=== PATIENT | female | born 1955 | race Caucasian/White ===

== ENCOUNTER 2018-05-08 06:21 | Emergency (ER) | payer MEDICARE, OTHER ==
[2018-05-08] MEDS ORDERED: ONDANSETRON 4 MG/2 ML VIAL ONE (06:30)
[2018-05-08] MEDS ORDERED: VECURONIUM 10 MG/VIAL IV ONE (06:30)
[2018-05-08] MEDS ORDERED: WATER FOR INJ,STERILE 10 ML ONE (06:30)
[2018-05-08] MEDS ORDERED: FUROSEMIDE 40 MG/4 ML VIAL ONE (06:39)
[2018-05-08] MEDS ORDERED: FUROSEMIDE 20 MG/ 2ML VIAL ONE (06:39)
[2018-05-08 07:13] LABS: Protime INR 0.93
[2018-05-08 07:38] LABS: Albumin 2.9 g/dL (3.4-5.0); Bilirubin Direct 0.1 mg/dL (0-0.2); Bilirubin Total 0.4 mg/dL (0.2-1.0); Magnesium 1.5 mg/dL (1.8-2.4); Protein, Total 6.6 g/dL (6.4-8.2)
[2018-05-08 07:40] LABS: Absolute Lymphocytes (CBC) 0.9 K/uL (0.7-4.9); Absolute Neutrophil 11.5 K/uL (1.8-8.0); Basophils % 0.4 % (0-1.3); Eosinophils % 0.4 % (0-4.4); Hematocrit 37.4 % (36.0-45.0); Lymphocytes % 6.7 % (15.3-44.8); MCH 29.6 pg (27.0-35.0); MCV 88.6 fL (80-100); MPV 10.4 fL (7.6-11.3); Monocytes % 7.5 % (3.3-12.3); RBC Red Blood Cell Count 4.22 M/uL (3.86-4.86)
[2018-05-08] MEDS ORDERED: ASPIRIN 600 MG/SUPP PR ONE (08:00)
[2018-05-08] MEDS ORDERED: INSULIN -REGULAR HUMAN 50 UNIT/0.5 ML ML ONE (08:01)
[2018-05-08] MEDS ORDERED: FENTANYL CITR 100 MCG/2 ML ONE ×2 (08:02→10:19)
[2018-05-08] MEDS ORDERED: CEFTRIAXONE/SWI 1gm 1 GM/10 ML SYR ONE (08:02)
[2018-05-08] MEDS ORDERED: Magnesium Sulfate 2gm IVPB 2 G/50 ML BAG IV ONE (08:02)
[2018-05-08] MEDS ORDERED: ENOXAPARIN 100 MG/ML SYR SQ ONE (08:02)
[2018-05-08] MEDS ORDERED: ENOXAPARIN 60 MG/0.6 ML SQ ONE (08:03)
[2018-05-08] MEDS ORDERED: MIDAZOLAM HCL 2 MG/2 ML INJ ONE ×2 (08:06→10:19)
[2018-05-08] MEDS ORDERED: AZITHROMYCIN 500 MG/250 ML BAG ONE (08:07)
--- NOTE | 2018-05-08 08:30 | EDPHYS ---
Physician Documentation [facility] Name: Jyoti Pringle Age: 62 yrs Sex: Female : 1955 Arrival Date: 05/08/2018 Time: 06:27 Bed 4 Private MD: ED Physician Bello Lewis HPI: 05/08 07:01 This 62 yrs old Female presents to ER via EMS with complaints of Respiratory jr8 Distress. 07:01 The patient has shortness of breath at rest. Onset: The symptoms/episode began/occurred jr8 acutely, today. Duration: The symptoms are continuous. The patient's shortness of breath has no apparent modifying factors. Severity of symptoms: At their worst the symptoms were severe in the emergency department the symptoms have improved. It is unknown whether or not the patient has had similar symptoms in the past. It is unknown whether or not the patient has recently seen a physician. Patient brought in by EMS for severe acute respiratory distress. Stated that patient was hypoxic and cyanotic on scene. Had tried CPAP and could only obtain a saturation of 85% on that. Patient continued to be in distress. Patient had RSI in field. Patient came in intubated with appropriate oxygen saturation. Frothy sputum present in ET tube . Historical: - Allergies: 08:50 No Known Allergies; aa5 - Home Meds: 06:42 Unable to obtain [Active]; lp1 - PMHx: 06:42 CHF; diabetes; lp1 08:50 Myocardial infarction; aa5 - PSHx: 08:50 Heart stents; Carotid surgery; aa5 - Immunization history:: Adult Immunizations unknown. - Social history:: Smoking status: unknown. - Ebola Screening: : No symptoms or risks identified at this time. ROS: 07:54 Unable to obtain ROS due to patient is on ventilator. jr8 Exam: 07:54 Eyes: Periorbital structures: appear normal, Pupils: equal, round, and reactive to jr8 light and accomodation, Conjunctiva: normal, Lids and lashes: appear normal. 07:54 ENT: Mouth: Lips: moist, Oral mucosa: pink and intact, moist, Gums: pink, Tongue: is moist, Posterior pharynx: Airway: patent, ET tube in place, Uvula: midline, swelling, is not appreciated. 07:54 Neck: External neck: is normal, Trachea: is midline with no obvious abnormalities, ROM/movement: is normal, Lymph nodes: no appreciated lymphadenopathy. 07:54 Cardiovascular: Rate: normal, Rhythm: regular, Pulses: Pulses are 2+ in right radial artery and left radial artery. Heart sounds: normal, normal S1and S2, no S3 or S4, no murmur, no rub, no gallop, Edema: 3+ edema to level of left midcalf, left ankle, left foot, right midcalf, right ankle and right foot. 07:54 Respiratory: the patient does not display signs of respiratory distress, Respirations: mechanically ventilated , Breath sounds: rales, that are moderate, are heard diffusely. 07:54 Abdomen/GI: Inspection: obese Bowel sounds: active, Palpation: soft. 07:54 Skin: Appearance: Color: normal in color, pink, Temperature: normal temperature, Moisture: normal moisture. 07:54 Neuro: Orientation: unable to test, the patient is intubated, Mentation: unable to test, the patient is intubated, Memory: unable to test, the patient is intubated. 07:54 Head/Face: Normocephalic, atraumatic. jr8 Vital Signs: 06:42 BP 156 / 74; Pulse 92; Resp 23; Pulse Ox 94% on 90% FiO2 ETT vent; Weight 145.15 kg; lp1 07:00 BP 91 / 50; Pulse 73; Resp 16 A; Pulse Ox 93% on ETT vent; aa5 07:10 BP 140 / 62; Pulse 81; Resp 16 A; Temp 97.3(C); Pulse Ox 96% on ETT vent; aa5 07:20 BP 109 / 67; Pulse 74; Resp 16 S; Temp 98.2(C); Pulse Ox 96% on ETT vent; aa5 07:30 BP 124 / 62; Pulse 74; Resp 16 A; Temp 98.5(C); Pulse Ox 96% on ETT vent; aa5 07:40 BP 158 / 72; Pulse 87; Resp 16 A; Pulse Ox 97% on ETT vent; aa5 07:50 BP 104 / 55; Pulse 74; Resp 16 A; Temp 98.4(C); Pulse Ox 98% on ETT vent; aa5 08:10 BP 92 / 51; Pulse 68; Resp 16 A; Temp 98.4(C); Pulse Ox 98% on ETT vent; aa5 08:30 BP 93 / 56; Pulse 65; Resp 16 A; Temp 98.3(C); Pulse Ox 100% on ETT vent; aa5 08:38 BP 88 / 44; Pulse 64; Resp 16 A; Temp 98.3(C); Pulse Ox 100% on ETT vent; aa5 08:48 BP 97 / 56; Pulse 68; Resp 16 A; Temp 98.1(C); Pulse Ox 100% on ETT vent; aa5 09:03 BP 108 / 62; Pulse 69; Resp 16 A; Temp 98.1(C); Pulse Ox 100% on ETT vent; aa5 09:23 BP 111 / 62; Pulse 69; Resp 16 A; Temp 98.2(C); Pulse Ox 100% on ETT vent; aa5 09:45 BP 119 / 68; Pulse 67; Resp 16 A; Temp 98.3(C); Pulse Ox 100% on ETT vent; aa5 10:00 BP 117 / 67; Pulse 73; Resp 16 A; Temp 98.2(C); Pulse Ox 100% on ETT vent; aa5 10:20 BP 126 / 65; Pulse 66; Resp 16 A; Temp 98.3(C); Pulse Ox 100% on ETT vent; aa5 08:38 PA notified of decreased BP aa5 Endy Coma Score: 07:54 Eye Response: none(1). Verbal Response: none(1). Motor Response: none(1). Modifying jr8 Factors: Intubated. Total: 3. Ventilator: 06:43 Fi02: 90%; Rate: 14min; T.V.: 600ml; Peep: 5cm; lp1 07:10 Fi02: 90%; Rate: 16min; T.V.: 600ml; Peep: 5cm; aa5 Procedures: 07:00 Central Line: the site was prepped with Betadine, in sterile fashion, a triple lumen jr8 catheter was inserted, in the right femoral vein, in 1 attempts. placement was verified, by blood return, the site was dressed with 4X4s, Tegaderm, foam tape, using sterile technique, the patient tolerated the procedure, well. MDM: 06:28 Patient medically screened. jr8 07:54 Data reviewed: vital signs, nurses notes, lab test result(s), EKG, radiologic studies, jr8 plain films. Data interpreted: Pulse oximetry: on ventilator is 96 %. Interpretation: acceptable. Counseling: I had a detailed discussion with the patient and/or guardian regarding: the historical points, exam findings, and any diagnostic results supporting the discharge/admit diagnosis, lab results, radiology results, the need to transfer to another facility, for higher level of care, [facility] does not immediately have the required specialist. 05/08 06:30 Order name: Basic Metabolic Panel; Complete Time: 07:42 05/08 06:30 Order name: CBC with Diff; Complete Time: 08:06 05/08 06:30 Order name: LFT's; Complete Time: 07:42 05/08 06:30 Order name: Magnesium; Complete Time: 07:42 05/08 06:30 Order name: NT PRO-BNP; Complete Time: 07:42 05/08 06:30 Order name: PT-INR; Complete Time: 07:42 05/08 06:30 Order name: Troponin (emerg Dept Use Only); Complete Time: 07:42 05/08 06:30 Order name: XRAY Chest (1 view) [facility] 05/08 06:30 Order name: ABG [facility] 05/08 06:57 Order name: Blood Culture Adult (2) 1 05/08 06:30 Order name: EKG; Complete Time: 06:31 05/08 06:30 Order name: Cardiac monitoring; Complete Time: 07:08 05/08 06:30 Order name: EKG - Nurse/Tech; Complete Time: 07:15 05/08 06:30 Order name: IV Saline Lock; Complete Time: 07:08 05/08 06:30 Order name: Labs collected and sent; Complete Time: 07:08 05/08 06:30 Order name: O2 Per Protocol; Complete Time: 07:08 05/08 06:30 Order name: O2 Sat Monitoring; Complete Time: 07:09 05/08 06:30 Order name: NG Tube; Complete Time: 06:40 05/08 06:30 Order name: Aragon; Complete Time: 07:14 Administered Medications: 06:33 Drug: VecuroNIUM 10 mg Route: IVP; Site: right hand; bb 07:00 Follow up: Response: No adverse reaction aa5 06:33 Drug: Zofran 4 mg Route: IVP; Site: right hand; bb 07:00 Follow up: Response: No adverse reaction aa5 06:40 Drug: Lasix 60 mg Route: IVP; Site: right hand; bb 07:00 Follow up: Response: No adverse reaction aa5 07:40 Drug: Versed 4 mg Route: IVP; Site: right femoral; aa5 07:45 Follow up: Response: No adverse reaction aa5 07:40 Drug: fentaNYL (PF) 75 mcg Route: IVP; Site: right femoral; aa5 07:45 Follow up: Response: No adverse reaction aa5 08:02 Drug: Insulin Regular Human 10 units {Co-Signature: jl7 (Tesha Ray RN).} Route: IVP; aa5 Site: right femoral; 09:21 Follow up: Response: No adverse reaction; Blood sugar is lowered aa5 08:03 Drug: Lovenox 1 mg/kg {Note: total of 120mg administered per PA VO. 60mg given to left aa5 lower abd and 60mg given to right lower abd .} Route: Sub-Q; Site: left lower abdomen; 09:20 Follow up: Response: No adverse reaction aa5 08:05 Drug: Aspirin Suppository 300 mg Route: FL; aa5 09:18 Follow up: Response: No adverse reaction aa5 08:07 Drug: Rocephin 1 grams Route: IV; Rate: calculated rate; Site: right femoral; aa5 08:20 Follow up: Response: No adverse reaction aa5 08:10 Drug: Zithromax 500 mg Route: IVPB; Infused Over: 1 hrs; Site: right femoral; aa5 09:11 Follow up: Response: No adverse reaction; IV Status: Completed infusion aa5 08:12 Drug: Magnesium Sulfate 2 grams Route: IVPB; Infused Over: 2 hrs; Site: right femoral; aa5 08:39 Drug: NS 0.9% 250 ml Route: IV; Rate: bolus; Site: right femoral; aa5 09:00 Follow up: IV Status: Completed infusion aa5 10:27 Drug: fentaNYL (PF) 75 mcg Route: IVP; Site: right femoral; aa5 10:30 Follow up: Response: No adverse reaction; Patient is sedated aa5 10:27 Drug: Versed 2 mg Route: IVP; Site: right femoral; aa5 10:30 Follow up: Response: No adverse reaction; Patient is sedated aa5 Point of Care Testing: Blood Glucose: 07:57 Blood Glucose: 369 mg/dL; jb1 09:14 Blood Glucose: 342 mg/dL; aa5 Ranges: Critical Glucose Levels:Adult <50 mg/dl or >400 mg/dl <40 mg/dl or >180 mg/dl Disposition: 05/09 02:59 Co-signature as Attending Physician, Bello Lewis MD. rn Disposition: 05/08/18 08:[address] [facility]. Diagnosis are Abnormal electrocardiogram [ECG] [EKG], Acute respiratory failure with hypoxia, Acute combined systolic (congestive) and diastolic (congestive) heart failure, Pneumonia due to other specified bacteria. - Reason for transfer: Higher level of care. - Accepting physician is [facility]. - Condition is Fair. - Problem is new. - Symptoms have improved. Signatures: Dispatcher [employer] EDMS Татьяна Lobo RN RN Bello Simmons MD MD rn Calderon, Audri, RN RN Tamanna Mae RN RN luis1 Maicol Cantu PA PA jr8 Tesha Ray RN jl7 Corrections: (The following items were deleted from the chart) 05/08 08:28 07:54 Counseling: I had a detailed discussion with the patient and/or guardian dewey regarding: the historical points, exam findings, and any diagnostic results supporting the discharge/admit diagnosis, lab results, radiology results, the need for further work-up and treatment in the hospital, jr8 09:10 06:42 Allergies: Unable to obtain; lp1 kira5 09:10 06:42 PSHx: Unable to obtain; lp1 kira5 10:34 06:30 Urine Dipstick-Ancillary ordered. jr8 aa5 10:35 08:29 05/08/2018 08:[address] [facility]. Diagnosis is aa5 Abnormal electrocardiogram [ECG] [EKG]; Acute respiratory failure with hypoxia; Acute combined systolic (congestive) and diastolic (congestive) heart failure; Pneumonia due to other specified bacteria. Reason for transfer: Higher level of care. Accepting physician is RHONDA Dias Alexandra. Condition is Fair. Problem is new. Symptoms have improved. jr8
--- NOTE | 2018-05-08 08:30 | ER ---
Nurse's Notes [facility] Name: Jyoti Pringle Age: 62 yrs Sex: Female : 1955 Arrival Date: 05/08/2018 Time: 06:27 Bed 4 Private MD: Diagnosis: Abnormal electrocardiogram [ECG] [EKG];Acute respiratory failure with hypoxia;Acute combined systolic (congestive) and diastolic (congestive) heart failure;Pneumonia due to other specified bacteria Presentation: 05/08 06:36 Presenting complaint: EMS states: On arrival, patient was short of breath, lethargic, lp1 wet lung sounds, cyanotic around lips, 78% on RA; Attempted CPAP with no relief, patient continued labored breathing, 85% O2; Patient intubated with 8.0 ET tube, 98% O2, 22 at the teeth; Hx of CHF. Transition of care: patient was not received from another setting of care. Onset of symptoms was May 08, 2018 at 04:00. Risk Assessment: Do you want to hurt yourself or someone else? Patient reports no desire to harm self or others. Initial Sepsis Screen: Does the patient meet any 2 criteria? No. Patient's initial sepsis screen is negative. Does the patient have a suspected source of infection? No. Patient's initial sepsis screen is negative. Care prior to arrival: Medication(s) given: Ketamine 200 mg IV, Succs 100 mg IV IV initiated. 22 GA, in the right hand, Glucose check: 375. 06:36 Method Of Arrival: [facility]: [facility] lp1 06:36 Acuity: MARIA ALEJANDRA 2 lp1 Historical: - Allergies: 08:50 No Known Allergies; aa5 - Home Meds: 06:42 Unable to obtain [Active]; lp1 - PMHx: 06:42 CHF; diabetes; lp1 08:50 Myocardial infarction; aa5 - PSHx: 08:50 Heart stents; Carotid surgery; aa5 - Immunization history:: Adult Immunizations unknown. - Social history:: Smoking status: unknown. - Ebola Screening: : No symptoms or risks identified at this time. Screenin:44 Abuse screen: Denies threats or abuse. Denies injuries from another. Nutritional lp1 screening: No deficits noted. Tuberculosis screening: No symptoms or risk factors identified. Fall Risk Total Trevino Fall Scale indicates High Risk Score (45 or more points). Fall prevention measures have been instituted. Side Rails Up X 2 Placed Close to Nursing Station Frequent Obs/Assessments Occuring. Assessment: 06:45 General: Appears distressed, Behavior is unresponsive. Pain: Unable to use pain scale. lp1 Patient is unresponsive. Neuro: Level of Consciousness is unresponsive. Cardiovascular: Capillary refill < 3 seconds in bilateral fingers toes Edema pitting to left foot, left toes, right foot and right toes. Respiratory: Airway via oral intubation Trachea midline Respiratory effort is labored, Respiratory pattern is symmetrical, Breath sounds with rales Onset: The symptoms/episode began/occurred this morning, the patient has severe shortness of breath. GI: Abdomen is obese. : No deficits noted. EENT: No deficits noted. Derm: Skin is intact, Skin is dry, Skin is pale. Musculoskeletal: Range of motion: intact in all extremities. 07:10 Pain: Unable to use pain scale. Patient is intubated. Neuro: Level of Consciousness is aa5 intubated . Oriented to none, pt unable to follow commands. Pupils are round and reactive to light measuring 4 mm in size . Cardiovascular: Heart tones S1 S2 present Edema to feet noted Rhythm is sinus rhythm. Respiratory: Airway via oral intubation Respiratory pattern is regular, symmetrical, Breath sounds with crackles bilaterally. GI: Abdomen is obese, NG tube to low intermittent suction, bile noted. Bowel sounds present X 4 quads. : Aragon in place to gravity drainage No urine output noted Genitalia appear normal. Derm: Skin is intact, Skin is pink, warm \T\ dry. Musculoskeletal: Range of motion: intact in all extremities. 07:20 Reassessment: Fentanyl and Versed on hold per PA . aa5 07:30 Reassessment: Pt cleaned of vomit, warehouse supervisor 3rd shift reported pt vomited, food content noted. aa5 Clean gown applied and bed linen changed. . 07:40 Reassessment: Pt opening eyes and moving hands. Fentanyl and Versed administered per PA aa5 (see MAR). 08:00 Reassessment: Pt sedated, intubated, respirations even and symmetrical and assisted by aa5 ventilator. Skin is pink/warm/dry. NSR on monitor . 08:40 Reassessment: Pt's son at bedside, PA speaking to pt's son about need for transfer . aa5 08:45 Reassessment: SHANELL Milian speaking to pt's family and sister about need for transfer, pt's aa5 family requesting transfer to [facility]. Transfer to [facility] will be attempted by PA . 08:58 Reassessment: one necklace and 2 stud earrings that are all silver in color given to aa5 pt's sister, witnessed by VINAY Parkinson. 08:58 Reassessment: VINAY Murray gave one necklace and 2 stud earrings that are all silver in jl7 color to pt's sister. 09:00 Reassessment: Pt orally intubated, sedated, respirations even and symmetrical. NSR on aa5 monitor. Skin is pink/warm/dry. Pt's family at bedside . 10:00 Reassessment: Pt orally intubated, sedated, even and symmetrical respirations, skin is aa5 pink/warm/dry. 10:26 Reassessment: Pt opening eyes and moving hands, PA notified, order for versed and aa5 Fentanyl (see MAR). 10:30 Reassessment: Pt sedated, orally intubated, respirations even and symmetrical . aa5 Vital Signs: 06:42 BP 156 / 74; Pulse 92; Resp 23; Pulse Ox 94% on 90% FiO2 ETT vent; Weight 145.15 kg; lp1 07:00 BP 91 / 50; Pulse 73; Resp 16 A; Pulse Ox 93% on ETT vent; aa5 07:10 BP 140 / 62; Pulse 81; Resp 16 A; Temp 97.3(C); Pulse Ox 96% on ETT vent; aa5 07:20 BP 109 / 67; Pulse 74; Resp 16 S; Temp 98.2(C); Pulse Ox 96% on ETT vent; aa5 07:30 BP 124 / 62; Pulse 74; Resp 16 A; Temp 98.5(C); Pulse Ox 96% on ETT vent; aa5 07:40 BP 158 / 72; Pulse 87; Resp 16 A; Pulse Ox 97% on ETT vent; aa5 07:50 BP 104 / 55; Pulse 74; Resp 16 A; Temp 98.4(C); Pulse Ox 98% on ETT vent; aa5 08:10 BP 92 / 51; Pulse 68; Resp 16 A; Temp 98.4(C); Pulse Ox 98% on ETT vent; aa5 08:30 BP 93 / 56; Pulse 65; Resp 16 A; Temp 98.3(C); Pulse Ox 100% on ETT vent; aa5 08:38 BP 88 / 44; Pulse 64; Resp 16 A; Temp 98.3(C); Pulse Ox 100% on ETT vent; aa5 08:48 BP 97 / 56; Pulse 68; Resp 16 A; Temp 98.1(C); Pulse Ox 100% on ETT vent; aa5 09:03 BP 108 / 62; Pulse 69; Resp 16 A; Temp 98.1(C); Pulse Ox 100% on ETT vent; aa5 09:23 BP 111 / 62; Pulse 69; Resp 16 A; Temp 98.2(C); Pulse Ox 100% on ETT vent; aa5 09:45 BP 119 / 68; Pulse 67; Resp 16 A; Temp 98.3(C); Pulse Ox 100% on ETT vent; aa5 10:00 BP 117 / 67; Pulse 73; Resp 16 A; Temp 98.2(C); Pulse Ox 100% on ETT vent; aa5 10:20 BP 126 / 65; Pulse 66; Resp 16 A; Temp 98.3(C); Pulse Ox 100% on ETT vent; aa5 08:38 PA notified of decreased BP aa5 Endy Coma Score: 07:54 Eye Response: none(1). Verbal Response: none(1). Motor Response: none(1). Modifying jr8 Factors: Intubated. Total: 3. ED Course: 06:27 Patient arrived in ED. ds1 06:28 Maicol Cantu PA is PHCP. jr8 06:28 Bello Lewis MD is Attending Physician. jr8 06:34 XRAY Chest (1 view) In Process Unspecified. EDMS 06:40 NGT: inserted 16 Fr. other Oral verified placement of air over stomach, verified return lp1 of gastric contents, to intermittent suction. Returned gastric contents. 06:41 Triage completed. lp1 06:41 Arm band placed on left wrist. lp1 06:43 Patient has correct armband on for positive identification. Placed in gown. Bed in low lp1 position. Side rails up X2. application processor on. Pulse ox on. NIBP on. 06:44 Assisted provider with intubation using 8.0 mm ETT via oral route. ET tube secured at lp1 23cm at the teeth. Placement verified by CXR, CO2 detector w/ + color change, auscultating bilateral breath sounds, Performed by EMS, verified by provider. 06:46 Maintain EMS IV. Dressing intact. Site clean \T\ dry. Gauge \T\ site: 22 g R hand. lp 1 06:50 X-ray completed. Portable x-ray completed in exam room. kp1 06:54 Assisted provider with central line placement. Set up central line tray. Triple lumen lp1 line placed in right femoral. Line placed by Maicol REECE Placement verified by blood return, Dressed with Tegaderm, Blood was collected. 07:05 Tamanna Stevens, RN is Primary Nurse. lp1 07:10 Speci-cath kit inserted, using sterile technique, 16 Fr.. jd3 08:25 Initial contact for transfer to [facility] with Marisol. mb4 08:32 2nd phone call with Marisol and Dr. Mcmahon, immigration officer, from [facility] regarding 4 coordination of care. 09:01 Initial contact for transfer to [facility], per family request, with Joan. mb4 09:33 Patient accepted at [facility] by Shaun Hernandez at 0833 and by administration at [phone]. [facility] declined patient at 0930. 10:25 Patient transferred, IV remains in place. aa5 Administered Medications: 06:33 Drug: VecuroNIUM 10 mg Route: IVP; Site: right hand; bb 07:00 Follow up: Response: No adverse reaction aa5 06:33 Drug: Zofran 4 mg Route: IVP; Site: right hand; bb 07:00 Follow up: Response: No adverse reaction aa5 06:40 Drug: Lasix 60 mg Route: IVP; Site: right hand; bb 07:00 Follow up: Response: No adverse reaction aa5 07:40 Drug: Versed 4 mg Route: IVP; Site: right femoral; aa5 07:45 Follow up: Response: No adverse reaction aa5 07:40 Drug: fentaNYL (PF) 75 mcg Route: IVP; Site: right femoral; aa5 07:45 Follow up: Response: No adverse reaction aa5 08:02 Drug: Insulin Regular Human 10 units {Co-Signature: jl7 (Tesha Ray RN).} Route: IVP; aa5 Site: right femoral; 09:21 Follow up: Response: No adverse reaction; Blood sugar is lowered aa5 08:03 Drug: Lovenox 1 mg/kg {Note: total of 120mg administered per PA VO. 60mg given to left aa5 lower abd and 60mg given to right lower abd .} Route: Sub-Q; Site: left lower abdomen; 09:20 Follow up: Response: No adverse reaction aa5 08:05 Drug: Aspirin Suppository 300 mg Route: MD; aa5 09:18 Follow up: Response: No adverse reaction aa5 08:07 Drug: Rocephin 1 grams Route: IV; Rate: calculated rate; Site: right femoral; aa5 08:20 Follow up: Response: No adverse reaction aa5 08:10 Drug: Zithromax 500 mg Route: IVPB; Infused Over: 1 hrs; Site: right femoral; aa5 09:11 Follow up: Response: No adverse reaction; IV Status: Completed infusion aa5 08:12 Drug: Magnesium Sulfate 2 grams Route: IVPB; Infused Over: 2 hrs; Site: right femoral; aa5 08:39 Drug: NS 0.9% 250 ml Route: IV; Rate: bolus; Site: right femoral; aa5 09:00 Follow up: IV Status: Completed infusion aa5 10:27 Drug: fentaNYL (PF) 75 mcg Route: IVP; Site: right femoral; aa5 10:30 Follow up: Response: No adverse reaction; Patient is sedated aa5 10:27 Drug: Versed 2 mg Route: IVP; Site: right femoral; aa5 10:30 Follow up: Response: No adverse reaction; Patient is sedated aa5 Point of Care Testing: Blood Glucose: 07:57 Blood Glucose: 369 mg/dL; jb1 09:14 Blood Glucose: 342 mg/dL; aa5 Ranges: Ventilator: 06:43 Fi02: 90%; Rate: 14min; T.V.: 600ml; Peep: 5cm; lp1 07:10 Fi02: 90%; Rate: 16min; T.V.: 600ml; Peep: 5cm; aa5 Outcome: 08:29 ER care complete, transfer ordered by MD. palomo 10:25 Transferred by ground EMS to [facility], [facility], Transfer form completed. aa5 X-rays sent w/ patient. Note: Report given to [facility] 10:25 Condition: stable 10:25 Discharge instructions given to family, Instructed on the need for transfer, Demonstrated understanding of instructions. 10:35 Patient left the ED. aa5 Signatures: Dispatcher [employer] EDMS Vik Arthur jb1 Amanda Trujillo ds1 Татьяна Lobo, RN RN bb Terri Blevins RN RN aa5 Tamanna Stevens RN RN lp1 Maicol Cantu PA PA jr8 Tesha Ray, RN RN jl7 Jyotsna Martin kp1 Kavon Mcwilliams RN RN jd3 Reshma Bustos mb4 Tesha Ray RN jl7 Corrections: (The following items were deleted from the chart) 06:58 06:42 BP 156 / 74; Pulse 92bpm; Resp 23bpm; Pulse Ox 94% FiO2 90% vent; lp1 lp1 08:33 08:25 Transfer to [facility] initiated mb4 mb4 09:06 08:58 Reassessment: once necklace and 2 stud earrings that are all silver in color aa5 given to pt's sister, witnessed by VINAY Parkinson. aa5 09:10 06:42 Allergies: Unable to obtain; lp1 aa5 09:10 06:42 PSHx: Unable to obtain; lp1 aa5
[2018-05-08] MEDS ORDERED: NA CHLORIDE 0.9% 250 ML ONE (08:41)
--- NOTE | 2018-05-08 11:21 | RAD REPORT ---
EXAM DESCRIPTION: RAD - Chest Single View - 05/08/2018 6:34 am CLINICAL HISTORY: DYSPNEA Chest pain. COMPARISON: No comparisons FINDINGS: Portable technique limits examination quality. Extensive opacification of the right lung is present probably representing pneumonia. Tip of the ET t ube is above the maribel. The heart is mildly prominent. No displaced fractures.
[2018-05-09 05:00] LABS: Arterial Blood Carboxyhemoglob 1.1 % (0-1.5); Blood Gas Oxyhemoglobin 89.2 % (94-97); Blood O2 Saturation 91.2 % (92-98.5)
--- NOTE | 2018-05-09 10:44 | EKG ---
Test Date: 2018-05-08 Test Time: 06:35:49 Biogeographer: RAÚL MEASUREMENT RESULTS: Intervals: Rate: 85 AK: 176 QRSD: 100 QT: 424 QTc: 504 [place]: P: 74 AK: 176 QRS: -57 T: 131 INTERPRETIVE STATEMENTS: Normal sinus rhythm Pulmonary disease pattern Left anterior fascicular block Marked ST abnormality, possible inferolateral subendocardial injury Prolonged QT Abnormal ECG No previous ECG available for comparison Electronically Signed On 05-09-18 10:43:36 CDT by Lester Galvan
== END 2018-05-08 10:35 | disposition short-term general hospital (02) ==
LOC: ER 06:21
PROC: 06HM33Z Insertion of Infusion Device into Right Femoral Vein, Percutaneous Approach (ICD-10-PCS; principal; 2018-05-08)
PROC: 5A1935Z Respiratory Ventilation, Less than 24 Consecutive Hours (ICD-10-PCS; 2018-05-08)
PROC: 0BH17EZ Insertion of Endotracheal Airway into Trachea, Via Natural or Artificial Opening (ICD-10-PCS; 2018-05-08)
DX: J96.01 Acute respiratory failure with hypoxia (principal); I50.41 Acute combined systolic (congestive) and diastolic (congestive) heart failure; J15.8 Pneumonia due to other specified bacteria; R94.31 Abnormal electrocardiogram [ECG] [EKG]
CPT/HCPCS: 31500 ×2; 36415; 36556; 71045; 80048; 80076; 82805; 82962 ×2; 83735; 83880; 84484; 85025; 85610; 87040 ×2; 93005; 94002; 96372; 99291; 99292; J0456; J0696; J1650 ×2; J1940; J2250 ×2; J2405; J3010 ×2; J3475; 96361; 96365; 96375

== ENCOUNTER 2018-06-10 18:49 | Emergency (ER) | payer MEDICARE, OTHER ==
--- OUTSIDE RECORDS SUMMARY | 2018-06-10 18:51 | XMS REPORT | Clinical Summary ---
:1955 Author Organization [facility] Address [address] [place] [address] Phone Care Team Providers Name Role Phone Unavailable Primary Care Provider Unavailable Allergies Active Allergy Reactions Severity Noted Date Comments Perflutren Lipid Other (See Comments) Low 05/08/2018 Patient states "Back Microspheres Pain" on two separate occasions with Definity Current Medications Prescription Sig. Disp. Refills Start End Date Status Date atorvastatin Take 80 mg by mouth Active (LIPITOR) 80 MG daily. tablet clopidogrel Take 75 mg by mouth Active (PLAVIX) 75 mg daily. tablet PARoxetine Take 40 mg by mouth Active (PAXIL) 40 MG every morning. tablet pantoprazole Take 40 mg by mouth Active (PROTONIX) 40 MG daily. tablet aspirin 81 MG EC Take 81 mg by mouth Active tablet daily . insulin lispro Inject 12 Units 9 mL 1 Active (HUMALOG) 100 subcutaneously 3 8 unit/mL InPn (three) times daily with meals. amiodarone Take 1 tablet (200 60 tablet 11 05/24/20 Active (PACERONE) 200 MG mg total) by mouth 8 19 tablet 2 (two) times daily. bumetanide Take 1 tablet (1 mg 60 tablet 11 05/24/20 Active (BUMEX) 1 MG total) by mouth 2 8 19 tablet (two) times daily. metoprolol Take 1 tablet (50 30 tablet 11 05/25/20 Active (TOPROL-XL) 50 MG mg total) by mouth 8 19 24 hr tablet daily. docusate sodium Take 1 capsule (100 60 capsule 0 06/30/20 Active (COLACE) 100 MG mg total) by mouth 8 18 capsule 2 (two) times daily for 30 days. insulin glargine Inject 30 units 12 mL 0 Active (BASAGLAR KWIKPEN every morning and 8 U-100 INSULIN) 23 units at 100 unit/mL (3 bedtime.. mL) InPn ferrous sulfate Take 1 tablet (325 90 tablet 0 08/29/20 Active 325 (65 FE) MG mg total) by mouth 8 18 tablet daily with breakfast for 90 days. magnesium oxide Take 1 tablet (400 60 tablet 0 06/30/20 Active (MAG-OX) 400 mg mg total) by mouth 8 18 tablet 2 (two) times daily for 30 days. isosorbide Take 30 mg by mouth 05/24/20 Discontinued mononitrate daily. 18 (IMDUR) 30 MG 24 hr tablet lisinopril Take 5 mg by mouth 05/24/20 Discontinued (PRINIVIL,ZESTRIL daily. 18 ) 5 MG tablet furosemide Take 80 mg by mouth 05/24/20 Discontinued (LASIX) 40 MG daily. 18 tablet metoprolol Take 100 mg by 05/24/20 Discontinued (LOPRESSOR) 100 mouth daily. 18 MG tablet promethazine Take 25 mg by mouth 05/24/20 Discontinued (PHENERGAN) 25 MG as needed for 18 tablet Nausea. insulin aspart Inject 22 Units 05/24/20 Discontinued U-100 (NOVOLOG subcutaneously 18 FLEXPEN U-100 daily. INSULIN) 100 unit/mL InPn insulin regular Inject 10 Units 05/24/20 Discontinued (HUMULIN subcutaneously 18 R,NOVOLIN R) 100 daily Use as unit/mL injection directed . insulin glargine Inject 30 units 12 mL 1 05/31/20 Discontinued (BASAGLAR KWIKPEN every morning and 8 18 U-100 INSULIN) 20 units at 100 unit/mL (3 bedtime.. mL) InPn polyethylene Take 17 g by mouth 14 each 0 05/28/20 glycol (GLYCOLAX) daily for 3 days. 8 18 17 gram packet temazepam Take 1 capsule (15 30 capsule 0 05/31/20 Discontinued (RESTORIL) 15 mg mg total) by mouth 8 18 capsule every night as needed for up to 30 days. Max Daily Amount: 15 mg traMADol (ULTRAM) Take 1 tablet (50 30 tablet 0 06/03/20 50 mg tablet mg total) by mouth 8 18 every 6 (six) hours as needed for up to 10 days. Max Daily Amount: 200 mg mupirocin Apply topically 2 22 g 0 06/07/20 (BACTROBAN) 2 % (two) times daily 8 18 ointment for 7 days. polyethylene Take 17 g by mouth 255 g 0 06/03/20 glycol (GLYCOLAX) daily for 3 days. 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 (HCC) Overview: S/p CABG- 05/13/18 NICOLE-LAD, Lt Basilic Graft to OM RCA- not bypassed NSTEMI (non-ST elevated myocardial infarction) ([facility]) 05/08/2018 Chronic diastolic heart failure ([facility]) 05/08/2018 Ischemic dilated cardiomyopathy ([facility]) 05/08/2018 HADRY (obstructive sleep apnea) 09/07/2016 Dyslipidemia 02/22/2016 Morbid obesity ([facility]) 02/09/2015 Diabetic neuropathy ([facility]) 02/11/2014 Thrombocytopenia ([facility]) Resolved Problems Problem Noted Date Resolved Date Acute respiratory failure with hypoxemia ([facility]) 05/31/2018 Acute respiratory insufficiency 05/31/2018 Postoperative anemia due to acute blood loss 05/31/2018 Hyperglycemia 05/31/2018 Encounters Date Type Specialty Care Team Description 06/09/2018 Office Visit Cardiology Maryjane Garcia MD 05/31/2018 Office Visit Cardiology Ruthie Luna NP Other constipation (Primary Dx);Acute on chronic diastolic (congestive) heart failure (HCC) 05/13/2018 Anesthesia Event Sadiq Matute AA 05/13/2018 Procedure Pass 05/13/2018 Surgery Maryjane Garcia BYPASS,AORTO CORONARY MD Trisha MAISHA/SVG 05/10/2018 Anesthesia Event Osito Lo MD 05/08/2018 - Hospital Encounter Cardiology Jessica Chaevz Acute on chronic 05/24/2018 MD Jeremy combined systolic and Osito Lo diastolic congestive MD heart failure, NYHA Maryjane Garcia class 4 (HCC) MD Trisha (Primary Dx);NSTEMI Asa Bal (non-ST elevated MD Jose myocardial infarction) (HCC);Ischemic dilated cardiomyopathy (HCC);Acute respiratory failure with hypoxemia (HCC);Acute respiratory insufficiency;Atheros clerosis of [place] coronary artery of [place] heart with unstable angina pectoris (HCC) 05/08/2018 Orders Only General Internal Medicine 05/08/2018 Procedure Pass 05/08/2018 Surgery Malinda Mcmahon & ZEB Veronica MD after 06/09/2017 Social History Tobacco Use Types Packs/Day Years Used Date Former Smoker Cigarettes 1 15 Quit: 02/15/1996 Smokeless Tobacco: Never Used Alcohol Use Drinks/Week oz/Week Comments No Sex Assigned at Date Recorded Not on file Last Filed Vital Signs Vital Sign Reading Time Taken Blood Pressure 141/68 06/09/2018 9:29 AM CDT Pulse 77 06/09/2018 9:29 AM CDT Temperature 36.3 C (97.3 F) 06/09/2018 9:29 AM CDT Respiratory Rate 14 06/09/2018 9:29 AM CDT Oxygen Saturation 96% 06/09/2018 9:29 AM CDT Inhaled Oxygen Concentration - - Weight 118.4 kg (261 lb) 06/09/2018 9:29 AM CDT Height 167.6 cm (5' 6") 06/09/2018 9:29 AM CDT Body Mass Index 42.13 06/09/2018 9:29 AM CDT Plan of Treatment Health Maintenance Due Date Last Done Comments INFLUENZA VACCINE 07/05/2018 Implants Implanted Type Area Front End Application Developer Device Expiration Model / Identifier Date Serial / Lot Sternal Zipfix Ndl Strl .[id number] - Sx Cardiovascular Sternum SYNTHES: SYNTHES 08/04/[id number] / Implanted: Qty: 2 on 05/13/2018 by Maryjane Garcia MD [facility] X / [id number] Procedures Procedure Name Priority Date/Time Associated Diagnosis Comments ENDOSCOPIC HARVEST,VEIN 05/13/2018 12:30 PM Acute on chronic CDT systolic congestive heart failure (HCC) MITALI 05/13/2018 12:30 PM Acute on chronic CDT systolic congestive heart failure (HCC) BYPASS,AORTO CORONARY 05/13/2018 12:30 PM Acute on chronic MAISHA/SVG CDT systolic congestive heart failure (HCC) R CATH 05/08/2018 3:15 PM Other congestive heart CDT failure (HCC) L CATH & PCI 05/08/2018 3:15 PM Other congestive heart CDT failure (HCC) after 06/09/2017 Results B N P (05/31/2018 1:59 PM)Only the most recent of3 resultswithin the time period is included. Component Value Ref Range BNP 793 (H) 0 - 100 pg/mL Specimen Performing Laboratory Blood [address] [address] Magnesium (05/31/2018 1:59 PM)Only the most recent of33 resultswithin the time period is included. Component Value Ref Range Magnesium 1.4 (L) 1.6 - 2.6 mg/dL Specimen Performing Laboratory Blood [address] [address] Basic Metabolic Panel (05/31/2018 1:59 PM)Only the most recent of18 resultswithin the time period is included. Component Value Ref Range Sodium 137 136 - 145 meq/L Potassium 3.8 3.5 - 5.1 meq/L Chloride 100 98 - 107 meq/L CO2 29 22 - 29 meq/L BUN 30 (H) 7 - 21 mg/dL Creatinine 1.50 (H) 0.57 - 1.25 mg/dL Glucose 215 (H) 70 - 105 mg/dL Calcium 9.6 8.4 - 10.2 mg/dL EGFR 35Comment: ESTIMATED GFR IS NOT ACCURATE mL/min/1.73 sq m CREATININE CLEARANCE IN PREDICTING GLOMERULAR FILTRATION RATE. ESTIMATED GFR IS NOT APPLICABLE FOR DIALYSIS PATIENTS. Specimen Performing Laboratory Blood [address] [address] EKG-SCANNED (05/26/2018 12:00 PM)CARDIAC CATH REPORT - SCAN (05/26/2018 12:00 PM )VASCULAR DIAGRAM -SCAN (05/26/2018 12:00 PM)RHYTHM STRIP - SCAN (05/26/2018 12: 00 PM)Only the most recent of2 resultswithin the time period is included.POC- Glucose meter (05/24/2018 4:09 PM)Only the most recent of118 resultswithin the time period is included. Component Value Ref Range POC-Glucose Meter 175 (H)Comment: TESTED AT [address] 70 - 110 mg/[place] [id number] Specimen Performing Laboratory Blood [address] [address] CBC with platelet count + automated diff (05/24/2018 6:21 AM)Only the most recent of18 resultswithin the time period is included. Component Value Ref Range WBC 5.6 3.5 - 10.5 K/L RBC 2.87 (L) 3.93 - 5.22 M/L Hemoglobin 8.4 (L) 11.2 - 15.7 GM/DL Hematocrit 26.9 (L) 34.1 - 44.9 % MCV 93.7 79.4 - 94.8 fL MCH 29.3 25.6 - 32.2 pg MCHC 31.2 (L) 32.2 - 35.5 GM/DL RDW 16.3 (H) 11.7 - 14.4 % Platelets 273 150 - 450 K/CU MM MPV 11.0 9.4 - 12.3 fL nRBC 0 0 - 0 /100 WBC % Neutros 65 % % Lymphs 17 % % Monos 9 % % Eos 3 % % Baso 0 % # Neutros 3.63 1.56 - 6.13 K/L # Lymphs 0.96 (L) 1.18 - 3.74 K/L # Monos 0.53 (H) 0.24 - 0.36 K/L # Eos 0.17 0.04 - 0.36 K/L # Baso 0.02 0.01 - 0.08 K/L Immature Granulocytes-Relative 5 (H) 0 - 1 % Specimen Performing Laboratory Blood - Arm, Right [address] [address] CBC with platelet count + automated diff (05/24/2018 6:21 AM)Only the most recent of18 resultswithin the time period is included. Specimen Performing Laboratory Blood Narrative The following orders were created for panel order CBC with platelet count + automated diff. Procedure Abnormality Status --------- ------ CBC with platelet count ...[[id number]]AbnormalFinal result Please view results for these tests on the individual orders. Manual Differential (05/23/2018 5:50 AM)Only the most recent of2 resultswithin the time period is included. Component Value Ref Range % Neutros 60 % % Lymphs 20 % % Monos 7 % % Eos 2 % % Baso 1 % % Metamyelo 2 (H) 0 - 0 % % Myelo 3 (H) 0 - 0 % % Bands 5 0 - 10 % # Neutros 3.96 1.56 - 6.13 K/ul # Lymphs 1.32 1.18 - 3.74 K/ul # Monos 0.46 (H) 0.24 - 0.36 K/uL # Eos 0.13 0.04 - 0.36 K/uL # Baso 0.07 0.01 - 0.08 K/uL # Metamyelo 0.13 (H) 0.00 - 0.00 K/uL # Myelo 0.20 (H) 0.00 - 0.00 K/uL # Bands 0.33 0.00 - 0.80 K/uL Total Counted 100 nRBC (manual) 1 (H) 0 - 0 /100 WBC WBC Morphology Normal Platelet Morphology Normal Polychromasia 1+ few Anisocytosis 1+ few Artifact Present Platelet Conc Adequate Specimen Performing Laboratory [place] [address] Narrative Received comment: User comments: Slide comments: Manual Differential (05/22/2018 5:09 AM) Component Value Ref Range % Neutros (manual) 67 % % Lymphs (manual) 22 % % Monos (manual) 4 % % Eos (manual) 4 % % Myelo (manual) 2 (H) 0 - 0 % % Bands (manual) 1 0 - 10 % # Neutros (manual) 5.70 1.80 - 8.00 K/L # Lymphs (manual) 1.87 1.48 - 4.50 K/L # Monos (manual) 0.34 0.00 - 1.30 K/L # Eos (manual) 0.34 0.00 - 0.50 K/L # Bands (manual) 0.1 0.0 - 0.8 K/L # Myelo (manual) 0.17 (H) 0.00 - 0.00 K/L Total Counted 100 Bands plus Segmented Neutrophils 5.78 nRBC (manual) 1 (H) 0 - 0 /100 WBC WBC Morphology Normal Platelet Morphology Normal RBC Morphology Normal Specimen Performing Laboratory Blood - Arm, Right [address] [address] T4, free (05/21/2018 6:11 AM) Component Value Ref Range Free T4 1.05 0.70 - 1.48 ng/dL Specimen Performing Laboratory Blood - Arm, Right [address] [address] TRANSFUSION SERVICE REPORT - SCAN (05/19/2018 6:00 PM)Only the most recent of5 resultswithin the time period is included.Prepare Leuko-Red RBC (05/18/2018 11: 54 PM) Component Value Ref Range CROSSMATCH COMPATIBLE Unit ABO O Pos UNIT NUMBER [id number] Status TRANSFUSED Blood Bank Product RED BLOOD CELLS PRODUCT CODE [id number] Specimen Performing Laboratory Other [place] EKG 12 lead (05/18/2018 11:06 PM)Only the most recent of3 resultswithin the time period is included. Specimen Performing Laboratory GE MUSE Narrative Ventricular Rate 126 BPM Atrial Rate 115 BPM QRS Duration 104 ms Q-T Interval 350 ms QTC Calculation(Bazett) 506 ms R [place]ays[place] -36 degrees T Bayside 132 degrees Atrial fibrillation with rapid ventricular response Left axis deviation Marked ST abnormality, possible lateral subendocardial injury Abnormal ECG When compared with ECG of 09-MAY-2018 09:04, Significant changes have occurred Confirmed by MD Dorman Roberto ([id number]) on 05/20/2018 10:58:13 AM Procedure Note Interface, External Ris In - 05/20/2018 10:58 AM CDT Ventricular Rate 126 BPM Atrial Rate 115 BPM QRS Duration 104 ms Q-T Interval 350 ms QTC Calculation(Bazett) 506 ms R Bayside -36 degrees T [place]ays[place] 132 degrees Atrial fibrillation with rapid ventricular response Left axis deviation Marked ST abnormality, possible lateral subendocardial injury Abnormal ECG When compared with ECG of 09-MAY-2018 09:04, Significant changes have occurred Confirmed by MD Dorman Roberto ([id number]) on 05/20/2018 10:58:13 AM ECHOCARDIOGRAM REPORT - SCAN (05/17/2018 6:20 PM)Only the most recent of2 resultswithin the time period is included.Transfuse Leuko-Red RBC (05/17/2018 3 :38 PM)Only the most recent of2 resultswithin the time period is included.2D Echo W/Doppler(CW/PW/Color) (05/17/2018 11:04 AM)Only the most recent of2 resultswithin the time period is included. Component Value Ref Range Ejection Fraction Specimen Performing Laboratory [facility] ECHO HEARTLAB MKCKESSON CPACS Narrative Transthoracic Echocardiography Report (TTE) Demographics Patient NameMercedes PRINGLE of Study05/17/2018 Female Visit [id number] Unknown Room [id number] Number Date of 1955ReferringAlexander Postalian PhysicianLI Adkins Age 62 year(s)Plant Engineer Amber Mooney [facility] Milling Operator Aida Prabhakar, Interpreting Jeremy Bhardwaj MD RDCSPhysician Procedure Type of Study TTE procedure:2DECHO W DOPPLER(CW/PW/COLOR) (Routine) Indications:Acute Chest Pain/ Suspected CAD. Clinical History Congestive Heart Failure Coronary Artery Disease Diabetes Hypertension HGB 7.4 HCT 23.2 % Contrast Medium: Definity. Amount - 2 ml Height: 65 inches Weight: 125.65 kg (277 lbs) BSA: 2.27 m^2 BMI: 46.09 kg/m^2 HR: 68 bpm BP: 117/55 mmHg Summary The left ventricle is chamber size (by vol index) is mildly enlarged (female - LVED 62-70ml/m2). Normal LV wall thickness. The following segment(s) appear hypokinetic: basal-mid inferior . Other LV segments contract normally . Global LV systolic function normal . LVEF by Peck's method of disk assessment is normal (55-60%) . Degree of diastolic dysfunction (LAP assessment) is inconclusive due to mitral annular calcification . The right ventricular chamber size and systolic function are within normal limits by available views. MV gradients are mildly increased in part due to mitral annular calcification . Estimated peak systolic PA pressure is 30-35 mmHg + RA pressure. Previous Study In comparison with the prior exam on 05/08/2018 there are no significant changes. Signature Findings Technical Quality: Technically difficult exam. Left Ventricle LV endocardium is adequately visualized with IV ultrasound enhancing agent. The left ventricle is chamber size (by vol index) is mildly enlarged (female - LVED 62-70ml/m2). Normal LV wall thickness. The following segment(s) appear hypokinetic: basal-mid inferior . Other LV segments contract normally . Global LV systolic function normal . LVEF by Peck's method of disk assessment is normal (55-60%) . The LVEF was measured using Peck's single plane method (apical 4 chamber) . Degree of diastolic dysfunction (LAP assessment) is inconclusive due to mitral annular calcification . Left AtriumLA size is moderately enlarged (42-48 ml/m2 ) . Right VentricleRV is partially visualized. The right ventricular chamber size and systolic function are within normal limits by available views. Right Atrium RA cavity size is normal . Aortic Valve Mild AoV cusp thickening. No evidence of aortic regurgitation. Mitral Valve Moderate mitral annular calcification. Trace mitral regurgitation. MV gradients are mildly increased in part due to mitral annular calcification . Tricuspid ValveTV structure is normal. Mild tricuspid regurgitation. Estimated peak systolic PA pressure is 30-35 mmHg + RA pressure. Pulmonic Valve PV is not well visualized; function appears normal by Doppler visualized. AortaAortic root size (SInus of Valsalva diameter) is normal . PericardiumNo pericardial effusion is visualized. IVC/SVC/PA/PV/PleuralThe estimated RA pressure by IVC dynamics indeterminate . The inferior vena cava is not visualized. Chambers/Structures Left Atrium LA Volume: 98.82 ml LA Area: 28.61 cm^ 2 LA Vol. Index: 44 ml/m^2 Left Ventricle LVIDd: 5.41 cm LVIDs: 3.65 cm LV Septum Diastolic: 1.13 cm LV PW Diastolic: 1.1 cm LV FS: 32.5 % LVEDV Peck's:141.9 ml LVESV Peck's:60.47 mlLVEDVI: 63 ml/ m^2 LVEF Peck's: 57.4 %LVESVI: 27 ml/m^2 LVOT Diameter: 2.1 cm Aorta Ao Root S of Olga Lidia.: 3.78 cm Doppler/Quantitative Measurements Mitral Valve MV Peak E-Wave: 1.48 m/s MV Peak A-Wave: 1.5 m/s E/A Ratio: 0.99 Mean Velocity: 0.8 m/s Peak Gradient: 8.82 mmHg Mean Gradient: 3.35 mmHg Area (continuity): 2.05 cm^2 MV VTI: 40.96 cm MV Rocky. Peak: 1.57 m/s Tissue Doppler E' Septal Velocity: 0.03 m/s E/E': 43.24 LVOT Peak Velocity: 1.25 m/s Peak Gradient: 6.29 mmHg Mean Velocity: 0.69 m/s Mean Gradient: 2.36 mmHg LVOT Diameter: 2.1 cm LVOT VTI: 24.23 cm LVOT Area: 3.46 cm^2LVOT SV:83.88 ml LVOT CO: 5.7 l/minLVOT CI: 2.51 l/min/m^2 Tricuspid Valve TR Velocity: 2.9 m/s TR Gradient: 33.62 mmHg Procedure Note Interface, External Ris In - 05/17/2018 5:34 PM CDT Transthoracic Echocardiography Report (TTE) Demographics Patient Name BRITTANI PRINGLE Date of Study 05/17/2018 Gender Female Visit Number [id number] Race Unknown Room Number 1146 Number Date of 1955 Referring [facility] Physician LI Adkins Age 62 year(s) Plant Engineer Amber Mooney [facility] Milling Operator Aida Prabhakar, Interpreting Jeremy Bhardwaj MD [facility] Physician Procedure Type of Study TTE procedure:2DECHO W DOPPLER(CW/PW/COLOR) (Routine) Indications:Acute Chest Pain/ Suspected CAD. Clinical History Congestive Heart Failure Coronary Artery Disease Diabetes Hypertension HGB 7.4 HCT 23.2 % Contrast Medium: Definity. Amount - 2 ml Height: 65 inches Weight: 125.65 kg (277 lbs) BSA: 2.27 m^2 BMI: 46.09 kg/m^2 HR: 68 bpm BP: 117/55 mmHg Summary The left ventricle is chamber size (by vol index) is mildly enlarged (female - LVED 62-70ml/m2). Normal LV wall thickness. The following segment(s) appear hypokinetic: basal-mid inferior . Other LV segments contract normally . Global LV systolic function normal . LVEF by Peck's method of disk assessment is normal (55-60%) . Degree of diastolic dysfunction (LAP assessment) is inconclusive due to mitral annular calcification . The right ventricular chamber size and systolic function are within normal limits by available views. MV gradients are mildly increased in part due to mitral annular calcification . Estimated peak systolic PA pressure is 30-35 mmHg + RA pressure. Previous Study In comparison with the prior exam on 05/08/2018 there are no significant changes. Signature Findings Technical Quality: Technically difficult exam. Left Ventricle LV endocardium is adequately visualized with IV ultrasound enhancing agent. The left ventricle is chamber size (by vol index) is mildly enlarged (female - LVED 62-70ml/m2). Normal LV wall thickness. The following segment(s) appear hypokinetic: basal-mid inferior . Other LV segments contract normally . Global LV systolic function normal . LVEF by Peck's method of disk assessment is normal (55-60%) . The LVEF was measured using Peck's single plane method (apical 4 chamber) . Degree of diastolic dysfunction (LAP assessment) is inconclusive due to mitral annular calcification . Left Atrium LA size is moderately enlarged (42-48 ml/m2) . Right Ventricle RV is partially visualized. The right ventricular chamber size and systolic function are within normal limits by available views. Right Atrium RA cavity size is normal . Aortic Valve Mild AoV cusp thickening. No evidence of aortic regurgitation. Mitral Valve Moderate mitral annular calcification. Trace mitral regurgitation. MV gradients are mildly increased in part due to mitral annular calcification . Tricuspid Valve TV structure is normal. Mild tricuspid regurgitation. Estimated peak systolic PA pressure is 30-35 mmHg + RA pressure. Pulmonic Valve PV is not well visualized; function appears normal by Doppler visualized. Aorta Aortic root size (SInus of Valsalva diameter) is normal . Pericardium No pericardial effusion is visualized. IVC/SVC/PA/PV/Pleural The estimated RA pressure by IVC dynamics indeterminate . The inferior vena cava is not visualized. Chambers/Structures Left Atrium LA Volume: 98.82 ml LA Area: 28.61 cm^2 LA Vol. Index: 44 ml/m^2 Left Ventricle LVIDd: 5.41 cm LVIDs: 3.65 cm LV Septum Diastolic: 1.13 cm LV PW Diastolic: 1.1 cm LV FS: 32.5 % LVEDV Peck's:141.9 ml LVESV Peck's:60.47 ml LVEDVI: 63 ml/m^2 LVEF Peck's: 57.4 % LVESVI: 27 ml/m^2 LVOT Diameter: 2.1 cm Aorta Ao Root S of Olga Lidia.: 3.78 cm Doppler/Quantitative Measurements Mitral Valve MV Peak E-Wave: 1.48 m/s MV Peak A-Wave: 1.5 m/s E/A Ratio: 0.99 Mean Velocity: 0.8 m/s Peak Gradient: 8.82 mmHg Mean Gradient: 3.35 mmHg Area (continuity): 2.05 cm^2 MV VTI: 40.96 cm MV Rocky. Peak: 1.57 m/s Tissue Doppler E' Septal Velocity: 0.03 m/s E/E': 43.24 LVOT Peak Velocity: 1.25 m/s Peak Gradient: 6.29 mmHg Mean Velocity: 0.69 m/s Mean Gradient: 2.36 mmHg LVOT Diameter: 2.1 cm LVOT VTI: 24.23 cm LVOT Area: 3.46 cm^2 LVOT SV:83.88 ml LVOT CO: 5.7 l/min LVOT CI: 2.51 l/min/m^2 Tricuspid Valve TR Velocity: 2.9 m/s TR Gradient: 33.62 mmHg Type and screen, automated (05/17/2018 8:35 AM)Only the most recent of2 resultswithin the time period is included. Component Value Ref Range ABO/RH AUTOMATED (BEAKER) O POSITIVE Ab Scrn NEGATIVE Specimen Performing Laboratory Blood [facility] [address] [place] [address], [place] [address] XR chest 1 view portable / bedside (05/17/2018 5:43 AM)Only the most recent of12 resultswithin the time period is included. Specimen Performing Laboratory GE RIS Narrative FINAL REPORT RAD, CHEST, 1 VIEW, NON DEPT INDICATION: pl effusion COMPARISON: Prior day's exam FINDINGS: Portable frontal view of the chest. IMPRESSION: Support Lines: Stable right IJ central venous catheter. Lungs and pleura: Unchanged left retrocardiac opacity. No pneumothorax. Heart and mediastinum: Stable contours. Stable surgical changes. Additional findings: None. Signed: JR Larsen Robert MD Report Verified Date/Time:05/17/2018 06:18:13 Reading Location: [address] Body Reading Room Procedure Note Interface, External Ris In - 05/17/2018 6:20 AM CDT FINAL REPORT RAD, CHEST, 1 VIEW, NON DEPT INDICATION: pl effusion COMPARISON: Prior day's exam FINDINGS: Portable frontal view of the chest. IMPRESSION: Support Lines: Stable right IJ central venous catheter. Lungs and pleura: Unchanged left retrocardiac opacity. No pneumothorax. Heart and mediastinum: Stable contours. Stable surgical changes. Additional findings: None. Signed: JR Larsen Robert MD Report Verified Date/Time: 05/17/2018 06:18:13 Reading Location: [address] Body Reading Room Iron, TIBC, % sat. (without ferritin) (05/16/2018 5:08 AM) Component Value Ref Range Iron 26 (L) 40 - 160 ug/dL TIBC 201 (L) 250 - 450 ug/dL Iron % Saturation 13 (L) 20 - 55 % Specimen Performing Laboratory Blood [address] [address] Ferritin (05/16/2018 5:08 AM) Component Value Ref Range Ferritin 398 (H) 5 - 275 ng/mL Specimen Performing Laboratory Blood [address] [address] Vancomycin level, random (05/15/2018 12:35 PM)Only the most recent of2 resultswithin the time period is included. Component Value Ref Range Vancomycin Rm 17.8 ug/mL Specimen Performing Laboratory Blood - Line, Arterial [address] [address] Narrative Reference Range: No Normals CBC (Hemogram only) (05/15/2018 3:48 AM)Only the most recent of2 resultswithin the time period is included. Component Value Ref Range WBC 9.8 3.5 - 10.5 K/L RBC 2.97 (L) 3.93 - 5.22 M/L Hemoglobin 8.6 (L) 11.2 - 15.7 GM/DL Hematocrit 26.1 (L) 34.1 - 44.9 % MCV 87.9 79.4 - 94.8 fL MCH 29.0 25.6 - 32.2 pg MCHC 33.0 32.2 - 35.5 GM/DL RDW 14.4 11.7 - 14.4 % Platelets 154 150 - 450 K/CU MM MPV 11.6 9.4 - 12.3 fL nRBC 0 0 - 0 /100 WBC Specimen Performing Laboratory Blood [address] [address] Phosphorus (05/15/2018 3:48 AM)Only the most recent of5 resultswithin the time period is included. Component Value Ref Range Phosphorus 3.4 2.3 - 4.7 mg/dL Specimen Performing Laboratory Blood [address] [address] Prepare PLT (05/14/2018 11:55 PM) Component Value Ref Range Unit ABO O Neg UNIT NUMBER [id number] Status TRANSFUSED Blood Bank Product PLATELETS PRODUCT CODE [id number] Specimen Performing Laboratory [facility] [place] Prepare RBC (05/14/2018 11:54 PM) Component Value Ref Range CROSSMATCH COMPATIBLE Unit ABO O Pos UNIT NUMBER [id number] Status TRANSFUSED Blood Bank Product RED BLOOD CELLS PRODUCT CODE [id number] CROSSMATCH COMPATIBLE Unit ABO O Pos UNIT NUMBER [id number] Status RETURNED FROM ISSUE Blood Bank Product RED BLOOD CELLS PRODUCT CODE [id number] Specimen Performing Laboratory [facility] [place] HGB/HCT (H&H)-Stat Lab (05/14/2018 2:37 PM)Only the most recent of10 resultswithin the time period is included. Component Value Ref Range Hemoglobin 9.9 (L) 12.0 - 15.0 g/dL Hematocrit 29.0 (L) 36.0 - 45.0 % Specimen Performing Laboratory Blood, Arterial [address] [address] Platelet Aggregation: Function Screen (05/14/2018 2:55 AM)Only the most recent of4 resultswithin the time period is included. Component Value Ref Range Weak ADP 88 60 - 91 % Plt. Function Screen Interpretation 60-100% indicates normal platelet function Pathologist: Uma Hdz MD (electronic signature) Platelets 166 150 - 450 K/CU MM Specimen Performing Laboratory Blood [address] [address] Blood gas, arterial (05/14/2018 2:55 AM)Only the most recent of16 resultswithin the time period is included. Component Value Ref Range pH, Arterial 7.39 7.35 - 7.45 pCO2, Arterial 50 (H) 35 - 45 mmHg pO2, Arterial 107 (H) 80 - 90 mmHg O2 Sat, Arterial 97.9 (H) 96.0 - 97.0 % HCO3, Arterial 30 (H) 21 - 29 mmol/L Base Excess, Arterial 4.1 (H) -2.0 - 3.0 mmol/L Patient Temperature 36.3 C FIO2 40.0 % Specimen Performing Laboratory Blood, Arterial [address] [address] Narrative Post extubation ABG RRL Critical Labs (ABG,NA,K,H&H,GLU) (05/14/2018 1:12 AM)Only the most recent of7 resultswithin the time period is included. Specimen Performing Laboratory Blood, Arterial Narrative The following orders were created for panel order RRL Critical Labs (ABG,NA,K,H&H,GLU). Procedure Abnormality Status --------- ------ Blood gas, arterial[[id number]]AbnormalFinal result Sodium Na-Stat Lab[[id number]] AbnormalFinal result Potassium-Stat Lab[[id number]] NormalFinal result Glucose-Stat Lab[[id number]] AbnormalFinal result HGB/HCT (H&H)-Stat Lab[[id number]] Abnormal Final result Please view results for these tests on the individual orders. Potassium-Stat Lab (05/14/2018 1:12 AM)Only the most recent of9 resultswithin the time period is included. Component Value Ref Range Potassium 4.4 3.6 - 5.5 meq/L Specimen Performing Laboratory Blood, Arterial [address] [address] Sodium Na-Stat Lab (05/14/2018 1:12 AM)Only the most recent of8 resultswithin the time period is included. Component Value Ref Range Sodium 134 (L) 135 - 148 meq/L Specimen Performing Laboratory Blood, Arterial [address] [address] Glucose-Stat Lab (05/14/2018 1:12 AM)Only the most recent of9 resultswithin the time period is included. Component Value Ref Range Glucose 144 (H) 70 - 110 mg/dL Specimen Performing Laboratory Blood, Arterial [address] [address] Calcium, Ionized (05/14/2018 1:12 AM)Only the most recent of11 resultswithin the time period is included. Component Value Ref Range Calcium, Ion 1.21 1.12 - 1.27 mmol/L pH, Blood 7.39 Specimen Performing Laboratory Blood [address] [address] Lactic acid, arterial, whole blood (05/14/2018 1:12 AM)Only the most recent of4 resultswithin the time period is included. Component Value Ref Range Lactate, Art 1.8Comment: Specimen slightly hemolyzed 0.5 - 2.2 mmol/L Specimen Performing Laboratory Blood, Arterial [address] [address] Narrative Effective 02/06/2016: Units/Reference Range Change New: 0.5-2.2 mmol/LPrevious: 5-20 mg/dL Oxygen saturation, measured (05/13/2018 8:07 PM)Only the most recent of6 resultswithin the time period is included. Component Value Ref Range O2 Saturation (Measured) 67.7 % Specimen Performing Laboratory Blood [address] [address] Prothrombin time/INR (05/13/2018 8:07 PM)Only the most recent of6 resultswithin the time period is included. Component Value Ref Range Protime 16.1 (H) 11.7 - 14.7 seconds INR 1.3 <=5.9 Specimen Performing Laboratory Blood [address] [address] Narrative RECOMMENDED COUMADIN/WARFARIN INR THERAPY RANGES STANDARD DOSE: 2.0 - 3.0 Includes: PROPHYLAXIS for venous thrombosis, systemic embolization; TREATMENT for venous thrombosis and/or pulmonary embolus. HIGH RISK: Target INR is 2.5-3.5 for patients with mechanical heart valves. Fibrinogen (05/13/2018 8:07 PM)Only the most recent of4 resultswithin the time period is included. Component Value Ref Range Fibrinogen 434 225 - 434 mg/dl Specimen Performing Laboratory Blood [address] [address] aPTT (05/13/2018 8:04 PM)Only the most recent of21 resultswithin the time period is included. Component Value Ref Range PTT 28.6 22.5 - 36.0 seconds Specimen Performing Laboratory Blood [address] [address] Narrative 6 hours after starting heparin infusion and as indicated per sliding scale Sodium (05/13/2018 8:04 PM) Component Value Ref Range Sodium 134 (L) 136 - 145 meq/L Specimen Performing Laboratory Blood [address] [address] Potassium (05/13/2018 8:04 PM)Only the most recent of17 resultswithin the time period is included. Component Value Ref Range Potassium 4.6 3.5 - 5.1 meq/L Specimen Performing Laboratory Blood [address] [address] Glucose (05/13/2018 8:04 PM) Component Value Ref Range Glucose 275 (H) 70 - 105 mg/dL Specimen Performing Laboratory Blood [address] [address] ANESTHESIA MITALI (05/13/2018 7:39 PM) Mark Garcia MD 05/13/20187:39 PM MITALI Date: 05/13/2018 1:48 PM Sex: Female Location: OR Requesting Physician: MARYJANE GARCIA Examiner: EZIO STOCKTON MA, CHRISTOPHER Indication: CABGIntubated Insertion: easy Probe Type: multiplane Modalities: 2D, CWD and PWD Aorta Size Dissection Plaque Thick Plaque Mobile Ascending Ao normal No < 3mm No Ao Arch normal No 3mm+ No Descending Ao normal No < 3mm No Valves Annulus Stenosis Area (cm3) Gradient Regurgitation Leaflet Morphology Leaflet Motion Not Visualized Aortic valve normal none none normal normal Mitral valve normal none none normal normal Tricuspid normal none none normal normal Atria Size SEC Thrombus Tumor Device Right Atrium normal No No No Yes Left Atrium normal No No No device Interatrial Septum: Morphology: normal ASD: Shunt: Interventricular Septum: Morphology: normal Defect: Shunt: Ventricles Cavity size Dimension Hypertrophy Thrombus Global FXN EF Right ventricle normalNo No normal Left ventricle normalYes No normal Basal Segments Mild Segments Apical Segments mid inferoseptal hypokinetic Pericardium: normal Pre Intervention Summary: 62 yo F here for CABG. LV normal size, LVEF ~60% with IABP 1:1.There is some septal hypokinesis appreciated on TG mid SA.Impaired relaxation noted by mitral inflow PW and TDI lateral RV not dilated with normal function by TAPSE and S' AV is trileaflet without stenosis or regurgitation MV with heavy posterior annular calcification and shadowing.Leaflets appear normal.Trace MR, no MS. 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 IABP seen about 3.5-4 cm from L subclavian takeoff. The following was communicated with the surgeon Post Intervention Follow-up Study: Ventricular Global Fxn: improved Ventricular Regional Fxn: improved Post Intervention Summary:1. Improved LV function with improved LV septal motion 2. Atheromatous plaque remains unchanged in the distal aortic arch. No evidence of aortic dissection. 3. Valves remain unremarkable with trace AI and MR 4. Otherwise no changes 5. No pericardial effusion at the end of surgery. Procedure Note Mark Garcia MD - 05/13/2018 1:48 PM CDT Formatting of this note may be different from the original. MITALI Date: 05/13/2018 1:48 PM Sex: Female Location: OR Requesting Physician: MARYJANE GARCIA Examiner: EZIO STOCKTON MA, CHRISTOPHER Indication: CABG Intubated Insertion: easy Probe Type: multiplane Modalities: 2D, CWD and PWD Aorta Size Dissection Plaque Thick Plaque Mobile Ascending Ao normal No < 3mm No Ao Arch normal No 3mm+ No Descending Ao normal No < 3mm No Valves Annulus Stenosis Area (cm3) Gradient Regurgitation Leaflet Morphology Leaflet Motion Not Visualized Aortic valve normal none none normal normal Mitral valve normal none none normal normal Tricuspid normal none none normal normal Atria Size SEC Thrombus Tumor Device Right Atrium normal No No No Yes Left Atrium normal No No No device Interatrial Septum: Morphology: normal ASD: Shunt: Interventricular Septum: Morphology: normal Defect: Shunt: Ventricles Cavity size Dimension Hypertrophy Thrombus Global FXN EF Right ventricle normal No No normal Left ventricle normal Yes No normal Basal Segments Mild Segments Apical Segments mid inferoseptal hypokinetic Pericardium: normal Pre Intervention Summary: 62 yo F here for CABG. LV normal size, LVEF ~60% with IABP 1:1. There is some septal hypokinesis appreciated on TG mid SA. Impaired relaxation noted by mitral inflow PW and TDI lateral RV not dilated with normal function by TAPSE and S' AV is trileaflet without stenosis or regurgitation MV with heavy posterior annular calcification and shadowing. Leaflets appear normal. Trace MR, no MS. TV with normal appearing leaflets. No TR seen PV appears normal without stenosis or insufficiency MATT visualized without signs of thrombus No PFO detected by doppler Trivial 0.35 pericardial effusion by RV free wall Aorta with grade 3 atheromatous disease in distal arch. No aneurysm or dissection seen in ascending, arch, or descending aorta. IABP seen about 3.5-4 cm from L subclavian takeoff. The following was communicated with the surgeon Post Intervention Follow-up Study: Ventricular Global Fxn: improved Ventricular Regional Fxn: improved Post Intervention Summary: 1. Improved LV function with improved LV septal motion 2. Atheromatous plaque remains unchanged in the distal aortic arch. No evidence of aortic dissection. 3. Valves remain unremarkable with trace AI and MR 4. Otherwise no changes 5. No pericardial effusion at the end of surgery. Thromboelastograph (TEG) (05/13/2018 6:08 PM) Component Value Ref Range TEG Activated Clotting Time 6.0 4.0 - 7.0 minutes TEG Fibrinogen Activity 67.0 61.0 - 73.0 degrees TEG Platelet Aggregation 60.9 55.0 - 65.0 MM TEG Fibrinolysis 0.0 0.0 - 5.0 % TEG-H Activated Clotting Time 5.7 4.0 - 7.0 minutes TEG-H Fibrinogen Activity 68.0 61.0 - 73.0 degrees TEG-H Platelet Aggregation 57.1 55.0 - 65.0 MM TEG-H Fibrinolysis 0.0 0.0 - 5.0 % Specimen Performing Laboratory [address] [address] POC ACTIVATED CLOTTING TIME (05/13/2018 6:08 PM)Only the most recent of7 resultswithin the time period is included. Component Value Ref Range Activated Clotting Time 120Comment: TESTED AT [address] [place] [address] Specimen Performing Laboratory [address] [address] Platelet count (05/13/2018 6:08 PM) Component Value Ref Range Platelets 77 (L) 150 - 450 K/CU MM Specimen Performing Laboratory [address] [address] Tissue Exam (05/13/2018 4:53 PM) Component Value Ref Range Case Report Surgical Pathology Report Case: [id number] Authorizing Provider:Maryjane Garcia MD Collected: 05/13/2018 2691 Ordering Location: [facility] Received: 05/14/2018 0820 PERIOPERATIVE SERVICES Pathologist: Vince Higginbotham MD Specimen:Plaque, CORONARY OBTUSE MARGINALIS PLAQUE DIAGNOSIS ARTERY, OBTUSE MARGINAL, ATHERECTOMY: SEVERE WITH STENOSIS AND CALCIFIC ATHEROSCLEROTIC PLAQUE Signing Pathologist Direct Phone Line: [phone] CPT Code(s) 73137; 85153 CLINICAL HISTORY Acute and chronic systolic congestive heart failure SPECIMEN SOURCE Coronary obtuse marginalis plaque GROSS DESCRIPTION Specimen is received in a fluidless container labeled with the patient's information and labeled "coronary obtuse marginalis plaque" and consists of two tubular shaped segments of calcified tissue both measuring 0.5 cm in length and ranging from 0.1 to 0.3 cm in diameter. The tissue is entirely submitted in A1 for decalcification. CG/ew MICROSCOPIC DESCRIPTION Performed Specimen Performing Laboratory Tissue - Plaque [address] [address] Lipid panel (05/13/2018 4:27 AM) Component Value Ref Range Triglycerides 234Comment: Specimen slightly hemolyzed mg/dL Cholesterol 153Comment: Specimen slightly hemolyzed mg/dL HDL 46 mg/dL LDL Calculated 60 mg/dL Specimen Performing Laboratory Blood [address] [address] Narrative Triglyceride Reference Range: Low Risk <150 [id number] High Risk 200-499 Very High Risk>=500 Cholesterol Reference Range: Low Risk <200 [id number] High Risk>240 HDL Cholesterol Reference Range: Low Risk >=60 High Risk <40 LDL Cholesterol Reference Range: Optimal<100 Near Idbqtla875-861 [id number] Wovn262-142 Very High >=190 Comprehensive metabolic panel (05/13/2018 4:27 AM)Only the most recent of2 resultswithin the time period is included. Component Value Ref Range Protein, Total 6.6Comment: Specimen slightly hemolyzed 6.0 - 8.3 gm/dL Albumin 3.2 (L)Comment: Specimen slightly hemolyzed 3.5 - 5.0 g/dL Alkaline Phosphatase 112 40 - 150 U/L Total Bilirubin 0.4Comment: Specimen slightly hemolyzed 0.2 - 1.2 mg/dL Sodium 133 (L) 136 - 145 meq/L Potassium 4.9Comment: Specimen slightly hemolyzed 3.5 - 5.1 meq/L Chloride 90 (L) 98 - 107 meq/L CO2 31 (H) 22 - 29 meq/L BUN 30 (H) 7 - 21 mg/dL Creatinine 1.32 (H)Comment: Specimen slightly hemolyzed 0.57 - 1.25 mg/dL Glucose 277 (H) 70 - 105 mg/dL Calcium 9.6 8.4 - 10.2 mg/dL AST 29Comment: Specimen slightly hemolyzed 5 - 34 U/L ALT 16Comment: Specimen slightly hemolyzed 6 - 55 U/L EGFR 41Comment: ESTIMATED GFR IS NOT ACCURATE mL/min/1.73 sq m CREATININE CLEARANCE IN PREDICTING GLOMERULAR FILTRATION RATE. ESTIMATED GFR IS NOT APPLICABLE FOR DIALYSIS PATIENTS. Specimen Performing Laboratory Blood [address] [address] TSH (05/13/2018 4:26 AM) Component Value Ref Range TSH 5.68 (H) 0.35 - 4.94 uIU/mL Specimen Performing Laboratory Blood [address] [address] Urinalysis w/ Microscopic (05/12/2018 8:33 PM) Component Value Ref Range Color, UA Yellow Clarity, UA Hazy Specific [place], UA 1.010 1.001 - 1.035 pH, UA 5.5 5.0 - 8.0 Protein, UA 50 mg/dL (A) Negative Glucose, UA Negative Negative Ketones, UA Negative Negative Bilirubin, UA Negative Negative Blood, UA Negative Negative Nitrite, UA Negative Negative Leukocytes, UA Moderate (A) Negative Urobilinogen, UA 0.2 0.2 - 1.0 mg/dL RBC, UA 2 /HPF WBC, UA 33 /HPF Mucus Rare Squam Epithel, UA 2 /HPF Hyaline Casts, UA 6 /LPF Specimen Source Specimen Performing Laboratory Urine [address] [address] Vancomycin level, trough (05/12/2018 11:44 AM) Component Value Ref Range Vancomycin Tr 17.3 10.0 - 20.0 ug/mL Specimen Performing Laboratory Blood - Line, Arterial [address] [address] Vein mapping arm/arms (05/11/2018 11:59 PM) Component Value Ref Range Ejection Fraction Specimen Performing Laboratory [facility] ECHO HEARTLAB [facility] CPACS Impressions Right Impression 1. The jugular and proximal subclavian veins are not visualized due to invasive line/bandage. 2. There is no deep venous obstruction in the distal subclavian, axillary, brachial, radial or ulnar veins. 3. There is no superficial venous obstruction in the cephalic or basilic veins where visualized. 4. The subclavian, axillary, brachial, radial and ulnar arteries are patent with Doppler waveforms consistent with IABP. Left Impression 1. There is no deep venous obstruction in the jugular, subclavian, axillary, brachial, proximal/mid radial or ulnar veins. 2. There is no superficial venous obstruction in the cephalic or basilic veins where visualized. 3. The subclavian, axillary, brachial, radial and ulnar arteries are patent with Doppler waveforms consistent with IABP. 4. The distal radial and forearm cephalic veins are not visualized due to line/bandage. Conclusions Summary Arterial duplex imaging, venous duplex imaging and compression of both upper extremities was performed. The arteries and veins were adequately visualized except as noted. The arteries were patent with Doppler waveforms consistent with IABP bilaterally. The venous systems were patent and compressible with no evidence of thrombus in the visualized veins. Superficial venous measurements are documented below. Signature Velocities are measured in cm/s ; Diameters are measured in cm Cephalic Mapping Right Left + + + + + + + + !Location ! !AP Diam! Trans Diam! !AP Diam!Trans Diam! + + + + + + + + !Cephalic at Prox UA ! ! !0.18! ! !0.2 ! + + + + + + + + !Cephalic at Mid UA ! ! !0.15! ! !0.18! + + + + + + + + !Cephalic at Dist UA ! ! !0.33! ! !0.15! + + + + + + + + !Cephalic at Prox LA ! ! !0.29! ! !32! + + + + + + + + !Cephalic at Mid LA ! ! !0.19! ! !0.36! + + + + + + + + !Cephalic at Dist LA ! + + Basilic Mapping Right Left + + + + + + + + !Location ! !AP Diam! Trans Diam! !AP Diam!Trans Diam! + + + + + + + + !Basilic at Prox UA ! ! !0.67! ! !60! + + + + + + + + !Basilic at Mid UA ! ! !0.47! ! !0.57! + + + + + + + + !Basilic at Dist UA ! ! !0.4 ! ! !0.36! + + + + + + + + !Basilic at Prox LA ! ! !0.19! ! !0.26! + + + + + + + + !Basilic at Mid LA ! ! !0.22 ! + + + + ------ -----+ !Basilic at Dist LA ! ! !0.15! + + + + ------ -----+ Narrative [facility] - Upper Extremities Vein Mapping Demographics Patient Name BRITTANI PRINGLE Date of Study05/11/2018 [id number] Visit Number [id number] Gender Female Accession Number [id number] Date of Birth1955 [facility] Room CnyetoW042 Mai AlonzoInterpreting Shaun Rao MD, Marissa PhysicianRPVI Procedure Type of Study: Veins: Upper Extremity Vein Mapping, VEIN MAPPING ARM/ARMS. Indications for Study:CAD. Patient Status:TODAY. Study Location:Portable. Technical Quality:Adequate visualization. Risk Factors History of Disease + +----+ + !Diagnosis!Date!Comments ! + +----+ + !History/Risk !!HI, DM, CHF, CAD W/Stent, Obesity, HTN, HDL, ! !Factors: !!Balloon Pump, Line (Right Groin) ! + +----+ + Procedure Note Interface, External Ris In - 05/12/2018 4:28 AM CDT [facility] - Upper Extremities Vein Mapping Demographics Patient Name BRITTANI PRINGLE Date of Study 05/11/2018 Age 62 Visit Number [id number] Gender Female Accession Number [id number] Date of 1955 Referring [facility] Room Number C828 Physician Van Rao MD, Ann Physician RPVI Procedure Type of Study: Veins: Upper Extremity Vein Mapping, VEIN MAPPING ARM/ARMS. Indications for Study:CAD. Patient Status:TODAY. Study Location:Portable. Technical Quality:Adequate visualization. Risk Factors History of Disease + +----+ + !Diagnosis !Date!Comments ! + +----+ + !History/Risk ! !HI, DM, CHF, CAD W/Stent, Obesity, HTN, HDL, ! !Factors: ! !Balloon Pump, Line (Right Groin) ! + +----+ + Impressions Right Impression 1. The jugular and proximal subclavian veins are not visualized due to invasive line/bandage. 2. There is no deep venous obstruction in the distal subclavian, axillary, brachial, radial or ulnar veins. 3. There is no superficial venous obstruction in the cephalic or basilic veins where visualized. 4. The subclavian, axillary, brachial, radial and ulnar arteries are patent with Doppler waveforms consistent with IABP. Left Impression 1. There is no deep venous obstruction in the jugular, subclavian, axillary, brachial, proximal/mid radial or ulnar veins. 2. There is no superficial venous obstruction in the cephalic or basilic veins where visualized. 3. The subclavian, axillary, brachial, radial and ulnar arteries are patent with Doppler waveforms consistent with IABP. 4. The distal radial and forearm cephalic veins are not visualized due to line/bandage. Conclusions Summary Arterial duplex imaging, venous duplex imaging and compression of both upper extremities was performed. The arteries and veins were adequately visualized except as noted. The arteries were patent with Doppler waveforms consistent with IABP bilaterally. The venous systems were patent and compressible with no evidence of thrombus in the visualized veins. Superficial venous measurements are documented below. Signature Velocities are measured in cm/s ; Diameters are measured in cm Cephalic Mapping Right Left + + + + + + +--- + !Location ! !AP Diam !Trans Diam ! !AP Diam ! Trans Diam ! + + + + + + +--- + !Cephalic at [facility] UA ! ! !0.18 ! ! ! 0.2 ! + + + + + + +--- + !Cephalic at Mid UA ! ! !0.15 ! ! ! 0.18 ! + + + + + + +--- + !Cephalic at Dist UA ! ! !0.33 ! ! ! 0.15 ! + + + + + + +--- + !Cephalic at Prox LA ! ! !0.29 ! ! ! 32 ! + + + + + + +--- + !Cephalic at Mid LA ! ! !0.19 ! ! ! 0.36 ! + + + + + + +--- + !Cephalic at Dist LA ! + + Basilic Mapping Right Left + + + + + + +--- + !Location ! !AP Diam !Trans Diam ! !AP Diam ! Trans Diam ! + + + + + + +--- + !Basilic at Prox UA ! ! !0.67 ! ! ! 60 ! + + + + + + +--- + !Basilic at Mid UA ! ! !0.47 ! ! ! 0.57 ! + + + + + + +--- + !Basilic at Dist UA ! ! !0.4 ! ! ! 0.36 ! + + + + + + +--- + !Basilic at Prox LA ! ! !0.19 ! ! ! 0.26 ! + + + + + + +--- + !Basilic at Mid LA ! ! ! 0.22 ! + + + +-- + !Basilic at Dist LA ! ! ! 0.15 ! + + + +-- + Arterial doppler arm, right (05/11/2018 10:30 PM) Component Value Ref Range Ejection Fraction Specimen Performing Laboratory [facility]CHO [facility] Impressions Right Impression 1. The subclavian, axillary, brachial, radial and ulnar arteries had Doppler waveforms consistent with an IABP. 2. The arterial pressures and indices are as follows: brachial 102 mmHg, radial 98 mmHg (0.96) and ulnar 102 mmHg (1.00). 3. The index finger pressure is 97 mmHg with a normal finger/brachial index of 0.95. 4. The digits have adequate flow by PPG waveforms. 5. THE MYA'S TEST IS NORMAL, THE ARCH IS COMPLETE. 6. The radial artery measurements are as follows: Proximal - 0.18 cm, Mid - 0.17 cm, Distal - .18 cm 7. The ulnar artery measurements are as follows: Proximal - 0.25 cm, Mid - 0.15 cm, Distal - 15 cm. Conclusions Summary Arterial segmental pressures, diameter measurements, palmar arch test, index finger digital pressure and digital PPG flow were performed on the right upper extremity. The right arterial system had Doppler waveforms consistent with an IABP. THE MYA'S TEST WAS NORMAL, THE ARCH WAS COMPLETE. Arterial measurements are shown above. Signature Velocities are measured in cm/s ; Diameters are measured in cm Right Upper Extremities Duplex Measurements + +---+-----+----+--------+ !Location !PSV!Ratio!Diam!Waveform! + +---+-----+----+--------+ !Prox Radial ! ! !0.18!! + +---+-----+----+--------+ !Mid Radial ! ! !0.17!! + +---+-----+----+--------+ !Dist Radial ! ! !0.18!! + +---+-----+----+--------+ !Prox Ulnar ! ! !0.25!! + +---+-----+----+--------+ !Mid Ulnar ! ! !0.15!! + +---+-----+----+--------+ !Dist Ulnar ! ! !0.15!! + +---+-----+----+--------+ Narrative [facility] - Upper Extremities Arterial Duplex Demographics Patient BRITTANI Simpson Date of Study 05/11/2018 Age 62 Visit [id number] Gender Female Date of 12/28 Number Referring Rory Wesley Room Number [id number] Physician Van Plant Engineer Dilshad Ann InterpretingShaun Rao, Physician , [facility] Procedure Type of Study: Extremities Arteries: Upper Extremities Arterial Duplex, ARTERIAL DOPPLER ARM, RIGHT. Indications for Study:CAD. Patient Status:TODAY. Study Location:Portable. Technical Quality:Adequate visualization. Risk Factors History of Disease + +----+ + !Diagnosis!Date!Comments ! + +----+ + !History/Risk !!HI, DM, CHF, CAD W/Stent, Obesity, HTN, HDL, ! !Factors: !!Balloon Pump, Line (Right Groin) ! + +----+ + Procedure Note Interface, External Ris In - 05/12/2018 4:29 AM CDT [facility] - Upper Extremities Arterial Duplex Demographics Patient Name BRITTANI PRINGLE Date of Study 05/11/2018 Age 62 Visit Number [id number] Gender Female Date of 1955 Number Referring Rory Wesley Room Number [id number] Physician Van Plant Engineer Dilshad Ann Interpreting Shaun Rao, Physician , [facility] Procedure Type of Study: Extremities Arteries: Upper Extremities Arterial Duplex, ARTERIAL DOPPLER ARM, RIGHT. Indications for Study:CAD. Patient Status:TODAY. Study Location:Portable. Technical Quality:Adequate visualization. Risk Factors History of Disease + +----+ + !Diagnosis !Date!Comments ! + +----+ + !History/Risk ! !HI, DM, CHF, CAD W/Stent, Obesity, HTN, HDL, ! !Factors: ! !Balloon Pump, Line (Right Groin) ! + +----+ + Impressions Right Impression 1. The subclavian, axillary, brachial, radial and ulnar arteries had Doppler waveforms consistent with an IABP. 2. The arterial pressures and indices are as follows: brachial 102 mmHg, radial 98 mmHg (0.96) and ulnar 102 mmHg (1.00). 3. The index finger pressure is 97 mmHg with a normal finger/brachial index of 0.95. 4. The digits have adequate flow by PPG waveforms. 5. THE MYA'S TEST IS NORMAL, THE ARCH IS COMPLETE. 6. The radial artery measurements are as follows: Proximal - 0.18 cm, Mid - 0.17 cm, Distal - .18 cm 7. The ulnar artery measurements are as follows: Proximal - 0.25 cm, Mid - 0.15 cm, Distal - 15 cm. Conclusions Summary Arterial segmental pressures, diameter measurements, palmar arch test, index finger digital pressure and digital PPG flow were performed on the right upper extremity. The right arterial system had Doppler waveforms consistent with an IABP. THE MYA'S TEST WAS NORMAL, THE ARCH WAS COMPLETE. Arterial measurements are shown above. Signature Velocities are measured in cm/s ; Diameters are measured in cm Right Upper Extremities Duplex Measurements + +---+-----+----+--------+ !Location !PSV!Ratio!Diam!Waveform! + +---+-----+----+--------+ !Prox Radial ! ! !0.18! ! + +---+-----+----+--------+ !Mid Radial ! ! !0.17! ! + +---+-----+----+--------+ !Dist Radial ! ! !0.18! ! + +---+-----+----+--------+ !Prox Ulnar ! ! !0.25! ! + +---+-----+----+--------+ !Mid Ulnar ! ! !0.15! ! + +---+-----+----+--------+ !Dist Ulnar ! ! !0.15! ! + +---+-----+----+--------+ Arterial doppler arm, left (05/11/2018 2:51 PM) Component Value Ref Range Ejection Fraction Specimen Performing Laboratory [facility] Impressions Left Impression 1. The subclavian, axillary, brachial, radial and ulnar arteries had Doppler waveforms consistent with an IABP. 2. The arterial pressures and indices are as follows: brachial 130 mmHg, radial 116 mmHg (0.89) and ulnar 106 mmHg (0.82). 3. The index finger pressure is 107 mmHg with a normal finger/brachial index of 0.82. 4. The digits have adequate flow by PPG waveforms. 5. THE MYA'S TEST IS ABNORMAL, THE ARCH IS INCOMPLETE. 6. The radial artery measurements are as follows: Proximal - 0.33 cm, Mid - 0.33 cm, Distal - not visualized (invasive line/bandage). 7. The ulnar artery measurements are as follows: Proximal - 0.19 cm, Mid - 0.21 cm, Distal - 23 cm. Conclusions Summary Arterial segmental pressures, diameter measurements, palmar arch test, index finger digital pressure and digital PPG flow were performed of the left upper extremity. The left arterial system had Doppler waveforms consistent with an IABP. THE MYA'S TEST WAS ABNORMAl, THE ARCH WAS INCOMPLETE. Arterial measurements are shown above. Signature Narrative [facility] - Upper Extremity Arterial Procedure Demographics Patient BRITTANI Simpson Date of Study 05/11/2018 Age 62 Visit [id number] Gender Female Date of 12/28 Number Referring [facility] Room Number [id number] Physician Van Plant Engineer Asim RizoJ. Shana Barnett MD, KULWINDER Heath RVT Procedure Type of Study: Extremities Arteries: Upper Extremity Arterial Procedure, ARTERY PRESSURES ARMS, BILATERAL. Indications for Study:CAD and Pre-op for arterial harvesting. Patient Status:Routine. Study Location:Vascular Lab. Technical Quality:Adequate visualization. Risk Factors History of Disease + +----+ + !Diagnosis!Date!Comments ! + +----+ + !History/Risk !!HI, DM, CHF, CAD W/Stnet, Obesity, HTN, HDL, ! !Factors: !!Balloon Pump, Line (Right Groin) ! + +----+ + Procedure Note Interface, External Ris In - 05/11/2018 5:18 PM CDT [facility] - Upper Extremity Arterial Procedure Demographics Patient Name BRITTANI PRINGLE Date of Study 05/11/2018 Age 62 Visit Number [id number] Gender Female Date of 1955 Number Malick Roy Room Number [id number] Physician Van Plant Engineer Asim Acosta Interpreting Shaun Rao, RVT Physician , [facility] Procedure Type of Study: Extremities Arteries: Upper Extremity Arterial Procedure, ARTERY PRESSURES ARMS, BILATERAL. Indications for Study:CAD and Pre-op for arterial harvesting. Patient Status:Routine. Study Location:Vascular Lab. Technical Quality:Adequate visualization. Risk Factors History of Disease + +----+ + !Diagnosis !Date!Comments ! + +----+ + !History/Risk ! !HI, DM, CHF, CAD W/Stnet, Obesity, HTN, HDL, ! !Factors: ! !Balloon Pump, Line (Right Groin) ! + +----+ + Impressions Left Impression 1. The subclavian, axillary, brachial, radial and ulnar arteries had Doppler waveforms consistent with an IABP. 2. The arterial pressures and indices are as follows: brachial 130 mmHg, radial 116 mmHg (0.89) and ulnar 106 mmHg (0.82). 3. The index finger pressure is 107 mmHg with a normal finger/brachial index of 0.82. 4. The digits have adequate flow by PPG waveforms. 5. THE MYA'S TEST IS ABNORMAL, THE ARCH IS INCOMPLETE. 6. The radial artery measurements are as follows: Proximal - 0.33 cm, Mid - 0.33 cm, Distal - not visualized (invasive line/bandage). 7. The ulnar artery measurements are as follows: Proximal - 0.19 cm, Mid - 0.21 cm, Distal - 23 cm. Conclusions Summary Arterial segmental pressures, diameter measurements, palmar arch test, index finger digital pressure and digital PPG flow were performed of the left upper extremity. The left arterial system had Doppler waveforms consistent with an IABP. THE MYA'S TEST WAS ABNORMAl, THE ARCH WAS INCOMPLETE. Arterial measurements are shown above. Signature Vein Mapping Legs Bilateral (05/11/2018 2:19 PM) Component Value Ref Range Ejection Fraction Specimen Performing Laboratory [facility] Impressions Right Impression 1. There is no deep venous obstruction in the mid-distal femoral, popliteal, posterior tibial or peroneal veins. 2. The common femoral, profunda femoral and proximal femoral vein was not visualized due to lines. 3. The great saphenous vein had been ligated. 4. The small saphenous vein was not visualized. Left Impression 1. There is no deep venous obstruction in the mid-distal femoral, popliteal, posterior tibial or peroneal veins. 2. The common femoral, profunda femoral and proximal femoral vein was not visualized due to lines. 3. The great saphenous vein had been ligated. 4. The small saphenous vein was not visualized. Incidental Finding: There is a AV Fistula connection a common femoral vein to a branch. Conclusions Summary Venous duplex imaging and compression of the bilateral lower extremities was performed. The veins were adequately visualized except as stated above. The bilateral venous systems were patent and compressible with no evidence of thrombus. The bilateral greater saphenous vein was stripped. The bilateral small saphenous vein was not visualized. Incidental Finding: There was a AV Fistula connection a common femoral vein to a branch. Signature Velocities are measured in cm/s ; Diameters are measured in cm LE Vein Mapping Narrative [facility] - Lower Extremities Vein Mapping Demographics Patient NameBRITTANI PRINGLE Date of Study 05/11/2018 Age 62 Visit [id number] Gender Female Date of 12/28 Number Referring Rory Wesley Room Number [id number] Physician Van Plant Engineer Asim RizoJ. Shana Barnett MD, KULWINDER Baez Procedure Type of Study: Veins: Lower Extremity Vein Mapping, VEIN MAPPING, LOWER EXTREMITY, BILATERAL. Indications for Study:CAD pre op eval for CABG. Patient Status:Routine. Study Location:Portable. Technical Quality:Adequate visualization. Risk Factors History of Disease + +----+ + !Diagnosis!Date!Comments ! + +----+ + !History/Risk !!HI, DM, CHF, CAD W/Stnet, Obesity, HTN, HDL, ! !Factors: !!Balloon Pump, Line (Right Groin) ! + +----+ + Procedure Note Interface, External Ris In - 05/11/2018 5:16 PM CDT [facility] - Lower Extremities Vein Mapping Demographics Patient Name BRITTANI PRINGLE Date of Study 05/11/2018 Age 62 Visit Number [id number] Gender Female Date of 1955 Number Malick Roy Room Number [id number] Physician Van Plant Engineer Asim Rao T Physician KULWINDER PEÑA Procedure Type of Study: Veins: Lower Extremity Vein Mapping, VEIN MAPPING, LOWER EXTREMITY, BILATERAL. Indications for Study:CAD pre op eval for CABG. Patient Status:Routine. Study Location:Portable. Technical Quality:Adequate visualization. Risk Factors History of Disease + +----+ + !Diagnosis !Date!Comments ! + +----+ + !History/Risk ! !HI, DM, CHF, CAD W/Stnet, Obesity, HTN, HDL, ! !Factors: ! !Balloon Pump, Line (Right Groin) ! + +----+ + Impressions Right Impression 1. There is no deep venous obstruction in the mid-distal femoral, popliteal, posterior tibial or peroneal veins. 2. The common femoral, profunda femoral and proximal femoral vein was not visualized due to lines. 3. The great saphenous vein had been ligated. 4. The small saphenous vein was not visualized. Left Impression 1. There is no deep venous obstruction in the mid-distal femoral, popliteal, posterior tibial or peroneal veins. 2. The common femoral, profunda femoral and proximal femoral vein was not visualized due to lines. 3. The great saphenous vein had been ligated. 4. The small saphenous vein was not visualized. Incidental Finding: There is a AV Fistula connection a common femoral vein to a branch. Conclusions Summary Venous duplex imaging and compression of the bilateral lower extremities was performed. The veins were adequately visualized except as stated above. The bilateral venous systems were patent and compressible with no evidence of thrombus. The bilateral greater saphenous vein was stripped. The bilateral small saphenous vein was not visualized. Incidental Finding: There was a AV Fistula connection a common femoral vein to a branch. Signature Velocities are measured in cm/s ; Diameters are measured in cm LE Vein Mapping Carotid doppler bilateral (05/11/2018 2:19 PM) Component Value Ref Range Ejection Fraction Specimen Performing Laboratory [facility] Impressions Right Impression Not Imaged due to Lines. Left Impression 1. There is <50% diameter reduction (approximately 47% by 2-D measurement) in the internal carotid artery with a peak velocity of 73 cm/sec and heterogeneous shadowing plaque. 2. There is non-occluding plaque in the external carotid artery. 3. There is non-occluding plaque in the common carotid artery. 4. The vertebral artery flow is antegrade and normal. 5. The subclavian artery is within normal limits where visualized. Conclusions Summary Carotid duplex scanning and color flow imaging were performed on the left side. The left internal carotid artery had <50% hemodynamically insignificant stenosis (approximately 47% by 2-D measurement) with heterogeneous/shadowing plaque. The left vertebral artery flow was antegrade. *Right Side not imaged due to lines. Signature Velocities are measured in cm/s ; Diameters are measured in cm Carotid Left Measurements + +----+---+-----+ + + + !Location !PSV !EDV!Angle!%Stenosis 2D!%Stenosis Doppler ! Tortuosity ! + +----+---+-----+ + + + !Prox CCA !95! !60 !!! ! + +----+---+-----+ + + + !Dist CCA !72.7! !60 !!! ! + +----+---+-----+ + + + !Prox ICA !73.9! !60 !47% !<50%! ! + +----+---+-----+ + + + !Dist ICA !57.9! !50 !!! ! + +----+---+-----+ + + + !Prox ECA !75.6! !60 !!! ! + +----+---+-----+ + + + !Vertebral!67.4! !60 !!! ! + +----+---+-----+ + + + !Prox Subclavian!77.4! !60 !!! ! + +----+---+-----+ + + + - Additional Measurements:ICAPSV/CCAPSV 1.02. Narrative [facility] - Carotid Duplex Study Demographics Patient NameBRITTANI PRINGLE Date of Study 05/11/2018 Age 62 Visit [id number] Gender Female Date of 12/28 Number Referring oRry Wesley Room Number [id number] Physician Van Plant Engineer Shana Wiley MD, KULWINDER Heath T Procedure Type of Study: Cerebral: Carotid, CAROTID DOPPLER, BILATERAL. Indications for Study:Pre OP CABG. Patient Status:Routine. Study Location:Portable. Technical Quality:Adequate visualization. Risk Factors History of Disease + +----+ + !Diagnosis!Date!Comments ! + +----+ + !History/Risk !!HI, DM, CHF, CAD W/Stnet, Obesity, HTN, HDL, ! !Factors: !!Balloon Pump, Line (Right Groin) ! + +----+ + Procedure Note Interface, External Ris In - 05/11/2018 5:17 PM CDT [facility] - Carotid Duplex Study Demographics Patient Name BRITTANI PRINGLE Date of Study 05/11/2018 Age 62 Visit Number [id number] Gender Female Date of 1955 Number Referring Rory Wesley Room Number [id number] Physician Van Plant Engineer Asim Rao, RVT Physician , [facility] Heath T Procedure Type of Study: Cerebral: Carotid, CAROTID DOPPLER, BILATERAL. Indications for Study:Pre OP CABG. Patient Status:Routine. Study Location:Portable. Technical Quality:Adequate visualization. Risk Factors History of Disease + +----+ + !Diagnosis !Date!Comments ! + +----+ + !History/Risk ! !HI, DM, CHF, CAD W/Stnet, Obesity, HTN, HDL, ! !Factors: ! !Balloon Pump, Line (Right Groin) ! + +----+ + Impressions Right Impression Not Imaged due to Lines. Left Impression 1. There is <50% diameter reduction (approximately 47% by 2-D measurement) in the internal carotid artery with a peak velocity of 73 cm/sec and heterogeneous shadowing plaque. 2. There is non-occluding plaque in the external carotid artery. 3. There is non-occluding plaque in the common carotid artery. 4. The vertebral artery flow is antegrade and normal. 5. The subclavian artery is within normal limits where visualized. Conclusions Summary Carotid duplex scanning and color flow imaging were performed on the left side. The left internal carotid artery had <50% hemodynamically insignificant stenosis (approximately 47% by 2-D measurement) with heterogeneous/shadowing plaque. The left vertebral artery flow was antegrade. *Right Side not imaged due to lines. Signature Velocities are measured in cm/s ; Diameters are measured in cm Carotid Left Measurements + +----+---+-----+ + + + !Location !PSV !EDV!Angle!%Stenosis 2D!%Stenosis Doppler !Tortuosity ! + +----+---+-----+ + + + !Prox CCA !95 ! !60 ! ! ! ! + +----+---+-----+ + + + !Dist CCA !72.7! !60 ! ! ! ! + +----+---+-----+ + + + !Prox ICA !73.9! !60 !47% !<50% ! ! + +----+---+-----+ + + + !Dist ICA !57.9! !50 ! ! ! ! + +----+---+-----+ + + + !Prox ECA !75.6! !60 ! ! ! ! + +----+---+-----+ + + + !Vertebral !67.4! !60 ! ! ! ! + +----+---+-----+ + + + !Prox Subclavian!77.4! !60 ! ! ! ! + +----+---+-----+ + + + - Additional Measurements:ICAPSV/CCAPSV 1.02. Antithrombin III (05/11/2018 10:32 AM) Component Value Ref Range Antithrombin III 98.0 80.0 - 120.0 % Specimen Performing Laboratory [address] [address] Troponin I (05/10/2018 10:43 AM)Only the most recent of3 resultswithin the time period is included. Component Value Ref Range Troponin I 14.07 (HH) 0.00 - 0.03 ng/mL Specimen Performing Laboratory Blood [address] [address] Narrative Troponin I (TnI) levels must be interpreted in the context of the presenting symptoms and the clinical findings. Elevated TnI levels indicate myocardial damage, but are not specific for ischemic heart disease. Elevated TnI levels are seen in patients with other cardiac conditions (including myocarditis and congestive heart failure), and slight TnI elevations occur in patients with other conditions, including sepsis, renal failure, acidosis, acute neurological disease, and persistent tachyarrhythmia. Lactate dehydrogenase (LDH) (05/10/2018 4:46 AM) Component Value Ref Range LDH 436 (H) 125 - 220 U/L Specimen Performing Laboratory [address] [address] Haptoglobin (05/10/2018 4:46 AM) Component Value Ref Range Haptoglobin 193 14 - 258 mg/dL Specimen Performing Laboratory [address] [address] Bilirubin, adult total (05/10/2018 4:46 AM) Component Value Ref Range Total Bilirubin 0.9 0.2 - 1.2 mg/dL Specimen Performing Laboratory [address] [address] Hemoglobin A1c (05/09/2018 8:51 AM) Component Value Ref Range Hemoglobin A1C 9.7 (H) 4.3 - 6.1 % Specimen Performing Laboratory [address] [address] Creatine Kinase (CK), Total and MB (05/09/2018 3:59 AM)Only the most recent of2 resultswithin the time period is included. Component Value Ref Range Total CK 641 (H) 29 - 200 U/L CK-MB 21.0 (H) 0.0 - 6.6 ng/mL MB Relative Index 3.3 % Specimen Performing Laboratory Blood [address] [address] Narrative CK-MB Reference Range: <6.7Normal 6.7-10.0Borderline >10.0 Abnormal Hepatic function panel (05/09/2018 3:59 AM)Only the most recent of2 resultswithin the time period is included. Component Value Ref Range Protein, Total 5.8 (L)Comment: Specimen slightly hemolyzed 6.0 - 8.3 gm/dL Albumin 3.0 (L)Comment: Specimen slightly hemolyzed 3.5 - 5.0 g/dL Total Bilirubin 0.5Comment: Specimen slightly hemolyzed 0.2 - 1.2 mg/dL Bilirubin, Direct 0.2Comment: Specimen slightly hemolyzed 0.1 - 0.5 mg/dL Alkaline Phosphatase 100 40 - 150 U/L AST 114 (H)Comment: Specimen slightly hemolyzed 5 - 34 U/L ALT 24Comment: Specimen slightly hemolyzed 6 - 55 U/L Specimen Performing Laboratory Blood [address] [address] Sputum Culture + Gram Stain (05/08/2018 11:48 PM) Component Value Ref Range Result No growth Gram Stain Result <1+ WBCs Gram Stain Result 0-5 epithelial cells Gram Stain Result No organisms seen Specimen Performing Laboratory Tracheal - Endotracheal [address] [address] Blood culture (05/08/2018 10:01 PM)Only the most recent of2 resultswithin the time period is included. Component Value Ref Range Result No growth in 5 days Specimen Performing Laboratory Blood - Line, Arterial [address] [address] Strep pneumoniae urine antigen (05/08/2018 9:35 PM) Component Value Ref Range Strep pneumoniae Antigen Presumptive negative for Presumptive negative for pneumococcal pneumonia - see pneumococcal pneumonia - see comment comment, Presumptive negative for pneumococcal meningitis - see comment Specimen Performing Laboratory Urine - Urine, Unspecified Source [address] [place] [address] Narrative Presumptive negative for pneumococcal pneumonia, suggesting no current or recent pneumococcal infection. Infection due to S. pneumoniae cannot be ruled out since the antigen present in the sample may be below the detection limit of the test. Legionella antigen, urine (05/08/2018 9:34 PM) Component Value Ref Range Legionella Urine Antigen Negative - see commentComment: Negative for L. pneumophila serogroup 1 antigen, suggesting no recent or current infection with this serogroup. Legionellosis cannot be ruled out since other serogroups and species may cause disease. Specimen Performing Laboratory Urine - Urine, Sterile Collection [address] [address] Blood gas, venous (05/08/2018 4:12 PM)Only the most recent of2 resultswithin the time period is included. Component Value Ref Range pH, Clark 7.37 7.32 - 7.42 pCO2, Clark 48 41 - 51 mmHg pO2, Clark 38 25 - 40 mmHg O2 Sat, Clark 70.3 (H) 40.0 - 70.0 % HCO3, Clark 27 21 - 29 mmol/L Base Excess, Clark 1.3 -2.0 - 3.0 mmol/L Patient Temperature 37.1 C FIO2 60.0 % Specimen Performing Laboratory Blood [address] [address] Lactic acid, venous, whole blood (05/08/2018 12:06 PM) Component Value Ref Range Lactate, Venous 2.2 0.5 - 2.2 mmol/L Specimen Performing Laboratory Blood [address] [address] Narrative Effective 02/06/2016: Units/Reference Range Change New: 0.5-2.2 mmol/LPrevious: 5-20 mg/dL after 06/09/2017
--- OUTSIDE RECORDS SUMMARY | 2018-06-10 18:55 | XMS REPORT ---
:1955 [facility] Address [address] [place] [address] Care Team Providers Name Role Phone MINDY RAMÍREZ Unavailable Unavailable MU RUIZ Unavailable Unavailable Problems This patient has no known problems. Allergies, Adverse Reactions, Alerts This patient has no known allergies or adverse reactions. Medications This patient has no known medications. Results Test Description Test Time Test Comments Text Results Atomic Results Result Comments B-TYPE NATRIURETIC FACTOR (BNP) 2018-05-31 14:28:00 Test Item Value Reference Range Comments B-TYPE NATRIURETIC PEPTIDE (BEAKER) (test zvii=021) 793 pg/mL 0-100 [id number] 14:25:00 Test Item Value Reference Range Comments MAGNESIUM (BEAKER) (test fdus=266) 1.4 mg/dL 1.6-2.6 BASIC METABOLIC [id number] 14:25:00 Test Item Value Reference Range Comments SODIUM (BEAKER) (test 137 meq/L 136-145 fijz=976) POTASSIUM (BEAKER) (test 3.8 meq/L 3.5-5.1 yyxl=112) CHLORIDE (BEAKER) (test 100 meq/L 98-107 ewyn=450) CO2 (BEAKER) (test 29 meq/L 22-29 yypo=839) BLOOD UREA NITROGEN 30 mg/dL 7-21 (BEAKER) (test kqwb=536) CREATININE (BEAKER) (test 1.50 mg/dL 0.57-1.25 jgwj=892) GLUCOSE RANDOM (BEAKER) 215 mg/dL 70-105 (test yqbj=478) CALCIUM (BEAKER) (test 9.6 mg/dL 8.4-10.2 slcz=402) EGFR (BEAKER) (test 35 mL/min/1.73 sq m ESTIMATED GFR IS NOT mzyc=2051) ACCURATE CREATININE CLEARANCE IN PREDICTING GLOMERULAR FILTRATION RATE. ESTIMATED GFR IS NOT APPLICABLE FOR DIALYSIS PATIENTS. POCT-GLUCOSE [id number] 16:42:00 Test Item Value Reference Range Comments POC-GLUCOSE METER (BEAKER) 175 mg/dL 70-110 TESTED AT [place] [id number] [facility] (test kway=1853) [facility] [address] POCT-GLUCOSE [id number] 10:41:00 Test Item Value Reference Range Comments POC-GLUCOSE METER (BEAKER) 179 mg/dL 70-110 TESTED AT [address] (test vpyx=1743) [place] [id number] 07:34:00 Test Item Value Reference Range Comments MAGNESIUM (BEAKER) (test qaep=826) 1.8 mg/dL 1.6-2.6 BASIC METABOLIC [id number] 07:34:00 Test Item Value Reference Range Comments SODIUM (BEAKER) (test 138 meq/L 136-145 orky=965) POTASSIUM (BEAKER) (test 4.2 meq/L 3.5-5.1 rqaz=882) CHLORIDE (BEAKER) (test 101 meq/L 98-107 hriq=078) CO2 (BEAKER) (test 26 meq/L 22-29 xkwd=678) BLOOD UREA NITROGEN 42 mg/dL 7-21 (BEAKER) (test stju=282) CREATININE (BEAKER) (test 1.47 mg/dL 0.57-1.25 bkty=822) GLUCOSE RANDOM (BEAKER) 152 mg/dL 70-105 (test myzt=151) CALCIUM (BEAKER) (test 9.4 mg/dL 8.4-10.2 bdec=069) EGFR (BEAKER) (test 36 mL/min/1.73 sq m ESTIMATED GFR IS NOT hdpb=6391) ACCURATE CREATININE CLEARANCE IN PREDICTING GLOMERULAR FILTRATION RATE. ESTIMATED GFR IS NOT APPLICABLE FOR DIALYSIS PATIENTS. CBC W/PLT COUNT & AUTO [id number] 07:21:00 Test Item Value Reference Range Comments WHITE BLOOD CELL COUNT (BEAKER) (test mtyd=029) 5.6 K/ L 3.5-10.5 RED BLOOD CELL COUNT (BEAKER) (test krvk=278) 2.87 M/ L 3.93-5.22 HEMOGLOBIN (BEAKER) (test nvcu=342) 8.4 GM/DL 11.2-15.7 HEMATOCRIT (BEAKER) (test laab=881) 26.9 % 34.1-44.9 MEAN CORPUSCULAR VOLUME (BEAKER) (test gqrf=317) 93.7 fL 79.4-94.8 MEAN CORPUSCULAR HEMOGLOBIN (BEAKER) (test 29.3 pg 25.6-32.2 pjfy=167) MEAN CORPUSCULAR HEMOGLOBIN CONC (BEAKER) (test 31.2 GM/DL 32.2-35.5 lifi=606) RED CELL DISTRIBUTION WIDTH (BEAKER) (test 16.3 % 11.7-14.4 utnt=887) PLATELET COUNT (BEAKER) (test qpfh=689) 273 K/CU MM 150-450 MEAN PLATELET VOLUME (BEAKER) (test ofra=223) 11.0 fL 9.4-12.3 NUCLEATED RED BLOOD CELLS (BEAKER) (test 0 /100 WBC 0-0 zjfo=137) NEUTROPHILS RELATIVE PERCENT (BEAKER) (test 65 % uzrr=998) LYMPHOCYTES RELATIVE PERCENT (BEAKER) (test 17 % tuwt=639) MONOCYTES RELATIVE PERCENT (BEAKER) (test 9 % bcoj=767) EOSINOPHILS RELATIVE PERCENT (BEAKER) (test 3 % qigh=186) BASOPHILS RELATIVE PERCENT (BEAKER) (test 0 % bsqp=639) NEUTROPHILS ABSOLUTE COUNT (BEAKER) (test 3.63 K/ L 1.56-6.13 fxwn=863) LYMPHOCYTES ABSOLUTE COUNT (BEAKER) (test 0.96 K/ L 1.18-3.74 erxk=962) MONOCYTES ABSOLUTE COUNT (BEAKER) (test 0.53 K/ L 0.24-0.36 rgdr=630) EOSINOPHILS ABSOLUTE COUNT (BEAKER) (test 0.17 K/ L 0.04-0.36 omyd=450) BASOPHILS ABSOLUTE COUNT (BEAKER) (test 0.02 K/ L 0.01-0.08 lvld=652) IMMATURE GRANULOCYTES-RELATIVE PERCENT (BEAKER) 5 % 0-1 (test nfyk=2779) POCT-GLUCOSE [id number] 22:08:00 Test Item Value Reference Range Comments POC-GLUCOSE METER (BEAKER) 268 mg/dL 70-[address] [facility] [address] [facility] (test bnwv=9823) [facility] [address] POCT-GLUCOSE [id number] 18:11:00 Test Item Value Reference Range Comments POC-GLUCOSE METER (BEAKER) 227 mg/dL 70-[address] [facility] [address] (test zfdo=7147) [facility] [address] CBC W/PLT COUNT & AUTO [id number] 11:15:00 Test Item Value Reference Range Comments WHITE BLOOD CELL COUNT (BEAKER) (test xdbl=357) 6.6 K/ L 3.5-10.5 RED BLOOD CELL COUNT (BEAKER) (test yyng=130) 2.98 M/ L 3.93-5.22 HEMOGLOBIN (BEAKER) (test pnug=650) 8.6 GM/DL 11.2-15.7 HEMATOCRIT (BEAKER) (test cpqa=738) 27.5 % 34.1-44.9 MEAN CORPUSCULAR VOLUME (BEAKER) (test umrw=562) 92.3 fL 79.4-94.8 MEAN CORPUSCULAR HEMOGLOBIN (BEAKER) (test 28.9 pg 25.6-32.2 seag=836) MEAN CORPUSCULAR HEMOGLOBIN CONC (BEAKER) (test 31.3 GM/DL 32.2-35.5 oppb=568) RED CELL DISTRIBUTION WIDTH (BEAKER) (test 16.1 % 11.7-14.4 vftx=955) PLATELET COUNT (BEAKER) (test cbjs=362) 284 K/CU MM 150-450 MEAN PLATELET VOLUME (BEAKER) (test uwtd=727) 10.8 fL 9.4-12.3 NUCLEATED RED BLOOD CELLS (BEAKER) (test 0 /100 WBC 0-0 uohf=806) (CELLAVISION MANUAL DIFF)2018-05-23 11:15:00 Test Item Value Reference Range Comments NEUTROPHILS - REL (CELLAVISION)(BEAKER) (test 60 % xiiq=6427) LYMPHOCYTES - REL (CELLAVISION)(BEAKER) (test 20 % ehlg=0989) MONOCYTES - REL (CELLAVISION)(BEAKER) (test 7 % hhqb=7533) EOSINOPHILS - REL (CELLAVISION)(BEAKER) (test 2 % axvp=0327) BASOPHILS - REL (CELLAVISION)(BEAKER) (test 1 % ibxi=7721) METAMYELOCYTES - REL (CELLAVISION)(BEAKER) (test 2 % 0-0 wddi=5368) MYELOCYTES - REL (CELLAVISION)(BEAKER) (test 3 % 0-0 akph=2416) BANDS - REL (CELLAVISION)(BEAKER) (test 5 % 0-10 hyjl=3643) NEUTROPHILS - ABS (CELLAVISION)(BEAKER) (test 3.96 K/ul 1.56-6.13 eour=8949) LYMPHOCYTES - ABS (CELLAVISION)(BEAKER) (test 1.32 K/ul 1.18-3.74 cxci=2496) MONOCYTES - ABS (CELLAVISION)(BEAKER) (test 0.46 K/uL 0.24-0.36 glch=2729) EOSINOPHILS - ABS (CELLAVISION)(BEAKER) (test 0.13 K/uL 0.04-0.36 uekq=9676) BASOPHILS - ABS (CELLAVISION)(BEAKER) (test 0.07 K/uL 0.01-0.08 dcei=1269) METAMYELOCYTES - ABS (CELLAVISION)(BEAKER) (test 0.13 K/uL 0.00-0.00 vqta=0470) MYELOCYTES-ABS (CELLAVISION)(BEAKER) (test 0.20 K/uL 0.00-0.00 rhrz=3254) BANDS - ABS (CELLAVISION)(BEAKER) (test 0.33 K/uL 0.00-0.80 pzqy=2159) TOTAL COUNTED (BEAKER) (test expm=5677) 100 MANUAL NRBC PER 100 CELLS (BEAKER) (test 1 /100 WBC 0-0 wvow=2141) WBC MORPHOLOGY (BEAKER) (test lpjk=988) Normal PLT MORPHOLOGY (BEAKER) (test rhxt=292) Normal POLYCHROMATOPHILLIC RBCS(BEAKER) (test uspk=946) 1+ few ANISOCYTOSIS (BEAKER) (test aydw=264) 1+ few ARTIFACT (CELLAVISION)(BEAKER) (test wejl=6073) Present PLATELET CONCENTRATION (CELLAVISION)(BEAKER) Adequate (test rwmj=0516) Received comment: User comments: Slide comments:POCT-GLUCOSE [id number] 10: 18:00 Test Item Value Reference Range Comments POC-GLUCOSE METER (BEAKER) 220 mg/dL 70-110 TESTED AT [address] (test wvof=5773) [place] [id number] 06:39:00 Test Item Value Reference Range Comments MAGNESIUM (BEAKER) (test qagl=987) 1.8 mg/dL 1.6-2.6 BASIC METABOLIC [id number] 06:39:00 Test Item Value Reference Range Comments SODIUM (BEAKER) (test 137 meq/L 136-145 xast=564) POTASSIUM (BEAKER) (test 4.1 meq/L 3.5-5.1 mclr=401) CHLORIDE (BEAKER) (test 100 meq/L 98-107 gnun=351) CO2 (BEAKER) (test 28 meq/L 22-29 bzsw=330) BLOOD UREA NITROGEN 45 mg/dL 7-21 (BEAKER) (test xkgb=084) CREATININE (BEAKER) (test 1.62 mg/dL 0.57-1.25 odhu=632) GLUCOSE RANDOM (BEAKER) 209 mg/dL 70-105 (test maqs=559) CALCIUM (BEAKER) (test 9.4 mg/dL 8.4-10.2 omun=453) EGFR (BEAKER) (test 32 mL/min/1.73 sq m ESTIMATED GFR IS NOT ypfz=2024) ACCURATE CREATININE CLEARANCE IN PREDICTING GLOMERULAR FILTRATION RATE. ESTIMATED GFR IS NOT APPLICABLE FOR DIALYSIS PATIENTS. POCT-GLUCOSE [id number] 23:32:00 Test Item Value Reference Range Comments POC-GLUCOSE METER (BEAKER) 87 mg/dL 70-110 TESTED AT [address] (test ecrs=6285) [place] [id number] POCT-GLUCOSE [id number] 21:15:00 Test Item Value Reference Range Comments POC-GLUCOSE METER (BEAKER) 141 mg/dL 70-110 TESTED AT [address] (test pydf=5923) [place] [id number] POCT-GLUCOSE [id number] 14:36:00 Test Item Value Reference Range Comments POC-GLUCOSE METER (BEAKER) 136 mg/dL 70-110 TESTED AT [address] (test wqyi=7722) [place] [address] CBC W/PLT COUNT & AUTO [id number] 11:32:00 Test Item Value Reference Range Comments WHITE BLOOD CELL COUNT (BEAKER) (test avul=067) 8.5 K/ L 3.5-10.5 RED BLOOD CELL COUNT (BEAKER) (test wqgh=035) 3.39 M/ L 3.93-5.22 HEMOGLOBIN (BEAKER) (test zdjv=485) 10.0 GM/DL 11.2-15.7 HEMATOCRIT (BEAKER) (test fife=627) 32.4 % 34.1-44.9 MEAN CORPUSCULAR VOLUME (BEAKER) (test erpt=197) 95.6 fL 79.4-94.8 MEAN CORPUSCULAR HEMOGLOBIN (BEAKER) (test 29.5 pg 25.6-32.2 vuij=399) MEAN CORPUSCULAR HEMOGLOBIN CONC (BEAKER) (test 30.9 GM/DL 32.2-35.5 qeno=524) RED CELL DISTRIBUTION WIDTH (BEAKER) (test 15.8 % 11.7-14.4 duny=299) PLATELET COUNT (BEAKER) (test kttc=435) 292 K/CU MM 150-450 MEAN PLATELET VOLUME (BEAKER) (test qgha=370) 11.0 fL 9.4-12.3 NUCLEATED RED BLOOD CELLS (BEAKER) (test 0 /100 WBC 0-0 spne=767) (MANUAL DIFFERENTIAL)2018-05-22 11:32:00 Test Item Value Reference Range Comments NEUTROPHILS - REL (DIFF) (BEAKER) (test 67 % lzon=4499) LYMPHOCYTES - REL (DIFF) (BEAKER) (test 22 % xhbv=9579) MONOCYTES - REL (DIFF) (BEAKER) (test axpk=5198) 4 % EOSINOPHILS - REL (DIFF) (BEAKER) (test 4 % zgxu=8558) MYELOCYTES-REL (DIFF) (BEAKER) (test rkye=1913) 2 % 0-0 BANDS - REL (DIFF) (BEAKER) (test osdu=7175) 1 % 0-10 NEUTROPHILS - ABS (DIFF) (BEAKER) (test 5.70 K/ L 1.80-8.00 plme=5824) LYMPHOCYTES - ABS (DIFF) (BEAKER) (test 1.87 K/ L 1.48-4.50 wqch=9595) MONOCYTES - ABS (DIFF) (BEAKER) (test vorh=2280) 0.34 K/ L 0.00-1.30 EOSINOPHILS - ABS (DIFF) (BEAKER) (test 0.34 K/ L 0.00-0.50 sqkj=3130) BANDS-ABS (DIFF) (BEAKER) (test rcrd=6740) 0.1 K/ L 0.0-0.8 MYELOCYTES-ABS (DIFF) (BEAKER) (test lhlg=0772) 0.17 K/ L 0.00-0.00 TOTAL COUNTED (BEAKER) (test mrcm=2290) 100 BANDS + SEGMENTED NEUTROPHILS (BEAKER) (test 5.78 xiis=1763) MANUAL NRBC PER 100 CELLS (BEAKER) (test 1 /100 WBC 0-0 aaqm=9203) WBC MORPHOLOGY (BEAKER) (test chzb=142) Normal PLT MORPHOLOGY (BEAKER) (test pbrj=442) Normal RBC MORPHOLOGY (BEAKER) (test olyz=248) Normal POCT-GLUCOSE [id number] 10:31:00 Test Item Value Reference Range Comments POC-GLUCOSE METER (BEAKER) 102 mg/dL 70-[address] [facility] [address] [facility] (test wlif=8315) [facility] [address] [id number] 10:15:00 Test Item Value Reference Range Comments MAGNESIUM (BEAKER) (test wsto=754) 1.8 mg/dL 1.6-2.6 BASIC METABOLIC [id number] 10:15:00 Test Item Value Reference Range Comments SODIUM (BEAKER) (test 138 meq/L 136-145 gyww=734) POTASSIUM (BEAKER) (test 4.2 meq/L 3.5-5.1 iwdr=765) CHLORIDE (BEAKER) (test 100 meq/L 98-107 btrs=982) CO2 (BEAKER) (test 29 meq/L 22-29 uucj=534) BLOOD UREA NITROGEN 42 mg/dL 7-21 (BEAKER) (test gqoo=798) CREATININE (BEAKER) (test 1.41 mg/dL 0.57-1.25 vjnr=829) GLUCOSE RANDOM (BEAKER) 89 mg/dL 70-105 (test aded=049) CALCIUM (BEAKER) (test 9.5 mg/dL 8.4-10.2 odvl=397) EGFR (BEAKER) (test 38 mL/min/1.73 sq m ESTIMATED GFR IS NOT hggd=6131) ACCURATE CREATININE CLEARANCE IN PREDICTING GLOMERULAR FILTRATION RATE. ESTIMATED GFR IS NOT APPLICABLE FOR DIALYSIS PATIENTS. POCT-GLUCOSE [id number] 22:02:00 Test Item Value Reference Range Comments POC-GLUCOSE METER (BEAKER) 175 mg/dL 70-110 TESTED AT [address] (test gzjq=7362) [facility] [address] POCT-GLUCOSE [id number] 17:16:00 Test Item Value Reference Range Comments POC-GLUCOSE METER (BEAKER) 212 mg/dL 70-110 TESTED AT [address] (test qehx=5012) [place] [id number] POCT-GLUCOSE [id number] 13:19:00 Test Item Value Reference Range Comments POC-GLUCOSE METER (BEAKER) 160 mg/dL 70-110 TESTED AT [address] (test gxoi=5087) [place] [id number] CBC W/PLT COUNT & AUTO [id number] 11:02:00 Test Item Value Reference Range Comments WHITE BLOOD CELL COUNT (BEAKER) (test csqq=366) 6.8 K/ L 3.5-10.5 RED BLOOD CELL COUNT (BEAKER) (test npur=353) 3.15 M/ L 3.93-5.22 HEMOGLOBIN (BEAKER) (test mfpp=754) 9.2 GM/DL 11.2-15.7 HEMATOCRIT (BEAKER) (test ftmw=007) 29.1 % 34.1-44.9 MEAN CORPUSCULAR VOLUME (BEAKER) (test slbj=922) 92.4 fL 79.4-94.8 MEAN CORPUSCULAR HEMOGLOBIN (BEAKER) (test 29.2 pg 25.6-32.2 dwap=286) MEAN CORPUSCULAR HEMOGLOBIN CONC (BEAKER) (test 31.6 GM/DL 32.2-35.5 xdis=799) RED CELL DISTRIBUTION WIDTH (BEAKER) (test 15.6 % 11.7-14.4 tczv=333) PLATELET COUNT (BEAKER) (test amdk=063) 249 K/CU MM 150-450 MEAN PLATELET VOLUME (BEAKER) (test upyn=388) 11.1 fL 9.4-12.3 NUCLEATED RED BLOOD CELLS (BEAKER) (test 0 /100 WBC 0-0 mire=793) (CELLAVISION MANUAL DIFF)2018-05-21 11:02:00 Test Item Value Reference Range Comments NEUTROPHILS - REL (CELLAVISION)(BEAKER) (test 68 % pcvi=8895) LYMPHOCYTES - REL (CELLAVISION)(BEAKER) (test 14 % wwxt=0187) MONOCYTES - REL (CELLAVISION)(BEAKER) (test 6 % iklt=1117) EOSINOPHILS - REL (CELLAVISION)(BEAKER) (test 2 % lekb=1190) MYELOCYTES - REL (CELLAVISION)(BEAKER) (test 1 % 0-0 jfqm=1083) BANDS - REL (CELLAVISION)(BEAKER) (test 9 % 0-10 enpp=8522) NEUTROPHILS - ABS (CELLAVISION)(BEAKER) (test 4.62 K/ul 1.56-6.13 rqba=8004) LYMPHOCYTES - ABS (CELLAVISION)(BEAKER) (test 0.95 K/ul 1.18-3.74 huhr=6843) MONOCYTES - ABS (CELLAVISION)(BEAKER) (test 0.41 K/uL 0.24-0.36 epkl=2063) EOSINOPHILS - ABS (CELLAVISION)(BEAKER) (test 0.14 K/uL 0.04-0.36 rgnl=8907) MYELOCYTES-ABS (CELLAVISION)(BEAKER) (test 0.07 K/uL 0.00-0.00 zfnt=4034) BANDS - ABS (CELLAVISION)(BEAKER) (test 0.61 K/uL 0.00-0.80 aswl=2200) TOTAL COUNTED (BEAKER) (test livn=1020) 100 WBC MORPHOLOGY (BEAKER) (test taik=289) Normal PLT MORPHOLOGY (BEAKER) (test ethr=544) Normal ANISOCYTOSIS (BEAKER) (test nful=918) 2+ moderate MICROCYTES (BEAKER) (test jpvn=480) 1+ few SPHEROCYTES (BEAKER) (test jhwm=435) 2+ moderate ARTIFACT (CELLAVISION)(BEAKER) (test oxwo=3625) Present PLATELET CONCENTRATION (CELLAVISION)(BEAKER) Adequate (test ptzh=0387) Received comment: User comments: Slide comments:POCT-GLUCOSE [id number] 08: 47:00 Test Item Value Reference Range Comments POC-GLUCOSE METER (BEAKER) 167 mg/dL 70-[address] [facility] [address] [facility] (test efla=4000) [facility] [address] T4, [id number] 08:07:00 Test Item Value Reference Range Comments FREE T4 (BEAKER) (test xfod=882) 1.05 ng/dL 0.70-1.48 [id number] 08:06:00 Test Item Value Reference Range Comments MAGNESIUM (BEAKER) (test hvzq=354) 2.0 mg/dL 1.6-2.6 BASIC METABOLIC [id number] 08:06:00 Test Item Value Reference Range Comments SODIUM (BEAKER) (test 136 meq/L 136-145 rnqh=889) POTASSIUM (BEAKER) (test 4.4 meq/L 3.5-5.1 fnqv=250) CHLORIDE (BEAKER) (test 99 meq/L 98-107 nhev=675) CO2 (BEAKER) (test 30 meq/L 22-29 iltb=760) BLOOD UREA NITROGEN 50 mg/dL 7-21 (BEAKER) (test qvtv=265) CREATININE (BEAKER) (test 1.46 mg/dL 0.57-1.25 mvgv=665) GLUCOSE RANDOM (BEAKER) 125 mg/dL 70-105 (test tavz=389) CALCIUM (BEAKER) (test 9.4 mg/dL 8.4-10.2 zbgx=450) EGFR (BEAKER) (test 36 mL/min/1.73 sq m ESTIMATED GFR IS NOT zobr=0886) ACCURATE CREATININE CLEARANCE IN PREDICTING GLOMERULAR FILTRATION RATE. ESTIMATED GFR IS NOT APPLICABLE FOR DIALYSIS PATIENTS. POCT-GLUCOSE [id number] 21:49:00 Test Item Value Reference Range Comments POC-GLUCOSE METER (BEAKER) 168 mg/dL 70-[address] [facility] [address] [facility] (test bcqs=3486) [facility] [address] POCT-GLUCOSE [id number] 17:16:00 Test Item Value Reference Range Comments POC-GLUCOSE METER (BEAKER) 183 mg/dL 70-110 TESTED AT [address] (test mnzh=8989) [facility] [address] POCT-GLUCOSE [id number] 15:16:00 Test Item Value Reference Range Comments POC-GLUCOSE METER (BEAKER) 123 mg/dL 70-110 TESTED AT [address] (test qsqo=5121) [facility] [address] POCT-GLUCOSE [id number] 09:11:00 Test Item Value Reference Range Comments POC-GLUCOSE METER (BEAKER) 107 mg/dL 70-110 TESTED AT [address] (test yjvk=1644) [facility] [address] [id number] 07:05:00 Test Item Value Reference Range Comments MAGNESIUM (BEAKER) (test tqef=543) 2.1 mg/dL 1.6-2.6 BASIC METABOLIC [id number] 07:05:00 Test Item Value Reference Range Comments SODIUM (BEAKER) (test 138 meq/L 136-145 jpjp=521) POTASSIUM (BEAKER) (test 4.3 meq/L 3.5-5.1 mjta=553) CHLORIDE (BEAKER) (test 100 meq/L 98-107 sktz=284) CO2 (BEAKER) (test 29 meq/L 22-29 egbi=476) BLOOD UREA NITROGEN 52 mg/dL 7-21 (BEAKER) (test omlc=360) CREATININE (BEAKER) (test 1.47 mg/dL 0.57-1.25 ybiu=001) GLUCOSE RANDOM (BEAKER) 89 mg/dL 70-105 (test bsah=126) CALCIUM (BEAKER) (test 9.6 mg/dL 8.4-10.2 jbwr=960) EGFR (BEAKER) (test 36 mL/min/1.73 sq m ESTIMATED GFR IS NOT rbmh=0556) ACCURATE CREATININE CLEARANCE IN PREDICTING GLOMERULAR FILTRATION RATE. ESTIMATED GFR IS NOT APPLICABLE FOR DIALYSIS PATIENTS. CBC W/PLT COUNT & AUTO [id number] 06:18:00 Test Item Value Reference Range Comments WHITE BLOOD CELL COUNT (BEAKER) (test jkvl=827) 6.5 K/ L 3.5-10.5 RED BLOOD CELL COUNT (BEAKER) (test flhf=226) 3.03 M/ L 3.93-5.22 HEMOGLOBIN (BEAKER) (test gggs=273) 8.8 GM/DL 11.2-15.7 HEMATOCRIT (BEAKER) (test bzuu=519) 27.7 % 34.1-44.9 MEAN CORPUSCULAR VOLUME (BEAKER) (test bbem=117) 91.4 fL 79.4-94.8 MEAN CORPUSCULAR HEMOGLOBIN (BEAKER) (test 29.0 pg 25.6-32.2 znuv=299) MEAN CORPUSCULAR HEMOGLOBIN CONC (BEAKER) (test 31.8 GM/DL 32.2-35.5 tvvg=283) RED CELL DISTRIBUTION WIDTH (BEAKER) (test 15.2 % 11.7-14.4 oocw=683) PLATELET COUNT (BEAKER) (test kuxm=952) 265 K/CU MM 150-450 MEAN PLATELET VOLUME (BEAKER) (test ysvg=931) 11.1 fL 9.4-12.3 NUCLEATED RED BLOOD CELLS (BEAKER) (test 0 /100 WBC 0-0 mzcc=952) NEUTROPHILS RELATIVE PERCENT (BEAKER) (test 62 % zxll=871) LYMPHOCYTES RELATIVE PERCENT (BEAKER) (test 22 % umwy=339) MONOCYTES RELATIVE PERCENT (BEAKER) (test 8 % onyc=762) EOSINOPHILS RELATIVE PERCENT (BEAKER) (test 3 % torm=222) BASOPHILS RELATIVE PERCENT (BEAKER) (test 0 % onfv=530) NEUTROPHILS ABSOLUTE COUNT (BEAKER) (test 4.03 K/ L 1.56-6.13 zcmv=705) LYMPHOCYTES ABSOLUTE COUNT (BEAKER) (test 1.40 K/ L 1.18-3.74 xfou=979) MONOCYTES ABSOLUTE COUNT (BEAKER) (test 0.53 K/ L 0.24-0.36 bmiu=951) EOSINOPHILS ABSOLUTE COUNT (BEAKER) (test 0.18 K/ L 0.04-0.36 uhvr=634) BASOPHILS ABSOLUTE COUNT (BEAKER) (test 0.02 K/ L 0.01-0.08 wsbd=534) IMMATURE GRANULOCYTES-RELATIVE PERCENT (BEAKER) 5 % 0-1 (test xqtt=3643) POCT-GLUCOSE [id number] 06:12:00 Test Item Value Reference Range Comments POC-GLUCOSE METER (BEAKER) 107 mg/dL 70-[address] [facility] [address] [facility] (test ymwp=5403) [facility] [address] POCT-GLUCOSE [id number] 21:49:00 Test Item Value Reference Range Comments POC-GLUCOSE METER (BEAKER) 180 mg/dL 70-110 TESTED AT [place] [id number] [facility] (test raax=8439) [facility] [address] POCT-GLUCOSE [id number] 17:56:00 Test Item Value Reference Range Comments POC-GLUCOSE METER (BEAKER) 224 mg/dL 70-110 TESTED AT [address] (test ltfc=8369) [facility] [address] POCT-GLUCOSE [id number] 12:54:00 Test Item Value Reference Range Comments POC-GLUCOSE METER (BEAKER) 200 mg/dL 70-110 TESTED AT [address] (test seop=2154) [facility] [address] POCT-GLUCOSE [id number] 09:10:00 Test Item Value Reference Range Comments POC-GLUCOSE METER (BEAKER) 175 mg/dL 70-110 TESTED AT [address] (test jiqv=8248) [facility] [address] [id number] 07:19:00 Test Item Value Reference Range Comments MAGNESIUM (BEAKER) (test fodc=330) 2.0 mg/dL 1.6-2.6 BASIC METABOLIC [id number] 07:19:00 Test Item Value Reference Range Comments SODIUM (BEAKER) (test 135 meq/L 136-145 uapu=608) POTASSIUM (BEAKER) (test 4.2 meq/L 3.5-5.1 smzh=049) CHLORIDE (BEAKER) (test 99 meq/L 98-107 vnpf=222) CO2 (BEAKER) (test 28 meq/L 22-29 zfof=656) BLOOD UREA NITROGEN 58 mg/dL 7-21 (BEAKER) (test mlbb=639) CREATININE (BEAKER) (test 1.41 mg/dL 0.57-1.25 qqvn=255) GLUCOSE RANDOM (BEAKER) 155 mg/dL 70-105 (test xsvl=212) CALCIUM (BEAKER) (test 9.2 mg/dL 8.4-10.2 xsip=716) EGFR (BEAKER) (test 38 mL/min/1.73 sq m ESTIMATED GFR IS NOT vjzk=6870) ACCURATE CREATININE CLEARANCE IN PREDICTING GLOMERULAR FILTRATION RATE. ESTIMATED GFR IS NOT APPLICABLE FOR DIALYSIS PATIENTS. CBC W/PLT COUNT & AUTO [id number] 06:59:00 Test Item Value Reference Range Comments WHITE BLOOD CELL COUNT (BEAKER) (test syae=708) 6.8 K/ L 3.5-10.5 RED BLOOD CELL COUNT (BEAKER) (test aiog=108) 2.91 M/ L 3.93-5.22 HEMOGLOBIN (BEAKER) (test zglq=358) 8.5 GM/DL 11.2-15.7 HEMATOCRIT (BEAKER) (test ftbp=122) 26.3 % 34.1-44.9 MEAN CORPUSCULAR VOLUME (BEAKER) (test bopz=249) 90.4 fL 79.4-94.8 MEAN CORPUSCULAR HEMOGLOBIN (BEAKER) (test 29.2 pg 25.6-32.2 pdod=522) MEAN CORPUSCULAR HEMOGLOBIN CONC (BEAKER) (test 32.3 GM/DL 32.2-35.5 cven=397) RED CELL DISTRIBUTION WIDTH (BEAKER) (test 14.9 % 11.7-14.4 dhmo=844) PLATELET COUNT (BEAKER) (test ctbt=484) 236 K/CU MM 150-450 MEAN PLATELET VOLUME (BEAKER) (test wtuq=041) 11.0 fL 9.4-12.3 NUCLEATED RED BLOOD CELLS (BEAKER) (test 0 /100 WBC 0-0 prnw=675) NEUTROPHILS RELATIVE PERCENT (BEAKER) (test 68 % povi=519) LYMPHOCYTES RELATIVE PERCENT (BEAKER) (test 16 % ukjf=467) MONOCYTES RELATIVE PERCENT (BEAKER) (test 9 % cnxj=909) EOSINOPHILS RELATIVE PERCENT (BEAKER) (test 2 % yuwj=162) BASOPHILS RELATIVE PERCENT (BEAKER) (test 0 % heca=727) NEUTROPHILS ABSOLUTE COUNT (BEAKER) (test 4.66 K/ L 1.56-6.13 hqvo=152) LYMPHOCYTES ABSOLUTE COUNT (BEAKER) (test 1.08 K/ L 1.18-3.74 zsew=796) MONOCYTES ABSOLUTE COUNT (BEAKER) (test 0.60 K/ L 0.24-0.36 fpbk=058) EOSINOPHILS ABSOLUTE COUNT (BEAKER) (test 0.16 K/ L 0.04-0.36 gaei=990) BASOPHILS ABSOLUTE COUNT (BEAKER) (test 0.02 K/ L 0.01-0.08 rbal=951) IMMATURE GRANULOCYTES-RELATIVE PERCENT (BEAKER) 4 % 0-1 (test vmmb=2038) POCT-GLUCOSE [id number] 21:24:00 Test Item Value Reference Range Comments POC-GLUCOSE METER (BEAKER) 238 mg/dL 70-110 TESTED AT [address] (test eita=9284) [facility] [address] POCT-GLUCOSE [id number] 18:05:00 Test Item Value Reference Range Comments POC-GLUCOSE METER (BEAKER) 224 mg/dL 70-110 TESTED AT [address] (test tfyd=6583) [facility] [address] POCT-GLUCOSE [id number] 15:08:00 Test Item Value Reference Range Comments POC-GLUCOSE METER (BEAKER) 152 mg/dL 70-110 TESTED AT [address] (test zvmu=9770) [facility] [address] POCT-GLUCOSE [id number] 10:24:00 Test Item Value Reference Range Comments POC-GLUCOSE METER (BEAKER) 152 mg/dL 70-110 TESTED AT [address] (test jqjy=5649) [facility] [address] [id number] 02:48:00 Test Item Value Reference Range Comments MAGNESIUM (BEAKER) (test jeov=927) 1.9 mg/dL 1.6-2.6 BASIC METABOLIC [id number] 02:48:00 Test Item Value Reference Range Comments SODIUM (BEAKER) (test 134 meq/L 136-145 vlfz=436) POTASSIUM (BEAKER) (test 3.8 meq/L 3.5-5.1 kmug=989) CHLORIDE (BEAKER) (test 96 meq/L 98-107 kprc=983) CO2 (BEAKER) (test 29 meq/L 22-29 ndcd=669) BLOOD UREA NITROGEN 57 mg/dL 7-21 (BEAKER) (test wqsw=417) CREATININE (BEAKER) (test 1.63 mg/dL 0.57-1.25 rqgp=791) GLUCOSE RANDOM (BEAKER) 144 mg/dL 70-105 (test shpr=815) CALCIUM (BEAKER) (test 9.1 mg/dL 8.4-10.2 bsoj=379) EGFR (BEAKER) (test 32 mL/min/1.73 sq m ESTIMATED GFR IS NOT xwkp=4797) ACCURATE CREATININE CLEARANCE IN PREDICTING GLOMERULAR FILTRATION RATE. ESTIMATED GFR IS NOT APPLICABLE FOR DIALYSIS PATIENTS. CBC W/PLT COUNT & AUTO [id number] 02:32:00 Test Item Value Reference Range Comments WHITE BLOOD CELL COUNT (BEAKER) (test eqiv=583) 6.2 K/ L 3.5-10.5 RED BLOOD CELL COUNT (BEAKER) (test jwli=609) 2.81 M/ L 3.93-5.22 HEMOGLOBIN (BEAKER) (test xzqf=380) 8.2 GM/DL 11.2-15.7 HEMATOCRIT (BEAKER) (test ijzx=433) 25.2 % 34.1-44.9 MEAN CORPUSCULAR VOLUME (BEAKER) (test rpsw=373) 89.7 fL 79.4-94.8 MEAN CORPUSCULAR HEMOGLOBIN (BEAKER) (test 29.2 pg 25.6-32.2 ysvf=138) MEAN CORPUSCULAR HEMOGLOBIN CONC (BEAKER) (test 32.5 GM/DL 32.2-35.5 fzog=848) RED CELL DISTRIBUTION WIDTH (BEAKER) (test 14.6 % 11.7-14.4 uwvl=460) PLATELET COUNT (BEAKER) (test gjuf=916) 205 K/CU MM 150-450 MEAN PLATELET VOLUME (BEAKER) (test tvef=177) 10.7 fL 9.4-12.3 NUCLEATED RED BLOOD CELLS (BEAKER) (test 0 /100 WBC 0-0 ynof=245) NEUTROPHILS RELATIVE PERCENT (BEAKER) (test 59 % wgba=151) LYMPHOCYTES RELATIVE PERCENT (BEAKER) (test 22 % hsew=371) MONOCYTES RELATIVE PERCENT (BEAKER) (test 10 % dfkf=160) EOSINOPHILS RELATIVE PERCENT (BEAKER) (test 4 % gdef=477) BASOPHILS RELATIVE PERCENT (BEAKER) (test 0 % ljvt=323) NEUTROPHILS ABSOLUTE COUNT (BEAKER) (test 3.67 K/ L 1.56-6.13 aiis=887) LYMPHOCYTES ABSOLUTE COUNT (BEAKER) (test 1.38 K/ L 1.18-3.74 jxpp=458) MONOCYTES ABSOLUTE COUNT (BEAKER) (test 0.64 K/ L 0.24-0.36 awyc=478) EOSINOPHILS ABSOLUTE COUNT (BEAKER) (test 0.22 K/ L 0.04-0.36 rlhs=194) BASOPHILS ABSOLUTE COUNT (BEAKER) (test 0.02 K/ L 0.01-0.08 njbc=626) IMMATURE GRANULOCYTES-RELATIVE PERCENT (BEAKER) 4 % 0-1 (test ldzi=2510) POCT-GLUCOSE [id number] 23:22:00 Test Item Value Reference Range Comments POC-GLUCOSE METER (BEAKER) 197 mg/dL 70-110 TESTED AT [address] (test ylyw=8232) [place] [address] POCT-GLUCOSE [id number] 16:57:00 Test Item Value Reference Range Comments POC-GLUCOSE METER (BEAKER) 209 mg/dL 70-110 TESTED AT [address] (test iqrr=9591) [place] [address] POCT-GLUCOSE [id number] 14:09:00 Test Item Value Reference Range Comments POC-GLUCOSE METER (BEAKER) 225 mg/dL 70-110 TESTED AT [address] (test urkk=6675) [place] [address] TISSUE [id number] 11:26:00Surgical Pathology Report Case: [id number] Authorizing Provider: Maryjane Araujo MD Collected: 05/13/2018 1653 Ordering Location: [facility] Received: 05/14/2018 0820 PERIOPERATIVE SERVICES Pathologist: Vince Higginbotham MD Specimen: Plaque, CORONARY OBTUSE MARGINALIS PLAQUE ARTERY, OBTUSE MARGINAL, ATHERECTOMY:SEVERE WITH STENOSIS AND CALCIFIC ATHEROSCLEROTIC PLAQUE Signing [employer] Phone Line: [phone] signed by Vince Higginbotham MD on 05/17/2018 at 11:26 [id number]; [id number] and chronic systolic congestive heart failure Coronary obtuse marginalis plaque Specimen is received in a fluidless container labeled with the patient's information and labeled "coronary obtuse marginalis plaque" and consists of two tubular shaped segments of calcified tissue both measuring 0.5 cm in length and ranging from 0.1 to 0.3 cm in diameter. The tissue is entirely submitted in A1 for decalcification. CG/ ew PerformedPOCT-GLUCOSE [id number] 09:33:00 Test Item Value Reference Range Comments POC-GLUCOSE METER (BEAKER) 121 mg/dL 70-[address] [facility] [address] (test wbuu=9035) [facility] [address] BASIC METABOLIC [id number] 06:45:00 Test Item Value Reference Range Comments SODIUM (BEAKER) (test 134 meq/L 136-145 qhft=218) POTASSIUM (BEAKER) (test 3.9 meq/L 3.5-5.1 yqbp=076) CHLORIDE (BEAKER) (test 96 meq/L 98-107 moam=301) CO2 (BEAKER) (test 29 meq/L 22-29 etaw=518) BLOOD UREA NITROGEN 50 mg/dL 7-21 (BEAKER) (test lqgw=610) CREATININE (BEAKER) (test 1.57 mg/dL 0.57-1.25 gcpe=011) GLUCOSE RANDOM (BEAKER) 92 mg/dL 70-105 (test mlta=850) CALCIUM (BEAKER) (test 9.4 mg/dL 8.4-10.2 fhub=884) EGFR (BEAKER) (test 33 mL/min/1.73 sq m ESTIMATED GFR IS NOT rhqp=5160) ACCURATE CREATININE CLEARANCE IN PREDICTING GLOMERULAR FILTRATION RATE. ESTIMATED GFR IS NOT APPLICABLE FOR DIALYSIS PATIENTS. RAD, CHEST, 1 VIEW, NON [id number] 06:18:00Reason for exam:->pl effusionShould this be performed at the bedside?->YesFINAL REPORT RAD, CHEST, 1 VIEW, NON DEPT INDICATION: pl effusion COMPARISON: Prior day's exam FINDINGS: Portable frontal view of the chest. IMPRESSION: Support Lines: Stable right IJ central venous catheter. Lungs and pleura: Unchanged left retrocardiac opacity. No pneumothorax.Heart and mediastinum: Stable contours. Stable surgical changes.Additional findings: None. Signed: JR Larsen Robert MDReport Verified Date/Time: 05/17/2018 06:18:13 Reading Location: [facility] [id number] CT Body Reading Room CBC W/PLT COUNT & AUTO [id number] 06:10:00 Test Item Value Reference Range Comments WHITE BLOOD CELL COUNT (BEAKER) (test eoky=071) 7.1 K/ L 3.5-10.5 RED BLOOD CELL COUNT (BEAKER) (test iajs=630) 2.55 M/ L 3.93-5.22 HEMOGLOBIN (BEAKER) (test hfij=165) 7.4 GM/DL 11.2-15.7 HEMATOCRIT (BEAKER) (test aswv=944) 23.2 % 34.1-44.9 MEAN CORPUSCULAR VOLUME (BEAKER) (test wrsi=534) 91.0 fL 79.4-94.8 MEAN CORPUSCULAR HEMOGLOBIN (BEAKER) (test 29.0 pg 25.6-32.2 sizl=063) MEAN CORPUSCULAR HEMOGLOBIN CONC (BEAKER) (test 31.9 GM/DL 32.2-35.5 yffj=811) RED CELL DISTRIBUTION WIDTH (BEAKER) (test 14.3 % 11.7-14.4 xjbb=800) PLATELET COUNT (BEAKER) (test iidr=724) 177 K/CU MM 150-450 MEAN PLATELET VOLUME (BEAKER) (test ligy=466) 12.1 fL 9.4-12.3 NUCLEATED RED BLOOD CELLS (BEAKER) (test 0 /100 WBC 0-0 lfmm=445) NEUTROPHILS RELATIVE PERCENT (BEAKER) (test 62 % vyfu=923) LYMPHOCYTES RELATIVE PERCENT (BEAKER) (test 21 % eamj=182) MONOCYTES RELATIVE PERCENT (BEAKER) (test 10 % pkca=298) EOSINOPHILS RELATIVE PERCENT (BEAKER) (test 3 % ieej=632) BASOPHILS RELATIVE PERCENT (BEAKER) (test 0 % zvdf=268) NEUTROPHILS ABSOLUTE COUNT (BEAKER) (test 4.40 K/ L 1.56-6.13 ngld=541) LYMPHOCYTES ABSOLUTE COUNT (BEAKER) (test 1.52 K/ L 1.18-3.74 bljx=378) MONOCYTES ABSOLUTE COUNT (BEAKER) (test 0.71 K/ L 0.24-0.36 mogk=991) EOSINOPHILS ABSOLUTE COUNT (BEAKER) (test 0.20 K/ L 0.04-0.36 gydt=241) BASOPHILS ABSOLUTE COUNT (BEAKER) (test 0.02 K/ L 0.01-0.08 ajoh=259) IMMATURE GRANULOCYTES-RELATIVE PERCENT (BEAKER) 4 % 0-1 (test hjib=4587) POCT-GLUCOSE [id number] 21:24:00 Test Item Value Reference Range Comments POC-GLUCOSE METER (BEAKER) 144 mg/dL 70-110 TESTED AT [address] (test foec=0296) [facility] [address] POCT-GLUCOSE [id number] 18:06:00 Test Item Value Reference Range Comments POC-GLUCOSE METER (BEAKER) 106 mg/dL 70-110 TESTED AT [address] (test eerk=8089) [facility] [address] POCT-GLUCOSE [id number] 12:52:00 Test Item Value Reference Range Comments POC-GLUCOSE METER (BEAKER) 167 mg/dL 70-110 TESTED AT [address] (test hzue=2995) [place] [id number] POCT-GLUCOSE [id number] 07:43:00 Test Item Value Reference Range Comments POC-GLUCOSE METER (BEAKER) 302 mg/dL 70-110 Notified VINAY PEÑA/TESTED AT [facility] (test tnjn=8107) [address] [place] [address] [id number] 06:29:00 Test Item Value Reference Range Comments FERRITIN (BEAKER) (test kqzj=402) 398 ng/mL 5-275 IRON, TIBC, % SAT. (WITHOUT FERRITIN)2018-05-16 06:16:00 Test Item Value Reference Range Comments IRON (BEAKER) (test zaxd=996) 26 ug/dL 40-160 TOTAL IRON BINDING CAPACITY (BEAKER) (test 201 ug/dL 250-450 bbgz=188) IRON % SATURATION (2) (BEAKER) (test tesc=9794) 13 % 20-55 BASIC METABOLIC [id number] 06:15:00 Test Item Value Reference Range Comments SODIUM (BEAKER) (test 133 meq/L 136-145 sgns=491) POTASSIUM (BEAKER) (test 4.1 meq/L 3.5-5.1 pxmk=238) CHLORIDE (BEAKER) (test 96 meq/L 98-107 aktu=777) CO2 (BEAKER) (test 30 meq/L 22-29 dacq=892) BLOOD UREA NITROGEN 47 mg/dL 7-21 (BEAKER) (test nvzc=456) CREATININE (BEAKER) (test 1.67 mg/dL 0.57-1.25 zbdd=063) GLUCOSE RANDOM (BEAKER) 265 mg/dL 70-105 (test iahv=536) CALCIUM (BEAKER) (test 9.4 mg/dL 8.4-10.2 pvma=337) EGFR (BEAKER) (test 31 mL/min/1.73 sq m ESTIMATED GFR IS NOT ztvm=7428) ACCURATE CREATININE CLEARANCE IN PREDICTING GLOMERULAR FILTRATION RATE. ESTIMATED GFR IS NOT APPLICABLE FOR DIALYSIS PATIENTS. RAD, CHEST, 1 VIEW, NON [id number] 06:05:00Reason for exam:->pl effusionShould this be performed at the bedside?->YesFINAL REPORT RAD, CHEST, 1 VIEW, NON DEPT INDICATION: pl effusion COMPARISON: Prior day's exam FINDINGS: Portable frontal view of the chest. IMPRESSION: Support Lines: Stable right IJ central venous catheter. Thoracic drainage tubes have been removed. Lungs and pleura: Unchanged airspace and pleural opacities. No visible pneumothorax. Trace left effusion.Heart and mediastinum: Stable contours. Stable surgical changes.Additional findings: None. Signed: JR Larsen Robert MDReport Verified Date/Time: 05/16/2018 06:05:27 Reading Location: [facility] C013Y CT Body Reading Room CBC W/PLT COUNT & AUTO [id number] 05:39:00 Test Item Value Reference Range Comments WHITE BLOOD CELL COUNT (BEAKER) (test akon=670) 8.4 K/ L 3.5-10.5 RED BLOOD CELL COUNT (BEAKER) (test djiv=380) 2.65 M/ L 3.93-5.22 HEMOGLOBIN (BEAKER) (test qvgo=051) 7.7 GM/DL 11.2-15.7 HEMATOCRIT (BEAKER) (test bvin=478) 23.9 % 34.1-44.9 MEAN CORPUSCULAR VOLUME (BEAKER) (test gzjx=764) 90.2 fL 79.4-94.8 MEAN CORPUSCULAR HEMOGLOBIN (BEAKER) (test 29.1 pg 25.6-32.2 ywuz=909) MEAN CORPUSCULAR HEMOGLOBIN CONC (BEAKER) (test 32.2 GM/DL 32.2-35.5 xuev=527) RED CELL DISTRIBUTION WIDTH (BEAKER) (test 14.5 % 11.7-14.4 ybmc=485) PLATELET COUNT (BEAKER) (test ljtu=666) 151 K/CU MM 150-450 MEAN PLATELET VOLUME (BEAKER) (test okvt=168) 12.0 fL 9.4-12.3 NUCLEATED RED BLOOD CELLS (BEAKER) (test 0 /100 WBC 0-0 muhy=862) NEUTROPHILS RELATIVE PERCENT (BEAKER) (test 70 % qyil=041) LYMPHOCYTES RELATIVE PERCENT (BEAKER) (test 14 % ysqx=747) MONOCYTES RELATIVE PERCENT (BEAKER) (test 12 % hesz=152) EOSINOPHILS RELATIVE PERCENT (BEAKER) (test 1 % vgtw=963) BASOPHILS RELATIVE PERCENT (BEAKER) (test 0 % bnbq=503) NEUTROPHILS ABSOLUTE COUNT (BEAKER) (test 5.90 K/ L 1.56-6.13 aash=289) LYMPHOCYTES ABSOLUTE COUNT (BEAKER) (test 1.21 K/ L 1.18-3.74 holw=056) MONOCYTES ABSOLUTE COUNT (BEAKER) (test 1.01 K/ L 0.24-0.36 grmh=003) EOSINOPHILS ABSOLUTE COUNT (BEAKER) (test 0.08 K/ L 0.04-0.36 jmag=517) BASOPHILS ABSOLUTE COUNT (BEAKER) (test 0.03 K/ L 0.01-0.08 icbn=183) IMMATURE GRANULOCYTES-RELATIVE PERCENT (BEAKER) 3 % 0-1 (test uwnl=0731) POCT-GLUCOSE [id number] 23:04:00 Test Item Value Reference Range Comments POC-GLUCOSE METER (BEAKER) 317 mg/dL 70-110 Notified VINAY PEÑA/TESTED AT [facility] (test dcdr=3597) [address] [place] [address] POCT-GLUCOSE [id number] 21:24:00 Test Item Value Reference Range Comments POC-GLUCOSE METER (BEAKER) 344 mg/dL 70-110 Notified VINAY PEÑA/TESTED AT [facility] (test ftlc=7820) [address] [place] [address] POCT-GLUCOSE [id number] 18:01:00 Test Item Value Reference Range Comments POC-GLUCOSE METER (BEAKER) 360 mg/dL 70-110 TESTED AT [address] (test zdit=2752) [facility] [address] POCT-GLUCOSE [id number] 14:11:00 Test Item Value Reference Range Comments POC-GLUCOSE METER (BEAKER) 226 mg/dL 70-110 TESTED AT [address] (test cunq=0594) [facility] [address] POCT-GLUCOSE [id number] 14:11:00 Test Item Value Reference Range Comments POC-GLUCOSE METER (BEAKER) 260 mg/dL 70-110 TESTED AT [address] (test ejow=2946) [facility] [address] VANCOMYCIN LEVEL, [id number] 12:56:00 Test Item Value Reference Range Comments VANCOMYCIN RANDOM (BEAKER) (test ptbq=302) 17.8 ug/mL Reference Range: No NormalsPOCT-GLUCOSE [id number] 09:35:00 Test Item Value Reference Range Comments POC-GLUCOSE METER (BEAKER) 220 mg/dL 70-110 TESTED AT [address] (test ekur=3878) [facility] [address] POCT-GLUCOSE [id number] 09:35:00 Test Item Value Reference Range Comments POC-GLUCOSE METER (BEAKER) 222 mg/dL 70-110 TESTED AT [address] (test imon=7920) [facility] [address] POCT-GLUCOSE [id number] 09:35:00 Test Item Value Reference Range Comments POC-GLUCOSE METER (BEAKER) 232 mg/dL 70-110 TESTED AT [address] (test diyj=9256) [facility] [address] POCT-GLUCOSE [id number] 06:40:00 Test Item Value Reference Range Comments POC-GLUCOSE METER (BEAKER) 252 mg/dL 70-110 TESTED AT [address] (test gupd=9545) [facility] [address] POCT-GLUCOSE [id number] 05:31:00 Test Item Value Reference Range Comments POC-GLUCOSE METER (BEAKER) 288 mg/dL 70-110 TESTED AT [address] (test nisr=3443) [facility] [address] [id number] 04:39:00 Test Item Value Reference Range Comments PHOSPHORUS (BEAKER) (test nkvl=334) 3.4 mg/dL 2.3-4.7 [id number] 04:39:00 Test Item Value Reference Range Comments MAGNESIUM (BEAKER) (test pkau=546) 1.9 mg/dL 1.6-2.6 BASIC METABOLIC [id number] 04:39:00 Test Item Value Reference Range Comments SODIUM (BEAKER) (test 134 meq/L 136-145 ezun=332) POTASSIUM (BEAKER) (test 4.3 meq/L 3.5-5.1 ymqa=617) CHLORIDE (BEAKER) (test 98 meq/L 98-107 csgg=157) CO2 (BEAKER) (test 28 meq/L 22-29 uvnc=089) BLOOD UREA NITROGEN 40 mg/dL 7-21 (BEAKER) (test igmq=968) CREATININE (BEAKER) (test 1.51 mg/dL 0.57-1.25 cwbu=630) GLUCOSE RANDOM (BEAKER) 289 mg/dL 70-105 (test ndip=271) CALCIUM (BEAKER) (test 9.3 mg/dL 8.4-10.2 nhqd=930) EGFR (BEAKER) (test 35 mL/min/1.73 sq m ESTIMATED GFR IS NOT jlyo=5248) ACCURATE CREATININE CLEARANCE IN PREDICTING GLOMERULAR FILTRATION RATE. ESTIMATED GFR IS NOT APPLICABLE FOR DIALYSIS PATIENTS. POCT-GLUCOSE [id number] 04:34:00 Test Item Value Reference Range Comments POC-GLUCOSE METER (BEAKER) 301 mg/dL 70-110 TESTED AT [address] (test jyud=6312) [place] [address] POCT-GLUCOSE [id number] 04:34:00 Test Item Value Reference Range Comments POC-GLUCOSE METER (BEAKER) 318 mg/dL 70-110 TESTED AT [address] (test pyuu=0045) [facility] [address] CBC (HEMOGRAM ONLY)2018-05-15 04:13:00 Test Item Value Reference Range Comments WHITE BLOOD CELL COUNT (BEAKER) (test ybce=587) 9.8 K/ L 3.5-10.5 RED BLOOD CELL COUNT (BEAKER) (test xomw=085) 2.97 M/ L 3.93-5.22 HEMOGLOBIN (BEAKER) (test idlu=203) 8.6 GM/DL 11.2-15.7 HEMATOCRIT (BEAKER) (test bxwi=013) 26.1 % 34.1-44.9 MEAN CORPUSCULAR VOLUME (BEAKER) (test avxa=362) 87.9 fL 79.4-94.8 MEAN CORPUSCULAR HEMOGLOBIN (BEAKER) (test 29.0 pg 25.6-32.2 ezfx=378) MEAN CORPUSCULAR HEMOGLOBIN CONC (BEAKER) (test 33.0 GM/DL 32.2-35.5 bglk=521) RED CELL DISTRIBUTION WIDTH (BEAKER) (test 14.4 % 11.7-14.4 vite=088) PLATELET COUNT (BEAKER) (test zsni=891) 154 K/CU MM 150-450 MEAN PLATELET VOLUME (BEAKER) (test fjph=825) 11.6 fL 9.4-12.3 NUCLEATED RED BLOOD CELLS (BEAKER) (test 0 /100 WBC 0-0 cuyn=241) RAD, CHEST, 1 VIEW, NON [id number] 03:53:00Reason for exam:->pulmonary edemaShould this be performed at the bedside?->YesFINAL REPORT RAD, CHEST, 1 VIEW, NON DEPT INDICATION: pulmonary edema COMPARISON: Prior day's exam FINDINGS: Portable frontal view of the chest. IMPRESSION: Support Lines: Intra-aortic balloon pump marker is no longer visible. Remaining support hardware is stable. Lungs and pleura: Lungs remain under inflated. Coarsened interstitial markings may reflect atelectatic change oredema. No pneumothorax.Heart and mediastinum: Stable contours. Stable surgical changes.Additional findings: None. Signed: JR Larsen Robert MDReport Verified Date/Time: 05/15/2018 03:53:01 Reading Location: [facility] C013Y CT Body Reading Room POCT-GLUCOSE [id number] 02:58:00 Test Item Value Reference Range Comments POC-GLUCOSE METER (BEAKER) 333 mg/dL 70-[address] [facility] [address] [facility] (test rosn=8914) [facility] [address] POCT-GLUCOSE [id number] 01:34:00 Test Item Value Reference Range Comments POC-GLUCOSE METER (BEAKER) 347 mg/dL 70-110 TESTED AT [address] (test qbgx=3891) [facility] [address] POCT-GLUCOSE [id number] 22:13:00 Test Item Value Reference Range Comments POC-GLUCOSE METER (BEAKER) 345 mg/dL 70-110 Will Repeat Test/TESTED AT (test scwf=9167) [address] [address] POCT-GLUCOSE [id number] 18:38:00 Test Item Value Reference Range Comments POC-GLUCOSE METER (BEAKER) 294 mg/dL 70-110 TESTED AT [address] (test nckd=3677) [place] [id number] SPUTUM CULTURE + GRAM [id number] 17:45:00 Test Item Value Reference Range Comments CULTURE (BEAKER) (test udeg=0367) No growth GRAM STAIN RESULT (BEAKER) (test <1+ WBCs etag=2524) GRAM STAIN RESULT (BEAKER) (test 0-5 epithelial cells guvm=29241) GRAM STAIN RESULT (BEAKER) (test No organisms seen khyx=89194) HGB/HCT (H&H) - STAT [id number] 14:42:00 Test Item Value Reference Range Comments HEMOGLOBIN (BEAKER) (test czqc=873) 9.9 g/dL 12.0-15.0 HEMATOCRIT (BEAKER) (test road=387) 29.0 % 36.0-45.0 VANCOMYCIN LEVEL, [id number] 13:36:00 Test Item Value Reference Range Comments VANCOMYCIN RANDOM (BEAKER) (test szgi=594) 40.5 ug/mL Reference Range: No NormalsPOCT-GLUCOSE [id number] 13:14:00 Test Item Value Reference Range Comments POC-GLUCOSE METER (BEAKER) 288 mg/dL 70-110 TESTED AT [address] (test lthb=8229) [facility] [address] PLATELET AGGREGATION: FUNCTION [id number] 12:52:00 Test Item Value Reference Range Comments WEAK ADP RESULT(BEAKER) (test 88 % 60-91 nhio=4763) PLATELET FUNCTION SCREEN 60-100% indicates normal INTERP (BEAKER) (test platelet function iuqb=2652) [id number] (BEAKER) Uma Hdz MD (test sgnw=9677) (electronic signature) PLATELET COUNT AGG (BEAKER) 166 K/CU MM 150-450 (test wjpw=8245) POCT-GLUCOSE [id number] 10:29:00 Test Item Value Reference Range Comments POC-GLUCOSE METER (BEAKER) 233 mg/dL 70-110 TESTED AT [address] (test llsv=2172) [place] [address] RAD, CHEST, 1 VIEW, NON [id number] 04:30:00Reason for exam:->pulmonary edemaShould this be performed at the bedside?->YesFINAL REPORT CLINICAL INDICATION: Pulmonary edema Comparison: 05/13/2018 The cardiomediastinal contours are stable. The lung volumes remain low but are stable after extubation. Central pulmonary vascular prominence is similar to previous. Worsening mid and lower lung opacities may reflect some combination of atelectasis and edema but pneumonitis should be excluded clinically. There is no pneumothorax. Remaining support lines are stable. Signed: Colt Licona Verified Date/Time: 05/14/2018 04:30:29 Reading Location: [address] Reading Room POCT-GLUCOSE [id number] 04:20:00 Test Item Value Reference Range Comments POC-GLUCOSE METER (BEAKER) 116 mg/dL 70-110 TESTED AT [address] (test osft=4319) [place] [address] POCT-GLUCOSE [id number] 03:44:00 Test Item Value Reference Range Comments POC-GLUCOSE METER (BEAKER) 125 mg/dL 70-110 TESTED AT [address] (test wjtr=9826) [place] [address] CBC W/PLT COUNT & AUTO [id number] 03:41:00 Test Item Value Reference Range Comments WHITE BLOOD CELL COUNT (BEAKER) (test gbxb=137) 8.5 K/ L 3.5-10.5 RED BLOOD CELL COUNT (BEAKER) (test wuon=936) 3.26 M/ L 3.93-5.22 HEMOGLOBIN (BEAKER) (test fluu=374) 9.4 GM/DL 11.2-15.7 HEMATOCRIT (BEAKER) (test wdas=743) 28.8 % 34.1-44.9 MEAN CORPUSCULAR VOLUME (BEAKER) (test mfzr=297) 88.3 fL 79.4-94.8 MEAN CORPUSCULAR HEMOGLOBIN (BEAKER) (test 28.8 pg 25.6-32.2 pgnd=341) MEAN CORPUSCULAR HEMOGLOBIN CONC (BEAKER) (test 32.6 GM/DL 32.2-35.5 pbda=982) RED CELL DISTRIBUTION WIDTH (BEAKER) (test 14.0 % 11.7-14.4 sptx=500) PLATELET COUNT (BEAKER) (test ywyk=945) 155 K/CU MM 150-450 MEAN PLATELET VOLUME (BEAKER) (test dyae=302) 10.7 fL 9.4-12.3 NUCLEATED RED BLOOD CELLS (BEAKER) (test 0 /100 WBC 0-0 rcup=887) NEUTROPHILS RELATIVE PERCENT (BEAKER) (test 84 % lwsn=011) LYMPHOCYTES RELATIVE PERCENT (BEAKER) (test 6 % rmyd=161) MONOCYTES RELATIVE PERCENT (BEAKER) (test 9 % jwwy=520) EOSINOPHILS RELATIVE PERCENT (BEAKER) (test 0 % jnjx=906) BASOPHILS RELATIVE PERCENT (BEAKER) (test 0 % lsve=259) NEUTROPHILS ABSOLUTE COUNT (BEAKER) (test 7.10 K/ L 1.56-6.13 isbr=003) LYMPHOCYTES ABSOLUTE COUNT (BEAKER) (test 0.52 K/ L 1.18-3.74 crxc=136) MONOCYTES ABSOLUTE COUNT (BEAKER) (test 0.76 K/ L 0.24-0.36 qimk=717) EOSINOPHILS ABSOLUTE COUNT (BEAKER) (test 0.02 K/ L 0.04-0.36 skfm=398) BASOPHILS ABSOLUTE COUNT (BEAKER) (test 0.01 K/ L 0.01-0.08 ghcz=303) IMMATURE GRANULOCYTES-RELATIVE PERCENT (BEAKER) 1 % 0-1 (test lnzo=4598) [id number] 03:35:00 Test Item Value Reference Range Comments PHOSPHORUS (BEAKER) (test vpcu=568) 3.2 mg/dL 2.3-4.7 [id number] 03:35:00 Test Item Value Reference Range Comments MAGNESIUM (BEAKER) (test khcr=546) 1.9 mg/dL 1.6-2.6 BASIC METABOLIC [id number] 03:35:00 Test Item Value Reference Range Comments SODIUM (BEAKER) (test 136 meq/L 136-145 gzsh=107) POTASSIUM (BEAKER) (test 4.4 meq/L 3.5-5.1 hncq=928) CHLORIDE (BEAKER) (test 101 meq/L 98-107 exkg=985) CO2 (BEAKER) (test 27 meq/L 22-29 indp=954) BLOOD UREA NITROGEN 31 mg/dL 7-21 (BEAKER) (test ptqo=476) CREATININE (BEAKER) (test 1.20 mg/dL 0.57-1.25 qotm=080) GLUCOSE RANDOM (BEAKER) 121 mg/dL 70-105 (test pblp=077) CALCIUM (BEAKER) (test 9.8 mg/dL 8.4-10.2 vgnd=328) EGFR (BEAKER) (test 46 mL/min/1.73 sq m ESTIMATED GFR IS NOT kymw=3345) ACCURATE CREATININE CLEARANCE IN PREDICTING GLOMERULAR FILTRATION RATE. ESTIMATED GFR IS NOT APPLICABLE FOR DIALYSIS PATIENTS. BLOOD GAS, [id number] 03:17:00 Test Item Value Reference Range Comments PH ARTERIAL (BEAKER) (test ptad=681) 7.39 7.35-7.45 PCO2 ARTERIAL (BEAKER) (test wjol=007) 50 mmHg 35-45 PO2 ARTERIAL (BEAKER) (test hnhn=111) 107 mmHg 80-90 O2 SATURATION ARTERIAL (BEAKER) (test tziv=082) 97.9 % 96.0-97.0 HCO3 ARTERIAL (BEAKER) (test hykh=427) 30 mmol/L 21-29 BASE EXCESS ARTERIAL (BEAKER) (test lndt=443) 4.1 mmol/L -2.0-3.0 PATIENT TEMPERATURE (BEAKER) (test whsv=9910) 36.3 C FIO2 (BEAKER) (test uuep=6610) 40.0 % Post extubation ABGPOCT-GLUCOSE [id number] 02:10:00 Test Item Value Reference Range Comments POC-GLUCOSE METER (BEAKER) 143 mg/dL 70-[address] [facility] [address] [facility] (test ypeh=6421) [facility] [address] LACTIC ACID, ARTERIAL, WHOLE [id number] 01:43:00 Test Item Value Reference Range Comments LACTATE BLOOD ARTERIAL (2) 1.8 mmol/L 0.5-2.2 Specimen slightly hemolyzed (BEAKER) (test absw=6837) Effective 02/06/2016: Units/Reference Range ChangeNew: 0.5-2.2 mmol/L Previous: 5 -20 mg/[id number] 01:41:00 Test Item Value Reference Range Comments MAGNESIUM (BEAKER) (test anhn=259) 2.0 mg/dL 1.6-2.6 BLOOD GAS, [id number] 01:21:00 Test Item Value Reference Range Comments PH ARTERIAL (BEAKER) (test zjmq=003) 7.40 7.35-7.45 PCO2 ARTERIAL (BEAKER) (test jjiz=759) 49 mmHg 35-45 PO2 ARTERIAL (BEAKER) (test eskw=055) 80 mmHg 80-90 O2 SATURATION ARTERIAL (BEAKER) (test sotm=456) 96.1 % 96.0-97.0 HCO3 ARTERIAL (BEAKER) (test lddg=696) 30 mmol/L 21-29 BASE EXCESS ARTERIAL (BEAKER) (test puuy=336) 4.2 mmol/L -2.0-3.0 PATIENT TEMPERATURE (BEAKER) (test jjhz=2127) 36.3 C FIO2 (BEAKER) (test abvu=0738) 40.0 % SODIUM NA-STAT [id number] 01:21:00 Test Item Value Reference Range Comments SODIUM (BEAKER) (test kofl=844) 134 meq/L 135-148 GLUCOSE-STAT [id number] 01:21:00 Test Item Value Reference Range Comments GLUCOSE RANDOM (BEAKER) (test clop=640) 144 mg/dL 70-110 HGB/HCT (H&H) - STAT [id number] 01:21:00 Test Item Value Reference Range Comments HEMOGLOBIN (BEAKER) (test urww=886) 10.8 g/dL 12.0-15.0 HEMATOCRIT (BEAKER) (test owkx=967) 32.0 % 36.0-45.0 POTASSIUM-STAT [id number] 01:18:00 Test Item Value Reference Range Comments POTASSIUM (BEAKER) (test ufot=223) 4.4 meq/L 3.6-5.5 CALCIUM, [id number] 01:18:00 Test Item Value Reference Range Comments CALCIUM IONIZED (BEAKER) (test gosw=389) 1.21 mmol/L 1.12-1.27 PH, BLOOD (BEAKER) (test carw=9430) 7.39 POCT-GLUCOSE [id number] 00:31:00 Test Item Value Reference Range Comments POC-GLUCOSE METER (BEAKER) 232 mg/dL 70-110 TESTED AT [address] (test ekok=6903) [place] [id number] BLOOD [id number] 00:00:00 Test Item Value Reference Range Comments CULTURE (BEAKER) (test benb=7229) No growth in 5 days BLOOD [id number] 00:00:00 Test Item Value Reference Range Comments CULTURE (BEAKER) (test jpse=0291) No growth in 5 days POCT-GLUCOSE [id number] 21:11:00 Test Item Value Reference Range Comments POC-GLUCOSE METER (BEAKER) 258 mg/dL 70-110 TESTED AT [address] (test hvmm=6456) [facility] [address] RAD, CHEST, 1 VIEW, NON [id number] 21:03:00Reason for exam:->s/p ACBShould this be performed at the bedside?->YesFINAL REPORT CLINICAL INDICATION: Postop ACB Comparison: Same date at 0413 hours The patient has undergone interval median sternotomy. There is an expected postoperative appearance of the mediastinum. The cardiac silhouette is within normal limits for size. The lung volumes arelow. Patchy mid and lower lung opacity may reflect atelectasis but pneumonitis should be excluded clinically. There is no pneumothorax. The tip of an endotracheal tube is at the inferior margin of the clavicles. A right IJ CVC tip overlies the superior vena cava. An enteric tube traverses examination to the upper abdomen. Mediastinal drain and bilateral chest tubes are in place. The radiopaque tip ofan IABP is approximately 6 cm caudal to the superior margin of the aortic arch. Signed: Colt Licona MDReport Verified Date/Time: 05/13/2018 21:03:02 Reading Location : [address] ReadingRoom PROTHROMBIN [id number] 20:40:00 Test Item Value Reference Range Comments PROTIME (BEAKER) (test bbup=550) 16.1 seconds 11.7-14.7 INR (BEAKER) (test aent=161) 1.3 <=5.9 RECOMMENDED COUMADIN/WARFARIN INR THERAPY RANGESSTANDARD DOSE: 2.0 - 3.0 Includes: PROPHYLAXIS forvenous thrombosis, systemic embolization; TREATMENT for venous thrombosis and/or pulmonary embolus.HIGH RISK: Target INR is 2.5-3.5 for patients with mechanical heart valves.[id number] 20:39:00 Test Item Value Reference Range Comments FIBRINOGEN LEVEL (BEAKER) (test ffsv=872) 434 mg/dl 225-434 [id number] 20:31:00 Test Item Value Reference Range Comments POTASSIUM (BEAKER) (test lebb=058) 4.6 meq/L 3.5-5.1 [id number] 20:31:00 Test Item Value Reference Range Comments MAGNESIUM (BEAKER) (test faun=290) 1.9 mg/dL 1.6-2.6 [id number] 20:31:00 Test Item Value Reference Range Comments PHOSPHORUS (BEAKER) (test nhnt=733) 3.9 mg/dL 2.3-4.7 [id number] 20:31:00 Test Item Value Reference Range Comments SODIUM (BEAKER) (test jytm=103) 134 meq/L 136-145 [id number] 20:31:00 Test Item Value Reference Range Comments GLUCOSE RANDOM (BEAKER) (test xgzp=499) 275 mg/dL 70-105 BASIC METABOLIC [id number] 20:31:00 Test Item Value Reference Range Comments SODIUM (BEAKER) (test 134 meq/L 136-145 vfkd=867) POTASSIUM (BEAKER) (test 4.6 meq/L 3.5-5.1 lwkz=368) CHLORIDE (BEAKER) (test 97 meq/L 98-107 vffm=149) CO2 (BEAKER) (test 27 meq/L 22-29 ulnw=980) BLOOD UREA NITROGEN 29 mg/dL 7-21 (BEAKER) (test gvrd=654) CREATININE (BEAKER) (test 1.25 mg/dL 0.57-1.25 jynv=200) GLUCOSE RANDOM (BEAKER) 275 mg/dL 70-105 (test wjao=042) CALCIUM (BEAKER) (test 10.0 mg/dL 8.4-10.2 nruq=781) EGFR (BEAKER) (test 44 mL/min/1.73 sq m ESTIMATED GFR IS NOT exbe=3645) ACCURATE CREATININE CLEARANCE IN PREDICTING GLOMERULAR FILTRATION RATE. ESTIMATED GFR IS NOT APPLICABLE FOR DIALYSIS PATIENTS. LACTIC ACID, ARTERIAL, WHOLE [id number] 20:26:00 Test Item Value Reference Range Comments LACTATE BLOOD ARTERIAL (2) (BEAKER) (test 3.8 mmol/L 0.5-2.2 ghip=5376) Effective 02/06/2016: Units/Reference Range ChangeNew: 0.5-2.2 mmol/L Previous: 5 -20 mg/[id number] 20:23:00 Test Item Value Reference Range Comments PARTIAL THROMBOPLASTIN TIME (BEAKER) (test 28.6 seconds 22.5-36.0 dbfp=058) 6 hours after starting heparin infusion and as indicated per sliding scaleHGB/ HCT (H&H) - STAT [id number] 20:20:00 Test Item Value Reference Range Comments HEMOGLOBIN (BEAKER) (test uuyd=632) 9.9 GM/DL 12.0-15.0 HEMATOCRIT (BEAKER) (test ggap=082) 29.0 % 36.0-45.0 POTASSIUM-STAT [id number] 20:20:00 Test Item Value Reference Range Comments POTASSIUM (BEAKER) (test hnwf=712) 4.6 meq/L 3.6-5.5 SODIUM NA-STAT [id number] 20:20:00 Test Item Value Reference Range Comments SODIUM (BEAKER) (test cdxa=574) 132 meq/L 135-148 OXYGEN SATURATION, [id number] 20:19:00 Test Item Value Reference Range Comments O2 SATURATION (MEASURED) (BEAKER) (test yvwi=6018) 67.7 % BLOOD GAS, [id number] 20:19:00 Test Item Value Reference Range Comments PH ARTERIAL (BEAKER) (test bdfn=946) 7.42 7.35-7.45 PCO2 ARTERIAL (BEAKER) (test hjrn=529) 43 mmHg 35-45 PO2 ARTERIAL (BEAKER) (test dhfm=864) 118 mmHg 80-90 O2 SATURATION ARTERIAL (BEAKER) (test bvsd=833) 98.6 % 96.0-97.0 HCO3 ARTERIAL (BEAKER) (test novd=639) 28 mmol/L 21-29 BASE EXCESS ARTERIAL (BEAKER) (test mvyd=742) 2.3 mmol/L -2.0-3.0 PATIENT TEMPERATURE (BEAKER) (test fooh=3454) 34.4 C FIO2 (BEAKER) (test rhzr=4666) 60.0 % CALCIUM, [id number] 20:19:00 Test Item Value Reference Range Comments CALCIUM IONIZED (BEAKER) (test rftp=690) 1.13 mmol/L 1.12-1.27 PH, BLOOD (BEAKER) (test azyp=5702) 7.42 GLUCOSE-STAT [id number] 20:19:00 Test Item Value Reference Range Comments GLUCOSE RANDOM (BEAKER) (test zgkz=650) 262 mg/dL 70-110 CBC W/PLT COUNT & AUTO [id number] 20:17:00 Test Item Value Reference Range Comments WHITE BLOOD CELL COUNT (BEAKER) (test hirv=154) 8.7 K/ L 3.5-10.5 RED BLOOD CELL COUNT (BEAKER) (test yrbj=565) 3.14 M/ L 3.93-5.22 HEMOGLOBIN (BEAKER) (test abhl=633) 9.1 GM/DL 11.2-15.7 HEMATOCRIT (BEAKER) (test hzrg=357) 27.6 % 34.1-44.9 MEAN CORPUSCULAR VOLUME (BEAKER) (test usbp=461) 87.9 fL 79.4-94.8 MEAN CORPUSCULAR HEMOGLOBIN (BEAKER) (test 29.0 pg 25.6-32.2 kfwm=544) MEAN CORPUSCULAR HEMOGLOBIN CONC (BEAKER) (test 33.0 GM/DL 32.2-35.5 rfyj=938) RED CELL DISTRIBUTION WIDTH (BEAKER) (test 13.8 % 11.7-14.4 ygve=133) PLATELET COUNT (BEAKER) (test jaau=726) 139 K/CU MM 150-450 MEAN PLATELET VOLUME (BEAKER) (test zzda=416) 10.7 fL 9.4-12.3 NUCLEATED RED BLOOD CELLS (BEAKER) (test 0 /100 WBC 0-0 nljr=111) NEUTROPHILS RELATIVE PERCENT (BEAKER) (test 80 % oedu=407) LYMPHOCYTES RELATIVE PERCENT (BEAKER) (test 10 % oewt=208) MONOCYTES RELATIVE PERCENT (BEAKER) (test 9 % mdob=892) EOSINOPHILS RELATIVE PERCENT (BEAKER) (test 1 % azyb=549) BASOPHILS RELATIVE PERCENT (BEAKER) (test 0 % katv=716) NEUTROPHILS ABSOLUTE COUNT (BEAKER) (test 6.94 K/ L 1.56-6.13 txft=249) LYMPHOCYTES ABSOLUTE COUNT (BEAKER) (test 0.85 K/ L 1.18-3.74 ybpm=355) MONOCYTES ABSOLUTE COUNT (BEAKER) (test 0.78 K/ L 0.24-0.36 mmkp=343) EOSINOPHILS ABSOLUTE COUNT (BEAKER) (test 0.06 K/ L 0.04-0.36 hjwp=134) BASOPHILS ABSOLUTE COUNT (BEAKER) (test 0.01 K/ L 0.01-0.08 nemw=952) IMMATURE GRANULOCYTES-RELATIVE PERCENT (BEAKER) 1 % 0-1 (test nxnp=0054) [id number] 19:15:00 Test Item Value Reference Range Comments ACTIVATED CLOTTING TIME 120 sec TESTED AT [address] (BEAKER) (test tehd=728) [place] [address] [id number] 19:15:00 Test Item Value Reference Range Comments ACTIVATED CLOTTING TIME 466 sec TESTED AT [place] [address] [facility] (BEAKER) (test pdnx=019) [place] [address] [id number] 19:15:00 Test Item Value Reference Range Comments ACTIVATED CLOTTING TIME 505 sec TESTED AT [place] [address] [place] (BEAKER) (test cask=288) [place] [address] [id number] 19:15:00 Test Item Value Reference Range Comments ACTIVATED CLOTTING TIME 599 sec TESTED AT [place] [address] [facility] ([facility] (test aaqh=759) [place] [address] [id number] 19:15:00 Test Item Value Reference Range Comments ACTIVATED CLOTTING TIME 560 sec TESTED AT [place] [id number] [place] (BEAKER) (test hnmd=714) [place] [id number] 19:15:00 Test Item Value Reference Range Comments ACTIVATED CLOTTING TIME 637 sec TESTED AT [place] [address] [place] (BEAKER) (test oivt=414) [place] [address] [id number] 19:15:00 Test Item Value Reference Range Comments ACTIVATED CLOTTING TIME 142 sec TESTED AT [place] [address] [facility] (BEAKER) (test pqaa=872) [place] [id number] THROMBOELASTOGRAPH ([id number])[id number] 19:04:00 Test Item Value Reference Range Comments TEG ACTIVATED CLOTTING TIME (BEAKER) (test 6.0 minutes 4.0-7.0 ioqw=6945) TEG FIBRINOGEN ACTIVITY (BEAKER) (test 67.0 degrees 61.0-73.0 stnf=8049) TEG PLT. AGGREGATION (BEAKER) (test vqkl=0116) 60.9 MM 55.0-65.0 TEG FIBRINOLYSIS (BEAKER) (test rlgb=0840) 0.0 % 0.0-5.0 TGH ACTIVATED CLOTTING TIME (BEAKER) (test 5.7 minutes 4.0-7.0 eosk=8343) TGH FIBRINOGEN ACTIVITY (BEAKER) (test 68.0 degrees 61.0-73.0 ikwz=4651) TGH PLT. AGGREGATION (BEAKER) (test pgqf=3701) 57.1 MM 55.0-65.0 TGH FIBRINOLYSIS (BEAKER) (test ynuo=4109) 0.0 % 0.0-5.0 BLOOD GAS, [id number] 19:01:00 Test Item Value Reference Range Comments PH ARTERIAL (BEAKER) (test tzbz=702) 7.43 7.35-7.45 PCO2 ARTERIAL (BEAKER) (test dgtb=297) 35 mmHg 35-45 PO2 ARTERIAL (BEAKER) (test oibg=984) 408 mmHg 80-90 O2 SATURATION ARTERIAL (BEAKER) (test mote=324) 99.8 % 96.0-97.0 HCO3 ARTERIAL (BEAKER) (test gpnl=586) 23 mmol/L 21-29 BASE EXCESS ARTERIAL (BEAKER) (test zhxp=101) -1.5 mmol/L -2.0-3.0 PATIENT TEMPERATURE (BEAKER) (test gfli=3354) 35.3 C FIO2 (BEAKER) (test bsqo=2233) 95.0 % SODIUM NA-STAT [id number] 19:01:00 Test Item Value Reference Range Comments SODIUM (BEAKER) (test dybm=609) 133 meq/L 135-148 GLUCOSE-STAT [id number] 19:01:00 Test Item Value Reference Range Comments GLUCOSE RANDOM (BEAKER) (test gine=266) 272 mg/dL 70-110 HGB/HCT (H&H) - STAT [id number] 19:01:00 Test Item Value Reference Range Comments HEMOGLOBIN (BEAKER) (test khaa=314) 8.3 g/dL 12.0-15.0 HEMATOCRIT (BEAKER) (test rlpl=329) 24.0 % 36.0-45.0 POTASSIUM-STAT [id number] 19:00:00 Test Item Value Reference Range Comments POTASSIUM (BEAKER) (test rvdn=549) 3.9 meq/L 3.6-5.5 CALCIUM, [id number] 19:00:00 Test Item Value Reference Range Comments CALCIUM IONIZED (BEAKER) (test bhpe=897) 1.00 mmol/L 1.12-1.27 PH, BLOOD (BEAKER) (test omsu=2335) 7.43 PROTHROMBIN [id number] 18:34:00 Test Item Value Reference Range Comments PROTIME (BEAKER) (test qtrv=532) 18.4 seconds 11.7-14.7 INR (BEAKER) (test kayg=104) 1.5 <=5.9 RECOMMENDED COUMADIN/WARFARIN INR THERAPY RANGESSTANDARD DOSE: 2.0 - 3.0 Includes: PROPHYLAXIS forvenous thrombosis, systemic embolization; TREATMENT for venous thrombosis and/or pulmonary embolus.HIGH RISK: Target INR is 2.5-3.5 for patients with mechanical heart valves.[id number] 18:34:00 Test Item Value Reference Range Comments FIBRINOGEN LEVEL (BEAKER) (test ppqk=020) 399 mg/dl 225-434 [id number] 18:34:00 Test Item Value Reference Range Comments PARTIAL THROMBOPLASTIN TIME (BEAKER) (test 28.6 seconds 22.5-36.0 sjsf=886) PLATELET [id number] 18:28:00 Test Item Value Reference Range Comments PLATELET COUNT (BEAKER) (test acsz=448) 77 K/CU MM 150-450 CALCIUM, [id number] 18:14:00 Test Item Value Reference Range Comments CALCIUM IONIZED (BEAKER) (test umon=889) 0.96 mmol/L 1.12-1.27 PH, BLOOD (BEAKER) (test iaoy=9222) 7.44 POTASSIUM-STAT [id number] 18:13:00 Test Item Value Reference Range Comments POTASSIUM (BEAKER) (test fevf=983) 3.8 meq/L 3.6-5.5 BLOOD GAS, [id number] 18:13:00 Test Item Value Reference Range Comments PH ARTERIAL (BEAKER) (test oygt=312) 7.44 7.35-7.45 PCO2 ARTERIAL (BEAKER) (test qxrb=735) 30 mmHg 35-45 PO2 ARTERIAL (BEAKER) (test sqmo=104) 420 mmHg 80-90 O2 SATURATION ARTERIAL (BEAKER) (test ctxg=942) 99.8 % 96.0-97.0 HCO3 ARTERIAL (BEAKER) (test apow=746) 20 mmol/L 21-29 BASE EXCESS ARTERIAL (BEAKER) (test mror=808) -3.8 mmol/L -2.0-3.0 PATIENT TEMPERATURE (BEAKER) (test ulin=1635) 35.7 C FIO2 (BEAKER) (test pllg=6775) 100.0 % SODIUM NA-STAT [id number] 18:13:00 Test Item Value Reference Range Comments SODIUM (BEAKER) (test siei=767) 133 meq/L 135-148 GLUCOSE-STAT [id number] 18:13:00 Test Item Value Reference Range Comments GLUCOSE RANDOM (BEAKER) (test amee=210) 264 mg/dL 70-110 HGB/HCT (H&H) - STAT [id number] 18:13:00 Test Item Value Reference Range Comments HEMOGLOBIN (BEAKER) (test dhfy=705) 6.3 g/dL 12.0-15.0 HEMATOCRIT (BEAKER) (test bqll=857) 19.0 % 36.0-45.0 BLOOD GAS, [id number] 17:27:00 Test Item Value Reference Range Comments PH ARTERIAL (BEAKER) (test eytb=652) 7.65 7.35-7.45 PCO2 ARTERIAL (BEAKER) (test shbs=221) 23 mmHg 35-45 PO2 ARTERIAL (BEAKER) (test htdu=897) 275 mmHg 80-90 O2 SATURATION ARTERIAL (BEAKER) (test naec=611) 99.8 % 96.0-97.0 HCO3 ARTERIAL (BEAKER) (test cmmq=797) 26 mmol/L 21-29 BASE EXCESS ARTERIAL (BEAKER) (test jnxq=350) 4.0 mmol/L -2.0-3.0 PATIENT TEMPERATURE (BEAKER) (test rnhh=7871) 33.2 C FIO2 (BEAKER) (test fmwz=2830) 70.0 % SODIUM NA-STAT [id number] 17:27:00 Test Item Value Reference Range Comments SODIUM (BEAKER) (test ihwa=359) 127 meq/L 135-148 POTASSIUM-STAT [id number] 17:27:00 Test Item Value Reference Range Comments POTASSIUM (BEAKER) (test vapw=904) 5.6 meq/L 3.6-5.5 GLUCOSE-STAT [id number] 17:27:00 Test Item Value Reference Range Comments GLUCOSE RANDOM (BEAKER) (test vklj=653) 330 mg/dL 70-110 HGB/HCT (H&H) - STAT [id number] 17:27:00 Test Item Value Reference Range Comments HEMOGLOBIN (BEAKER) (test shim=586) 7.4 g/dL 12.0-15.0 HEMATOCRIT (BEAKER) (test lpvd=144) 22.0 % 36.0-45.0 BLOOD GAS, [id number] 17:03:00 Test Item Value Reference Range Comments PH ARTERIAL (BEAKER) (test udss=841) 7.42 7.35-7.45 PCO2 ARTERIAL (BEAKER) (test vytf=296) 48 mm Hg 35-45 PO2 ARTERIAL (BEAKER) (test emdt=576) 427 mm Hg 80-90 O2 SATURATION ARTERIAL (BEAKER) (test wkur=799) 99.8 % 96.0-97.0 HCO3 ARTERIAL (BEAKER) (test hqou=094) 30 mmol/L 21-29 BASE EXCESS ARTERIAL (BEAKER) (test rcou=131) 4.9 mmol/L -2.0-3.0 PATIENT TEMPERATURE (BEAKER) (test kvoq=0854) 30.3 FIO2 (BEAKER) (test nbvr=6055) 70 SODIUM NA-STAT [id number] 17:03:00 Test Item Value Reference Range Comments SODIUM (BEAKER) (test mvfr=846) 129 meq/L 135-148 GLUCOSE-STAT [id number] 17:03:00 Test Item Value Reference Range Comments GLUCOSE RANDOM (BEAKER) (test siez=601) 330 mg/dL 70-110 HGB/HCT (H&H) - STAT [id number] 17:03:00 Test Item Value Reference Range Comments HEMOGLOBIN (BEAKER) (test envu=475) 8.6 g/dL 12.0-15.0 HEMATOCRIT (BEAKER) (test xbld=979) 25.0 % 36.0-45.0 POTASSIUM-STAT [id number] 17:01:00 Test Item Value Reference Range Comments POTASSIUM (BEAKER) (test dpqp=675) 5.1 meq/L 3.6-5.5 BLOOD GAS, [id number] 16:32:00 Test Item Value Reference Range Comments PH ARTERIAL (BEAKER) (test tzok=399) 7.44 7.35-7.45 PCO2 ARTERIAL (BEAKER) (test vgan=013) 42 mmHg 35-45 PO2 ARTERIAL (BEAKER) (test cmol=955) 398 mmHg 80-90 O2 SATURATION ARTERIAL (BEAKER) (test jcvr=042) 99.8 % 96.0-97.0 HCO3 ARTERIAL (BEAKER) (test eiqn=823) 29 mmol/L 21-29 BASE EXCESS ARTERIAL (BEAKER) (test vxpn=379) 3.2 mmol/L -2.0-3.0 PATIENT TEMPERATURE (BEAKER) (test hwbx=5063) 31.4 C FIO2 (BEAKER) (test avak=0386) 75.0 % SODIUM NA-STAT [id number] 16:32:00 Test Item Value Reference Range Comments SODIUM (BEAKER) (test lzlk=521) 129 meq/L 135-148 GLUCOSE-STAT [id number] 16:32:00 Test Item Value Reference Range Comments GLUCOSE RANDOM (BEAKER) (test cnlt=893) 304 mg/dL 70-110 HGB/HCT (H&H) - STAT [id number] 16:32:00 Test Item Value Reference Range Comments HEMOGLOBIN (BEAKER) (test vqjd=951) 8.7 g/dL 12.0-15.0 HEMATOCRIT (BEAKER) (test ehek=289) 26.0 % 36.0-45.0 POTASSIUM-STAT [id number] 16:31:00 Test Item Value Reference Range Comments POTASSIUM (BEAKER) (test nebn=729) 4.8 meq/L 3.6-5.5 BLOOD GAS, [id number] 16:14:00 Test Item Value Reference Range Comments PH ARTERIAL (BEAKER) (test wvbv=291) 7.46 7.35-7.45 PCO2 ARTERIAL (BEAKER) (test cioe=236) 40 mmHg 35-45 PO2 ARTERIAL (BEAKER) (test keww=856) 306 mmHg 80-90 O2 SATURATION ARTERIAL (BEAKER) (test jhga=771) 99.7 % 96.0-97.0 HCO3 ARTERIAL (BEAKER) (test glhs=466) 28 mmol/L 21-29 BASE EXCESS ARTERIAL (BEAKER) (test rlrg=632) 3.5 mmol/L -2.0-3.0 PATIENT TEMPERATURE (BEAKER) (test cfzi=3165) 35.4 C FIO2 (BEAKER) (test ttva=5459) 75.0 % CALCIUM, [id number] 13:21:00 Test Item Value Reference Range Comments CALCIUM IONIZED (BEAKER) (test qrta=694) 1.00 mmol/L 1.12-1.27 PH, BLOOD (BEAKER) (test atgl=8625) 7.50 BLOOD GAS, [id number] 13:20:00 Test Item Value Reference Range Comments PH ARTERIAL (BEAKER) (test vpro=001) 7.52 7.35-7.45 PCO2 ARTERIAL (BEAKER) (test slez=757) 33 mmHg 35-45 PO2 ARTERIAL (BEAKER) (test yuft=100) 291 mmHg 80-90 O2 SATURATION ARTERIAL (BEAKER) (test kmit=788) 99.7 % 96.0-97.0 HCO3 ARTERIAL (BEAKER) (test lrhj=473) 27 mmol/L 21-29 BASE EXCESS ARTERIAL (BEAKER) (test gzef=385) 3.4 mmol/L -2.0-3.0 PATIENT TEMPERATURE (BEAKER) (test wzhh=3805) 36.0 C FIO2 (BEAKER) (test hkkm=9421) 100.0 % GLUCOSE-STAT [id number] 13:20:00 Test Item Value Reference Range Comments GLUCOSE RANDOM (BEAKER) (test kxzy=269) 171 mg/dL 70-110 SODIUM NA-STAT [id number] 13:20:00 Test Item Value Reference Range Comments SODIUM (BEAKER) (test auhf=898) 134 meq/L 135-148 POTASSIUM-STAT [id number] 13:20:00 Test Item Value Reference Range Comments POTASSIUM (BEAKER) (test pggq=372) 3.4 meq/L 3.6-5.5 HGB/HCT (H&H) - STAT [id number] 13:20:00 Test Item Value Reference Range Comments HEMOGLOBIN (BEAKER) (test nwjw=540) 10.5 g/dL 12.0-15.0 HEMATOCRIT (BEAKER) (test ohgm=879) 31.0 % 36.0-45.0 POCT-GLUCOSE [id number] 10:29:00 Test Item Value Reference Range Comments POC-GLUCOSE METER (BEAKER) 278 mg/dL 70-[address] [facility] [address] [facility] (test qfxt=8615) [facility] [address] PLATELET AGGREGATION: FUNCTION [id number] 09:27:00 Test Item Value Reference Range Comments WEAK ADP RESULT(BEAKER) (test 72 % 60-91 akae=4827) PLATELET FUNCTION SCREEN 60-100% indicates normal INTERP (BEAKER) (test platelet function vrsj=8294) [id number] (BEAKER) Uma Hdz MD (test mjrc=9712) (electronic signature) PLATELET COUNT AGG (BEAKER) 168 K/CU MM 150-450 (test ugqq=6205) [id number] 06:56:00 Test Item Value Reference Range Comments PARTIAL THROMBOPLASTIN TIME (BEAKER) (test 106.3 seconds 22.5-36.0 loeb=127) [id number] 06:02:00 Test Item Value Reference Range Comments THYROID STIMULATING HORMONE (BEAKER) (test 5.68 uIU/mL 0.35-4.94 etjf=815) OXYGEN SATURATION, [id number] 05:21:00 Test Item Value Reference Range Comments O2 SATURATION (MEASURED) (BEAKER) (test qaxk=9918) 80.4 % [id number] 05:09:00 Test Item Value Reference Range Comments MAGNESIUM (BEAKER) (test 2.3 mg/dL 1.6-2.6 Specimen slightly hemolyzed bqnk=868) [id number] 05:09:00 Test Item Value Reference Range Comments PHOSPHORUS (BEAKER) (test 4.0 mg/dL 2.3-4.7 Specimen slightly hemolyzed hryk=532) COMPREHENSIVE METABOLIC [id number] 05:09:00 Test Item Value Reference Range Comments TOTAL PROTEIN (BEAKER) 6.6 gm/dL 6.0-8.3 Specimen slightly (test dehv=822) hemolyzed ALBUMIN (BEAKER) (test 3.2 g/dL 3.5-5.0 Specimen slightly rokv=6700) hemolyzed ALKALINE PHOSPHATASE 112 U/L 40-150 (BEAKER) (test rkxu=921) BILIRUBIN TOTAL (BEAKER) 0.4 mg/dL 0.2-1.2 Specimen slightly (test ntzl=879) hemolyzed SODIUM (BEAKER) (test 133 meq/L 136-145 hbws=163) POTASSIUM (BEAKER) (test 4.9 meq/L 3.5-5.1 Specimen slightly iltg=557) hemolyzed CHLORIDE (BEAKER) (test 90 meq/L 98-107 qcjf=134) CO2 (BEAKER) (test 31 meq/L 22-29 hnsq=777) BLOOD UREA NITROGEN 30 mg/dL 7-21 (BEAKER) (test ddxl=624) CREATININE (BEAKER) (test 1.32 mg/dL 0.57-1.25 Specimen slightly dgaa=812) hemolyzed GLUCOSE RANDOM (BEAKER) 277 mg/dL 70-105 (test aqvy=646) CALCIUM (BEAKER) (test 9.6 mg/dL 8.4-10.2 zqrz=830) AST (SGOT) (BEAKER) (test 29 U/L 5-34 Specimen slightly cuol=984) hemolyzed ALT (SGPT) (BEAKER) (test 16 U/L 6-55 Specimen slightly vprv=553) hemolyzed EGFR (BEAKER) (test 41 mL/min/1.73 sq m ESTIMATED GFR IS NOT bzsv=9598) ACCURATE CREATININE CLEARANCE IN PREDICTING GLOMERULAR FILTRATION RATE. ESTIMATED GFR IS NOT APPLICABLE FOR DIALYSIS PATIENTS. LIPID [id number] 05:09:00 Test Item Value Reference Range Comments TRIGLYCERIDES (BEAKER) (test 234 mg/dL Specimen slightly hemolyzed gnpz=822) CHOLESTEROL (BEAKER) (test 153 mg/dL Specimen slightly hemolyzed cvnv=329) HDL CHOLESTEROL (BEAKER) (test 46 mg/dL tzeh=224) LDL CHOLESTEROL CALCULATED 60 mg/dL (BEAKER) (test zceu=271) Triglyceride Reference Range: Low Risk <150 Borderline 150- 199 High Risk 200-499 Very High Risk >=500Cholesterol Reference Range: Low Risk <200 Borderline 200-239 High Risk > 240HDL Cholesterol Reference Range: Low Risk >=60 High Risk <40LDL Cholesterol Reference Range: Optimal <100 Near Optimal 100-129 Borderline 130-159 High 160-189 Very High >=190RAD, CHEST, 1 VIEW, NON [id number] 05:06:00Reason for exam:-> pulmonary edemaShould this be performed at the bedside?->YesFINAL REPORT CLINICAL INDICATION: Pulmonary edema Comparison: May 12, 2018The cardiomediastinal contours are stable. Central pulmonary vascular prominence and bilateral parenchymal opacities are similar to previous. There is no pneumothorax. Support lines are stable. Signed:Colt Licona MDReport Verified Date/Time: 05/13/2018 05:06:11 Reading Location: [address] Reading Room Electronically signed by: COLT LICONA M.D. on 05:06 AMPROTHROMBIN [id number] 04:56:00 Test Item Value Reference Range Comments PROTIME (BEAKER) (test yodw=496) 14.3 seconds 11.7-14.7 INR (BEAKER) (test nday=238) 1.1 <=5.9 RECOMMENDED COUMADIN/WARFARIN INR THERAPY RANGESSTANDARD DOSE: 2.0 - 3.0 Includes: PROPHYLAXIS forvenous thrombosis, systemic embolization; TREATMENT for venous thrombosis and/or pulmonary embolus.HIGH RISK: Target INR is 2.5-3.5 for patients with mechanical heart valves.CBC W/PLT COUNT & AUTO [id number] 04:44:00 Test Item Value Reference Range Comments WHITE BLOOD CELL COUNT (BEAKER) (test hnpt=602) 5.3 K/ L 3.5-10.5 RED BLOOD CELL COUNT (BEAKER) (test eksc=790) 3.63 M/ L 3.93-5.22 HEMOGLOBIN (BEAKER) (test zshm=730) 10.7 GM/DL 11.2-15.7 HEMATOCRIT (BEAKER) (test uyin=527) 32.2 % 34.1-44.9 MEAN CORPUSCULAR VOLUME (BEAKER) (test doej=993) 88.7 fL 79.4-94.8 MEAN CORPUSCULAR HEMOGLOBIN (BEAKER) (test 29.5 pg 25.6-32.2 wvbb=273) MEAN CORPUSCULAR HEMOGLOBIN CONC (BEAKER) (test 33.2 GM/DL 32.2-35.5 zwgg=403) RED CELL DISTRIBUTION WIDTH (BEAKER) (test 13.5 % 11.7-14.4 edau=503) PLATELET COUNT (BEAKER) (test rvlk=986) 178 K/CU MM 150-450 MEAN PLATELET VOLUME (BEAKER) (test tnil=108) 11.1 fL 9.4-12.3 NUCLEATED RED BLOOD CELLS (BEAKER) (test 0 /100 WBC 0-0 pcla=472) NEUTROPHILS RELATIVE PERCENT (BEAKER) (test 54 % iakj=013) LYMPHOCYTES RELATIVE PERCENT (BEAKER) (test 28 % samy=547) MONOCYTES RELATIVE PERCENT (BEAKER) (test 11 % veon=241) EOSINOPHILS RELATIVE PERCENT (BEAKER) (test 6 % nwgb=621) BASOPHILS RELATIVE PERCENT (BEAKER) (test 0 % akds=612) NEUTROPHILS ABSOLUTE COUNT (BEAKER) (test 2.89 K/ L 1.56-6.13 jdlm=440) LYMPHOCYTES ABSOLUTE COUNT (BEAKER) (test 1.51 K/ L 1.18-3.74 rjdi=849) MONOCYTES ABSOLUTE COUNT (BEAKER) (test 0.56 K/ L 0.24-0.36 nrzo=388) EOSINOPHILS ABSOLUTE COUNT (BEAKER) (test 0.33 K/ L 0.04-0.36 dbxr=260) BASOPHILS ABSOLUTE COUNT (BEAKER) (test 0.01 K/ L 0.01-0.08 rwtq=291) IMMATURE GRANULOCYTES-RELATIVE PERCENT (BEAKER) 1 % 0-1 (test uotl=9616) POCT-GLUCOSE [id number] 21:32:00 Test Item Value Reference Range Comments POC-GLUCOSE METER (BEAKER) 331 mg/dL 70-110 Notified VINAY PEÑA/TESTED AT [facility] (test myqx=1498) [address] [facility] [address] [id number] 21:18:00 Test Item Value Reference Range Comments PARTIAL THROMBOPLASTIN TIME (BEAKER) (test 104.7 seconds 22.5-36.0 eits=074) URINALYSIS W/ [id number] 21:14:00 Test Item Value Reference Range Comments COLOR (BEAKER) (test ycyx=536) Yellow CLARITY (BEAKER) (test bwby=433) Hazy SPECIFIC GRAVITY UA (BEAKER) (test bpkl=011) 1.010 1.001-1.035 PH UA (BEAKER) (test ipfh=078) 5.5 5.0-8.0 PROTEIN UA (BEAKER) (test fbqr=217) 50 mg/dL Negative GLUCOSE UA (BEAKER) (test shlz=438) Negative Negative KETONES UA (BEAKER) (test zwks=932) Negative Negative BILIRUBIN UA (BEAKER) (test uzhy=138) Negative Negative BLOOD UA (BEAKER) (test nvro=024) Negative Negative NITRITE UA (BEAKER) (test iyfu=265) Negative Negative LEUKOCYTE ESTERASE UA (BEAKER) (test avva=223) Moderate Negative UROBILINOGEN UA (BEAKER) (test qlfv=252) 0.2 mg/dL 0.2-1.0 RBC UA (BEAKER) (test cdfg=625) 2 /HPF WBC UA (BEAKER) (test rfju=308) 33 /HPF MUCUS (BEAKER) (test bvai=2792) Rare SQUAMOUS EPITHELIAL (BEAKER) (test ntpx=733) 2 /HPF HYALINE CASTS (BEAKER) (test laea=288) 6 /LPF SOURCE(BEAKER) (test rpin=4031) POCT-GLUCOSE [id number] 18:18:00 Test Item Value Reference Range Comments POC-GLUCOSE METER (BEAKER) 218 mg/dL 70-110 TESTED AT [address] (test lqtg=1225) [place] [address] [id number] 13:54:00 Test Item Value Reference Range Comments PARTIAL THROMBOPLASTIN TIME (BEAKER) (test 91.4 seconds 22.5-36.0 xjnv=503) VANCOMYCIN LEVEL, [id number] 13:18:00 Test Item Value Reference Range Comments VANCOMYCIN TROUGH (BEAKER) (test ordt=729) 17.3 ug/mL 10.0-20.0 POCT-GLUCOSE [id number] 13:10:00 Test Item Value Reference Range Comments POC-GLUCOSE METER (BEAKER) 207 mg/dL 70-110 TESTED AT [address] (test lycp=3915) [place] [address] [id number] 12:17:00 Test Item Value Reference Range Comments POTASSIUM (BEAKER) (test svog=769) 4.3 meq/L 3.5-5.1 [id number] 12:17:00 Test Item Value Reference Range Comments MAGNESIUM (BEAKER) (test eewp=781) 1.9 mg/dL 1.6-2.6 [id number] 12:15:00 Test Item Value Reference Range Comments PARTIAL THROMBOPLASTIN TIME (BEAKER) (test 156.2 seconds 22.5-36.0 bvnq=851) PLATELET AGGREGATION: FUNCTION [id number] 12:05:00 Test Item Value Reference Range Comments WEAK ADP RESULT(BEAKER) (test 89 % 60-91 omhh=2942) PLATELET FUNCTION SCREEN 60-100% indicates normal INTERP (BEAKER) (test platelet function vwys=6111) SAHH-FEWPEFTNZNK-6953 (BEAKER) Uma Hdz MD (test udyp=9993) (electronic signature) PLATELET COUNT AGG (BEAKER) 151 K/CU MM 150-450 (test tmhc=9482) RAD, CHEST, 1 VIEW, NON [id number] 09:00:00Reason for exam:->pulmonary edemaShould this be performed at the bedside?->YesFINAL REPORT CLINICAL HISTORY: pulmonary edema TECHNIQUE: 1 view of the chest. COMPARISON: 05/11/2018 IMPRESSION: The radiopaque tip of the IABP projects approximately 2 cm below the aortic knob. A right jugular line remains in the upper SVC. Right mid and left lower lung atelectasis is again seen. There is no significant pleural fluid. The cardiomediastinal silhouette is magnified by technique. Signed: Shayy Yepez MDReport Verified Date/Time: 05/12/2018 09:00: 18 Reading Location: [facility] Radiology Reading Room POCT-GLUCOSE [id number] 07:29:00 Test Item Value Reference Range Comments POC-GLUCOSE METER (BEAKER) 230 mg/dL 70-110 TESTED AT [address] (test gpod=3528) [facility] [address] [id number] 07:26:00 Test Item Value Reference Range Comments POTASSIUM (BEAKER) (test ldgc=960) 4.4 meq/L 3.5-5.1 [id number] 07:26:00 Test Item Value Reference Range Comments MAGNESIUM (BEAKER) (test ctpn=320) 2.5 mg/dL 1.6-2.6 POCT-GLUCOSE [id number] 04:35:00 Test Item Value Reference Range Comments POC-GLUCOSE METER (BEAKER) 317 mg/dL 70-110 Will Repeat Test/TESTED AT (test epxi=1788) [address] [address] OXYGEN SATURATION, [id number] 04:27:00 Test Item Value Reference Range Comments O2 SATURATION (MEASURED) (BEAKER) (test nasl=6285) 74.9 % [id number] 04:19:00 Test Item Value Reference Range Comments PHOSPHORUS (BEAKER) (test iohe=284) 4.4 mg/dL 2.3-4.7 [id number] 04:19:00 Test Item Value Reference Range Comments MAGNESIUM (BEAKER) (test qszc=980) 2.1 mg/dL 1.6-2.6 BASIC METABOLIC [id number] 04:19:00 Test Item Value Reference Range Comments SODIUM (BEAKER) (test 137 meq/L 136-145 spjo=190) POTASSIUM (BEAKER) (test 4.3 meq/L 3.5-5.1 zfxc=565) CHLORIDE (BEAKER) (test 97 meq/L 98-107 cjco=231) CO2 (BEAKER) (test 31 meq/L 22-29 ctdu=506) BLOOD UREA NITROGEN 27 mg/dL 7-21 (BEAKER) (test mhfo=188) CREATININE (BEAKER) (test 1.16 mg/dL 0.57-1.25 greb=330) GLUCOSE RANDOM (BEAKER) 189 mg/dL 70-105 (test nqop=091) CALCIUM (BEAKER) (test 9.4 mg/dL 8.4-10.2 weit=535) EGFR (BEAKER) (test 47 mL/min/1.73 sq m ESTIMATED GFR IS NOT cpdm=9483) ACCURATE CREATININE CLEARANCE IN PREDICTING GLOMERULAR FILTRATION RATE. ESTIMATED GFR IS NOT APPLICABLE FOR DIALYSIS PATIENTS. [id number] 04:11:00 Test Item Value Reference Range Comments PARTIAL THROMBOPLASTIN TIME (BEAKER) (test 70.0 seconds 22.5-36.0 enwc=322) CBC W/PLT COUNT & AUTO [id number] 04:00:00 Test Item Value Reference Range Comments WHITE BLOOD CELL COUNT (BEAKER) (test lcsn=522) 6.2 K/ L 3.5-10.5 RED BLOOD CELL COUNT (BEAKER) (test mmfs=106) 3.59 M/ L 3.93-5.22 HEMOGLOBIN (BEAKER) (test cdad=454) 10.6 GM/DL 11.2-15.7 HEMATOCRIT (BEAKER) (test nuxw=423) 32.2 % 34.1-44.9 MEAN CORPUSCULAR VOLUME (BEAKER) (test ykoe=326) 89.7 fL 79.4-94.8 MEAN CORPUSCULAR HEMOGLOBIN (BEAKER) (test 29.5 pg 25.6-32.2 lcde=663) MEAN CORPUSCULAR HEMOGLOBIN CONC (BEAKER) (test 32.9 GM/DL 32.2-35.5 ojge=991) RED CELL DISTRIBUTION WIDTH (BEAKER) (test 13.7 % 11.7-14.4 pdyn=359) PLATELET COUNT (BEAKER) (test itnf=917) 169 K/CU MM 150-450 MEAN PLATELET VOLUME (BEAKER) (test ljaz=489) 11.6 fL 9.4-12.3 NUCLEATED RED BLOOD CELLS (BEAKER) (test 0 /100 WBC 0-0 djjn=636) NEUTROPHILS RELATIVE PERCENT (BEAKER) (test 62 % lvht=981) LYMPHOCYTES RELATIVE PERCENT (BEAKER) (test 22 % nsol=757) MONOCYTES RELATIVE PERCENT (BEAKER) (test 10 % kvcm=718) EOSINOPHILS RELATIVE PERCENT (BEAKER) (test 5 % ejsr=695) BASOPHILS RELATIVE PERCENT (BEAKER) (test 0 % rvcu=171) NEUTROPHILS ABSOLUTE COUNT (BEAKER) (test 3.83 K/ L 1.56-6.13 tado=058) LYMPHOCYTES ABSOLUTE COUNT (BEAKER) (test 1.38 K/ L 1.18-3.74 odjc=588) MONOCYTES ABSOLUTE COUNT (BEAKER) (test 0.60 K/ L 0.24-0.36 dxar=141) EOSINOPHILS ABSOLUTE COUNT (BEAKER) (test 0.30 K/ L 0.04-0.36 ebec=988) BASOPHILS ABSOLUTE COUNT (BEAKER) (test 0.01 K/ L 0.01-0.08 czwh=307) IMMATURE GRANULOCYTES-RELATIVE PERCENT (BEAKER) 1 % 0-1 (test wvud=0351) [id number] 02:28:00 Test Item Value Reference Range Comments PARTIAL THROMBOPLASTIN TIME (BEAKER) (test 62.0 seconds 22.5-36.0 wjvc=361) POCT-GLUCOSE [id number] 01:32:00 Test Item Value Reference Range Comments POC-GLUCOSE METER (BEAKER) 201 mg/dL 70-[address] [facility] [address] [facility] (test wsaf=5014) [facility] [address] [id number] 00:48:00 Test Item Value Reference Range Comments PARTIAL THROMBOPLASTIN TIME (BEAKER) (test 151.5 seconds 22.5-36.0 bqdd=676) [id number] 00:44:00 Test Item Value Reference Range Comments POTASSIUM (BEAKER) (test inap=297) 4.2 meq/L 3.5-5.1 [id number] 00:44:00 Test Item Value Reference Range Comments MAGNESIUM (BEAKER) (test bdut=335) 2.2 mg/dL 1.6-2.6 POCT-GLUCOSE [id number] 00:13:00 Test Item Value Reference Range Comments POC-GLUCOSE METER (BEAKER) 243 mg/dL 70-110 TESTED AT [address] (test lwpj=1999) [place] [address] POCT-GLUCOSE [id number] 22:06:00 Test Item Value Reference Range Comments POC-GLUCOSE METER (BEAKER) 345 mg/dL 70-110 Will Repeat Test/TESTED AT (test lrfq=3751) [place] [address] POCT-GLUCOSE [id number] 20:04:00 Test Item Value Reference Range Comments POC-GLUCOSE METER (BEAKER) 307 mg/dL 70-110 TESTED AT [address] (test fkei=0325) [place] [address] [id number] 18:37:00 Test Item Value Reference Range Comments POTASSIUM (BEAKER) (test ssxv=412) 4.3 meq/L 3.5-5.1 [id number] 18:37:00 Test Item Value Reference Range Comments MAGNESIUM (BEAKER) (test ycbo=852) 1.8 mg/dL 1.6-2.6 POCT-GLUCOSE [id number] 17:30:00 Test Item Value Reference Range Comments POC-GLUCOSE METER (BEAKER) 202 mg/dL 70-110 TESTED AT [address] (test gaih=7868) [place] [address] [id number] 15:55:00 Test Item Value Reference Range Comments PARTIAL THROMBOPLASTIN TIME (BEAKER) (test 61.0 seconds 22.5-36.0 afaw=301) PLATELET AGGREGATION: FUNCTION [id number] 15:53:00 Test Item Value Reference Range Comments WEAK ADP RESULT(BEAKER) (test 69 % 60-91 yzqo=0560) PLATELET FUNCTION SCREEN 60-100% indicates normal INTERP (BEAKER) (test platelet function jvio=7732) [id number] (BEAKER) Uma Hdz MD (test meri=5166) (electronic signature) PLATELET COUNT AGG (BEAKER) 180 K/CU MM 150-450 (test qdin=4402) ANTITHROMBIN [id number] 12:52:00 Test Item Value Reference Range Comments ANTITHROMBIN III ACTIVITY (BEAKER) (test fyqh=683) 98.0 % 80.0-120.0 [id number] 12:36:00 Test Item Value Reference Range Comments POTASSIUM (BEAKER) (test bmyt=483) 4.4 meq/L 3.5-5.1 [id number] 12:36:00 Test Item Value Reference Range Comments MAGNESIUM (BEAKER) (test gynp=625) 2.1 mg/dL 1.6-2.6 POCT-GLUCOSE [id number] 10:43:00 Test Item Value Reference Range Comments POC-GLUCOSE METER (BEAKER) 145 mg/dL 70-110 TESTED AT [address] (test lotf=3802) [facility] [address] RAD, CHEST, 1 VIEW, NON [id number] 07:49:00Reason for exam:->chf, nstemi , IABPShould this be performed at the bedside?->YesFINAL REPORT CLINICAL HISTORY: chf, nstemi, IABP TECHNIQUE: 1 view of the chest. COMPARISON: 05/10/2018 IMPRESSION: The NGT has been removed. The right central line and IABP catheter again noted. Mild prominence of the pulmonary vasculature is unchanged. There is no increasing pleural fluid. The cardiomediastinal silhouette is magnified by technique. A right carotid stent is again seen. Signed: Shayy Yepez MDReport Verified Date/Time: 05/11/2018 07 :49:40 Reading Location: [facility] Radiology Reading Room [id number] 07:28:00 Test Item Value Reference Range Comments POTASSIUM (BEAKER) (test 4.1 meq/L 3.5-5.1 Specimen slightly hemolyzed hhvd=857) [id number] 07:28:00 Test Item Value Reference Range Comments MAGNESIUM (BEAKER) (test 2.4 mg/dL 1.6-2.6 Specimen slightly hemolyzed plvs=754) [id number] 07:24:00 Test Item Value Reference Range Comments PARTIAL THROMBOPLASTIN TIME (BEAKER) (test 35.1 seconds 22.5-36.0 epmb=271) CBC (HEMOGRAM ONLY)2018-05-11 07:15:00 Test Item Value Reference Range Comments WHITE BLOOD CELL COUNT (BEAKER) (test petw=424) 6.3 K/ L 3.5-10.5 RED BLOOD CELL COUNT (BEAKER) (test ygjv=845) 3.75 M/ L 3.93-5.22 HEMOGLOBIN (BEAKER) (test yjaq=724) 11.2 GM/DL 11.2-15.7 HEMATOCRIT (BEAKER) (test nqhu=841) 34.0 % 34.1-44.9 MEAN CORPUSCULAR VOLUME (BEAKER) (test sahi=867) 90.7 fL 79.4-94.8 MEAN CORPUSCULAR HEMOGLOBIN (BEAKER) (test 29.9 pg 25.6-32.2 tdyp=721) MEAN CORPUSCULAR HEMOGLOBIN CONC (BEAKER) (test 32.9 GM/DL 32.2-35.5 tlye=575) RED CELL DISTRIBUTION WIDTH (BEAKER) (test 14.0 % 11.7-14.4 cnjx=388) PLATELET COUNT (BEAKER) (test ydbo=258) 165 K/CU MM 150-450 MEAN PLATELET VOLUME (BEAKER) (test orxi=955) 11.6 fL 9.4-12.3 NUCLEATED RED BLOOD CELLS (BEAKER) (test 0 /100 WBC 0-0 cjta=065) POCT-GLUCOSE [id number] 07:08:00 Test Item Value Reference Range Comments POC-GLUCOSE METER (BEAKER) 134 mg/dL 70-110 TESTED AT [address] (test oztn=5285) [facility] [address] POCT-GLUCOSE [id number] 06:09:00 Test Item Value Reference Range Comments POC-GLUCOSE METER (BEAKER) 128 mg/dL 70-110 TESTED AT [address] (test zcpn=8597) [facility] [address] POCT-GLUCOSE [id number] 06:09:00 Test Item Value Reference Range Comments POC-GLUCOSE METER (BEAKER) 141 mg/dL 70-110 TESTED AT [address] (test oqdq=4419) [facility] [address] [id number] 05:32:00 Test Item Value Reference Range Comments MAGNESIUM (BEAKER) (test hvjp=496) 2.5 mg/dL 1.6-2.6 BASIC METABOLIC [id number] 05:32:00 Test Item Value Reference Range Comments SODIUM (BEAKER) (test 137 meq/L 136-145 potw=836) POTASSIUM (BEAKER) (test 3.9 meq/L 3.5-5.1 wfwv=987) CHLORIDE (BEAKER) (test 96 meq/L 98-107 jxqi=889) CO2 (BEAKER) (test 28 meq/L 22-29 bruw=515) BLOOD UREA NITROGEN 23 mg/dL 7-21 (BEAKER) (test rnbx=211) CREATININE (BEAKER) (test 1.32 mg/dL 0.57-1.25 lgws=109) GLUCOSE RANDOM (BEAKER) 194 mg/dL 70-105 (test sodf=945) CALCIUM (BEAKER) (test 9.2 mg/dL 8.4-10.2 ioxh=218) EGFR (BEAKER) (test 41 mL/min/1.73 sq m ESTIMATED GFR IS NOT odoa=1554) ACCURATE CREATININE CLEARANCE IN PREDICTING GLOMERULAR FILTRATION RATE. ESTIMATED GFR IS NOT APPLICABLE FOR DIALYSIS PATIENTS. CALCIUM, [id number] 05:28:00 Test Item Value Reference Range Comments CALCIUM IONIZED (BEAKER) (test rcjd=903) 1.09 mmol/L 1.12-1.27 PH, BLOOD (BEAKER) (test ktrz=5107) 7.39 POCT-GLUCOSE [id number] 05:21:00 Test Item Value Reference Range Comments POC-GLUCOSE METER (BEAKER) 199 mg/dL 70-110 TESTED AT [address] (test xodb=2858) [facility] [address] POCT-GLUCOSE [id number] 05:21:00 Test Item Value Reference Range Comments POC-GLUCOSE METER (BEAKER) 236 mg/dL 70-110 TESTED AT [address] (test kvao=4417) [facility] [address] POCT-GLUCOSE [id number] 05:21:00 Test Item Value Reference Range Comments POC-GLUCOSE METER (BEAKER) 225 mg/dL 70-[address] [facility] [address] [facility] (test jabe=6399) [facility] [address] BLOOD GAS, [id number] 05:10:00 Test Item Value Reference Range Comments PH ARTERIAL (BEAKER) (test keac=771) 7.42 7.35-7.45 PCO2 ARTERIAL (BEAKER) (test ygtz=438) 55 mmHg 35-45 PO2 ARTERIAL (BEAKER) (test ckph=439) 96 mmHg 80-90 O2 SATURATION ARTERIAL (BEAKER) (test olqx=695) 97.3 % 96.0-97.0 HCO3 ARTERIAL (BEAKER) (test rgrt=271) 35 mmol/L 21-29 BASE EXCESS ARTERIAL (BEAKER) (test bfsi=937) 8.5 mmol/L -2.0-3.0 PATIENT TEMPERATURE (BEAKER) (test tfzg=9788) 37.0 C FIO2 (BEAKER) (test kpih=2411) 21.0 % OXYGEN SATURATION, [id number] 04:50:00 Test Item Value Reference Range Comments O2 SATURATION (MEASURED) (BEAKER) (test vnqy=9357) 75.1 % [id number] 04:50:00 Test Item Value Reference Range Comments PARTIAL THROMBOPLASTIN TIME (BEAKER) (test 41.5 seconds 22.5-36.0 wyzm=126) CBC W/PLT COUNT & AUTO [id number] 04:36:00 Test Item Value Reference Range Comments WHITE BLOOD CELL COUNT (BEAKER) (test pqgx=997) 6.9 K/ L 3.5-10.5 RED BLOOD CELL COUNT (BEAKER) (test yaga=740) 3.73 M/ L 3.93-5.22 HEMOGLOBIN (BEAKER) (test bscl=364) 11.1 GM/DL 11.2-15.7 HEMATOCRIT (BEAKER) (test lrmp=052) 34.3 % 34.1-44.9 MEAN CORPUSCULAR VOLUME (BEAKER) (test bphx=595) 92.0 fL 79.4-94.8 MEAN CORPUSCULAR HEMOGLOBIN (BEAKER) (test 29.8 pg 25.6-32.2 liju=514) MEAN CORPUSCULAR HEMOGLOBIN CONC (BEAKER) (test 32.4 GM/DL 32.2-35.5 qmtc=886) RED CELL DISTRIBUTION WIDTH (BEAKER) (test 13.7 % 11.7-14.4 ckkr=392) PLATELET COUNT (BEAKER) (test acnu=821) 159 K/CU MM 150-450 MEAN PLATELET VOLUME (BEAKER) (test buvw=565) 12.1 fL 9.4-12.3 NUCLEATED RED BLOOD CELLS (BEAKER) (test 0 /100 WBC 0-0 rdtl=327) NEUTROPHILS RELATIVE PERCENT (BEAKER) (test 68 % nnjx=086) LYMPHOCYTES RELATIVE PERCENT (BEAKER) (test 20 % chlr=162) MONOCYTES RELATIVE PERCENT (BEAKER) (test 8 % bjrj=669) EOSINOPHILS RELATIVE PERCENT (BEAKER) (test 4 % pise=603) BASOPHILS RELATIVE PERCENT (BEAKER) (test 0 % msrm=677) NEUTROPHILS ABSOLUTE COUNT (BEAKER) (test 4.70 K/ L 1.56-6.13 zuhv=957) LYMPHOCYTES ABSOLUTE COUNT (BEAKER) (test 1.40 K/ L 1.18-3.74 rntc=328) MONOCYTES ABSOLUTE COUNT (BEAKER) (test 0.53 K/ L 0.24-0.36 bwlg=492) EOSINOPHILS ABSOLUTE COUNT (BEAKER) (test 0.24 K/ L 0.04-0.36 ovay=875) BASOPHILS ABSOLUTE COUNT (BEAKER) (test 0.01 K/ L 0.01-0.08 kcso=688) IMMATURE GRANULOCYTES-RELATIVE PERCENT (BEAKER) 0 % 0-1 (test sirx=0680) [id number] 23:42:00 Test Item Value Reference Range Comments PARTIAL THROMBOPLASTIN TIME (BEAKER) (test 34.5 seconds 22.5-36.0 xpvi=959) [id number] 23:41:00 Test Item Value Reference Range Comments POTASSIUM (BEAKER) (test hfes=404) 3.9 meq/L 3.5-5.1 [id number] 23:41:00 Test Item Value Reference Range Comments MAGNESIUM (BEAKER) (test lqrp=682) 2.0 mg/dL 1.6-2.6 POCT-GLUCOSE [id number] 23:35:00 Test Item Value Reference Range Comments POC-GLUCOSE METER (BEAKER) 272 mg/dL 70-110 TESTED AT [address] (test dljq=9600) [facility] [address] POCT-GLUCOSE [id number] 22:46:00 Test Item Value Reference Range Comments POC-GLUCOSE METER (BEAKER) 295 mg/dL 70-110 TESTED AT [address] (test pwon=2879) [place] [address] POCT-GLUCOSE [id number] 22:46:00 Test Item Value Reference Range Comments POC-GLUCOSE METER (BEAKER) 326 mg/dL 70-110 TESTED AT [address] (test dppv=6741) [place] [address] POCT-GLUCOSE [id number] 22:46:00 Test Item Value Reference Range Comments POC-GLUCOSE METER (BEAKER) 355 mg/dL 70-110 Will Repeat Test/TESTED AT (test gxxq=7897) [place] [id number] POCT-GLUCOSE [id number] 22:46:00 Test Item Value Reference Range Comments POC-GLUCOSE METER (BEAKER) 219 mg/dL 70-110 TESTED AT [address] (test hoam=4504) [place] [address] [id number] 17:26:00 Test Item Value Reference Range Comments POTASSIUM (BEAKER) (test rcor=866) 4.1 meq/L 3.5-5.1 [id number] 17:26:00 Test Item Value Reference Range Comments MAGNESIUM (BEAKER) (test gkod=320) 1.9 mg/dL 1.6-2.6 [id number] 17:21:00 Test Item Value Reference Range Comments PARTIAL THROMBOPLASTIN TIME (BEAKER) (test 58.4 seconds 22.5-36.0 ktnu=764) POCT-GLUCOSE [id number] 17:01:00 Test Item Value Reference Range Comments POC-GLUCOSE METER (BEAKER) 245 mg/dL 70-110 TESTED AT [address] (test kpkm=1415) [place] [address] POCT-GLUCOSE [id number] 13:43:00 Test Item Value Reference Range Comments POC-GLUCOSE METER (BEAKER) 185 mg/dL 70-110 TESTED AT [address] (test ecyu=1040) [place] [address] POCT-GLUCOSE [id number] 12:48:00 Test Item Value Reference Range Comments POC-GLUCOSE METER (BEAKER) 189 mg/dL 70-110 TESTED AT [address] (test tzwe=1017) [place] [address] TROPONIN [id number] 12:12:00 Test Item Value Reference Range Comments TROPONIN I (BEAKER) (test myvr=850) 14.07 ng/mL 0.00-0.03 Troponin I (TnI) levels must be interpreted [...] failure, acidosis, acute neurological disease, and persistent tachyarrhythmia.POCT-GLUCOSE [id number] 11:34:00 Test Item Value Reference Range Comments POC-GLUCOSE METER (BEAKER) 151 mg/dL 70-110 TESTED AT [address] (test wedy=3149) [place] [address] [id number] 11:28:00 Test Item Value Reference Range Comments POTASSIUM (BEAKER) (test kqwn=932) 4.0 meq/L 3.5-5.1 [id number] 11:28:00 Test Item Value Reference Range Comments MAGNESIUM (BEAKER) (test xopl=377) 2.3 mg/dL 1.6-2.6 [id number] 11:20:00 Test Item Value Reference Range Comments PARTIAL THROMBOPLASTIN TIME (BEAKER) (test 47.4 seconds 22.5-36.0 lglt=831) POCT-GLUCOSE [id number] 10:25:00 Test Item Value Reference Range Comments POC-GLUCOSE METER (BEAKER) 157 mg/dL 70-110 TESTED AT [address] (test hjrb=1929) [place] [address] POCT-GLUCOSE [id number] 10:25:00 Test Item Value Reference Range Comments POC-GLUCOSE METER (BEAKER) 163 mg/dL 70-110 TESTED AT [address] (test ojsb=9615) [facility] [address] POCT-GLUCOSE [id number] 10:25:00 Test Item Value Reference Range Comments POC-GLUCOSE METER (BEAKER) 163 mg/dL 70-110 TESTED AT [address] (test irni=5656) [facility] [address] RAD, CHEST, 1 VIEW, NON [id number] 08:19:00Reason for exam:->chf, nstemi , IABPShould this be performed at the bedside?->YesFINAL REPORT CLINICAL HISTORY: chf, nstemi, IABP TECHNIQUE: 1 view of the chest. COMPARISON: 05/09/2018 IMPRESSION: The ETT has been removed. The lines and tubes are otherwise grossly unchanged. Mild pulmonary vascular congestion is again seen. The cardiomediastinal silhouette is magnified by technique. Signed: Shayy Yepez MDReport Verified Date/Time: 05/10/2018 08:19:56 Reading Location: [facility] Radiology Reading Room Electronically signed by: SHAYY YEPEZ M.D.on 05/10/2018 08:19 AMPOCT-GLUCOSE [id number] 06:55:00 Test Item Value Reference Range Comments POC-GLUCOSE METER (BEAKER) 182 mg/dL 70-110 TESTED AT [address] (test iiqd=6925) [facility] [address] [id number] 06:26:00 Test Item Value Reference Range Comments HAPTOGLOBIN (BEAKER) (test zxtg=952) 193 mg/dL 14-258 POCT-GLUCOSE [id number] 06:19:00 Test Item Value Reference Range Comments POC-GLUCOSE METER (BEAKER) 167 mg/dL 70-110 TESTED AT [address] (test zgak=2520) [facility] [address] POCT-GLUCOSE [id number] 06:19:00 Test Item Value Reference Range Comments POC-GLUCOSE METER (BEAKER) 156 mg/dL 70-110 TESTED AT [address] (test nkcj=7342) [facility] [address] POCT-GLUCOSE [id number] 06:19:00 Test Item Value Reference Range Comments POC-GLUCOSE METER (BEAKER) 149 mg/dL 70-[address] [facility] [address] (test ojzp=0102) [place] [address] [id number] 05:26:00 Test Item Value Reference Range Comments MAGNESIUM (BEAKER) (test kdxa=456) 2.6 mg/dL 1.6-2.6 BASIC METABOLIC [id number] 05:26:00 Test Item Value Reference Range Comments SODIUM (BEAKER) (test 140 meq/L 136-145 lrrh=130) POTASSIUM (BEAKER) (test 3.8 meq/L 3.5-5.1 voqa=214) CHLORIDE (BEAKER) (test 98 meq/L 98-107 pcyk=855) CO2 (BEAKER) (test 31 meq/L 22-29 ikui=060) BLOOD UREA NITROGEN 22 mg/dL 7-21 (BEAKER) (test yyct=453) CREATININE (BEAKER) (test 1.39 mg/dL 0.57-1.25 rrol=638) GLUCOSE RANDOM (BEAKER) 172 mg/dL 70-105 (test bjhg=165) CALCIUM (BEAKER) (test 9.7 mg/dL 8.4-10.2 ueaj=148) EGFR (BEAKER) (test 39 mL/min/1.73 sq m ESTIMATED GFR IS NOT hjjf=3496) ACCURATE CREATININE CLEARANCE IN PREDICTING GLOMERULAR FILTRATION RATE. ESTIMATED GFR IS NOT APPLICABLE FOR DIALYSIS PATIENTS. BILIRUBIN, ADULT [id number] 05:26:00 Test Item Value Reference Range Comments BILIRUBIN TOTAL (BEAKER) (test inqd=887) 0.9 mg/dL 0.2-1.2 LACTATE DEHYDROGENASE (LDH)2018-05-10 05:26:00 Test Item Value Reference Range Comments LACTATE DEHYDROGENASE (BEAKER) (test nlij=180) 436 U/L 125-220 [id number] 05:20:00 Test Item Value Reference Range Comments PARTIAL THROMBOPLASTIN TIME (BEAKER) (test 45.9 seconds 22.5-36.0 nssx=424) [id number] 05:19:00 Test Item Value Reference Range Comments FIBRINOGEN LEVEL (BEAKER) (test kchp=131) 587 mg/dl 225-434 PROTHROMBIN [id number] 05:18:00 Test Item Value Reference Range Comments PROTIME (BEAKER) (test mcyo=190) 14.5 seconds 11.7-14.7 INR (BEAKER) (test pwbi=158) 1.1 <=5.9 RECOMMENDED COUMADIN/WARFARIN INR THERAPY RANGESSTANDARD DOSE: 2.0 - 3.0 Includes: PROPHYLAXIS forvenous thrombosis, systemic embolization; TREATMENT for venous thrombosis and/or pulmonary embolus.HIGH RISK: Target INR is 2.5-3.5 for patients with mechanical heart valves.CBC W/PLT COUNT & AUTO [id number] 05:11:00 Test Item Value Reference Range Comments WHITE BLOOD CELL COUNT (BEAKER) (test uvld=037) 7.5 K/ L 3.5-10.5 RED BLOOD CELL COUNT (BEAKER) (test dxog=384) 4.00 M/ L 3.93-5.22 HEMOGLOBIN (BEAKER) (test horh=789) 11.6 GM/DL 11.2-15.7 HEMATOCRIT (BEAKER) (test wxns=851) 36.0 % 34.1-44.9 MEAN CORPUSCULAR VOLUME (BEAKER) (test qwau=381) 90.0 fL 79.4-94.8 MEAN CORPUSCULAR HEMOGLOBIN (BEAKER) (test 29.0 pg 25.6-32.2 wsxe=799) MEAN CORPUSCULAR HEMOGLOBIN CONC (BEAKER) (test 32.2 GM/DL 32.2-35.5 ogni=653) RED CELL DISTRIBUTION WIDTH (BEAKER) (test 14.0 % 11.7-14.4 covf=708) PLATELET COUNT (BEAKER) (test ddit=127) 162 K/CU MM 150-450 MEAN PLATELET VOLUME (BEAKER) (test jvga=903) 11.7 fL 9.4-12.3 NUCLEATED RED BLOOD CELLS (BEAKER) (test 0 /100 WBC 0-0 ityz=863) NEUTROPHILS RELATIVE PERCENT (BEAKER) (test 69 % xsqv=104) LYMPHOCYTES RELATIVE PERCENT (BEAKER) (test 18 % tbpo=543) MONOCYTES RELATIVE PERCENT (BEAKER) (test 9 % emji=645) EOSINOPHILS RELATIVE PERCENT (BEAKER) (test 3 % rhkq=390) BASOPHILS RELATIVE PERCENT (BEAKER) (test 0 % iybs=617) NEUTROPHILS ABSOLUTE COUNT (BEAKER) (test 5.20 K/ L 1.56-6.13 bmku=545) LYMPHOCYTES ABSOLUTE COUNT (BEAKER) (test 1.35 K/ L 1.18-3.74 tfta=030) MONOCYTES ABSOLUTE COUNT (BEAKER) (test 0.68 K/ L 0.24-0.36 frxe=355) EOSINOPHILS ABSOLUTE COUNT (BEAKER) (test 0.21 K/ L 0.04-0.36 ufuk=320) BASOPHILS ABSOLUTE COUNT (BEAKER) (test 0.02 K/ L 0.01-0.08 thmb=326) IMMATURE GRANULOCYTES-RELATIVE PERCENT (BEAKER) 1 % 0-1 (test bhbn=8386) CALCIUM, [id number] 05:02:00 Test Item Value Reference Range Comments CALCIUM IONIZED (BEAKER) (test gwfp=739) 1.11 mmol/L 1.12-1.27 PH, BLOOD (BEAKER) (test mfcm=1874) 7.45 BLOOD GAS, [id number] 05:01:00 Test Item Value Reference Range Comments PH ARTERIAL (BEAKER) (test wcvw=570) 7.45 7.35-7.45 PCO2 ARTERIAL (BEAKER) (test ceqh=114) 49 mmHg 35-45 PO2 ARTERIAL (BEAKER) (test dnlt=266) 104 mmHg 80-90 O2 SATURATION ARTERIAL (BEAKER) (test mjyk=723) 98.0 % 96.0-97.0 HCO3 ARTERIAL (BEAKER) (test jahl=083) 34 mmol/L 21-29 BASE EXCESS ARTERIAL (BEAKER) (test jnlt=385) 8.1 mmol/L -2.0-3.0 PATIENT TEMPERATURE (BEAKER) (test vjwo=5534) 36.7 C FIO2 (BEAKER) (test mzsq=7518) 40.0 % [id number] 01:01:00 Test Item Value Reference Range Comments PARTIAL THROMBOPLASTIN TIME (BEAKER) (test 36.2 seconds 22.5-36.0 ftdq=001) [id number] 00:46:00 Test Item Value Reference Range Comments POTASSIUM (BEAKER) (test tpdi=761) 3.6 meq/L 3.5-5.1 [id number] 00:46:00 Test Item Value Reference Range Comments MAGNESIUM (BEAKER) (test mlhi=087) 1.9 mg/dL 1.6-2.6 POCT-GLUCOSE [id number] 00:04:00 Test Item Value Reference Range Comments POC-GLUCOSE METER (BEAKER) 170 mg/dL 70-110 TESTED AT [address] (test rgut=1540) [facility] [address] POCT-GLUCOSE [id number] 22:49:00 Test Item Value Reference Range Comments POC-GLUCOSE METER (BEAKER) 174 mg/dL 70-110 TESTED AT [address] (test lrnq=9852) [facility] [address] POCT-GLUCOSE [id number] 22:23:00 Test Item Value Reference Range Comments POC-GLUCOSE METER (BEAKER) 182 mg/dL 70-110 TESTED AT [address] (test vbbn=0418) [facility] [address] POCT-GLUCOSE [id number] 22:23:00 Test Item Value Reference Range Comments POC-GLUCOSE METER (BEAKER) 198 mg/dL 70-110 TESTED AT [address] (test qszr=7375) [facility] [address] POCT-GLUCOSE [id number] 19:18:00 Test Item Value Reference Range Comments POC-GLUCOSE METER (BEAKER) 188 mg/dL 70-110 TESTED AT [address] (test glui=6486) [facility] [address] POCT-GLUCOSE [id number] 19:18:00 Test Item Value Reference Range Comments POC-GLUCOSE METER (BEAKER) 216 mg/dL 70-110 TESTED AT [address] (test wbqu=7057) [place] [address] [id number] 18:49:00 Test Item Value Reference Range Comments POTASSIUM (BEAKER) (test ntxu=780) 3.8 meq/L 3.5-5.1 [id number] 18:49:00 Test Item Value Reference Range Comments MAGNESIUM (BEAKER) (test ynkm=541) 2.3 mg/dL 1.6-2.6 [id number] 18:23:00 Test Item Value Reference Range Comments PARTIAL THROMBOPLASTIN TIME (BEAKER) (test 29.8 seconds 22.5-36.0 ksma=175) CALCIUM, [id number] 18:20:00 Test Item Value Reference Range Comments CALCIUM IONIZED (BEAKER) (test agir=523) 1.12 mmol/L 1.12-1.27 PH, BLOOD (BEAKER) (test ttdv=2108) 7.42 Check serum Ionized Calcium level after 4 hours after IV Calcium replacement.POCT-GLUCOSE [id number] 17:11:00 Test Item Value Reference Range Comments POC-GLUCOSE METER (BEAKER) 211 mg/dL 70-110 TESTED AT [address] (test wcce=4395) [place] [id number] POCT-GLUCOSE [id number] 16:19:00 Test Item Value Reference Range Comments POC-GLUCOSE METER (BEAKER) 219 mg/dL 70-110 TESTED AT [address] (test tzdi=4131) [place] [address] POCT-GLUCOSE [id number] 15:57:00 Test Item Value Reference Range Comments POC-GLUCOSE METER (BEAKER) 215 mg/dL 70-110 TESTED AT [address] (test rcgs=9802) [place] [address] BLOOD GAS, [id number] 14:58:00 Test Item Value Reference Range Comments PH ARTERIAL (BEAKER) (test uyeo=569) 7.42 7.35-7.45 PCO2 ARTERIAL (BEAKER) (test dqgu=026) 49 mmHg 35-45 PO2 ARTERIAL (BEAKER) (test rwbv=412) 114 mmHg 80-90 O2 SATURATION ARTERIAL (BEAKER) (test dtwl=451) 98.0 % 96.0-97.0 HCO3 ARTERIAL (BEAKER) (test ldrl=708) 31 mmol/L 21-29 BASE EXCESS ARTERIAL (BEAKER) (test dafg=548) 5.8 mmol/L -2.0-3.0 PATIENT TEMPERATURE (BEAKER) (test aqev=2927) 38.0 C FIO2 (BEAKER) (test cjxm=5036) 40.0 % POCT-GLUCOSE [id number] 14:06:00 Test Item Value Reference Range Comments POC-GLUCOSE METER (BEAKER) 242 mg/dL 70-110 TESTED AT [address] (test fvzt=6953) [place] [id number] POCT-GLUCOSE [id number] 13:06:00 Test Item Value Reference Range Comments POC-GLUCOSE METER (BEAKER) 195 mg/dL 70-110 TESTED AT [address] (test oyzz=6924) [place] [address] [id number] 12:10:00 Test Item Value Reference Range Comments POTASSIUM (BEAKER) (test kijf=760) 3.7 meq/L 3.5-5.1 [id number] 12:10:00 Test Item Value Reference Range Comments MAGNESIUM (BEAKER) (test irgi=429) 2.0 mg/dL 1.6-2.6 POCT-GLUCOSE [id number] 12:07:00 Test Item Value Reference Range Comments POC-GLUCOSE METER (BEAKER) 195 mg/dL 70-110 TESTED AT [address] (test xrkt=6551) [place] [address] CALCIUM, [id number] 12:06:00 Test Item Value Reference Range Comments CALCIUM IONIZED (BEAKER) (test vmhp=313) 1.08 mmol/L 1.12-1.27 PH, BLOOD (BEAKER) (test abbc=4528) 7.51 Check serum Ionized Calcium level after 4 hours after IV Calcium replacement.POCT-GLUCOSE [id number] 11:06:00 Test Item Value Reference Range Comments POC-GLUCOSE METER (BEAKER) 225 mg/dL 70-110 TESTED AT [address] (test shyb=8274) [place] [address] POCT-GLUCOSE [id number] 11:06:00 Test Item Value Reference Range Comments POC-GLUCOSE METER (BEAKER) 238 mg/dL 70-110 TESTED AT [address] (test fgqb=6615) [place] [address] POCT-GLUCOSE [id number] 11:06:00 Test Item Value Reference Range Comments POC-GLUCOSE METER (BEAKER) 217 mg/dL 70-110 TESTED AT [address] (test cypd=5987) [place] [address] HEMOGLOBIN [id number] 10:34:00 Test Item Value Reference Range Comments HEMOGLOBIN A1C (BEAKER) (test yfkw=238) 9.7 % 4.3-6.1 POCT-GLUCOSE [id number] 08:24:00 Test Item Value Reference Range Comments POC-GLUCOSE METER (BEAKER) 228 mg/dL 70-110 TESTED AT [address] (test sjjc=2510) [facility] [address] POCT-GLUCOSE [id number] 08:24:00 Test Item Value Reference Range Comments POC-GLUCOSE METER (BEAKER) 40 mg/dL 70-110 TESTED AT [address] (test ooza=7069) [facility] [address] POCT-GLUCOSE [id number] 08:24:00 Test Item Value Reference Range Comments POC-GLUCOSE METER (BEAKER) 73 mg/dL 70-110 TESTED AT [address] (test vinc=1991) [facility] [address] RAD, CHEST, 1 VIEW, NON [id number] 08:24:00Reason for exam:->pulmonary edemaShould this be performed at the bedside?->YesFINAL REPORT Chest one view AP 05/09/2018 8:23 AM CLINICAL INDICATION: pulmonary edema COMPARISON: 05/08/2018 IMPRESSION: The IABP marker projects 4 cm proximal to the thoracic aortic arch apex. Remaining support hardware is in satisfactory radiographic position. Cardiac and mediastinal contours are stable. There is mild pulmonary edema. Signed: Sanjeev Ruff Verified Date/Time: 02/2018 08:24:09 Reading Location: [address] Neuro Reading Room LACTIC ACID, ARTERIAL, WHOLE [id number] 07:52:00 Test Item Value Reference Range Comments LACTATE BLOOD ARTERIAL (2) (BEAKER) (test 1.3 mmol/L 0.5-2.2 rwsw=3408) Effective 02/06/2016: Units/Reference Range ChangeNew: 0.5-2.2 mmol/L Previous: 5 -20 mg/[id number] 07:52:00 Test Item Value Reference Range Comments POTASSIUM (BEAKER) (test ccrk=934) 3.5 meq/L 3.5-5.1 [id number] 07:52:00 Test Item Value Reference Range Comments MAGNESIUM (BEAKER) (test nxjx=002) 2.2 mg/dL 1.6-2.6 STREP PNEUMONIAE [id number] 06:33:00 Test Item Value Reference Range Comments STREP PNEUMONIAE ANTIGEN Presumptive negative for Presumptive negative for (BEAKER) (test pneumococcal pneumonia - pneumococcal pneumonia - nyum=9191) see comment see commen Presumptive negative for pneumococcal pneumonia, suggesting no current or recent pneumococcal infection. Infection due to S. pneumoniae cannot be ruled out since the antigen present in the sample may be below the detection limit of the test.LEGIONELLA ANTIGEN, [id number] 06:32:00 Test Item Value Reference Range Comments L. PNEUMOPHILA SEROGP 1 Negative - see Negative for L. UR AG (BEAKER) (test comment pneumophila serogroup 1 wgum=7917) antigen, suggesting no recent or current infection with this serogroup. Legionellosis cannot be ruled out since other serogroups and species may cause disease. OXYGEN SATURATION, [id number] 05:24:00 Test Item Value Reference Range Comments O2 SATURATION (MEASURED) (BEAKER) (test cpsp=6643) 75.2 % BLOOD GAS, [id number] 05:03:00 Test Item Value Reference Range Comments PH ARTERIAL (BEAKER) (test bieg=742) 7.49 7.35-7.45 PCO2 ARTERIAL (BEAKER) (test pluw=878) 40 mmHg 35-45 PO2 ARTERIAL (BEAKER) (test thxc=273) 113 mmHg 80-90 O2 SATURATION ARTERIAL (BEAKER) (test biir=191) 98.3 % 96.0-97.0 HCO3 ARTERIAL (BEAKER) (test tewd=050) 29 mmol/L 21-29 BASE EXCESS ARTERIAL (BEAKER) (test jxpe=813) 5.8 mmol/L -2.0-3.0 PATIENT TEMPERATURE (BEAKER) (test ealr=6281) 38.0 C FIO2 (BEAKER) (test mjlg=7686) 50.0 % TROPONIN [id number] 05:03:00 Test Item Value Reference Range Comments TROPONIN I (BEAKER) (test itpw=324) 41.01 ng/mL 0.00-0.03 Troponin I (TnI) levels must be interpreted [...] failure, acidosis, acute neurological disease, and persistent tachyarrhythmia.CALCIUM, [id number] 05:03:00 Test Item Value Reference Range Comments CALCIUM IONIZED (BEAKER) (test jaho=261) 1.06 mmol/L 1.12-1.27 PH, BLOOD (BEAKER) (test axfk=3553) 7.50 CREATINE KINASE (CK), TOTAL AND [id number] 05:00:00 Test Item Value Reference Range Comments CREATINE KINASE TOTAL (BEAKER) (test mocz=675) 641 U/L 29-200 CREATINE KINASE-MB (BEAKER) (test zvld=031) 21.0 ng/mL 0.0-6.6 CREATINE KINASE-MB INDEX (BEAKER) (test ipjy=940) 3.3 % CK-MB Reference Range:<6.7 Normal6.7-10.0 Borderline>10.0 AbnormalB-TYPE NATRIURETIC FACTOR (BNP)2018-05-09 04:55:00 Test Item Value Reference Range Comments B-TYPE NATRIURETIC PEPTIDE (BEAKER) (test 666 pg/mL 0-100 sxml=532) [id number] 04:51:00 Test Item Value Reference Range Comments MAGNESIUM (BEAKER) (test 2.0 mg/dL 1.6-2.6 Specimen slightly hemolyzed etem=684) BASIC METABOLIC [id number] 04:51:00 Test Item Value Reference Range Comments SODIUM (BEAKER) (test 140 meq/L 136-145 dels=436) POTASSIUM (BEAKER) (test 3.7 meq/L 3.5-5.1 Specimen slightly nwfi=312) hemolyzed CHLORIDE (BEAKER) (test 105 meq/L 98-107 xktl=672) CO2 (BEAKER) (test 24 meq/L 22-29 undl=257) BLOOD UREA NITROGEN 24 mg/dL 7-21 (BEAKER) (test rjyb=130) CREATININE (BEAKER) (test 1.33 mg/dL 0.57-1.25 Specimen slightly ihll=552) hemolyzed GLUCOSE RANDOM (BEAKER) 102 mg/dL 70-105 (test gyju=437) CALCIUM (BEAKER) (test 8.8 mg/dL 8.4-10.2 gmqf=932) EGFR (BEAKER) (test 41 mL/min/1.73 sq m ESTIMATED GFR IS NOT yrjy=1875) ACCURATE CREATININE CLEARANCE IN PREDICTING GLOMERULAR FILTRATION RATE. ESTIMATED GFR IS NOT APPLICABLE FOR DIALYSIS PATIENTS. HEPATIC FUNCTION [id number] 04:51:00 Test Item Value Reference Range Comments TOTAL PROTEIN (BEAKER) (test 5.8 gm/dL 6.0-8.3 Specimen slightly hemolyzed ewer=184) ALBUMIN (BEAKER) (test 3.0 g/dL 3.5-5.0 Specimen slightly hemolyzed tzba=6162) BILIRUBIN TOTAL (BEAKER) (test 0.5 mg/dL 0.2-1.2 Specimen slightly hemolyzed mzqz=026) BILIRUBIN DIRECT (BEAKER) (test 0.2 mg/dL 0.1-0.5 Specimen slightly hemolyzed gqqw=436) ALKALINE PHOSPHATASE (BEAKER) 100 U/L 40-150 (test biyl=187) AST (SGOT) (BEAKER) (test 114 U/L 5-34 Specimen slightly hemolyzed yttq=985) ALT (SGPT) (BEAKER) (test 24 U/L 6-55 Specimen slightly hemolyzed lvze=549) [id number] 04:40:00 Test Item Value Reference Range Comments PARTIAL THROMBOPLASTIN TIME (BEAKER) (test 33.0 seconds 22.5-36.0 pfuo=831) CBC W/PLT COUNT & AUTO [id number] 04:32:00 Test Item Value Reference Range Comments WHITE BLOOD CELL COUNT (BEAKER) (test iele=643) 7.1 K/ L 3.5-10.5 RED BLOOD CELL COUNT (BEAKER) (test wkfi=533) 3.56 M/ L 3.93-5.22 HEMOGLOBIN (BEAKER) (test hytm=532) 10.6 GM/DL 11.2-15.7 HEMATOCRIT (BEAKER) (test yspd=785) 32.2 % 34.1-44.9 MEAN CORPUSCULAR VOLUME (BEAKER) (test qwtx=001) 90.4 fL 79.4-94.8 MEAN CORPUSCULAR HEMOGLOBIN (BEAKER) (test 29.8 pg 25.6-32.2 vxip=689) MEAN CORPUSCULAR HEMOGLOBIN CONC (BEAKER) (test 32.9 GM/DL 32.2-35.5 haon=798) RED CELL DISTRIBUTION WIDTH (BEAKER) (test 13.5 % 11.7-14.4 awss=465) PLATELET COUNT (BEAKER) (test ypjs=237) 144 K/CU MM 150-450 MEAN PLATELET VOLUME (BEAKER) (test wpsw=157) 12.3 fL 9.4-12.3 NUCLEATED RED BLOOD CELLS (BEAKER) (test 0 /100 WBC 0-0 jqpv=803) NEUTROPHILS RELATIVE PERCENT (BEAKER) (test 73 % ndam=856) LYMPHOCYTES RELATIVE PERCENT (BEAKER) (test 17 % lutk=285) MONOCYTES RELATIVE PERCENT (BEAKER) (test 9 % zyxy=822) EOSINOPHILS RELATIVE PERCENT (BEAKER) (test 0 % hnsn=598) BASOPHILS RELATIVE PERCENT (BEAKER) (test 0 % fjmj=445) NEUTROPHILS ABSOLUTE COUNT (BEAKER) (test 5.20 K/ L 1.56-6.13 vstk=758) LYMPHOCYTES ABSOLUTE COUNT (BEAKER) (test 1.22 K/ L 1.18-3.74 grtn=093) MONOCYTES ABSOLUTE COUNT (BEAKER) (test 0.61 K/ L 0.24-0.36 pyrt=240) EOSINOPHILS ABSOLUTE COUNT (BEAKER) (test 0.02 K/ L 0.04-0.36 nxlw=523) BASOPHILS ABSOLUTE COUNT (BEAKER) (test 0.01 K/ L 0.01-0.08 mbhm=105) IMMATURE GRANULOCYTES-RELATIVE PERCENT (BEAKER) 1 % 0-1 (test rkjw=0429) POCT-GLUCOSE [id number] 02:37:00 Test Item Value Reference Range Comments POC-GLUCOSE METER (BEAKER) 123 mg/dL 70-[address] [facility] [address] [facility] (test ysun=4929) [facility] [address] [id number] 01:48:00 Test Item Value Reference Range Comments POTASSIUM (BEAKER) (test vacu=868) 3.6 meq/L 3.5-5.1 Check Serum Potassium level 2 hours after oral potassium replacement completed or 30 min after intravenous potassium replacement.[id number] 01:48:00 Test Item Value Reference Range Comments MAGNESIUM (BEAKER) (test ufpm=866) 1.9 mg/dL 1.6-2.6 Check Serum Potassium level 2 hours after oral potassium replacement completed or 30 min after intravenous potassium replacement.POCT-GLUCOSE [id number] 01:19:00 Test Item Value Reference Range Comments POC-GLUCOSE METER (BEAKER) 133 mg/dL 70-110 TESTED AT [address] (test aaye=1460) [facility] [address] POCT-GLUCOSE [id number] 01:19:00 Test Item Value Reference Range Comments POC-GLUCOSE METER (BEAKER) 141 mg/dL 70-110 TESTED AT [address] (test kyhi=0566) [facility] [address] POCT-GLUCOSE [id number] 01:19:00 Test Item Value Reference Range Comments POC-GLUCOSE METER (BEAKER) 204 mg/dL 70-110 TESTED AT [address] (test xscc=1973) [facility] [address] POCT-GLUCOSE [id number] 01:19:00 Test Item Value Reference Range Comments POC-GLUCOSE METER (BEAKER) 201 mg/dL 70-110 TESTED AT [address] (test danu=7154) [facility] [address] BLOOD GAS, [id number] 00:31:00 Test Item Value Reference Range Comments PH ARTERIAL (BEAKER) (test ablw=895) 7.51 7.35-7.45 PCO2 ARTERIAL (BEAKER) (test yjuo=850) 35 mmHg 35-45 PO2 ARTERIAL (BEAKER) (test xtlk=417) 99 mmHg 80-90 O2 SATURATION ARTERIAL (BEAKER) (test rlgw=791) 97.8 % 96.0-97.0 HCO3 ARTERIAL (BEAKER) (test lawn=112) 27 mmol/L 21-29 BASE EXCESS ARTERIAL (BEAKER) (test rhhq=964) 4.4 mmol/L -2.0-3.0 PATIENT TEMPERATURE (BEAKER) (test cbfx=0434) 38.0 C FIO2 (BEAKER) (test svpu=0950) 50.0 % BLOOD GAS, [id number] 22:17:00 Test Item Value Reference Range Comments PH ARTERIAL (BEAKER) (test qtrg=913) 7.48 7.35-7.45 PCO2 ARTERIAL (BEAKER) (test aywz=068) 38 mmHg 35-45 PO2 ARTERIAL (BEAKER) (test nzdq=400) 106 mmHg 80-90 O2 SATURATION ARTERIAL (BEAKER) (test okry=470) 98.1 % 96.0-97.0 HCO3 ARTERIAL (BEAKER) (test ddod=513) 27 mmol/L 21-29 BASE EXCESS ARTERIAL (BEAKER) (test zaps=940) 3.8 mmol/L -2.0-3.0 PATIENT TEMPERATURE (BEAKER) (test yagn=7924) 37.3 C FIO2 (BEAKER) (test owxs=2978) 60.0 % [id number] 22:07:00 Test Item Value Reference Range Comments POTASSIUM (BEAKER) (test fmuh=684) 3.4 meq/L 3.5-5.1 [id number] 22:07:00 Test Item Value Reference Range Comments MAGNESIUM (BEAKER) (test kepi=775) 1.5 mg/dL 1.6-2.6 BASIC METABOLIC [id number] 22:07:00 Test Item Value Reference Range Comments SODIUM (BEAKER) (test 140 meq/L 136-145 fqdv=125) POTASSIUM (BEAKER) (test 3.4 meq/L 3.5-5.1 cmjr=506) CHLORIDE (BEAKER) (test 103 meq/L 98-107 araa=851) CO2 (BEAKER) (test 27 meq/L 22-29 bxqr=848) BLOOD UREA NITROGEN 24 mg/dL 7-21 (BEAKER) (test jiib=578) CREATININE (BEAKER) (test 1.47 mg/dL 0.57-1.25 dsyx=213) GLUCOSE RANDOM (BEAKER) 211 mg/dL 70-105 (test biwc=740) CALCIUM (BEAKER) (test 8.9 mg/dL 8.4-10.2 sdom=858) EGFR (BEAKER) (test 36 mL/min/1.73 sq m ESTIMATED GFR IS NOT paxl=9309) ACCURATE CREATININE CLEARANCE IN PREDICTING GLOMERULAR FILTRATION RATE. ESTIMATED GFR IS NOT APPLICABLE FOR DIALYSIS PATIENTS. LACTIC ACID, ARTERIAL, WHOLE [id number] 22:03:00 Test Item Value Reference Range Comments LACTATE BLOOD ARTERIAL (2) (BEAKER) (test 2.6 mmol/L 0.5-2.2 sxfw=7464) Effective 02/06/2016: Units/Reference Range ChangeNew: 0.5-2.2 mmol/L Previous: 5 -20 mg/dLRAD, CHEST, 1 VIEW, NON [id number] 22:03:00Reason for exam:-> post-IABP placementShould this be performed at the bedside?->YesFINAL REPORT Chest one view. Clinical history: post-IABP placement Comparison: Chest radiograph 05/08/2018 Technique: A single frontal view of the chest was obtained. Findings/impression: There is a new right IJ central venous catheter with tip in the SVC. There is a new intra-aortic balloon pump with the marker at the level of the the aortic knob. Endotracheal and feeding tubes are in satisfactory positions. The cardiomediastinal silhouette is unchanged. There are low lung volumes. There is diffuse haziness in the right hemithorax, and persistent retrocardiac opacity, mildlydecreased. There is no pleural effusion or pneumothorax. Signed: Ting Wu Verified Date/Time: 05/08/2018 22:03:08 Reading Location: [address] Reading Room Electronically signed by: TING WU MD on 2017 10:03 [id number] 21:57:00 Test Item Value Reference Range Comments FIBRINOGEN LEVEL (BEAKER) (test pchr=015) 434 mg/dl 225-434 [id number] 21:57:00 Test Item Value Reference Range Comments PARTIAL THROMBOPLASTIN TIME (BEAKER) (test 43.0 seconds 22.5-36.0 qgnc=335) PROTHROMBIN TIME/[id number] 21:56:00 Test Item Value Reference Range Comments PROTIME (BEAKER) (test zjoe=372) 14.9 seconds 11.7-14.7 INR (BEAKER) (test lqlu=773) 1.2 <=5.9 RECOMMENDED COUMADIN/WARFARIN INR THERAPY RANGESSTANDARD DOSE: 2.0 - 3.0 Includes: PROPHYLAXIS forvenous thrombosis, systemic embolization; TREATMENT for venous thrombosis and/or pulmonary embolus.HIGH RISK: Target INR is 2.5-3.5 for patients with mechanical heart valves.GLUCOSE-STAT [id number] 21:48:00 Test Item Value Reference Range Comments GLUCOSE RANDOM (BEAKER) (test iftt=757) 199 mg/dL 70-110 POTASSIUM-STAT [id number] 21:48:00 Test Item Value Reference Range Comments POTASSIUM (BEAKER) (test qsro=997) 3.2 meq/L 3.6-5.5 HGB/HCT (H&H) - STAT [id number] 21:48:00 Test Item Value Reference Range Comments HEMOGLOBIN (BEAKER) (test gsgw=057) 11.3 GM/DL 12.0-15.0 HEMATOCRIT (BEAKER) (test uwga=208) 33.0 % 36.0-45.0 CALCIUM, [id number] 21:48:00 Test Item Value Reference Range Comments CALCIUM IONIZED (BEAKER) (test camz=087) 1.08 mmol/L 1.12-1.27 PH, BLOOD (BEAKER) (test xbii=4796) 7.40 OXYGEN SATURATION, [id number] 21:47:00 Test Item Value Reference Range Comments O2 SATURATION (MEASURED) (BEAKER) (test xegq=3111) 74.5 % CBC W/PLT COUNT & AUTO [id number] 21:46:00 Test Item Value Reference Range Comments WHITE BLOOD CELL COUNT (BEAKER) (test bgih=494) 7.6 K/ L 3.5-10.5 RED BLOOD CELL COUNT (BEAKER) (test rzkc=604) 3.66 M/ L 3.93-5.22 HEMOGLOBIN (BEAKER) (test gzlt=477) 10.8 GM/DL 11.2-15.7 HEMATOCRIT (BEAKER) (test wpcn=920) 32.5 % 34.1-44.9 MEAN CORPUSCULAR VOLUME (BEAKER) (test zvrt=355) 88.8 fL 79.4-94.8 MEAN CORPUSCULAR HEMOGLOBIN (BEAKER) (test 29.5 pg 25.6-32.2 sgcl=996) MEAN CORPUSCULAR HEMOGLOBIN CONC (BEAKER) (test 33.2 GM/DL 32.2-35.5 cwzw=150) RED CELL DISTRIBUTION WIDTH (BEAKER) (test 13.6 % 11.7-14.4 rikq=220) PLATELET COUNT (BEAKER) (test jvvx=448) 151 K/CU MM 150-450 MEAN PLATELET VOLUME (BEAKER) (test vnwl=521) 12.0 fL 9.4-12.3 NUCLEATED RED BLOOD CELLS (BEAKER) (test 0 /100 WBC 0-0 fkod=658) NEUTROPHILS RELATIVE PERCENT (BEAKER) (test 81 % cvuq=105) LYMPHOCYTES RELATIVE PERCENT (BEAKER) (test 12 % gfdd=257) MONOCYTES RELATIVE PERCENT (BEAKER) (test 6 % oihe=895) EOSINOPHILS RELATIVE PERCENT (BEAKER) (test 0 % ksfp=668) BASOPHILS RELATIVE PERCENT (BEAKER) (test 0 % agap=661) NEUTROPHILS ABSOLUTE COUNT (BEAKER) (test 6.17 K/ L 1.56-6.13 yrhr=288) LYMPHOCYTES ABSOLUTE COUNT (BEAKER) (test 0.94 K/ L 1.18-3.74 buba=672) MONOCYTES ABSOLUTE COUNT (BEAKER) (test 0.49 K/ L 0.24-0.36 plfd=873) EOSINOPHILS ABSOLUTE COUNT (BEAKER) (test 0.00 K/ L 0.04-0.36 pduu=207) BASOPHILS ABSOLUTE COUNT (BEAKER) (test 0.00 K/ L 0.01-0.08 dkmc=780) IMMATURE GRANULOCYTES-RELATIVE PERCENT (BEAKER) 1 % 0-1 (test opjr=1392) POCT-GLUCOSE [id number] 19:30:00 Test Item Value Reference Range Comments POC-GLUCOSE METER (BEAKER) 264 mg/dL 70-110 TESTED AT [address] (test dunp=2244) [place] [id number] POCT-GLUCOSE [id number] 16:54:00 Test Item Value Reference Range Comments POC-GLUCOSE METER (BEAKER) 307 mg/dL 70-110 TESTED AT [address] (test qmtb=2913) [place] [id number] 16:37:00 Test Item Value Reference Range Comments POTASSIUM (BEAKER) (test song=061) 3.7 meq/L 3.5-5.1 [id number] 16:37:00 Test Item Value Reference Range Comments MAGNESIUM (BEAKER) (test cmfq=379) 1.5 mg/dL 1.6-2.6 BLOOD GAS, [id number] 16:28:00 Test Item Value Reference Range Comments PH VENOUS (BEAKER) (test wryc=952) 7.37 7.32-7.42 PCO2 VENOUS (BEAKER) (test ijmo=559) 48 mmHg 41-51 PO2 VENOUS (BEAKER) (test gazj=172) 38 mmHg 25-40 O2 SATURATION VENOUS (BEAKER) (test psdb=436) 70.3 % 40.0-70.0 HCO3 VENOUS (BEAKER) (test ebmg=012) 27 mmol/L 21-29 BASE EXCESS VENOUS (BEAKER) (test jqtv=805) 1.3 mmol/L -2.0-3.0 PATIENT TEMPERATURE (BEAKER) (test gywk=3752) 37.1 C FIO2 (BEAKER) (test lljf=9906) 60.0 % POCT-GLUCOSE [id number] 16:18:00 Test Item Value Reference Range Comments POC-GLUCOSE METER (BEAKER) 406 mg/dL 70-110 TESTED AT [address] (test wlox=9192) [facility] [address] POCT-GLUCOSE [id number] 14:51:00 Test Item Value Reference Range Comments POC-GLUCOSE METER (BEAKER) 412 mg/dL 70-110 TESTED AT [address] (test mvkg=3034) [facility] [id number] COMPREHENSIVE METABOLIC [id number] 12:59:00 Test Item Value Reference Range Comments TOTAL PROTEIN (BEAKER) 6.7 gm/dL 6.0-8.3 (test lhot=875) ALBUMIN (BEAKER) (test 3.6 g/dL 3.5-5.0 escs=3327) ALKALINE PHOSPHATASE 132 U/L 40-150 (BEAKER) (test ibjt=985) BILIRUBIN TOTAL (BEAKER) 0.5 mg/dL 0.2-1.2 (test khpb=631) SODIUM (BEAKER) (test 138 meq/L 136-145 jxkv=849) POTASSIUM (BEAKER) (test 4.1 meq/L 3.5-5.1 neki=737) CHLORIDE (BEAKER) (test 100 meq/L 98-107 pnin=719) CO2 (BEAKER) (test 24 meq/L 22-29 neti=730) BLOOD UREA NITROGEN 23 mg/dL 7-21 (BEAKER) (test ysvx=302) CREATININE (BEAKER) (test 1.48 mg/dL 0.57-1.25 bhhp=499) GLUCOSE RANDOM (BEAKER) 402 mg/dL 70-105 (test iuoi=972) CALCIUM (BEAKER) (test 9.3 mg/dL 8.4-10.2 oboq=640) AST (SGOT) (BEAKER) (test 105 U/L 5-34 ciuf=098) ALT (SGPT) (BEAKER) (test 29 U/L 6-55 vbbe=043) EGFR (BEAKER) (test 36 mL/min/1.73 sq m ESTIMATED GFR IS NOT cbfw=2710) ACCURATE CREATININE CLEARANCE IN PREDICTING GLOMERULAR FILTRATION RATE. ESTIMATED GFR IS NOT APPLICABLE FOR DIALYSIS PATIENTS. TROPONIN [id number] 12:59:00 Test Item Value Reference Range Comments TROPONIN I (BEAKER) (test iyuy=776) 20.62 ng/mL 0.00-0.03 Troponin I (TnI) levels must be interpreted [...] failure, acidosis, acute neurological disease, and persistent tachyarrhythmia.HEPATIC FUNCTION [id number] 12:48: 00 Test Item Value Reference Range Comments TOTAL PROTEIN (BEAKER) (test xidd=460) 6.7 gm/dL 6.0-8.3 ALBUMIN (BEAKER) (test dnrd=0763) 3.6 g/dL 3.5-5.0 BILIRUBIN TOTAL (BEAKER) (test anty=417) 0.5 mg/dL 0.2-1.2 BILIRUBIN DIRECT (BEAKER) (test bwam=394) 0.2 mg/dL 0.1-0.5 ALKALINE PHOSPHATASE (BEAKER) (test qskg=939) 132 U/L 40-150 AST (SGOT) (BEAKER) (test qvey=070) 105 U/L 5-34 ALT (SGPT) (BEAKER) (test yusg=299) 29 U/L 6-55 CREATINE KINASE (CK), TOTAL AND [id number] 12:48:00 Test Item Value Reference Range Comments CREATINE KINASE TOTAL (BEAKER) (test kadw=089) 833 U/L 29-200 CREATINE KINASE-MB (BEAKER) (test wpom=914) 60.7 ng/mL 0.0-6.6 CREATINE KINASE-MB INDEX (BEAKER) (test xwtm=452) 7.3 % CK-MB Reference Range:<6.7 Normal6.7-10.0 Borderline>10.0 AbnormalB-TYPE NATRIURETIC FACTOR (BNP)2018-05-08 12:47:00 Test Item Value Reference Range Comments B-TYPE NATRIURETIC PEPTIDE (BEAKER) (test 619 pg/mL 0-100 ghua=231) CBC W/PLT COUNT & AUTO [id number] 12:42:00 Test Item Value Reference Range Comments WHITE BLOOD CELL COUNT (BEAKER) (test kqtf=159) 10.3 K/ L 3.5-10.5 RED BLOOD CELL COUNT (BEAKER) (test ftct=203) 4.19 M/ L 3.93-5.22 HEMOGLOBIN (BEAKER) (test doyi=009) 12.4 GM/DL 11.2-15.7 HEMATOCRIT (BEAKER) (test cchd=043) 37.6 % 34.1-44.9 MEAN CORPUSCULAR VOLUME (BEAKER) (test ehkn=636) 89.7 fL 79.4-94.8 MEAN CORPUSCULAR HEMOGLOBIN (BEAKER) (test 29.6 pg 25.6-32.2 bkmj=659) MEAN CORPUSCULAR HEMOGLOBIN CONC (BEAKER) (test 33.0 GM/DL 32.2-35.5 znpz=484) RED CELL DISTRIBUTION WIDTH (BEAKER) (test 13.6 % 11.7-14.4 mfpd=172) PLATELET COUNT (BEAKER) (test owuk=738) 162 K/CU MM 150-450 MEAN PLATELET VOLUME (BEAKER) (test cxdp=577) 12.0 fL 9.4-12.3 NUCLEATED RED BLOOD CELLS (BEAKER) (test 0 /100 WBC 0-0 ewtp=235) NEUTROPHILS RELATIVE PERCENT (BEAKER) (test 85 % wsgp=446) LYMPHOCYTES RELATIVE PERCENT (BEAKER) (test 9 % flnk=257) MONOCYTES RELATIVE PERCENT (BEAKER) (test 5 % mgzl=455) EOSINOPHILS RELATIVE PERCENT (BEAKER) (test 0 % hhzq=756) BASOPHILS RELATIVE PERCENT (BEAKER) (test 0 % oucj=828) NEUTROPHILS ABSOLUTE COUNT (BEAKER) (test 8.79 K/ L 1.56-6.13 rjyv=114) LYMPHOCYTES ABSOLUTE COUNT (BEAKER) (test 0.90 K/ L 1.18-3.74 aqdy=209) MONOCYTES ABSOLUTE COUNT (BEAKER) (test 0.50 K/ L 0.24-0.36 vkhm=217) EOSINOPHILS ABSOLUTE COUNT (BEAKER) (test 0.00 K/ L 0.04-0.36 snxw=442) BASOPHILS ABSOLUTE COUNT (BEAKER) (test 0.01 K/ L 0.01-0.08 pciu=254) IMMATURE GRANULOCYTES-RELATIVE PERCENT (BEAKER) 1 % 0-1 (test rwng=3723) RAD, CHEST, 1 VIEW, NON [id number] 12:42:00Reason for exam:->respiratory failureShould this be performed at the bedside?->YesFINAL REPORT HISTORY : respiratory failure. Comparison: None Comment: Single portable view of the chest was obtained. An endotracheal tube is in place in good position above thecarina. Nasogastric tube is seen with the tip not included on the film. No pneumothorax or pleural effusion is visualized. There is some pulmonary venous congestion. There is a diffuse airspace diseasein the right lung that could represent pneumonitis or unilateral pulmonary edema. The cardiac silhouette size is enlarged. Signed: [facility] Verified Date /Time: 05/08/2018 12:42:45 ReadingLocation: [facility] B1 C013T Transitional Reading Room LACTIC ACID, VENOUS, WHOLE [id number] 12:39:00 Test Item Value Reference Range Comments LACTATE BLOOD VENOUS (2) (BEAKER) (test 2.2 mmol/L 0.5-2.2 blof=0244) Effective 02/06/2016: Units/Reference Range ChangeNew: 0.5-2.2 mmol/L Previous: 5 -20 mg/[id number] 12:38:00 Test Item Value Reference Range Comments PARTIAL THROMBOPLASTIN TIME (BEAKER) (test 32.8 seconds 22.5-36.0 zzmp=999) PROTHROMBIN TIME/[id number] 12:37:00 Test Item Value Reference Range Comments PROTIME (BEAKER) (test wigu=850) 14.1 seconds 11.7-14.7 INR (BEAKER) (test ptcf=491) 1.1 <=5.9 RECOMMENDED COUMADIN/WARFARIN INR THERAPY RANGESSTANDARD DOSE: 2.0 - 3.0 Includes: PROPHYLAXIS forvenous thrombosis, systemic embolization; TREATMENT for venous thrombosis and/or pulmonary embolus.HIGH RISK: Target INR is 2.5-3.5 for patients with mechanical heart valves.BLOOD GAS, [id number] 12:21:00 Test Item Value Reference Range Comments PH VENOUS (BEAKER) (test gewb=335) 7.31 7.32-7.42 PCO2 VENOUS (BEAKER) (test kkgy=715) 54 mmHg 41-51 PO2 VENOUS (BEAKER) (test ctbc=598) 36 mmHg 25-40 O2 SATURATION VENOUS (BEAKER) (test tzji=053) 63.9 % 40.0-70.0 HCO3 VENOUS (BEAKER) (test bipr=884) 27 mmol/L 21-29 BASE EXCESS VENOUS (BEAKER) (test olso=864) -0.3 mmol/L -2.0-3.0 PATIENT TEMPERATURE (BEAKER) (test eqfk=6206) 36.7 C FIO2 (BEAKER) (test kpbv=9976) 100.0 %
[2018-06-10 19:43] LABS: Absolute Monocytes 0.4 K/uL (0.1-1.3); Absolute Neutrophil 4.2 K/uL (1.8-8.0); Basophils % 0.8 % (0-1.3); Eosinophils % 2.9 % (0-4.4); Hematocrit 34.9 % (36.0-45.0); Lymphocytes % 16.7 % (15.3-44.8); MCH 30.4 pg (27.0-35.0); MCV 87.4 fL (80-100); MPV 9.3 fL (7.6-11.3); Monocytes % 6.5 % (3.3-12.3); RBC Red Blood Cell Count 3.99 M/uL (3.86-4.86)
[2018-06-10 19:59] LABS: Albumin 3.5 g/dL (3.4-5.0); Bilirubin Total 0.6 mg/dL (0.2-1.0); Magnesium 1.7 mg/dL (1.8-2.4); Potassium 4.1 mmol/L (3.5-5.1); Protein, Total 7.4 g/dL (6.4-8.2); Troponin (Emerg Dept Use Only) 0.07 ng/mL (0.0-0.045)
[2018-06-10] MEDS ORDERED: HEPARIN 5000 UNIT/ML 1 ML VIAL ONE (20:01)
[2018-06-10] MEDS ORDERED: HEPARIN/D5W 25,000 UNIT/500 ML BAG IV ONE (20:02)
[2018-06-10] MEDS ORDERED: MORPHINE 4 MG/ML SYR ONE (20:03)
[2018-06-10] MEDS ORDERED: ONDANSETRON 4 MG/2 ML VIAL ONE (20:03)
--- NOTE | 2018-06-10 21:16 | RAD REPORT ---
EXAM DESCRIPTION: [place] Single View06/10/2018 7:44 pm CLINICAL HISTORY: Chest pain COMPARISON: May 2018 FINDINGS: The lungs appear clear of acute infiltrate. The heart is borderline enlarged. Post surgic al changes involve chest. IMPRESSION: No acute abnormalities displayed
--- NOTE | 2018-06-10 21:38 | ER ---
Nurse's Notes [facility] Name: Jyoti Pringle Age: 62 yrs Sex: Female : 1955 Arrival Date: 06/10/2018 Time: 18:59 Bed 5 Private MD: Diagnosis: STEMI;CHEST PAIN Presentation: 06/10 19:00 Presenting complaint: Patient states: R arm pain that radiates towards chest that began ss earlier today. PAtient reports that on 05/13/18 she had a double cardiac bypass. Patient states, "they wanted to do a triple, but they couldn't find enough graft." Patient also c/o shortness of breath. Transition of care: patient was not received from another setting of care. Onset of symptoms was June 10, 2018. Risk Assessment: Do you want to hurt yourself or someone else? Patient reports no desire to harm self or others. Initial Sepsis Screen: Does the patient meet any 2 criteria? No. Patient's initial sepsis screen is negative. Does the patient have a suspected source of infection? No. Patient's initial sepsis screen is negative. 19:00 Method Of Arrival: EMS: [facility] ss 19:00 Acuity: MARIA ALEJANDRA 2 ss 19:00 Care prior to arrival: Medication(s) given: ASA, 81 mg, x 4, Nitroglycerin, 0.4 mg SL x ss 2. Historical: - Allergies: 19:03 Iodinated Contrast Media - IV Dye; ss - PMHx: 19:04 CHF; Diabetes; Myocardial infarction; ss - PSHx: 19:04 Carotid surgery; Heart stents; CABG; ss - Immunization history:: Adult Immunizations up to date. - Social history:: Smoking status: Patient/guardian denies using tobacco. - Ebola Screening: : Patient denies exposure to infectious person Patient denies travel to an Ebola-affected area in the 21 days before illness onset. Screenin:20 Abuse screen: Denies threats or abuse. Nutritional screening: No deficits noted. tl2 Tuberculosis screening: No symptoms or risk factors identified. Fall Risk None identified. Assessment: 19:20 General: Appears uncomfortable, Behavior is cooperative, appropriate for age, anxious, tl2 crying. Pain: Complains of pain in chest and right arm Pain radiates to anterior aspect of right shoulder and posterior aspect of right shoulder Pain currently is 8 out of 10 on a pain scale. Quality of pain is described as aching, sharp, Pain began 4 hours ago. Is continuous. Neuro: Level of Consciousness is awake, alert, obeys commands, Oriented to person, place, time, situation. Cardiovascular: Chest pain is described as diffuse, quality is pressure, sharp, is located in anterior radiates to right arm(s) began 4 hours prior to arrival episodes are continuous. Respiratory: Airway is patent Respiratory effort is even, unlabored, Respiratory pattern is regular, symmetrical. GI: Reports nausea. : No signs and/or symptoms were reported regarding the genitourinary system. Derm: Skin is pink, warm \\T\\ dry. 20:33 Reassessment: MD reviewed EKG's and stated pt was having a STEMI. Heparin protocol tl2 initiated. Pt weighed at bedside. 20:53 Reassessment: Report given to Yola Sierra with electrical laboratory technician at [facility]. [facility] ETA tl2 25 mins. 21:31 Reassessment: Patient appears in no apparent distress at this time. Patient and/or tl2 family updated on plan of care and expected duration. Pain level reassessed. Patient is alert, oriented x 3, equal unlabored respirations, skin warm/dry/pink. [facility] at bedside, pt stable for transport Patient states feeling better. Vital Signs: 19:04 BP 127 / 63; Pulse 82; Resp 20; Temp 97.6(TE); Pulse Ox 99% on R/A; Weight 117.48 kg; tl2 Height 5 ft. 6 in. (167.64 cm); Pain 8/10; 19:20 BP 156 / 88; Pulse 79; Resp 17; Pulse Ox 98% on R/A; tl2 20:35 BP 136 / 88; Pulse 76; Resp 20; Pulse Ox 98% on R/A; tl2 21:31 BP 130 / 68; Pulse 72; Resp 20; Pulse Ox 98% on R/A; tl2 19:04 Body Mass Index 41.80 (117.48 kg, 167.64 cm) tl2 Vitals: 19:20 Cardiac Rhythm Assessment Sinus rhythm. tl2 ED Course: 18:59 Patient arrived in ED. sg 19:01 Triage completed. ss 19:04 Arm band placed on right wrist. EKG completed in triage. Results shown to MD. ss 19:11 Sree Oviedo MD is Attending Physician. ps1 19:20 Patient has correct armband on for positive identification. Bed in low position. Call tl2 light in reach. Side rails up X2. Adult w/ patient. commission specialist on. Pulse ox on. NIBP on. 19:20 Patient maintains SpO2 saturation greater than 95% on room air. tl2 19:29 Pema Buck RN is Primary Nurse. tl2 19:30 Inserted saline lock: 22 gauge in right wrist, using aseptic technique. Blood collected.tl2 19:42 XRAY Chest (1 view) In Process Unspecified. EDMS 21:31 No provider procedures requiring assistance completed. Patient transferred, IV remains tl2 in place. Administered Medications: 20:05 Drug: Heparin ([place]-Bolus No thrombolytic) - HEParin 5000 units {Co-Signature: diamond (Karly Sun RN).} Route: IVP; Site: right wrist; 21:27 Follow up: Response: No adverse reaction tl2 20:05 Drug: Heparin ([place] Drip) 12 units/kg/hr - (HEParin 84267 units, D5W 500 ml) tl2 {Co-Signature: diamond (Karly Sun RN).} Route: IV; Rate: 1000 units/hr; Site: right wrist; 21:28 Follow up: IV Status: Infusion continued upon transfer tl2 20:06 Drug: morphine 4 mg Route: IVP; Site: right wrist; tl2 20:30 Follow up: Response: No adverse reaction; Pain is decreased tl2 20:06 Drug: Zofran 4 mg Route: IVP; Site: right wrist; tl2 20:30 Follow up: Response: No adverse reaction; Nausea is decreased tl2 Outcome: 21:31 Transferred by helicopter to [facility], Transfer form completed. tl2 21:31 Condition: stable 21:31 Discharge instructions given to patient, family, Instructed on the need for transfer. 21:37 ER care complete, transfer ordered by . ps1 21:39 Patient left the ED. tl2 Signatures: Dispatcher [employer] EDMS Jett Pratt RN RN Shannan Gates RN RN Pema Buck RN RN tl2 Sree Oviedo MD MD ps1 Karly Sun RN, ea Corrections: (The following items were deleted from the chart) 19:02 19:00 Care prior to arrival: None. ss 20:35 19:04 BP 127 / 63; Pulse 82bpm; Resp 20bpm; Pulse Ox 99% RA; Temp 97.6F Temporal; 72.12 tl2 kg; Height 5 ft. 6 in.; BMI: 25.6; Pain 8/10; ss 20:35 19:04 BP 136 / 88; Pulse 76bpm; Resp 20bpm; Pulse Ox 98% RA; tl2 tl2
--- NOTE | 2018-06-10 21:38 | EDPHYS ---
Physician Documentation [facility] Name: Jyoti Pringle Age: 62 yrs Sex: Female : 1955 Arrival Date: 06/10/2018 Time: 18:59 Bed 5 Private MD: ED Physician Sree Oviedo HPI: 06/10 21:38 This 62 yrs old Female presents to ER via EMS with complaints of Chest Pain > ps1 31 y/o, Shortness Of Breath. 19:22 CP 3pm. radiation substernal to right shoulder. Recent CABG x2. [place] Surgeon could ps1 not do 3rd vessel. 50% occlusion per pt. Dr. Mcmahon at [facility]. May 13. Dc 15. Visit yesterday. Been doing well since. Rated moderate. Pain improved with Nitro MACHINE CELL TUBER. No TPA candidate. . Historical: - Allergies: 19:03 Iodinated Contrast Media - IV Dye; ss - PMHx: 19:04 CHF; Diabetes; Myocardial infarction; ss - PSHx: 19:04 Carotid surgery; Heart stents; CABG; ss - Immunization history:: Adult Immunizations up to date. - Social history:: Smoking status: Patient/guardian denies using tobacco. - Ebola Screening: : Patient denies exposure to infectious person Patient denies travel to an Ebola-affected area in the 21 days before illness onset. ROS: 19:23 Constitutional: Negative for fever, chills, and weight loss, Eyes: Negative for injury, ps1 pain, redness, and discharge, ENT: Negative for injury, pain, and discharge, Respiratory: Negative for shortness of breath, cough, wheezing, and pleuritic chest pain, Abdomen/GI: Negative for abdominal pain, nausea, vomiting, diarrhea, and constipation, Back: Negative for injury and pain, MS/Extremity: Negative for injury and deformity, Skin: Negative for injury, rash, and discoloration, Neuro: Negative for headache, weakness, numbness, tingling, and seizure. 19:23 Cardiovascular: Positive for chest pain. Exam: 19:23 Constitutional: This is a well developed, well nourished patient who is awake, alert, ps1 and in no acute distress. Head/Face: Normocephalic, atraumatic. Eyes: Pupils equal round and reactive to light, extra-ocular motions intact. Lids and lashes normal. Conjunctiva and sclera are non-icteric and not injected. Cardiovascular: Regular rate and rhythm. No gallops, murmurs, or rubs. Normal PMI, no JVD. No pulse deficits. Respiratory: Lungs have equal breath sounds bilaterally, clear to auscultation and percussion. No rales, rhonchi or wheezes noted. No increased work of breathing, no retractions or nasal flaring. Abdomen/GI: Soft, non-tender, with normal bowel sounds. No distension or tympany. No guarding or rebound. No evidence of tenderness throughout. Skin: Warm, dry with normal turgor. Normal color with no rashes, no lesions, and no evidence of cellulitis. 19:23 Chest/axilla: Inspection: midline sternotomy. CDI, Palpation: is normal, Axilla: are normal, Breasts: are normal, Lymph nodes: Vital Signs: 19:04 BP 127 / 63; Pulse 82; Resp 20; Temp 97.6(TE); Pulse Ox 99% on R/A; Weight 117.48 kg; tl2 Height 5 ft. 6 in. (167.64 cm); Pain 8/10; 19:20 BP 156 / 88; Pulse 79; Resp 17; Pulse Ox 98% on R/A; tl2 20:35 BP 136 / 88; Pulse 76; Resp 20; Pulse Ox 98% on R/A; tl2 21:31 BP 130 / 68; Pulse 72; Resp 20; Pulse Ox 98% on R/A; tl2 19:04 Body Mass Index 41.80 (117.48 kg, 167.64 cm) tl2 MDM: 21:08 Patient medically screened. ps1 21:37 Data reviewed: vital signs, nurses notes, lab test result(s), EKG, radiologic studies, ps1 and as a result, I will admit patient, transfer patient on heparin. Not TPA candidate. . 06/10 19:22 Order name: Magnesium; Complete Time: 20:04 ps1 06/10 19:22 Order name: CMP; Complete Time: 20:04 ps1 06/10 19:22 Order name: CBC with Diff; Complete Time: 19:50 ps1 06/10 19:22 Order name: NT PRO-BNP; Complete Time: 20:04 ps1 06/10 19:22 Order name: Ptt, Activated; Complete Time: 20:04 ps1 06/10 19:22 Order name: Troponin (emerg Dept Use Only); Complete Time: 20:04 ps1 06/10 19:22 Order name: XRAY Chest (1 view); Complete Time: 21:25 ps1 06/10 19:22 Order name: EKG; Complete Time: 19:22 ps1 06/10 19:22 Order name: Cardiac monitoring; Complete Time: 19:30 ps1 06/10 19:22 Order name: EKG - Nurse/Tech; Complete Time: 19:30 ps1 06/10 19:22 Order name: IV Saline Lock; Complete Time: 19:30 ps1 06/10 19:22 Order name: Labs collected and sent; Complete Time: 19:30 ps1 06/10 19:22 Order name: O2 Per Protocol; Complete Time: 19:30 ps1 06/10 19:22 Order name: O2 Sat Monitoring; Complete Time: 19:30 ps1 EC:56 Rate is 80 beats/min. Rhythm is regular. OR interval is normal. QRS interval is normal. ps1 QT interval is normal. Q waves are Present in leads II, III, aVF. ST Segment is elevated in leads II, III, aVF. ST Segment is depressed in leads I, aVL. Clinical impression: Inferior FL - age indeterminate. Administered Medications: 20:05 Drug: Heparin ([place]-Bolus No thrombolytic) - HEParin 5000 units {Co-Signature: diamond Sun RN).} Route: IVP; Site: right wrist; 21:27 Follow up: Response: No adverse reaction tl2 20:05 Drug: Heparin ([place] Drip) 12 units/kg/hr - (HEParin 73837 units, D5W 500 ml) tl2 {Co-Signature: diamond (Karly Sun RN).} Route: IV; Rate: 1000 units/hr; Site: right wrist; 21:28 Follow up: IV Status: Infusion continued upon transfer tl2 20:06 Drug: morphine 4 mg Route: IVP; Site: right wrist; tl2 20:30 Follow up: Response: No adverse reaction; Pain is decreased tl2 20:06 Drug: Zofran 4 mg Route: IVP; Site: right wrist; tl2 20:30 Follow up: Response: No adverse reaction; Nausea is decreased tl2 Disposition: 06/10/18 21:37 Transfer ordered to [facility]. Diagnosis are STEMI, CHEST PAIN. - Reason for transfer: Higher level of care. - Accepting physician is ALAM. - Condition is Fair. - Problem is new. - Symptoms have improved. Signatures: Dispatcher [employer] EDShannan Garay, VINAY RN ss Pema Buck RN RN tl2 Sree Oviedo MD MD ps1 Karly Sun RN ea Corrections: (The following items were deleted from the chart) 20:07 19:22 CP 3pm. radiation substernal to right shoulder. Recent CABG x2. Rachelle ps1 at [facility] May 13. . ps1 21:29 19:22 Urine Dipstick-Ancillary ordered. ps1 tl2 21:39 21:37 06/10/2018 21:37 Transfer ordered to [facility]. Diagnosis is tl2 STEMI; CHEST PAIN. Reason for transfer: Higher level of care. Accepting physician is MARU. Condition is Fair. Problem is new. Symptoms have improved. ps1
--- NOTE | 2018-06-11 07:33 | EKG ---
Test Date: 2018-06-10 Test Time: 19:44:26 Fruit Inspector: KIKI MEASUREMENT RESULTS: Intervals: Rate: 76 NJ: 174 QRSD: 88 QT: 436 QTc: 490 [place]: P: 54 NJ: 174 QRS: -24 T: 108 INTERPRETIVE STATEMENTS: Normal sinus rhythm Possible Left atrial enlargement nst Abnormal ECG Compared to ECG 05/08/2018 06:35:49 Left anterior fascicular block no longer present ST (T wave) deviation still present Electronically Signed On 06-11-18 07:33:49 CDT by Young Lopez
== END 2018-06-10 21:39 | disposition short-term general hospital (02) ==
LOC: ER 18:49
DX: I21.3 ST elevation (STEMI) myocardial infarction of unspecified site (principal); I50.9 Heart failure, unspecified; Z95.1 Presence of aortocoronary bypass graft; Z95.818 Presence of other cardiac implants and grafts
CPT/HCPCS: 36415; 71045; 80053; 83735; 83880; 84484; 85025; 85730; 93005; 96365; 96375; 99285; J1644; J2405

== ENCOUNTER 2019-08-04 03:13 | Observation (INO) | payer MEDICARE, OTHER ==
[2019-08-04] MEDS ORDERED: ONDANSETRON 4 MG/2 ML VIAL ONE (04:14)
--- NOTE | 2019-08-04 04:46 | ER ---
Nurse's Notes [facility] Name: Jyoti Pringle Age: 63 yrs Sex: Female : 1955 Arrival Date: 08/04/2019 Time: 03:31 Bed 16 Private MD: Diagnosis: Acute systolic (congestive) heart failure;Acute respiratory failure with hypoxia Presentation: 08/04 03:15 Presenting complaint: EMS states: "We were toned for patient woke up from sleep due to cc3 chest pain, shortness of breath and vomiting" Currently patient denies chest pain with NRS of 0/10. Transition of care: patient was not received from another setting of care. Onset of symptoms was August 04, 2019. Risk Assessment: Do you want to hurt yourself or someone else? Patient reports no desire to harm self or others. Initial Sepsis Screen: Does the patient meet any 2 criteria? No. Patient's initial sepsis screen is negative. Does the patient have a suspected source of infection? No. Patient's initial sepsis screen is negative. Care prior to arrival: Medication(s) given: ASA, 324 mg PO Nitroglycerin, 0.4 mg SL. 03:15 Method Of Arrival: EMS: [facility] cc3 03:15 Acuity: MARIA ALEJANDRA 3 cc3 Triage Assessment: 03:15 General: Appears in no apparent distress. uncomfortable, Behavior is calm, cooperative, cc3 appropriate for age. Pain: Denies pain. EENT: No signs and/or symptoms were reported regarding the EENT system. Neuro: Level of Consciousness is awake, alert, obeys commands, Oriented to person, place, time, situation, Appropriate for age. Cardiovascular: Denies chest pain, diaphoresis, nausea, palpitations, Heart tones S1 S2 present Capillary refill < 3 seconds in bilateral fingers Patient's skin is warm and dry. Rhythm is sinus rhythm. Respiratory: Airway is patent Respiratory effort is even, unlabored, Respiratory pattern is regular, symmetrical, Breath sounds are clear bilaterally. GI: Abdomen is round obese, Bowel sounds present X 4 quads. Abd is soft X 4 quads Abdomen is tender to palpation in left upper abdomen. : No signs and/or symptoms were reported regarding the genitourinary system. Derm: Skin is intact, is healthy with good turgor, Skin is pink, warm \\T\\ dry. normal. Musculoskeletal: Circulation, motion, and sensation intact. Range of motion: intact in all extremities. Historical: - Allergies: 03:15 Iodinated Contrast Media - IV Dye; cc3 - Home Meds: 03:15 levothyroxine oral [Active]; Januvia oral oral [Active]; paroxetine oral oral [Active]; cc3 Laxative Pills oral oral [Active]; Bumetanide Oral [Active]; atorvastatin oral oral [Active]; Aspirin Oral [Active]; Metoprolol Tartrate Oral [Active]; Metformin Oral [Active]; BRILINTA oral oral [Active]; - PMHx: 03:15 CHF; Diabetes; Myocardial infarction; X 4; Anxiety; CABG x 2; Depression; cc3 Hyperlipidemia; Hypertension; Thyroid problem; - Immunization history:: Adult Immunizations not up to date. - Social history:: Smoking status: Patient/guardian denies using tobacco, but has a distant history of tobacco abuse. - Ebola Screening: : No symptoms or risks identified at this time. Screenin:15 Abuse screen: Denies threats or abuse. Denies injuries from another. Nutritional cc3 screening: No deficits noted. Tuberculosis screening: No symptoms or risk factors identified. Fall Risk Ambulatory Aid- None/Bed Rest/Nurse Assist (0 pts). Gait- Normal/Bed Rest/Wheelchair (0 pts) Mental Status- Oriented to own ability (0 pts). Assessment: 03:15 Pain: Pain does not radiate. Pain began 1 hour ago. cc3 04:50 Reassessment: Patient appears in no apparent distress at this time. Patient and/or cc3 family updated on plan of care and expected duration. Pain level reassessed. Patient is alert, oriented x 3, equal unlabored respirations, skin warm/dry/pink. Patient for admission, Dr. Mcneal at bedside assessing the patient. Patient denies pain at this time. Patient states feeling better. Patient states symptoms have improved. 05:15 Reassessment: Patient appears in no apparent distress at this time. Patient and/or cc3 family updated on plan of care and expected duration. Pain level reassessed. Patient is alert, oriented x 3, equal unlabored respirations, skin warm/dry/pink. Patient denies pain at this time. 05:35 Reassessment: Patient appears in no apparent distress at this time. Patient and/or cc3 family updated on plan of care and expected duration. Pain level reassessed. Patient is alert, oriented x 3, equal unlabored respirations, skin warm/dry/pink. Room available in 207, report called and handed over to VINAY Crane for continuity of care and management. Patient denies pain at this time. Patient states feeling better. Patient states symptoms have improved. 06:00 Reassessment: Patient appears in no apparent distress at this time. Patient and/or cc3 family updated on plan of care and expected duration. Pain level reassessed. Patient is alert, oriented x 3, equal unlabored respirations, skin warm/dry/pink. Patient left ER for admission vitally stable by stretcher escorted by ophthalmic medical technologistnighat Amato and the patient's family. No valuables left in the patient's room. Patient denies pain at this time. Patient states feeling better. Patient states symptoms have improved. Vital Signs: 03:15 BP 178 / 52; Pulse 80; Resp 20 S; Temp 98(O); Pulse Ox 97% on 2 lpm NC; Weight 116.12 cc3 kg (R); Height 5 ft. 7 in. (170.18 cm) (R); Pain 0/10; 04:15 BP 142 / 60; Pulse 69; Resp 20 S; Pulse Ox 98% on 2 lpm NC; Pain 0/10; cc3 05:15 BP 155 / 71; Pulse 65; Resp 16 S; Pulse Ox 100% on 2 lpm NC; Pain 0/10; cc3 06:00 BP 135 / 59; Pulse 67; Resp 16 S; Pulse Ox 100% on 2 lpm NC; Pain 0/10; cc3 03:15 Body Mass Index 40.09 (116.12 kg, 170.18 cm) cc3 03:15 93%-94% on room air saturation cc3 ED Course: 03:15 Oxygen administration via nasal cannula \\T\\ 2L/min. cc3 03:15 Maintain EMS IV. Dressing intact. Good blood return noted. Site clean \\T\\ dry. Gauge \\T\\ cc 3 site: gauge 20 left hand. 03:15 Arm band placed on left wrist. EKG completed in triage. Results shown to MD. cc3 03:15 Patient has correct armband on for positive identification. Placed in gown. Bed in low cc3 position. Call light in reach. Side rails up X2. engine monitor on. Pulse ox on. NIBP on. 03:31 Patient arrived in ED. cc3 03:31 Loretta Phillip is Primary Nurse. cc3 03:32 Abner Camara MD is Attending Physician. tw4 03:33 EKG done, by ED staff, reviewed by Abner Camara MD. ds4 03:38 Triage completed. cc3 04:45 Anmol Mcneal DO is Hospitalizing Provider. tw4 05:25 Protime (+INR) Sent. ds4 05:35 No provider procedures requiring assistance completed. Patient admitted, IV remains in cc3 place. Administered Medications: 04:15 Drug: Zofran 4 mg Route: IVP; Site: left hand; cc3 05:00 Follow up: Response: No adverse reaction; Nausea is decreased cc3 04:50 Drug: Lasix 40 mg Route: IVP; Site: left hand; cc3 05:00 Follow up: Response: No adverse reaction cc3 Outcome: 04:45 Decision to Hospitalize by Provider. tw4 05:35 Admitted to Med/surg accompanied by tech, family with patient, via stretcher, room 207, cc3 with oxygen, with chart, Report called to RN Irving Crane 05:35 Condition: stable cc3 05:35 Instructed on the need for admit, Demonstrated understanding of instructions. 06:11 Patient left the ED. cc3 Signatures: Lm Brown ds4 Abner Camara MD MD tw4 Loretta Phillip cc3 Corrections: (The following items were deleted from the chart) 05:22 04:15 BP 142 / 60; Pulse 69bpm; Resp 20bpm; Spontaneous; Pulse Ox 98% RA; Pain 0/10; cc3cc3
--- NOTE | 2019-08-04 04:46 | EDPHYS ---
Physician Documentation [facility] Name: Jyoti Pringle Age: 63 yrs Sex: Female : 1955 Arrival Date: 08/04/2019 Time: 03:31 Bed 16 Private MD: ED Physician Abner Camara HPI: 08/04 04:05 This 63 yrs old Female presents to ER via EMS with complaints of Chest Pain, tw4 Shortness Of Breath. 04:05 The patient or guardian reports chest pain that is located primarily in the anterior tw4 chest wall. Onset: today. The pain does not radiate. Associated signs and symptoms: Pertinent positives: shortness of breath, vomiting, Pertinent negatives: abdominal pain, cough, dizziness, lightheadedness. The chest pain is described as dull, a heaviness. Duration: The patient or guardian reports a single episode. Modifying factors: The symptoms are alleviated by nothing. the symptoms are aggravated by nothing. Severity of pain: At its worst the pain was moderate. Historical: - Allergies: 03:15 Iodinated Contrast Media - IV Dye; cc3 - Home Meds: 03:15 levothyroxine oral [Active]; Januvia oral oral [Active]; paroxetine oral oral [Active]; cc3 Laxative Pills oral oral [Active]; Bumetanide Oral [Active]; atorvastatin oral oral [Active]; Aspirin Oral [Active]; Metoprolol Tartrate Oral [Active]; Metformin Oral [Active]; BRILINTA oral oral [Active]; - PMHx: 03:15 CHF; Diabetes; Myocardial infarction; X 4; Anxiety; CABG x 2; Depression; cc3 Hyperlipidemia; Hypertension; Thyroid problem; - Immunization history:: Adult Immunizations not up to date. - Social history:: Smoking status: Patient/guardian denies using tobacco, but has a distant history of tobacco abuse. - Ebola Screening: : No symptoms or risks identified at this time. ROS: 04:05 Constitutional: Negative for fever, chills, and weight loss, Abdomen/GI: Negative for tw4 abdominal pain, nausea, vomiting, diarrhea, and constipation, Back: Negative for injury and pain, MS/Extremity: Negative for injury and deformity, Skin: Negative for injury, rash, and discoloration, Neuro: Negative for headache, weakness, numbness, tingling, and seizure. 04:05 Abdomen/GI: Positive for nausea and vomiting, nausea, vomiting, and diarrhea, nausea, vomiting, Negative for abdominal pain, abdominal cramps, abdominal distension, rectal pain, rectal bleeding, flatulence. Exam: 04:05 Constitutional: This is a well developed, well nourished patient who is awake, alert, tw4 and in no acute distress. Head/Face: Normocephalic, atraumatic. Chest/axilla: Normal chest wall appearance and motion. Nontender with no deformity. No lesions are appreciated. Cardiovascular: Regular rate and rhythm with a normal S1 and S2. No gallops, murmurs, or rubs. Normal PMI, no JVD. No pulse deficits. Respiratory: Lungs have equal breath sounds bilaterally, clear to auscultation and percussion. No rales, rhonchi or wheezes noted. No increased work of breathing, no retractions or nasal flaring. Abdomen/GI: Soft, non-tender, with normal bowel sounds. No distension or tympany. No guarding or rebound. No evidence of tenderness throughout. Back: No spinal tenderness. No costovertebral tenderness. Full range of motion. MS/ Extremity: Pulses equal, no cyanosis. Neurovascular intact. Full, normal range of motion. Neuro: Awake and alert, GCS 15, oriented to person, place, time, and situation. Cranial nerves II-XII grossly intact. Motor strength 5/5 in all extremities. Sensory grossly intact. Cerebellar exam normal. Normal gait. Vital Signs: 03:15 BP 178 / 52; Pulse 80; Resp 20 S; Temp 98(O); Pulse Ox 97% on 2 lpm NC; Weight 116.12 cc3 kg (R); Height 5 ft. 7 in. (170.18 cm) (R); Pain 0/10; 04:15 BP 142 / 60; Pulse 69; Resp 20 S; Pulse Ox 98% on 2 lpm NC; Pain 0/10; cc3 05:15 BP 155 / 71; Pulse 65; Resp 16 S; Pulse Ox 100% on 2 lpm NC; Pain 0/10; cc3 06:00 BP 135 / 59; Pulse 67; Resp 16 S; Pulse Ox 100% on 2 lpm NC; Pain 0/10; cc3 03:15 Body Mass Index 40.09 (116.12 kg, 170.18 cm) cc3 03:15 93%-94% on room air saturation cc3 MDM: 03:32 Patient medically screened. tw4 04:45 Differential diagnosis: acute myocardial infarction, acute pericarditis, myocarditis, tw4 pulmonary embolus. The patient was given aspirin in the Emergency Department. Data reviewed: vital signs, nurses notes. Data interpreted: Pulse oximetry: Interpretation: hypoxia. Plan: O2 by NC applied. Counseling: I had a detailed discussion with the patient and/or guardian regarding: the historical points, exam findings, and any diagnostic results supporting the discharge/admit diagnosis, lab results, radiology results. Physician consultation: Anmol Mcneal DO was contacted at 04:45, regarding admission, and will see patient in ED. 08/04 03:33 Order name: Basic Metabolic Panel tw4 08/04 03:33 Order name: CBC with Diff tw4 08/04 03:33 Order name: LFT's tw4 08/04 03:33 Order name: Magnesium tw4 08/04 03:33 Order name: NT PRO-BNP tw4 08/04 03:33 Order name: PT-INR tw4 08/04 03:33 Order name: Troponin (emerg Dept Use Only) tw4 08/04 04:45 Order name: Basic Metabolic Panel EDAZ 08/04 04:45 Order name: Liver (Hepatic) Function EDAZ 08/04 04:45 Order name: Troponin (Emerg Dept Use Only) EDMS 08/04 04:45 Order name: NT PRO-BNP EDAZ 08/04 04:45 Order name: Magnesium EDAZ 08/04 04:45 Order name: CBC with Automated Diff; Complete Time: 04:54 EDMS 08/04 04:54 Interpretation: Normal except: RBC 3.77; HCT 33.4; HGB 11.5; PLT 139. tw4 08/04 04:45 Order name: Protime (+INR) EDMS 08/04 03:33 Order name: XRAY Chest (1 view) tw4 08/04 03:33 Order name: EKG; Complete Time: 05:32 tw4 08/04 03:33 Order name: Cardiac monitoring; Complete Time: 03:46 tw4 08/04 03:33 Order name: EKG - Nurse/Tech; Complete Time: 03:46 tw4 08/04 03:33 Order name: IV Saline Lock; Complete Time: 03:46 4 08/04 03:33 Order name: Labs collected and sent; Complete Time: 04:04 tw4 08/04 03:33 Order name: O2 Per Protocol; Complete Time: 03:46 tw4 08/04 03:33 Order name: O2 Sat Monitoring; Complete Time: 03:46 4 08/04 05:25 Order name: Urine Dipstick--Ancillary (enter results) 4 08/04 05:39 Order name: Social Service Consult EDAZ EC:42 Rate is 70 beats/min. Rhythm is regular. FL interval is normal. QRS interval is normal. tw4 QT interval is normal. No Q waves. T waves are Inverted in leads I, aVL. No ST changes noted. Clinical impression: NSR w/ Non-specific ST/T Changes. Interpreted by me. Reviewed by me. Administered Medications: 04:15 Drug: Zofran 4 mg Route: IVP; Site: left hand; cc3 05:00 Follow up: Response: No adverse reaction; Nausea is decreased cc3 04:50 Drug: Lasix 40 mg Route: IVP; Site: left hand; cc3 05:00 Follow up: Response: No adverse reaction cc3 Disposition: 08/04/19 04:45 Hospitalization ordered by Anmol Mcneal for Observation. Preliminary diagnosis are Acute systolic (congestive) heart failure, Acute respiratory failure with hypoxia. - Bed requested for Telemetry/MedSurg (observation). - Status is Observation. cc3 - Condition is Stable. - Problem is new. - Symptoms have improved. UTI on Admission? No Signatures: Dispatcher [employer] EDAZ Tashia oLw RN RN Abner Camara MD MD tw4 Loretta Phillip cc3 Corrections: (The following items were deleted from the chart) 05:26 04:45 Hospitalization Ordered by Anmol Mcneal DO for Observation. Preliminary diagnosis is Acute systolic (congestive) heart failure; Acute respiratory failure with hypoxia. Bed requested for Telemetry/MedSurg (observation). Status is Observation. Condition is Stable. Problem is new. Symptoms have improved. UTI on Admission? No. tw4 06:11 05:26 08/04/2019 04:45 Hospitalization Ordered by Anmol Mcneal DO for Observation. cc3 Preliminary diagnosis is Acute systolic (congestive) heart failure; Acute respiratory failure with hypoxia. Bed requested for Telemetry/MedSurg (observation). Status is Observation. Condition is Stable. Problem is new. Symptoms have improved. UTI on Admission? No. mw
[2019-08-04] MEDS ORDERED: FUROSEMIDE 40 MG/4 ML VIAL ONE (04:47)
[2019-08-04 04:50] LABS: Basophils % 0.1 % (0-1.3); Hematocrit 33.4 % (36.0-45.0); Lymphocytes % 14.7 % (15.3-44.8); MPV 10.9 fL (7.6-11.3); RBC Red Blood Cell Count 3.77 M/uL (3.86-4.86)
[2019-08-04 05:13] LABS: Albumin 3.5 g/dL (3.4-5.0); Bilirubin Direct 0.1 mg/dL (0-0.2); Bilirubin Total 0.5 mg/dL (0.2-1.0); Magnesium 1.6 mg/dL (1.8-2.4); Potassium 3.7 mmol/L (3.5-5.1); Protein, Total 7.3 g/dL (6.4-8.2); Troponin (Emerg Dept Use Only) 0.05 ng/mL (0.0-0.045)
[2019-08-04 05:37] LABS: Protime INR 0.94
--- NOTE | 2019-08-04 05:38 | P.HP ---
Certification for Inpatient Patient admitted to: Observation With expected LOS: <2 Midnights Patient will require the following post-hospital care: Home Health Services Practitioner: I am a practitioner with admitting privileges, knowledge of patient current condition, hospital course, and medical plan of care. Services: Services provided to patient in accordance with Admission requirements found in Title 42 Section 412.3 of the Code of Federal Regulations Patient History Date of Service: 08/04/19 Primary Care Provider: Dr. Richard([facility]); Cardiology-Dr. Gonzalez([facility]) Reason for admission: Shortness of breath, chest pain History of Present Illness: 63-year-old female with history of CHF, diabetes mellitus type 2 non- insulin dependent, hypertension, hypothyroidism, hyperlipidemia, CAD, chronic renal disease and carotid arterial disease. Patient presented with shortness of breath that started tonight. It was associated with some chest pain. Chest pain was more of a chest tightness. It was mainly to the left side. No indication of radiation of pain. She reported some reflux as well. She denied any fever, some chills noted. Shortness of breath did not improve. She came to the ER for further evaluation. In the ER patient was evaluated. Room-air saturations run 87%. Blood pressure stable. White count 6.5, hemoglobin 11.5. Sodium 141, potassium 3.7. BUN of 35, creatinine 1.87 with a GFR of 28. Glucose 396. Magnesium 1.6, troponin 0.05. BNP elevated at 4000. Chest x-ray showed some mild volume overload. Patient was admitted for further evaluation. Patient given IV Lasix with improvement. When I saw the patient in the ER. She did not appear in any distress. Family at bedside. Patient reports history of CHF. She is not on fluid restriction at home and takes Lasix. Most of her care it is done at [facility]. Allergies No Known Allergies Allergy (Unverified 05/08/18 10:39) Home medications list reviewed: Yes - Past Medical/Surgical History Diabetic: Yes -: Diabetes mellitus type 2 [id number] -: Hypertension -: Hyperlipidemia -: Hypothyroidism -: CHF -: CAD with prior CABG and stents -: Carotid arterial disease -: CABG x2 vessels -: Cardiac stents -: Carotid stent -: Vein stripping Psychosocial/ Personal History: Patient is a . She lives with her daughter. - Family History Family History: Reviewed- Non-Contributory - Social History Smoking Status: Never smoker Alcohol use: No CD- Drugs: No Caffeine use: Yes Place of Residence: Home Review of Systems General: As per HPI Eyes: Unremarkable ENT: Unremarkable Respiratory: Shortness of Breath, As per HPI Cardiovascular: Chest Pain, Edema, As per HPI Gastrointestinal: Unremarkable Genitourinary: Unremarkable Musculoskeletal: Pedal edema, As per HPI Integumentary: Unremarkable Neurological: Unremarkable Lymphatics: Unremarkable Physical Examination - Physical Exam General: Alert, In no apparent distress, Oriented x3, Cooperative HEENT: Atraumatic, Normocephalic, PERRLA, Mucous membr. moist/pink Neck: Supple Respiratory: Clear to auscultation bilaterally Cardiovascular: Normal pulses, Regular rate/rhythm Gastrointestinal: Normal bowel sounds, Soft and benign, Non-distended, No tenderness, No masses, No rebound, No guarding Musculoskeletal: No erythema, No tenderness, No warmth Integumentary: No erythema, No warmth, No cyanosis, Tenderness/swelling ( Nonpitting edema to the lower extremities bilateral) Neurological: Normal speech, Normal strength at 5/5 x4 extr, Normal tone, Normal affect - Studies Laboratory Data (last 24 hrs) 08/04/19 03:30: WBC 6.5, Hgb 11.5 L, Hct 33.4 L, Plt Count 139 L 08/04/19 03:30: Sodium 141, Potassium 3.7, BUN 35 H, Creatinine 1.83 H, Glucose 396 H, Magnesium 1.6 L, Total Bilirubin 0.5, AST 34, ALT 26, Alkaline Phosphatase 140 H Assessment and Plan - Plan Impression: Chest pain, shortness of breath secondary to acute on chronic CHF suspect systolic dysfunction Slight elevation in troponin with history of CAD with prior CABG and stents Diabetes mellitus type 2, non-insulin dependent with hyperglycemia Hypertension Hyperlipidemia Hypothyroidism Carotid arterial disease Chronic renal disease stage IV Plan: Chest pain, shortness of breath secondary to acute on chronic CHF suspect systolic dysfunction: Patient will be admitted for further evaluation and treatment. Patient has improved. Will continue to monitor cardiac enzymes and telemetry. Will check to see if patient qualifies for home oxygen. Will continue to monitor lab closely. Electrolyte protocol in place. Recheck chest x-ray later today. Will order echocardiogram to further evaluate. Will consult cardiology for further recommendation. Will continue with IV Lasix at this time. Will provide DVT prophylaxis-heparin. Continue 1500 cc per day fluid restriction. Social Work will be consulted for possibility of home health /physical therapy and home oxygen at discharge. I will turn the service over to Dr. Hilliard today. I will go over the plan of care with her. Anticipate possible discharge later today if with significant improvement and clinically stable. Await further recommendation from Cardiology. Slight elevation in troponin with history of CAD with prior CABG and stents: Will monitor cardiac enzymes and telemetry. No significant EKG change noted. Slight elevation in troponin likely related to acute on chronic CHF. Cardiology consulted. Await further recommendation. Will obtain echocardiogram. Patient sees cardiology at [facility]. Patient mentioned that she had ran out of Brandcast recently. Will need to restart medication. The importance of taking her medication was addressed in detail. Diabetes mellitus type 2, non-insulin dependent with hyperglycemia: Will check A1c. Will provide insulin siding scale and monitor Accu-Cheks. Will recommend to discontinue metformin due to her chronic renal disease. Patient may require adjustment to her Januvia. Patient may also require insulin at discharge. Hypertension: Continue and restart metoprolol 25 mg daily. Will monitor and adjust appropriately. Hyperlipidemia: Will check fasting lipid panel. Will continue with Lipitor. Hypothyroidism: Will check tsh and free T4. Continue with levothyroxine 125 mcg daily. Carotid arterial disease: Continue with aspirin and Brilinta Chronic renal disease stage IV: Will check renal ultrasound. Will monitor lab closely. Will discontinue metformin due to her chronic renal disease. Recommend no further use of nonsteroidal anti-inflammatories. Future medications will need to be renally dose. Will recommended nephrology evaluation as an outpatient to further monitor and address. Discharge Plan: Home Plan to discharge in: 24 Hours - Advance Directives Does patient have a Living Will: No Does patient have a Durable POA for Healthcare: No - Code Status/Comfort Care Code Status Assessed: Yes (Patient is full code) Time Spent Managing Pts Care (In Minutes): 55
[2019-08-04] MEDS ORDERED: ACETAMINOPHEN 500 MG TAB PO PRN (06:02)
[2019-08-04] MEDS ORDERED: METOPROLOL TAR 25 MG TAB PO SCH (06:02)
[2019-08-04] MEDS ORDERED: MECLIZINE HCL 12.5 MG TAB PO PRN (06:02)
[2019-08-04] MEDS ORDERED: ONDANSETRON 4 MG/2 ML VIAL IV PRN (06:02)
[2019-08-04] MEDS ORDERED: LEVOTHYROXINE SOD 0.125 MG TAB PO SCH (06:30)
[2019-08-04 06:48] VITALS: BMI 40.1
[2019-08-04 07:50] LABS: Thyroid Stimulating Hormone 2.53 uIU/mL (0.360-3.740)
[2019-08-04] MEDS ORDERED: INFLUENZA VACCINE (for 3y+) 0.5 ML DOSE IMVAC ONE (08:00)
[2019-08-04 08:39] VITALS: O2SAT 95
--- NOTE | 2019-08-04 08:54 | RAD REPORT ---
EXAM DESCRIPTION: [place] Single View08/04/2019 6:11 am CLINICAL HISTORY: Shortness of breath COMPARISON: None FINDINGS: Mild right and minimal left pulmonary opacities The heart is mildly enlarged. Postsurgical changes involve the chest. IMPRESSION: These findings probably represent pulmonary edema. Pneumonia/pneumonitis is another cons ideration
[2019-08-04] MEDS ORDERED: ASPIRIN EC 81 MG TAB PO SCH (09:00)
[2019-08-04] MEDS ORDERED: SITAGLIPTIN PHOS 100 MG TAB PO SCH (09:00)
[2019-08-04] MEDS ORDERED: MAGNESIUM SULFATE 1 gm IVPB 1 GM/100 ML BAG IV ONE (09:00)
[2019-08-04] MEDS ORDERED: HEPARIN 5000 UNIT/ML 1 ML VIAL SQ SCH (09:00)
[2019-08-04] MEDS ORDERED: TICAGRELOR 90 MG TABLET PO SCH (09:00)
[2019-08-04] MEDS ORDERED: POTASSIUM CL SA 10 MEQ TAB PO ONE (09:00)
[2019-08-04] MEDS: INSULIN -REGULAR HUMAN 50 UNIT/0.5 ML ML SQ SCH ×2 (09:27→12:52)
[2019-08-04 09:47] LABS: CKMB Creatine Kinase MB 3.1 ng/mL (0.3-3.6); Troponin I 0.36 ng/mL (0.0-0.045)
--- NOTE | 2019-08-04 09:57 | EKG ---
Test Date: 2019-08-04 Test Time: 03:32:57 Pan Puller: RENATA MEASUREMENT RESULTS: Intervals: Rate: 70 OK: 156 QRSD: 98 QT: 464 QTc: 501 [place]: P: 30 OK: 156 QRS: -13 T: 102 INTERPRETIVE STATEMENTS: Normal sinus rhythm ST & T wave abnormality, consider lateral ischemia Abnormal ECG Compared to ECG 06/10/2018 19:44:26 ST (T wave) deviation now present Possible ischemia now present Electronically Signed On 08-04-19 09:57:03 CDT by Young Lopez
--- NOTE | 2019-08-04 12:32 | ECHO ---
HEIGHT: 5 ft 7 in WEIGHT: 256 lb 0 oz DATE OF STUDY: 08/04/[address]: Young Lopez MD 2-DIMENSIONAL: YES M.MODE: YES DOPPLER: YES COLOR FLOW: YES TDS: YES PORTABLE: NO DEFINITY: NO BUBBLE STUDY: NO DIAGNOSIS: CONGESTIVE HEART FAILURE CARDIAC HISTORY: CATHERIZATION: YES SURGERY: YES PROSTHETIC VALVE: NO PACEMAKER: NO MEASUREMENTS (cm) DIASTOLIC (NORMALS) SYSTOLIC (NORMALS) IVSd 1.1 (0.6-1.2) LA Diam 3.7 (1.9-4.0) LVEF 51% LVIDd 5.0 (3.5-5.7) LVIDs 3.7 (2.0-3.5) %FS 26% LVPWd 1.1 (0.6-1.2) Ao Diam 3.1 (2.0-3.7) 2 DIMENSIONAL ASSESSMENT: RIGHT ATRIUM: NORMAL LEFT ATRIUM: NORMAL RIGHT VENTRICLE: NORMAL LEFT VENTRICLE: NORMAL TRICUSPID VALVE: NORMAL MITRAL VALVE: MITRAL ANNULAR CALCIFICATION PULMONIC VALVE: NORMAL AORTIC VALVE: NORMAL PERICARDIAL EFFUSION NONE AORTIC ROOT: NORMAL LEFT VENTRICULAR WALL MOTION: NORMAL. DOPPLER/COLOR FLOW: MILD TRICUSPID REGURGITATION. COMMENTS: MILD TRICUSPID REGURGITATION NORMAL RIGHT VENTRICULAR SYSTOLIC PRESSURE. NORMAL LEFT VENTRICULAR SIZE AND FUNCTION. NO WALL MOTION ABNORMALITY. NO EFFUSION. TECHNOLOGIST: DEVANTE PRETTY
--- NOTE | 2019-08-04 12:45 | RAD REPORT ---
EXAM DESCRIPTION: RAD - Chest Pa And Lat (2 Views) - 08/04/2019 12:28 pm CLINICAL HISTORY: follow up CHF COMPARISON: August 04 TECHNIQUE: PA and lateral views of the chest were obtained. FINDINGS: The lungs are clear of a peripheral consolidation or mass. Interstitial markings are promi nent. Vasculature is mildly prominent. Heart size is upper normal. Trachea is midline. No pleural e ffusion or pneumothorax seen. No acute bony finding noted. No aortic abnormality. IMPRESSION: Mild interstitial edema, failure or volume overload pattern is present showing slight im provement from the exam earlier in the day.
--- NOTE | 2019-08-04 12:53 | RAD REPORT ---
EXAM DESCRIPTION: US - Renal Ultrasound-Complete - 08/04/2019 12:41 pm CLINICAL HISTORY: Chronic renal disease COMPARISON: None. FINDINGS: The right kidney measures 11 cm with a normal echotexture. The left kidney measures 9 cm with a mildly increased echotexture Hydronephrosis is not seen. No gross abnormality of bladder IMPRESSION: Mildly increased left renal echotexture may indicate parenchymal disease
[2019-08-04 14:19] VITALS: TEMP 97.6
[2019-08-04 14:38] VITALS: BP 156/69
[2019-08-04] MEDS ORDERED: FUROSEMIDE 40 MG/4 ML VIAL IV SCH (17:00)
[2019-08-04] MEDS ORDERED: ATORVASTATIN 40 MG TAB PO SCH (21:00)
--- NOTE | 2019-08-04 21:03 | CON ---
Date of Consultation: 08/04/[address] Hilliard's service on 08/04/2019. I saw the patient on 08/04/2019. Reason For Consultation: Congestive heart failure. History Of Present Illness: Ms. Pringle is a 63-year-old white woman, has had a long history of cardio vascular disease. She had a bypass surgery in May 2019. Prior to that, she has had 5 stents. Lakia strickland has had an DE in the past. She has a history of systolic congestive heart failure. She has a hist ory of diabetes, anxiety, depression, hypertension, dyslipidemia, and hypothyroidism. History of rig ht carotid stent. She came in with shortness of breath, chest pain, vomiting episodes, ruled out for an DE. Her glucose was 396. She had a creatinine of 1.83. By the time I saw her, she has already received IV Lasix and has diuresed well. She denied PND, pedal edema, palpitation or syncope. Past Medical History: As stated above. Allergies: SHE IS ALLERGIC TO IODINE. Review of Systems: Negative. Social History: Negative. Family History: Positive for diabetes and heart disease. Medications: At home include aspirin, Lasix, Lipitor, Brilinta, Januvia, insulin, metoprolol and thy roid. Physical Examination: General: She was in no acute distress. Vital Signs: Stable. She was in normal sinus rhythm. She was afebrile. HEENT: Negative. Neck: Supple without any bruit, lymphadenopathy, JVD, or thyromegaly. Chest: Some rales in both bases. Cardiac: Revealed a regular rhythm and rate without any murmurs, gallops, or rubs. Abdomen: Obese, benign. Extremities: Trace edema. Skin: Dry and intact. Pulses were equal bilaterally symmetrically. Neurologic: She was nonfocal. Diagnostic Data: As stated above. Impression And Plan: 1.Acute on chronic systolic congestive heart failure. The patient is already on a beta-carter, and Lasix at home. She has significant renal insufficiency. She may not be a good candidate for NESTOR in hibitors. Ms. Pringle sees Dr. Gonzalez at [facility] Cardiology and she will follow up with him in the near [facility]. Echocardiogram is pending for today. 2.History of coronary artery disease, status post coronary artery bypass graft 2 months ago. ____. I doubt we are dealing with any cardiac acute syndrome here. 3.History of right carotid stent. She needs to have a carotid Doppler soon. She can do that as an outpatient. 4.Diabetes, very poorly controlled. 5.Renal insufficiency, stage III. 6.Hyperlipidemia. 7.Hypertension. 8.Hypothyroidism. 9.Anxiety and depression. Ms. Pringle is feeling much better. She should go home on a higher dose of Lasix. Continue her metopr olol. Consider NESTOR inhibitors if her hyster driver. Salt restriction and fluid restriction _ that she can go home whenever it is okay with Dr. Hilliard. VIKTORIA/AYE Voice ID: [id number] Report ID: [id number]
--- OUTSIDE RECORDS SUMMARY | 2019-08-14 17:39 | XMS REPORT ---
:1955 Author Organization [facility] Address [address] [place] [address] Care Team Providers Name Role Phone YONI MAHONEYMARIA DEL ROSARIO Unavailable Unavailable MINDY RAMÍREZ Unavailable Unavailable MU RUIZ Unavailable Unavailable Problems This patient has no known problems. Allergies, Adverse Reactions, Alerts This patient has no known allergies or adverse reactions. Medications This patient has no known medications. Results Test Description Test Time Test Comments Text Results Atomic Results Result Comments POCT-GLUCOSE METER 2018-06-15 08:05:00 Test Item Value Reference Range Comments POC-GLUCOSE METER (BEAKER) (test 162 mg/dL 70-110 TESTED AT [facility] [address] [facility] vsha=5621) [facility] [address] [id number] 05:58:00 Test Item Value Reference Range Comments MAGNESIUM (BEAKER) (test wjyf=970) 1.9 mg/dL 1.6-2.6 BASIC METABOLIC [id number] 05:58:00 Test Item Value Reference Range Comments SODIUM (BEAKER) (test 139 meq/L 136-145 jzxg=958) POTASSIUM (BEAKER) (test 4.0 meq/L 3.5-5.1 lwls=238) CHLORIDE (BEAKER) (test 103 meq/L 98-107 bwio=869) CO2 (BEAKER) (test 29 meq/L 22-29 ndmi=551) BLOOD UREA NITROGEN 25 mg/dL 7-21 (BEAKER) (test qnad=758) CREATININE (BEAKER) (test 1.30 mg/dL 0.57-1.25 euqm=991) GLUCOSE RANDOM (BEAKER) 143 mg/dL 70-105 (test dobo=441) CALCIUM (BEAKER) (test 9.4 mg/dL 8.4-10.2 kqco=283) EGFR (BEAKER) (test 42 mL/min/1.73 sq m ESTIMATED GFR IS NOT ucnz=7364) ACCURATE CREATININE CLEARANCE IN PREDICTING GLOMERULAR FILTRATION RATE. ESTIMATED GFR IS NOT APPLICABLE FOR DIALYSIS PATIENTS. CBC W/PLT COUNT & AUTO [id number] 05:35:00 Test Item Value Reference Range Comments WHITE BLOOD CELL COUNT (BEAKER) (test lhey=466) 5.4 K/ L 3.5-10.5 RED BLOOD CELL COUNT (BEAKER) (test wcxs=187) 3.36 M/ L 3.93-5.22 HEMOGLOBIN (BEAKER) (test gdjh=823) 10.0 GM/DL 11.2-15.7 HEMATOCRIT (BEAKER) (test ruzo=468) 30.9 % 34.1-44.9 MEAN CORPUSCULAR VOLUME (BEAKER) (test bwvz=642) 92.0 fL 79.4-94.8 MEAN CORPUSCULAR HEMOGLOBIN (BEAKER) (test 29.8 pg 25.6-32.2 efbt=244) MEAN CORPUSCULAR HEMOGLOBIN CONC (BEAKER) (test 32.4 GM/DL 32.2-35.5 krgt=231) RED CELL DISTRIBUTION WIDTH (BEAKER) (test 15.2 % 11.7-14.4 egwf=228) PLATELET COUNT (BEAKER) (test wtuz=950) 189 K/CU MM 150-450 MEAN PLATELET VOLUME (BEAKER) (test etze=643) 11.2 fL 9.4-12.3 NUCLEATED RED BLOOD CELLS (BEAKER) (test 0 /100 WBC 0-0 ttga=442) NEUTROPHILS RELATIVE PERCENT (BEAKER) (test 66 % sqdf=424) LYMPHOCYTES RELATIVE PERCENT (BEAKER) (test 20 % hjjm=746) MONOCYTES RELATIVE PERCENT (BEAKER) (test 10 % bbhw=912) EOSINOPHILS RELATIVE PERCENT (BEAKER) (test 3 % xlzf=952) BASOPHILS RELATIVE PERCENT (BEAKER) (test 0 % efna=727) NEUTROPHILS ABSOLUTE COUNT (BEAKER) (test 3.53 K/ L 1.56-6.13 sudt=237) LYMPHOCYTES ABSOLUTE COUNT (BEAKER) (test 1.10 K/ L 1.18-3.74 kbvh=535) MONOCYTES ABSOLUTE COUNT (BEAKER) (test 0.54 K/ L 0.24-0.36 ttvq=348) EOSINOPHILS ABSOLUTE COUNT (BEAKER) (test 0.16 K/ L 0.04-0.36 fsym=027) BASOPHILS ABSOLUTE COUNT (BEAKER) (test 0.01 K/ L 0.01-0.08 crec=951) IMMATURE GRANULOCYTES-RELATIVE PERCENT (BEAKER) 1 % 0-1 (test uayr=1043) POCT-GLUCOSE [id number] 21:47:00 Test Item Value Reference Range Comments POC-GLUCOSE METER (BEAKER) 285 mg/dL 70-110 TESTED AT [address] (test batq=1298) [facility] [address] POCT-GLUCOSE [id number] 16:02:00 Test Item Value Reference Range Comments POC-GLUCOSE METER (BEAKER) 266 mg/dL 70-110 TESTED AT [address] (test xult=1499) [facility] [address] POCT-GLUCOSE [id number] 13:39:00 Test Item Value Reference Range Comments POC-GLUCOSE METER (BEAKER) 233 mg/dL 70-110 TESTED AT [address] (test wwbx=6729) [facility] [address] POCT-GLUCOSE [id number] 13:05:00 Test Item Value Reference Range Comments POC-GLUCOSE METER (BEAKER) 247 mg/dL 70-110 TESTED AT [address] (test oips=8126) [facility] [address] POCT-GLUCOSE [id number] 08:35:00 Test Item Value Reference Range Comments POC-GLUCOSE METER (BEAKER) 223 mg/dL 70-110 TESTED AT [address] (test hwus=5365) [facility] [address] [id number] 08:05:00 Test Item Value Reference Range Comments MAGNESIUM (BEAKER) (test vskx=446) 2.0 mg/dL 1.6-2.6 BASIC METABOLIC [id number] 08:05:00 Test Item Value Reference Range Comments SODIUM (BEAKER) (test 136 meq/L 136-145 eaua=416) POTASSIUM (BEAKER) (test 4.1 meq/L 3.5-5.1 bcqs=092) CHLORIDE (BEAKER) (test 99 meq/L 98-107 vglt=997) CO2 (BEAKER) (test 31 meq/L 22-29 uiow=600) BLOOD UREA NITROGEN 32 mg/dL 7-21 (BEAKER) (test xegw=514) CREATININE (BEAKER) (test 1.35 mg/dL 0.57-1.25 ysng=581) GLUCOSE RANDOM (BEAKER) 210 mg/dL 70-105 (test gurp=657) CALCIUM (BEAKER) (test 9.3 mg/dL 8.4-10.2 fbod=036) EGFR (BEAKER) (test 40 mL/min/1.73 sq m ESTIMATED GFR IS NOT cbeq=8051) ACCURATE CREATININE CLEARANCE IN PREDICTING GLOMERULAR FILTRATION RATE. ESTIMATED GFR IS NOT APPLICABLE FOR DIALYSIS PATIENTS. CBC W/PLT COUNT & AUTO [id number] 07:46:00 Test Item Value Reference Range Comments WHITE BLOOD CELL COUNT (BEAKER) (test uzwn=463) 5.3 K/ L 3.5-10.5 RED BLOOD CELL COUNT (BEAKER) (test jvjk=291) 3.30 M/ L 3.93-5.22 HEMOGLOBIN (BEAKER) (test zulp=197) 9.8 GM/DL 11.2-15.7 HEMATOCRIT (BEAKER) (test znlt=566) 30.1 % 34.1-44.9 MEAN CORPUSCULAR VOLUME (BEAKER) (test xgcc=338) 91.2 fL 79.4-94.8 MEAN CORPUSCULAR HEMOGLOBIN (BEAKER) (test 29.7 pg 25.6-32.2 zvzr=186) MEAN CORPUSCULAR HEMOGLOBIN CONC (BEAKER) (test 32.6 GM/DL 32.2-35.5 dbib=674) RED CELL DISTRIBUTION WIDTH (BEAKER) (test 15.1 % 11.7-14.4 gwru=473) PLATELET COUNT (BEAKER) (test xtlx=118) 167 K/CU MM 150-450 MEAN PLATELET VOLUME (BEAKER) (test kqjd=129) 11.3 fL 9.4-12.3 NUCLEATED RED BLOOD CELLS (BEAKER) (test 0 /100 WBC 0-0 zquv=879) NEUTROPHILS RELATIVE PERCENT (BEAKER) (test 69 % zthn=095) LYMPHOCYTES RELATIVE PERCENT (BEAKER) (test 19 % zljx=018) MONOCYTES RELATIVE PERCENT (BEAKER) (test 10 % ofrf=722) EOSINOPHILS RELATIVE PERCENT (BEAKER) (test 2 % qlyc=583) BASOPHILS RELATIVE PERCENT (BEAKER) (test 0 % tptn=569) NEUTROPHILS ABSOLUTE COUNT (BEAKER) (test 3.66 K/ L 1.56-6.13 qxug=763) LYMPHOCYTES ABSOLUTE COUNT (BEAKER) (test 1.02 K/ L 1.18-3.74 zkgv=775) MONOCYTES ABSOLUTE COUNT (BEAKER) (test 0.53 K/ L 0.24-0.36 uirq=658) EOSINOPHILS ABSOLUTE COUNT (BEAKER) (test 0.09 K/ L 0.04-0.36 dwjp=624) BASOPHILS ABSOLUTE COUNT (BEAKER) (test 0.00 K/ L 0.01-0.08 xsii=860) IMMATURE GRANULOCYTES-RELATIVE PERCENT (BEAKER) 0 % 0-1 (test mbsm=8984) POCT-GLUCOSE [id number] 22:57:00 Test Item Value Reference Range Comments POC-GLUCOSE METER (BEAKER) 326 mg/dL 70-110 Will Repeat Test/TESTED AT (test gxol=3188) [place] [address] POCT-GLUCOSE [id number] 18:34:00 Test Item Value Reference Range Comments POC-GLUCOSE METER (BEAKER) 252 mg/dL 70-110 TESTED AT [address] (test szfz=3660) [place] [address] POCT-GLUCOSE [id number] 12:42:00 Test Item Value Reference Range Comments POC-GLUCOSE METER (BEAKER) 302 mg/dL 70-110 Notified VINAY PEÑA/TESTED AT [facility] (test qecy=7755) [address] [place] [address] [id number] 11:07:00 Test Item Value Reference Range Comments PARTIAL THROMBOPLASTIN TIME (BEAKER) (test 100.2 seconds 22.5-36.0 amml=897) POCT-GLUCOSE [id number] 07:53:00 Test Item Value Reference Range Comments POC-GLUCOSE METER (BEAKER) 283 mg/dL 70-110 TESTED AT [address] (test otby=9293) [place] [address] [id number] 05:10:00 Test Item Value Reference Range Comments MAGNESIUM (BEAKER) (test bndv=155) 2.2 mg/dL 1.6-2.6 BASIC METABOLIC [id number] 05:10:00 Test Item Value Reference Range Comments SODIUM (BEAKER) (test 137 meq/L 136-145 zlmm=755) POTASSIUM (BEAKER) (test 4.2 meq/L 3.5-5.1 jojj=173) CHLORIDE (BEAKER) (test 100 meq/L 98-107 jdsn=349) CO2 (BEAKER) (test 27 meq/L 22-29 ialc=275) BLOOD UREA NITROGEN 44 mg/dL 7-21 (BEAKER) (test avki=476) CREATININE (BEAKER) (test 1.54 mg/dL 0.57-1.25 okql=620) GLUCOSE RANDOM (BEAKER) 255 mg/dL 70-105 (test onrz=850) CALCIUM (BEAKER) (test 9.3 mg/dL 8.4-10.2 iryc=501) EGFR (BEAKER) (test 34 mL/min/1.73 sq m ESTIMATED GFR IS NOT tket=6405) ACCURATE CREATININE CLEARANCE IN PREDICTING GLOMERULAR FILTRATION RATE. ESTIMATED GFR IS NOT APPLICABLE FOR DIALYSIS PATIENTS. [id number] 04:36:00 Test Item Value Reference Range Comments PARTIAL THROMBOPLASTIN TIME (BEAKER) (test 94.8 seconds 22.5-36.0 icyx=259) CBC W/PLT COUNT & AUTO [id number] 04:33:00 Test Item Value Reference Range Comments WHITE BLOOD CELL COUNT (BEAKER) (test crah=002) 5.3 K/ L 3.5-10.5 RED BLOOD CELL COUNT (BEAKER) (test ccpa=130) 3.33 M/ L 3.93-5.22 HEMOGLOBIN (BEAKER) (test kejo=828) 10.0 GM/DL 11.2-15.7 HEMATOCRIT (BEAKER) (test equj=392) 30.3 % 34.1-44.9 MEAN CORPUSCULAR VOLUME (BEAKER) (test llwy=956) 91.0 fL 79.4-94.8 MEAN CORPUSCULAR HEMOGLOBIN (BEAKER) (test 30.0 pg 25.6-32.2 nmoy=595) MEAN CORPUSCULAR HEMOGLOBIN CONC (BEAKER) (test 33.0 GM/DL 32.2-35.5 svaz=280) RED CELL DISTRIBUTION WIDTH (BEAKER) (test 15.3 % 11.7-14.4 bftr=197) PLATELET COUNT (BEAKER) (test azmo=919) 176 K/CU MM 150-450 MEAN PLATELET VOLUME (BEAKER) (test lvsm=786) 11.5 fL 9.4-12.3 NUCLEATED RED BLOOD CELLS (BEAKER) (test 0 /100 WBC 0-0 umxd=217) NEUTROPHILS RELATIVE PERCENT (BEAKER) (test 68 % mzff=492) LYMPHOCYTES RELATIVE PERCENT (BEAKER) (test 18 % euec=560) MONOCYTES RELATIVE PERCENT (BEAKER) (test 11 % xdkf=169) EOSINOPHILS RELATIVE PERCENT (BEAKER) (test 2 % hyga=318) BASOPHILS RELATIVE PERCENT (BEAKER) (test 0 % ydux=846) NEUTROPHILS ABSOLUTE COUNT (BEAKER) (test 3.58 K/ L 1.56-6.13 ztjd=688) LYMPHOCYTES ABSOLUTE COUNT (BEAKER) (test 0.97 K/ L 1.18-3.74 kvoo=022) MONOCYTES ABSOLUTE COUNT (BEAKER) (test 0.57 K/ L 0.24-0.36 hufc=658) EOSINOPHILS ABSOLUTE COUNT (BEAKER) (test 0.11 K/ L 0.04-0.36 rejs=261) BASOPHILS ABSOLUTE COUNT (BEAKER) (test 0.01 K/ L 0.01-0.08 khva=936) IMMATURE GRANULOCYTES-RELATIVE PERCENT (BEAKER) 1 % 0-1 (test fygd=7628) POCT-GLUCOSE [id number] 21:45:00 Test Item Value Reference Range Comments POC-GLUCOSE METER (BEAKER) 372 mg/dL 70-110 Notified VINAY PEÑA/TESTED AT [facility] (test gfpg=6609) [address] [place] [address] [id number] 21:09:00 Test Item Value Reference Range Comments PARTIAL THROMBOPLASTIN TIME (BEAKER) (test 62.5 seconds 22.5-36.0 tgtk=009) POCT-GLUCOSE [id number] 18:36:00 Test Item Value Reference Range Comments POC-GLUCOSE METER (BEAKER) 311 mg/dL 70-110 Notified VINAY PEÑA/TESTED AT [facility] (test ufht=3662) [address] [facility] [address] [id number] 16:14:00 Test Item Value Reference Range Comments MAGNESIUM (BEAKER) (test ocqn=291) 1.8 mg/dL 1.6-2.6 [id number] 16:13:00 Test Item Value Reference Range Comments POTASSIUM (BEAKER) (test elds=744) 4.2 meq/L 3.5-5.1 Check Serum Potassium level 2 hours after oral potassium replacement completed or 30 min after intravenous potassium replacement.[id number] 14:42:00 Test Item Value Reference Range Comments POTASSIUM (BEAKER) (test 5.4 meq/L 3.5-5.1 Specimen moderately hemolyzed mlqg=759) Check Serum Potassium level 2 hours after oral potassium replacement completed or 30 min after intravenous potassium replacement.[id number] 14:42:00 Test Item Value Reference Range Comments MAGNESIUM (BEAKER) (test 2.2 mg/dL 1.6-2.6 Specimen moderately hemolyzed ldmb=050) [id number] 14:34:00 Test Item Value Reference Range Comments PARTIAL THROMBOPLASTIN TIME (BEAKER) (test 34.8 seconds 22.5-36.0 phhk=317) POCT-GLUCOSE [id number] 12:22:00 Test Item Value Reference Range Comments POC-GLUCOSE METER (BEAKER) 307 mg/dL 70-110 Notified VINAY PEÑA/TESTED AT [facility] (test khfi=9176) [address] [place] [address] [id number] 11:29:00 Test Item Value Reference Range Comments MAGNESIUM (BEAKER) (test vvqp=684) 1.9 mg/dL 1.6-2.6 POCT-GLUCOSE [id number] 08:21:00 Test Item Value Reference Range Comments POC-GLUCOSE METER (BEAKER) 340 mg/dL 70-110 Notified VINAY PEÑA/TESTED AT [facility] (test buef=6401) [address] [place], [place] [id number] BASIC METABOLIC [id number] 06:23:00 Test Item Value Reference Range Comments SODIUM (BEAKER) (test 136 meq/L 136-145 ksul=484) POTASSIUM (BEAKER) (test 3.9 meq/L 3.5-5.1 kjgn=287) CHLORIDE (BEAKER) (test 96 meq/L 98-107 syyj=961) CO2 (BEAKER) (test 29 meq/L 22-29 jrkj=510) BLOOD UREA NITROGEN 55 mg/dL 7-21 (BEAKER) (test qpjw=030) CREATININE (BEAKER) (test 2.11 mg/dL 0.57-1.25 kdkg=744) GLUCOSE RANDOM (BEAKER) 350 mg/dL 70-105 (test yphq=956) CALCIUM (BEAKER) (test 9.4 mg/dL 8.4-10.2 ogtw=355) EGFR (BEAKER) (test 24 mL/min/1.73 sq m ESTIMATED GFR IS NOT rdyd=8319) ACCURATE CREATININE CLEARANCE IN PREDICTING GLOMERULAR FILTRATION RATE. ESTIMATED GFR IS NOT APPLICABLE FOR DIALYSIS PATIENTS. [id number] 05:40:00 Test Item Value Reference Range Comments PARTIAL THROMBOPLASTIN TIME (BEAKER) (test 43.5 seconds 22.5-36.0 jdmp=653) CBC W/PLT COUNT & AUTO [id number] 05:31:00 Test Item Value Reference Range Comments WHITE BLOOD CELL COUNT (BEAKER) (test wgip=257) 6.0 K/ L 3.5-10.5 RED BLOOD CELL COUNT (BEAKER) (test lzaj=346) 3.33 M/ L 3.93-5.22 HEMOGLOBIN (BEAKER) (test vvzl=569) 9.9 GM/DL 11.2-15.7 HEMATOCRIT (BEAKER) (test jrhj=777) 30.5 % 34.1-44.9 MEAN CORPUSCULAR VOLUME (BEAKER) (test kgnn=803) 91.6 fL 79.4-94.8 MEAN CORPUSCULAR HEMOGLOBIN (BEAKER) (test 29.7 pg 25.6-32.2 pcad=589) MEAN CORPUSCULAR HEMOGLOBIN CONC (BEAKER) (test 32.5 GM/DL 32.2-35.5 maiy=509) RED CELL DISTRIBUTION WIDTH (BEAKER) (test 15.4 % 11.7-14.4 btjm=500) PLATELET COUNT (BEAKER) (test pajr=490) 196 K/CU MM 150-450 MEAN PLATELET VOLUME (BEAKER) (test rcre=915) 10.9 fL 9.4-12.3 NUCLEATED RED BLOOD CELLS (BEAKER) (test 0 /100 WBC 0-0 ifqh=527) NEUTROPHILS RELATIVE PERCENT (BEAKER) (test 63 % wkar=359) LYMPHOCYTES RELATIVE PERCENT (BEAKER) (test 25 % xnfe=144) MONOCYTES RELATIVE PERCENT (BEAKER) (test 10 % eqmr=718) EOSINOPHILS RELATIVE PERCENT (BEAKER) (test 1 % koyc=800) BASOPHILS RELATIVE PERCENT (BEAKER) (test 0 % jlrd=910) NEUTROPHILS ABSOLUTE COUNT (BEAKER) (test 3.77 K/ L 1.56-6.13 vmgb=749) LYMPHOCYTES ABSOLUTE COUNT (BEAKER) (test 1.52 K/ L 1.18-3.74 mnlc=691) MONOCYTES ABSOLUTE COUNT (BEAKER) (test 0.60 K/ L 0.24-0.36 euvi=554) EOSINOPHILS ABSOLUTE COUNT (BEAKER) (test 0.06 K/ L 0.04-0.36 brgw=694) BASOPHILS ABSOLUTE COUNT (BEAKER) (test 0.01 K/ L 0.01-0.08 jsjn=606) IMMATURE GRANULOCYTES-RELATIVE PERCENT (BEAKER) 1 % 0-1 (test rqlu=7494) BASIC METABOLIC [id number] 01:50:00 Test Item Value Reference Range Comments SODIUM (BEAKER) (test 132 meq/L 136-145 dnjg=582) POTASSIUM (BEAKER) (test 4.3 meq/L 3.5-5.1 mqpt=281) CHLORIDE (BEAKER) (test 93 meq/L 98-107 bcuo=379) CO2 (BEAKER) (test 28 meq/L 22-29 iuph=294) BLOOD UREA NITROGEN 55 mg/dL 7-21 (BEAKER) (test fyhk=359) CREATININE (BEAKER) (test 2.23 mg/dL 0.57-1.25 tdmu=538) GLUCOSE RANDOM (BEAKER) 405 mg/dL 70-105 (test rbln=990) CALCIUM (BEAKER) (test 9.3 mg/dL 8.4-10.2 qtxd=913) EGFR (BEAKER) (test 22 mL/min/1.73 sq m ESTIMATED GFR IS NOT idfd=9824) ACCURATE CREATININE CLEARANCE IN PREDICTING GLOMERULAR FILTRATION RATE. ESTIMATED GFR IS NOT APPLICABLE FOR DIALYSIS PATIENTS. POCT-GLUCOSE [id number] 00:04:00 Test Item Value Reference Range Comments POC-GLUCOSE METER (BEAKER) 414 mg/dL 70-110 Notified VINAY PEÑA/TESTED AT [facility] (test iwih=1273) [address] [facility] [address] [id number] 23:28:00 Test Item Value Reference Range Comments PARTIAL THROMBOPLASTIN TIME (BEAKER) (test 35.0 seconds 22.5-36.0 hayk=437) [id number] 17:33:00 Test Item Value Reference Range Comments MAGNESIUM (BEAKER) (test 2.3 mg/dL 1.6-2.6 Specimen slightly hemolyzed xdjg=380) Check Serum Potassium level 2 hours after oral potassium replacement completed or 30 min after intravenous potassium replacement.POCT-GLUCOSE [id number] 17:30:00 Test Item Value Reference Range Comments POC-GLUCOSE METER (BEAKER) 380 mg/dL 70-110 TESTED AT [address] (test wsmx=3676) [place] [address] [id number] 16:12:00 Test Item Value Reference Range Comments POTASSIUM (BEAKER) (test 5.3 meq/L 3.5-5.1 Specimen slightly hemolyzed lzjg=566) Check Serum Potassium level 2 hours after oral potassium replacement completed or 30 min after intravenous potassium replacement.[id number] 15:59:00 Test Item Value Reference Range Comments PARTIAL THROMBOPLASTIN TIME (BEAKER) (test 27.6 seconds 22.5-36.0 odjy=541) POCT-GLUCOSE [id number] 15:50:00 Test Item Value Reference Range Comments POC-GLUCOSE METER (BEAKER) 333 mg/dL 70-110 TESTED AT [address] (test niil=5582) [place] [address] [id number] 13:18:00 Test Item Value Reference Range Comments PARTIAL THROMBOPLASTIN TIME (BEAKER) (test > seconds 22.5-36.0 isxm=717) [id number] 08:30:00 Test Item Value Reference Range Comments POTASSIUM (BEAKER) (test roaf=582) 4.2 meq/L 3.5-5.1 Check Serum Potassium level 2 hours after oral potassium replacement completed or 30 min after intravenous potassium replacement.[id number] 08:30:00 Test Item Value Reference Range Comments MAGNESIUM (BEAKER) (test jxsj=883) 1.9 mg/dL 1.6-2.6 Check Serum Potassium level 2 hours after oral potassium replacement completed or 30 min after intravenous potassium replacement.[id number] 03:08:00 Test Item Value Reference Range Comments PARTIAL THROMBOPLASTIN TIME (BEAKER) (test 75.9 seconds 22.5-36.0 koqf=561) [id number] 03:02:00 Test Item Value Reference Range Comments MAGNESIUM (BEAKER) (test sfxg=724) 1.7 mg/dL 1.6-2.6 BASIC METABOLIC [id number] 03:02:00 Test Item Value Reference Range Comments SODIUM (BEAKER) (test 140 meq/L 136-145 bryh=103) POTASSIUM (BEAKER) (test 4.2 meq/L 3.5-5.1 tpwg=505) CHLORIDE (BEAKER) (test 99 meq/L 98-107 zjyh=899) CO2 (BEAKER) (test 29 meq/L 22-29 zrzj=929) BLOOD UREA NITROGEN 38 mg/dL 7-21 (BEAKER) (test jhxl=147) CREATININE (BEAKER) (test 1.50 mg/dL 0.57-1.25 fvzc=983) GLUCOSE RANDOM (BEAKER) 212 mg/dL 70-105 (test cmxe=396) CALCIUM (BEAKER) (test 10.1 mg/dL 8.4-10.2 zuyp=690) EGFR (BEAKER) (test 35 mL/min/1.73 sq m ESTIMATED GFR IS NOT urds=9554) ACCURATE CREATININE CLEARANCE IN PREDICTING GLOMERULAR FILTRATION RATE. ESTIMATED GFR IS NOT APPLICABLE FOR DIALYSIS PATIENTS. CBC W/PLT COUNT & AUTO [id number] 02:56:00 Test Item Value Reference Range Comments WHITE BLOOD CELL COUNT (BEAKER) (test bqbm=101) 5.6 K/ L 3.5-10.5 RED BLOOD CELL COUNT (BEAKER) (test dpin=995) 3.96 M/ L 3.93-5.22 HEMOGLOBIN (BEAKER) (test bgyn=883) 11.7 GM/DL 11.2-15.7 HEMATOCRIT (BEAKER) (test xbuw=562) 35.8 % 34.1-44.9 MEAN CORPUSCULAR VOLUME (BEAKER) (test jfqw=144) 90.4 fL 79.4-94.8 MEAN CORPUSCULAR HEMOGLOBIN (BEAKER) (test 29.5 pg 25.6-32.2 ahla=481) MEAN CORPUSCULAR HEMOGLOBIN CONC (BEAKER) (test 32.7 GM/DL 32.2-35.5 qnbl=359) RED CELL DISTRIBUTION WIDTH (BEAKER) (test 15.0 % 11.7-14.4 bsjj=392) PLATELET COUNT (BEAKER) (test iyii=254) 220 K/CU MM 150-450 MEAN PLATELET VOLUME (BEAKER) (test enxy=770) 11.2 fL 9.4-12.3 NUCLEATED RED BLOOD CELLS (BEAKER) (test 0 /100 WBC 0-0 mmhi=996) NEUTROPHILS RELATIVE PERCENT (BEAKER) (test 86 % ktja=614) LYMPHOCYTES RELATIVE PERCENT (BEAKER) (test 10 % eeed=819) MONOCYTES RELATIVE PERCENT (BEAKER) (test 2 % pzch=400) EOSINOPHILS RELATIVE PERCENT (BEAKER) (test 1 % ccbu=808) BASOPHILS RELATIVE PERCENT (BEAKER) (test 0 % qrti=903) NEUTROPHILS ABSOLUTE COUNT (BEAKER) (test 4.78 K/ L 1.56-6.13 gjpt=927) LYMPHOCYTES ABSOLUTE COUNT (BEAKER) (test 0.58 K/ L 1.18-3.74 cvrj=273) MONOCYTES ABSOLUTE COUNT (BEAKER) (test 0.13 K/ L 0.24-0.36 irgy=262) EOSINOPHILS ABSOLUTE COUNT (BEAKER) (test 0.05 K/ L 0.04-0.36 tpen=456) BASOPHILS ABSOLUTE COUNT (BEAKER) (test 0.01 K/ L 0.01-0.08 xlai=654) IMMATURE GRANULOCYTES-RELATIVE PERCENT (BEAKER) 1 % 0-1 (test zhgi=8866) [id number] 01:03:00 Test Item Value Reference Range Comments PARTIAL THROMBOPLASTIN TIME (BEAKER) (test 167.2 seconds 22.5-36.0 jktq=617) Prior to initiating [id number] 23:11:00 Test Item Value Reference Range Comments ACTIVATED CLOTTING TIME 252 sec TESTED AT [address] ([facility]) (test uqtm=754) [place] [address] [id number] 23:11:00 Test Item Value Reference Range Comments ACTIVATED CLOTTING TIME 158 sec TESTED AT [address] ([facility]) (test syce=701) [place] [address] B-TYPE NATRIURETIC FACTOR (BNP)2018-05-31 14:28:00 Test Item Value Reference Range Comments B-TYPE NATRIURETIC PEPTIDE (BEAKER) (test 793 pg/mL 0-100 fkru=490) [id number] 14:25:00 Test Item Value Reference Range Comments MAGNESIUM (BEAKER) (test vxlx=993) 1.4 mg/dL 1.6-2.6 BASIC METABOLIC [id number] 14:25:00 Test Item Value Reference Range Comments SODIUM (BEAKER) (test 137 meq/L 136-145 zgzv=580) POTASSIUM (BEAKER) (test 3.8 meq/L 3.5-5.1 zyvm=943) CHLORIDE (BEAKER) (test 100 meq/L 98-107 tpku=059) CO2 (BEAKER) (test 29 meq/L 22-29 btaf=289) BLOOD UREA NITROGEN 30 mg/dL 7-21 (BEAKER) (test whms=097) CREATININE (BEAKER) (test 1.50 mg/dL 0.57-1.25 xybc=259) GLUCOSE RANDOM (BEAKER) 215 mg/dL 70-105 (test swzc=605) CALCIUM (BEAKER) (test 9.6 mg/dL 8.4-10.2 jsvu=461) EGFR (BEAKER) (test 35 mL/min/1.73 sq m ESTIMATED GFR IS NOT ztqp=6551) ACCURATE CREATININE CLEARANCE IN PREDICTING GLOMERULAR FILTRATION RATE. ESTIMATED GFR IS NOT APPLICABLE FOR DIALYSIS PATIENTS. POCT-GLUCOSE [id number] 16:42:00 Test Item Value Reference Range Comments POC-GLUCOSE METER (BEAKER) 175 mg/dL 70-110 TESTED AT [address] (test cjly=6195) [place] [id number] POCT-GLUCOSE [id number] 10:41:00 Test Item Value Reference Range Comments POC-GLUCOSE METER (BEAKER) 179 mg/dL 70-110 TESTED AT [address] (test hvbj=4056) [place] [id number] 07:34:00 Test Item Value Reference Range Comments MAGNESIUM (BEAKER) (test ojzj=231) 1.8 mg/dL 1.6-2.6 BASIC METABOLIC [id number] 07:34:00 Test Item Value Reference Range Comments SODIUM (BEAKER) (test 138 meq/L 136-145 meys=986) POTASSIUM (BEAKER) (test 4.2 meq/L 3.5-5.1 knqh=422) CHLORIDE (BEAKER) (test 101 meq/L 98-107 muez=297) CO2 (BEAKER) (test 26 meq/L 22-29 rulx=615) BLOOD UREA NITROGEN 42 mg/dL 7-21 (BEAKER) (test tvyr=731) CREATININE (BEAKER) (test 1.47 mg/dL 0.57-1.25 wpor=850) GLUCOSE RANDOM (BEAKER) 152 mg/dL 70-105 (test yxnt=425) CALCIUM (BEAKER) (test 9.4 mg/dL 8.4-10.2 ielg=713) EGFR (BEAKER) (test 36 mL/min/1.73 sq m ESTIMATED GFR IS NOT qeto=8410) ACCURATE CREATININE CLEARANCE IN PREDICTING GLOMERULAR FILTRATION RATE. ESTIMATED GFR IS NOT APPLICABLE FOR DIALYSIS PATIENTS. CBC W/PLT COUNT & AUTO [id number] 07:21:00 Test Item Value Reference Range Comments WHITE BLOOD CELL COUNT (BEAKER) (test arou=013) 5.6 K/ L 3.5-10.5 RED BLOOD CELL COUNT (BEAKER) (test uufe=442) 2.87 M/ L 3.93-5.22 HEMOGLOBIN (BEAKER) (test jocf=435) 8.4 GM/DL 11.2-15.7 HEMATOCRIT (BEAKER) (test rdaz=204) 26.9 % 34.1-44.9 MEAN CORPUSCULAR VOLUME (BEAKER) (test vdpw=525) 93.7 fL 79.4-94.8 MEAN CORPUSCULAR HEMOGLOBIN (BEAKER) (test 29.3 pg 25.6-32.2 ochv=877) MEAN CORPUSCULAR HEMOGLOBIN CONC (BEAKER) (test 31.2 GM/DL 32.2-35.5 wrrv=525) RED CELL DISTRIBUTION WIDTH (BEAKER) (test 16.3 % 11.7-14.4 dhou=632) PLATELET COUNT (BEAKER) (test iwke=529) 273 K/CU MM 150-450 MEAN PLATELET VOLUME (BEAKER) (test rfnt=832) 11.0 fL 9.4-12.3 NUCLEATED RED BLOOD CELLS (BEAKER) (test 0 /100 WBC 0-0 zthe=766) NEUTROPHILS RELATIVE PERCENT (BEAKER) (test 65 % gezj=783) LYMPHOCYTES RELATIVE PERCENT (BEAKER) (test 17 % kxga=044) MONOCYTES RELATIVE PERCENT (BEAKER) (test 9 % xanb=579) EOSINOPHILS RELATIVE PERCENT (BEAKER) (test 3 % ocqy=313) BASOPHILS RELATIVE PERCENT (BEAKER) (test 0 % slau=259) NEUTROPHILS ABSOLUTE COUNT (BEAKER) (test 3.63 K/ L 1.56-6.13 fxfr=582) LYMPHOCYTES ABSOLUTE COUNT (BEAKER) (test 0.96 K/ L 1.18-3.74 iwfl=599) MONOCYTES ABSOLUTE COUNT (BEAKER) (test 0.53 K/ L 0.24-0.36 ibri=685) EOSINOPHILS ABSOLUTE COUNT (BEAKER) (test 0.17 K/ L 0.04-0.36 qmbh=172) BASOPHILS ABSOLUTE COUNT (BEAKER) (test 0.02 K/ L 0.01-0.08 ulap=616) IMMATURE GRANULOCYTES-RELATIVE PERCENT (BEAKER) 5 % 0-1 (test krzb=1803) POCT-GLUCOSE [id number] 22:08:00 Test Item Value Reference Range Comments POC-GLUCOSE METER (BEAKER) 268 mg/dL 70-110 TESTED AT [address] (test cjtl=3894) [place] [id number] POCT-GLUCOSE [id number] 18:11:00 Test Item Value Reference Range Comments POC-GLUCOSE METER (BEAKER) 227 mg/dL 70-110 TESTED AT [address] (test ittk=7134) [place] [id number] CBC W/PLT COUNT & AUTO [id number] 11:15:00 Test Item Value Reference Range Comments WHITE BLOOD CELL COUNT (BEAKER) (test gqnp=162) 6.6 K/ L 3.5-10.5 RED BLOOD CELL COUNT (BEAKER) (test gjyl=622) 2.98 M/ L 3.93-5.22 HEMOGLOBIN (BEAKER) (test rnyp=654) 8.6 GM/DL 11.2-15.7 HEMATOCRIT (BEAKER) (test qjdp=443) 27.5 % 34.1-44.9 MEAN CORPUSCULAR VOLUME (BEAKER) (test limf=631) 92.3 fL 79.4-94.8 MEAN CORPUSCULAR HEMOGLOBIN (BEAKER) (test 28.9 pg 25.6-32.2 qqcg=679) MEAN CORPUSCULAR HEMOGLOBIN CONC (BEAKER) (test 31.3 GM/DL 32.2-35.5 fllf=808) RED CELL DISTRIBUTION WIDTH (BEAKER) (test 16.1 % 11.7-14.4 lygg=224) PLATELET COUNT (BEAKER) (test olzp=452) 284 K/CU MM 150-450 MEAN PLATELET VOLUME (BEAKER) (test qgnh=573) 10.8 fL 9.4-12.3 NUCLEATED RED BLOOD CELLS (BEAKER) (test 0 /100 WBC 0-0 sssq=172) (CELLAVISION MANUAL DIFF)2018-05-23 11:15:00 Test Item Value Reference Range Comments NEUTROPHILS - REL (CELLAVISION)(BEAKER) (test 60 % lljz=5853) LYMPHOCYTES - REL (CELLAVISION)(BEAKER) (test 20 % zrws=4324) MONOCYTES - REL (CELLAVISION)(BEAKER) (test 7 % xhbw=6536) EOSINOPHILS - REL (CELLAVISION)(BEAKER) (test 2 % zxwx=5611) BASOPHILS - REL (CELLAVISION)(BEAKER) (test 1 % brdv=8176) METAMYELOCYTES - REL (CELLAVISION)(BEAKER) (test 2 % 0-0 mcfu=2370) MYELOCYTES - REL (CELLAVISION)(BEAKER) (test 3 % 0-0 tsdy=8149) BANDS - REL (CELLAVISION)(BEAKER) (test 5 % 0-10 unti=9380) NEUTROPHILS - ABS (CELLAVISION)(BEAKER) (test 3.96 K/ul 1.56-6.13 knrz=6314) LYMPHOCYTES - ABS (CELLAVISION)(BEAKER) (test 1.32 K/ul 1.18-3.74 nnsc=4001) MONOCYTES - ABS (CELLAVISION)(BEAKER) (test 0.46 K/uL 0.24-0.36 ycdm=4822) EOSINOPHILS - ABS (CELLAVISION)(BEAKER) (test 0.13 K/uL 0.04-0.36 albb=0909) BASOPHILS - ABS (CELLAVISION)(BEAKER) (test 0.07 K/uL 0.01-0.08 fgok=4580) METAMYELOCYTES - ABS (CELLAVISION)(BEAKER) (test 0.13 K/uL 0.00-0.00 wjfr=8893) MYELOCYTES-ABS (CELLAVISION)(BEAKER) (test 0.20 K/uL 0.00-0.00 umda=7517) BANDS - ABS (CELLAVISION)(BEAKER) (test 0.33 K/uL 0.00-0.80 tpgf=7421) TOTAL COUNTED (BEAKER) (test bwlk=5090) 100 MANUAL NRBC PER 100 CELLS (BEAKER) (test 1 /100 WBC 0-0 vgdk=5079) WBC MORPHOLOGY (BEAKER) (test yqca=525) Normal PLT MORPHOLOGY (BEAKER) (test njpm=111) Normal POLYCHROMATOPHILLIC RBCS(BEAKER) (test zmiz=778) 1+ few ANISOCYTOSIS (BEAKER) (test hgck=416) 1+ few ARTIFACT (CELLAVISION)(BEAKER) (test qvml=5697) Present PLATELET CONCENTRATION (CELLAVISION)(BEAKER) Adequate (test nksp=3448) Received comment: User comments: Slide comments:POCT-GLUCOSE [id number] 10: 18:00 Test Item Value Reference Range Comments POC-GLUCOSE METER (BEAKER) 220 mg/dL 70-110 TESTED AT [facility] [address] [facility] (test ucry=5892) [facility] [address] [id number] 06:39:00 Test Item Value Reference Range Comments MAGNESIUM (BEAKER) (test mibn=273) 1.8 mg/dL 1.6-2.6 BASIC METABOLIC [id number] 06:39:00 Test Item Value Reference Range Comments SODIUM (BEAKER) (test 137 meq/L 136-145 rfjl=262) POTASSIUM (BEAKER) (test 4.1 meq/L 3.5-5.1 fgro=829) CHLORIDE (BEAKER) (test 100 meq/L 98-107 cwft=159) CO2 (BEAKER) (test 28 meq/L 22-29 hdjt=999) BLOOD UREA NITROGEN 45 mg/dL 7-21 (BEAKER) (test oxan=563) CREATININE (BEAKER) (test 1.62 mg/dL 0.57-1.25 vmty=024) GLUCOSE RANDOM (BEAKER) 209 mg/dL 70-105 (test ciih=759) CALCIUM (BEAKER) (test 9.4 mg/dL 8.4-10.2 tsip=676) EGFR (BEAKER) (test 32 mL/min/1.73 sq m ESTIMATED GFR IS NOT rhjk=6464) ACCURATE CREATININE CLEARANCE IN PREDICTING GLOMERULAR FILTRATION RATE. ESTIMATED GFR IS NOT APPLICABLE FOR DIALYSIS PATIENTS. POCT-GLUCOSE [id number] 23:32:00 Test Item Value Reference Range Comments POC-GLUCOSE METER (BEAKER) 87 mg/dL 70-110 TESTED AT [address] (test aenr=3087) [place] [id number] POCT-GLUCOSE [id number] 21:15:00 Test Item Value Reference Range Comments POC-GLUCOSE METER (BEAKER) 141 mg/dL 70-110 TESTED AT [address] (test gjvg=5816) [place] [id number] POCT-GLUCOSE [id number] 14:36:00 Test Item Value Reference Range Comments POC-GLUCOSE METER (BEAKER) 136 mg/dL 70-110 TESTED AT [address] (test hmkw=5125) [place] [id number] CBC W/PLT COUNT & AUTO [id number] 11:32:00 Test Item Value Reference Range Comments WHITE BLOOD CELL COUNT (BEAKER) (test askg=795) 8.5 K/ L 3.5-10.5 RED BLOOD CELL COUNT (BEAKER) (test jdxq=386) 3.39 M/ L 3.93-5.22 HEMOGLOBIN (BEAKER) (test lezp=197) 10.0 GM/DL 11.2-15.7 HEMATOCRIT (BEAKER) (test vbqi=174) 32.4 % 34.1-44.9 MEAN CORPUSCULAR VOLUME (BEAKER) (test ryvy=135) 95.6 fL 79.4-94.8 MEAN CORPUSCULAR HEMOGLOBIN (BEAKER) (test 29.5 pg 25.6-32.2 rxdx=835) MEAN CORPUSCULAR HEMOGLOBIN CONC (BEAKER) (test 30.9 GM/DL 32.2-35.5 fcul=574) RED CELL DISTRIBUTION WIDTH (BEAKER) (test 15.8 % 11.7-14.4 lovm=299) PLATELET COUNT (BEAKER) (test fece=822) 292 K/CU MM 150-450 MEAN PLATELET VOLUME (BEAKER) (test dzde=351) 11.0 fL 9.4-12.3 NUCLEATED RED BLOOD CELLS (BEAKER) (test 0 /100 WBC 0-0 yxqz=651) (MANUAL DIFFERENTIAL)2018-05-22 11:32:00 Test Item Value Reference Range Comments NEUTROPHILS - REL (DIFF) (BEAKER) (test 67 % lkwv=4560) LYMPHOCYTES - REL (DIFF) (BEAKER) (test 22 % vpgx=2365) MONOCYTES - REL (DIFF) (BEAKER) (test greb=2528) 4 % EOSINOPHILS - REL (DIFF) (BEAKER) (test 4 % fvyv=6752) MYELOCYTES-REL (DIFF) (BEAKER) (test msdk=0642) 2 % 0-0 BANDS - REL (DIFF) (BEAKER) (test fkpa=6686) 1 % 0-10 NEUTROPHILS - ABS (DIFF) (BEAKER) (test 5.70 K/ L 1.80-8.00 rqjx=9920) LYMPHOCYTES - ABS (DIFF) (BEAKER) (test 1.87 K/ L 1.48-4.50 nmvy=1486) MONOCYTES - ABS (DIFF) (BEAKER) (test sogv=1345) 0.34 K/ L 0.00-1.30 EOSINOPHILS - ABS (DIFF) (BEAKER) (test 0.34 K/ L 0.00-0.50 kdrj=0336) BANDS-ABS (DIFF) (BEAKER) (test sgrp=6982) 0.1 K/ L 0.0-0.8 MYELOCYTES-ABS (DIFF) (BEAKER) (test pymm=2671) 0.17 K/ L 0.00-0.00 TOTAL COUNTED (BEAKER) (test aqta=1433) 100 BANDS + SEGMENTED NEUTROPHILS (BEAKER) (test 5.78 mmxk=5682) MANUAL NRBC PER 100 CELLS (BEAKER) (test 1 /100 WBC 0-0 uooj=4564) WBC MORPHOLOGY (BEAKER) (test eqxr=828) Normal PLT MORPHOLOGY (BEAKER) (test bvcl=608) Normal RBC MORPHOLOGY (BEAKER) (test cwei=879) Normal POCT-GLUCOSE [id number] 10:31:00 Test Item Value Reference Range Comments POC-GLUCOSE METER (BEAKER) 102 mg/dL 70-110 TESTED AT [address] (test olly=7898) [facility] [address] [id number] 10:15:00 Test Item Value Reference Range Comments MAGNESIUM (BEAKER) (test tbjd=451) 1.8 mg/dL 1.6-2.6 BASIC METABOLIC [id number] 10:15:00 Test Item Value Reference Range Comments SODIUM (BEAKER) (test 138 meq/L 136-145 qdvq=772) POTASSIUM (BEAKER) (test 4.2 meq/L 3.5-5.1 cgyh=597) CHLORIDE (BEAKER) (test 100 meq/L 98-107 mlzb=387) CO2 (BEAKER) (test 29 meq/L 22-29 wkch=435) BLOOD UREA NITROGEN 42 mg/dL 7-21 (BEAKER) (test qqzy=607) CREATININE (BEAKER) (test 1.41 mg/dL 0.57-1.25 hibz=828) GLUCOSE RANDOM (BEAKER) 89 mg/dL 70-105 (test uecf=493) CALCIUM (BEAKER) (test 9.5 mg/dL 8.4-10.2 caeh=603) EGFR (BEAKER) (test 38 mL/min/1.73 sq m ESTIMATED GFR IS NOT eonu=1208) ACCURATE CREATININE CLEARANCE IN PREDICTING GLOMERULAR FILTRATION RATE. ESTIMATED GFR IS NOT APPLICABLE FOR DIALYSIS PATIENTS. POCT-GLUCOSE [id number] 22:02:00 Test Item Value Reference Range Comments POC-GLUCOSE METER (BEAKER) 175 mg/dL 70-110 TESTED AT [address] (test gcmx=9376) [facility] [address] POCT-GLUCOSE [id number] 17:16:00 Test Item Value Reference Range Comments POC-GLUCOSE METER (BEAKER) 212 mg/dL 70-110 TESTED AT [address] (test weln=4703) [facility] [address] POCT-GLUCOSE [id number] 13:19:00 Test Item Value Reference Range Comments POC-GLUCOSE METER (BEAKER) 160 mg/dL 70-110 TESTED AT [facility] [address] (test tyxv=3588) [place] [address] CBC W/PLT COUNT & AUTO [id number] 11:02:00 Test Item Value Reference Range Comments WHITE BLOOD CELL COUNT (BEAKER) (test hnsp=537) 6.8 K/ L 3.5-10.5 RED BLOOD CELL COUNT (BEAKER) (test cgff=928) 3.15 M/ L 3.93-5.22 HEMOGLOBIN (BEAKER) (test matk=829) 9.2 GM/DL 11.2-15.7 HEMATOCRIT (BEAKER) (test urll=053) 29.1 % 34.1-44.9 MEAN CORPUSCULAR VOLUME (BEAKER) (test elks=446) 92.4 fL 79.4-94.8 MEAN CORPUSCULAR HEMOGLOBIN (BEAKER) (test 29.2 pg 25.6-32.2 hwpf=174) MEAN CORPUSCULAR HEMOGLOBIN CONC (BEAKER) (test 31.6 GM/DL 32.2-35.5 htfc=318) RED CELL DISTRIBUTION WIDTH (BEAKER) (test 15.6 % 11.7-14.4 lejd=455) PLATELET COUNT (BEAKER) (test nbph=798) 249 K/CU MM 150-450 MEAN PLATELET VOLUME (BEAKER) (test cfrr=178) 11.1 fL 9.4-12.3 NUCLEATED RED BLOOD CELLS (BEAKER) (test 0 /100 WBC 0-0 zlug=195) (CELLAVISION MANUAL DIFF)2018-05-21 11:02:00 Test Item Value Reference Range Comments NEUTROPHILS - REL (CELLAVISION)(BEAKER) (test 68 % hohg=8076) LYMPHOCYTES - REL (CELLAVISION)(BEAKER) (test 14 % yspb=5782) MONOCYTES - REL (CELLAVISION)(BEAKER) (test 6 % lkkv=1340) EOSINOPHILS - REL (CELLAVISION)(BEAKER) (test 2 % nqhp=5688) MYELOCYTES - REL (CELLAVISION)(BEAKER) (test 1 % 0-0 tkwy=0219) BANDS - REL (CELLAVISION)(BEAKER) (test 9 % 0-10 iulc=8883) NEUTROPHILS - ABS (CELLAVISION)(BEAKER) (test 4.62 K/ul 1.56-6.13 cdqc=4996) LYMPHOCYTES - ABS (CELLAVISION)(BEAKER) (test 0.95 K/ul 1.18-3.74 pues=7339) MONOCYTES - ABS (CELLAVISION)(BEAKER) (test 0.41 K/uL 0.24-0.36 fhej=8040) EOSINOPHILS - ABS (CELLAVISION)(BEAKER) (test 0.14 K/uL 0.04-0.36 xnss=7091) MYELOCYTES-ABS (CELLAVISION)(BEAKER) (test 0.07 K/uL 0.00-0.00 rito=9485) BANDS - ABS (CELLAVISION)(BEAKER) (test 0.61 K/uL 0.00-0.80 mgsr=4628) TOTAL COUNTED (BEAKER) (test cjyf=6687) 100 WBC MORPHOLOGY (BEAKER) (test ljvt=475) Normal PLT MORPHOLOGY (BEAKER) (test cndc=509) Normal ANISOCYTOSIS (BEAKER) (test xslu=530) 2+ moderate MICROCYTES (BEAKER) (test wcrr=808) 1+ few SPHEROCYTES (BEAKER) (test hxtg=255) 2+ moderate ARTIFACT (CELLAVISION)(BEAKER) (test hwce=0585) Present PLATELET CONCENTRATION (CELLAVISION)(BEAKER) Adequate (test hcyb=3572) Received comment: User comments: Slide comments:POCT-GLUCOSE [id number] 08: 47:00 Test Item Value Reference Range Comments POC-GLUCOSE METER (BEAKER) 167 mg/dL 70-110 TESTED AT [facility] [address] [facility] (test tllt=2565) [facility] [address] T4, [id number] 08:07:00 Test Item Value Reference Range Comments FREE T4 (BEAKER) (test qydf=729) 1.05 ng/dL 0.70-1.48 [id number] 08:06:00 Test Item Value Reference Range Comments MAGNESIUM (BEAKER) (test rotf=009) 2.0 mg/dL 1.6-2.6 BASIC METABOLIC [id number] 08:06:00 Test Item Value Reference Range Comments SODIUM (BEAKER) (test 136 meq/L 136-145 afia=246) POTASSIUM (BEAKER) (test 4.4 meq/L 3.5-5.1 zujv=754) CHLORIDE (BEAKER) (test 99 meq/L 98-107 beep=142) CO2 (BEAKER) (test 30 meq/L 22-29 bfvv=981) BLOOD UREA NITROGEN 50 mg/dL 7-21 (BEAKER) (test wyyq=537) CREATININE (BEAKER) (test 1.46 mg/dL 0.57-1.25 itzz=840) GLUCOSE RANDOM (BEAKER) 125 mg/dL 70-105 (test szta=117) CALCIUM (BEAKER) (test 9.4 mg/dL 8.4-10.2 gjye=824) EGFR (BEAKER) (test 36 mL/min/1.73 sq m ESTIMATED GFR IS NOT oemj=0085) ACCURATE CREATININE CLEARANCE IN PREDICTING GLOMERULAR FILTRATION RATE. ESTIMATED GFR IS NOT APPLICABLE FOR DIALYSIS PATIENTS. POCT-GLUCOSE [id number] 21:49:00 Test Item Value Reference Range Comments POC-GLUCOSE METER (BEAKER) 168 mg/dL 70-110 TESTED AT [address] (test izaj=4409) [place] [address] POCT-GLUCOSE [id number] 17:16:00 Test Item Value Reference Range Comments POC-GLUCOSE METER (BEAKER) 183 mg/dL 70-110 TESTED AT [address] (test dyho=2431) [place] [address] POCT-GLUCOSE [id number] 15:16:00 Test Item Value Reference Range Comments POC-GLUCOSE METER (BEAKER) 123 mg/dL 70-110 TESTED AT [address] (test uyoc=0487) [place] [address] POCT-GLUCOSE [id number] 09:11:00 Test Item Value Reference Range Comments POC-GLUCOSE METER (BEAKER) 107 mg/dL 70-110 TESTED AT [address] (test cnil=5549) [place] [address] [id number] 07:05:00 Test Item Value Reference Range Comments MAGNESIUM (BEAKER) (test emuf=569) 2.1 mg/dL 1.6-2.6 BASIC METABOLIC [id number] 07:05:00 Test Item Value Reference Range Comments SODIUM (BEAKER) (test 138 meq/L 136-145 sirs=393) POTASSIUM (BEAKER) (test 4.3 meq/L 3.5-5.1 haqo=438) CHLORIDE (BEAKER) (test 100 meq/L 98-107 ghww=939) CO2 (BEAKER) (test 29 meq/L 22-29 whoa=326) BLOOD UREA NITROGEN 52 mg/dL 7-21 (BEAKER) (test djee=438) CREATININE (BEAKER) (test 1.47 mg/dL 0.57-1.25 xmto=992) GLUCOSE RANDOM (BEAKER) 89 mg/dL 70-105 (test sols=040) CALCIUM (BEAKER) (test 9.6 mg/dL 8.4-10.2 ykic=960) EGFR (BEAKER) (test 36 mL/min/1.73 sq m ESTIMATED GFR IS NOT nerl=6148) ACCURATE CREATININE CLEARANCE IN PREDICTING GLOMERULAR FILTRATION RATE. ESTIMATED GFR IS NOT APPLICABLE FOR DIALYSIS PATIENTS. CBC W/PLT COUNT & AUTO [id number] 06:18:00 Test Item Value Reference Range Comments WHITE BLOOD CELL COUNT (BEAKER) (test zira=467) 6.5 K/ L 3.5-10.5 RED BLOOD CELL COUNT (BEAKER) (test xnfy=237) 3.03 M/ L 3.93-5.22 HEMOGLOBIN (BEAKER) (test lxhh=665) 8.8 GM/DL 11.2-15.7 HEMATOCRIT (BEAKER) (test qquj=483) 27.7 % 34.1-44.9 MEAN CORPUSCULAR VOLUME (BEAKER) (test jrlp=013) 91.4 fL 79.4-94.8 MEAN CORPUSCULAR HEMOGLOBIN (BEAKER) (test 29.0 pg 25.6-32.2 hist=688) MEAN CORPUSCULAR HEMOGLOBIN CONC (BEAKER) (test 31.8 GM/DL 32.2-35.5 vkfn=039) RED CELL DISTRIBUTION WIDTH (BEAKER) (test 15.2 % 11.7-14.4 tsqf=862) PLATELET COUNT (BEAKER) (test smpy=087) 265 K/CU MM 150-450 MEAN PLATELET VOLUME (BEAKER) (test qpsb=732) 11.1 fL 9.4-12.3 NUCLEATED RED BLOOD CELLS (BEAKER) (test 0 /100 WBC 0-0 fjjq=580) NEUTROPHILS RELATIVE PERCENT (BEAKER) (test 62 % hhfm=622) LYMPHOCYTES RELATIVE PERCENT (BEAKER) (test 22 % qtuo=483) MONOCYTES RELATIVE PERCENT (BEAKER) (test 8 % hals=447) EOSINOPHILS RELATIVE PERCENT (BEAKER) (test 3 % ihle=637) BASOPHILS RELATIVE PERCENT (BEAKER) (test 0 % qnqk=459) NEUTROPHILS ABSOLUTE COUNT (BEAKER) (test 4.03 K/ L 1.56-6.13 erob=124) LYMPHOCYTES ABSOLUTE COUNT (BEAKER) (test 1.40 K/ L 1.18-3.74 ilyg=317) MONOCYTES ABSOLUTE COUNT (BEAKER) (test 0.53 K/ L 0.24-0.36 pqba=121) EOSINOPHILS ABSOLUTE COUNT (BEAKER) (test 0.18 K/ L 0.04-0.36 vzab=498) BASOPHILS ABSOLUTE COUNT (BEAKER) (test 0.02 K/ L 0.01-0.08 xhss=232) IMMATURE GRANULOCYTES-RELATIVE PERCENT (BEAKER) 5 % 0-1 (test jsqg=1101) POCT-GLUCOSE [id number] 06:12:00 Test Item Value Reference Range Comments POC-GLUCOSE METER (BEAKER) 107 mg/dL 70-110 TESTED AT [address] (test hvwu=3578) [facility] [address] POCT-GLUCOSE [id number] 21:49:00 Test Item Value Reference Range Comments POC-GLUCOSE METER (BEAKER) 180 mg/dL 70-110 TESTED AT [address] (test yfeb=2037) [facility] [address] POCT-GLUCOSE [id number] 17:56:00 Test Item Value Reference Range Comments POC-GLUCOSE METER (BEAKER) 224 mg/dL 70-110 TESTED AT [address] (test rlmk=6154) [place] [address] POCT-GLUCOSE [id number] 12:54:00 Test Item Value Reference Range Comments POC-GLUCOSE METER (BEAKER) 200 mg/dL 70-110 TESTED AT [address] (test hejv=9752) [place] [id number] POCT-GLUCOSE [id number] 09:10:00 Test Item Value Reference Range Comments POC-GLUCOSE METER (BEAKER) 175 mg/dL 70-110 TESTED AT [facility] [address] (test wyfi=8863) [facility] [address] [id number] 07:19:00 Test Item Value Reference Range Comments MAGNESIUM (BEAKER) (test wtsr=812) 2.0 mg/dL 1.6-2.6 BASIC METABOLIC [id number] 07:19:00 Test Item Value Reference Range Comments SODIUM (BEAKER) (test 135 meq/L 136-145 tpnw=744) POTASSIUM (BEAKER) (test 4.2 meq/L 3.5-5.1 yikv=899) CHLORIDE (BEAKER) (test 99 meq/L 98-107 drlj=153) CO2 (BEAKER) (test 28 meq/L 22-29 sfds=415) BLOOD UREA NITROGEN 58 mg/dL 7-21 (BEAKER) (test axoj=201) CREATININE (BEAKER) (test 1.41 mg/dL 0.57-1.25 bdds=327) GLUCOSE RANDOM (BEAKER) 155 mg/dL 70-105 (test hezo=002) CALCIUM (BEAKER) (test 9.2 mg/dL 8.4-10.2 hiwu=670) EGFR (BEAKER) (test 38 mL/min/1.73 sq m ESTIMATED GFR IS NOT ejqb=3077) ACCURATE CREATININE CLEARANCE IN PREDICTING GLOMERULAR FILTRATION RATE. ESTIMATED GFR IS NOT APPLICABLE FOR DIALYSIS PATIENTS. CBC W/PLT COUNT & AUTO [id number] 06:59:00 Test Item Value Reference Range Comments WHITE BLOOD CELL COUNT (BEAKER) (test prdr=163) 6.8 K/ L 3.5-10.5 RED BLOOD CELL COUNT (BEAKER) (test thqn=003) 2.91 M/ L 3.93-5.22 HEMOGLOBIN (BEAKER) (test xuey=853) 8.5 GM/DL 11.2-15.7 HEMATOCRIT (BEAKER) (test rihw=790) 26.3 % 34.1-44.9 MEAN CORPUSCULAR VOLUME (BEAKER) (test knjk=229) 90.4 fL 79.4-94.8 MEAN CORPUSCULAR HEMOGLOBIN (BEAKER) (test 29.2 pg 25.6-32.2 emaa=840) MEAN CORPUSCULAR HEMOGLOBIN CONC (BEAKER) (test 32.3 GM/DL 32.2-35.5 tsxx=969) RED CELL DISTRIBUTION WIDTH (BEAKER) (test 14.9 % 11.7-14.4 vglr=085) PLATELET COUNT (BEAKER) (test gcpp=446) 236 K/CU MM 150-450 MEAN PLATELET VOLUME (BEAKER) (test yswz=721) 11.0 fL 9.4-12.3 NUCLEATED RED BLOOD CELLS (BEAKER) (test 0 /100 WBC 0-0 hdns=311) NEUTROPHILS RELATIVE PERCENT (BEAKER) (test 68 % axtm=401) LYMPHOCYTES RELATIVE PERCENT (BEAKER) (test 16 % bqhk=588) MONOCYTES RELATIVE PERCENT (BEAKER) (test 9 % ugur=542) EOSINOPHILS RELATIVE PERCENT (BEAKER) (test 2 % uuhf=336) BASOPHILS RELATIVE PERCENT (BEAKER) (test 0 % limf=087) NEUTROPHILS ABSOLUTE COUNT (BEAKER) (test 4.66 K/ L 1.56-6.13 stzh=653) LYMPHOCYTES ABSOLUTE COUNT (BEAKER) (test 1.08 K/ L 1.18-3.74 pxet=561) MONOCYTES ABSOLUTE COUNT (BEAKER) (test 0.60 K/ L 0.24-0.36 nnlp=652) EOSINOPHILS ABSOLUTE COUNT (BEAKER) (test 0.16 K/ L 0.04-0.36 vhxb=751) BASOPHILS ABSOLUTE COUNT (BEAKER) (test 0.02 K/ L 0.01-0.08 itpl=064) IMMATURE GRANULOCYTES-RELATIVE PERCENT (BEAKER) 4 % 0-1 (test pybo=8694) POCT-GLUCOSE [id number] 21:24:00 Test Item Value Reference Range Comments POC-GLUCOSE METER (BEAKER) 238 mg/dL 70-110 TESTED AT [address] (test neqm=0230) [facility] [address] POCT-GLUCOSE [id number] 18:05:00 Test Item Value Reference Range Comments POC-GLUCOSE METER (BEAKER) 224 mg/dL 70-110 TESTED AT [address] (test sjfc=5039) [facility] [address] POCT-GLUCOSE [id number] 15:08:00 Test Item Value Reference Range Comments POC-GLUCOSE METER (BEAKER) 152 mg/dL 70-110 TESTED AT [address] (test tpmb=0981) [facility] [address] POCT-GLUCOSE [id number] 10:24:00 Test Item Value Reference Range Comments POC-GLUCOSE METER (BEAKER) 152 mg/dL 70-110 TESTED AT [facility] [address] [facility] (test yaft=1034) [facility] [address] [id number] 02:48:00 Test Item Value Reference Range Comments MAGNESIUM (BEAKER) (test dehz=006) 1.9 mg/dL 1.6-2.6 BASIC METABOLIC [id number] 02:48:00 Test Item Value Reference Range Comments SODIUM (BEAKER) (test 134 meq/L 136-145 vscp=740) POTASSIUM (BEAKER) (test 3.8 meq/L 3.5-5.1 cqmk=642) CHLORIDE (BEAKER) (test 96 meq/L 98-107 ttws=873) CO2 (BEAKER) (test 29 meq/L 22-29 kmxu=534) BLOOD UREA NITROGEN 57 mg/dL 7-21 (BEAKER) (test ihvy=955) CREATININE (BEAKER) (test 1.63 mg/dL 0.57-1.25 asru=048) GLUCOSE RANDOM (BEAKER) 144 mg/dL 70-105 (test awpz=702) CALCIUM (BEAKER) (test 9.1 mg/dL 8.4-10.2 cpfv=914) EGFR (BEAKER) (test 32 mL/min/1.73 sq m ESTIMATED GFR IS NOT vhhy=3732) ACCURATE CREATININE CLEARANCE IN PREDICTING GLOMERULAR FILTRATION RATE. ESTIMATED GFR IS NOT APPLICABLE FOR DIALYSIS PATIENTS. CBC W/PLT COUNT & AUTO [id number] 02:32:00 Test Item Value Reference Range Comments WHITE BLOOD CELL COUNT (BEAKER) (test bclt=152) 6.2 K/ L 3.5-10.5 RED BLOOD CELL COUNT (BEAKER) (test mnzv=686) 2.81 M/ L 3.93-5.22 HEMOGLOBIN (BEAKER) (test yrgn=453) 8.2 GM/DL 11.2-15.7 HEMATOCRIT (BEAKER) (test xsux=538) 25.2 % 34.1-44.9 MEAN CORPUSCULAR VOLUME (BEAKER) (test oinh=498) 89.7 fL 79.4-94.8 MEAN CORPUSCULAR HEMOGLOBIN (BEAKER) (test 29.2 pg 25.6-32.2 lzdx=591) MEAN CORPUSCULAR HEMOGLOBIN CONC (BEAKER) (test 32.5 GM/DL 32.2-35.5 jevk=019) RED CELL DISTRIBUTION WIDTH (BEAKER) (test 14.6 % 11.7-14.4 mdls=413) PLATELET COUNT (BEAKER) (test vjfi=322) 205 K/CU MM 150-450 MEAN PLATELET VOLUME (BEAKER) (test lqzg=064) 10.7 fL 9.4-12.3 NUCLEATED RED BLOOD CELLS (BEAKER) (test 0 /100 WBC 0-0 hobl=622) NEUTROPHILS RELATIVE PERCENT (BEAKER) (test 59 % wxos=277) LYMPHOCYTES RELATIVE PERCENT (BEAKER) (test 22 % gojw=799) MONOCYTES RELATIVE PERCENT (BEAKER) (test 10 % cefw=306) EOSINOPHILS RELATIVE PERCENT (BEAKER) (test 4 % ozun=996) BASOPHILS RELATIVE PERCENT (BEAKER) (test 0 % nxch=034) NEUTROPHILS ABSOLUTE COUNT (BEAKER) (test 3.67 K/ L 1.56-6.13 obql=913) LYMPHOCYTES ABSOLUTE COUNT (BEAKER) (test 1.38 K/ L 1.18-3.74 dwqi=216) MONOCYTES ABSOLUTE COUNT (BEAKER) (test 0.64 K/ L 0.24-0.36 oekh=571) EOSINOPHILS ABSOLUTE COUNT (BEAKER) (test 0.22 K/ L 0.04-0.36 yxxb=872) BASOPHILS ABSOLUTE COUNT (BEAKER) (test 0.02 K/ L 0.01-0.08 ymop=764) IMMATURE GRANULOCYTES-RELATIVE PERCENT (BEAKER) 4 % 0-1 (test dunm=5523) POCT-GLUCOSE [id number] 23:22:00 Test Item Value Reference Range Comments POC-GLUCOSE METER (BEAKER) 197 mg/dL 70-110 TESTED AT [address] (test mvml=9561) [facility] [address] POCT-GLUCOSE [id number] 16:57:00 Test Item Value Reference Range Comments POC-GLUCOSE METER (BEAKER) 209 mg/dL 70-110 TESTED AT [address] (test cldm=5098) [facility] [address] POCT-GLUCOSE [id number] 14:09:00 Test Item Value Reference Range Comments POC-GLUCOSE METER (BEAKER) 225 mg/dL 70-110 TESTED AT [address] (test snva=7365) [facility] [address] TISSUE [id number] 11:26:00Surgical Pathology Report Case: [id number] Authorizing Provider: Maryjane Araujo MD Collected: 05/13/2018 1653 Ordering Location: [facility] Received: 05/14/2018 0820 [facility] Pathologist: Vince Higginbotham MD Specimen: Plaque, CORONARY OBTUSE MARGINALIS PLAQUE ARTERY, OBTUSE MARGINAL, ATHERECTOMY:SEVERE WITH STENOSIS AND CALCIFIC ATHEROSCLEROTIC PLAQUE Signing [employer] Phone Line: [phone] signed by Vince Higginbotham MD on 05/17/2018 at 11:26 [id number]; [id number] and chronic systolic congestive heart failure Coronary [...] in A1 for decalcification. CG/ ew PerformedPOCT-GLUCOSE [id number] 09:33:00 Test Item Value Reference Range Comments POC-GLUCOSE METER (BEAKER) 121 mg/dL 70-110 TESTED AT [address] (test jzwi=7824) [facility] [address] BASIC METABOLIC [id number] 06:45:00 Test Item Value Reference Range Comments SODIUM (BEAKER) (test 134 meq/L 136-145 cubf=378) POTASSIUM (BEAKER) (test 3.9 meq/L 3.5-5.1 ndzl=188) CHLORIDE (BEAKER) (test 96 meq/L 98-107 vrig=245) CO2 (BEAKER) (test 29 meq/L 22-29 jxeq=456) BLOOD UREA NITROGEN 50 mg/dL 7-21 (BEAKER) (test fbux=710) CREATININE (BEAKER) (test 1.57 mg/dL 0.57-1.25 gqvy=618) GLUCOSE RANDOM (BEAKER) 92 mg/dL 70-105 (test ydpe=852) CALCIUM (BEAKER) (test 9.4 mg/dL 8.4-10.2 cnem=061) EGFR (BEAKER) (test 33 mL/min/1.73 sq m ESTIMATED GFR IS NOT nbdg=1192) ACCURATE CREATININE CLEARANCE IN PREDICTING GLOMERULAR FILTRATION RATE. ESTIMATED GFR IS NOT APPLICABLE FOR DIALYSIS PATIENTS. RAD, CHEST, 1 VIEW, NON [id number] 06:18:00Reason for exam:->pl effusionShould this be performed [...] MDReport Verified Date/Time: 05/17/2018 06:18:13 Reading Location: [facility] [id number] CT Body Reading Room CBC W/PLT COUNT & AUTO [id number] 06:10:00 Test Item Value Reference Range Comments WHITE BLOOD CELL COUNT (BEAKER) (test alnm=684) 7.1 K/ L 3.5-10.5 RED BLOOD CELL COUNT (BEAKER) (test nmlh=262) 2.55 M/ L 3.93-5.22 HEMOGLOBIN (BEAKER) (test excm=634) 7.4 GM/DL 11.2-15.7 HEMATOCRIT (BEAKER) (test yfvk=756) 23.2 % 34.1-44.9 MEAN CORPUSCULAR VOLUME (BEAKER) (test ecse=411) 91.0 fL 79.4-94.8 MEAN CORPUSCULAR HEMOGLOBIN (BEAKER) (test 29.0 pg 25.6-32.2 zhdo=520) MEAN CORPUSCULAR HEMOGLOBIN CONC (BEAKER) (test 31.9 GM/DL 32.2-35.5 rsqy=900) RED CELL DISTRIBUTION WIDTH (BEAKER) (test 14.3 % 11.7-14.4 beds=932) PLATELET COUNT (BEAKER) (test fegi=821) 177 K/CU MM 150-450 MEAN PLATELET VOLUME (BEAKER) (test wzvh=301) 12.1 fL 9.4-12.3 NUCLEATED RED BLOOD CELLS (BEAKER) (test 0 /100 WBC 0-0 qvrx=711) NEUTROPHILS RELATIVE PERCENT (BEAKER) (test 62 % zivr=019) LYMPHOCYTES RELATIVE PERCENT (BEAKER) (test 21 % knys=089) MONOCYTES RELATIVE PERCENT (BEAKER) (test 10 % baij=672) EOSINOPHILS RELATIVE PERCENT (BEAKER) (test 3 % jmie=619) BASOPHILS RELATIVE PERCENT (BEAKER) (test 0 % voyn=959) NEUTROPHILS ABSOLUTE COUNT (BEAKER) (test 4.40 K/ L 1.56-6.13 imed=987) LYMPHOCYTES ABSOLUTE COUNT (BEAKER) (test 1.52 K/ L 1.18-3.74 lygj=674) MONOCYTES ABSOLUTE COUNT (BEAKER) (test 0.71 K/ L 0.24-0.36 vmkj=252) EOSINOPHILS ABSOLUTE COUNT (BEAKER) (test 0.20 K/ L 0.04-0.36 hxjd=491) BASOPHILS ABSOLUTE COUNT (BEAKER) (test 0.02 K/ L 0.01-0.08 vntn=011) IMMATURE GRANULOCYTES-RELATIVE PERCENT (BEAKER) 4 % 0-1 (test ibgo=0487) POCT-GLUCOSE [id number] 21:24:00 Test Item Value Reference Range Comments POC-GLUCOSE METER (BEAKER) 144 mg/dL 70-110 TESTED AT [address] (test ykmt=3721) [facility] [address] POCT-GLUCOSE [id number] 18:06:00 Test Item Value Reference Range Comments POC-GLUCOSE METER (BEAKER) 106 mg/dL 70-110 TESTED AT [address] (test fang=4734) [facility] [address] POCT-GLUCOSE [id number] 12:52:00 Test Item Value Reference Range Comments POC-GLUCOSE METER (BEAKER) 167 mg/dL 70-110 TESTED AT [address] (test aymn=6095) [facility] [address] POCT-GLUCOSE [id number] 07:43:00 Test Item Value Reference Range Comments POC-GLUCOSE METER (BEAKER) 302 mg/dL 70-110 Notified VINAY PEÑA/TESTED AT [facility] (test yuga=9045) [address] [facility] [address] [id number] 06:29:00 Test Item Value Reference Range Comments FERRITIN (BEAKER) (test izhm=053) 398 ng/mL 5-275 IRON, TIBC, % SAT. (WITHOUT FERRITIN)2018-05-16 06:16:00 Test Item Value Reference Range Comments IRON (BEAKER) (test vkih=183) 26 ug/dL 40-160 TOTAL IRON BINDING CAPACITY (BEAKER) (test 201 ug/dL 250-450 equp=139) IRON % SATURATION (2) (BEAKER) (test jyet=7182) 13 % 20-55 BASIC METABOLIC [id number] 06:15:00 Test Item Value Reference Range Comments SODIUM (BEAKER) (test 133 meq/L 136-145 ahgd=774) POTASSIUM (BEAKER) (test 4.1 meq/L 3.5-5.1 zhrs=329) CHLORIDE (BEAKER) (test 96 meq/L 98-107 ksmz=838) CO2 (BEAKER) (test 30 meq/L 22-29 qmyy=477) BLOOD UREA NITROGEN 47 mg/dL 7-21 (BEAKER) (test kqbo=873) CREATININE (BEAKER) (test 1.67 mg/dL 0.57-1.25 zfif=041) GLUCOSE RANDOM (BEAKER) 265 mg/dL 70-105 (test jzdd=552) CALCIUM (BEAKER) (test 9.4 mg/dL 8.4-10.2 lzte=281) EGFR (BEAKER) (test 31 mL/min/1.73 sq m ESTIMATED GFR IS NOT pfda=4903) ACCURATE CREATININE CLEARANCE IN PREDICTING GLOMERULAR FILTRATION RATE. ESTIMATED GFR IS NOT APPLICABLE FOR DIALYSIS PATIENTS. RAD, CHEST, 1 VIEW, NON [id number] 06:05:00Reason for exam:->pl effusionShould this be performed [...] Stable surgical changes.Additional findings: None. Signed: JR Suzie, Alley Lee Verified Date/Time: 05/16/2018 06:05:27 Reading Location: [facility] C013Y CT Body Reading Room CBC W/PLT COUNT & AUTO [id number] 05:39:00 Test Item Value Reference Range Comments WHITE BLOOD CELL COUNT (BEAKER) (test rbqt=389) 8.4 K/ L 3.5-10.5 RED BLOOD CELL COUNT (BEAKER) (test ckfx=594) 2.65 M/ L 3.93-5.22 HEMOGLOBIN (BEAKER) (test xajj=060) 7.7 GM/DL 11.2-15.7 HEMATOCRIT (BEAKER) (test irlv=559) 23.9 % 34.1-44.9 MEAN CORPUSCULAR VOLUME (BEAKER) (test uivq=501) 90.2 fL 79.4-94.8 MEAN CORPUSCULAR HEMOGLOBIN (BEAKER) (test 29.1 pg 25.6-32.2 xzfl=999) MEAN CORPUSCULAR HEMOGLOBIN CONC (BEAKER) (test 32.2 GM/DL 32.2-35.5 pvod=743) RED CELL DISTRIBUTION WIDTH (BEAKER) (test 14.5 % 11.7-14.4 cgxl=730) PLATELET COUNT (BEAKER) (test rqse=738) 151 K/CU MM 150-450 MEAN PLATELET VOLUME (BEAKER) (test ybwv=859) 12.0 fL 9.4-12.3 NUCLEATED RED BLOOD CELLS (BEAKER) (test 0 /100 WBC 0-0 dfwg=026) NEUTROPHILS RELATIVE PERCENT (BEAKER) (test 70 % okgk=839) LYMPHOCYTES RELATIVE PERCENT (BEAKER) (test 14 % xkjo=604) MONOCYTES RELATIVE PERCENT (BEAKER) (test 12 % qqns=769) EOSINOPHILS RELATIVE PERCENT (BEAKER) (test 1 % rwjl=019) BASOPHILS RELATIVE PERCENT (BEAKER) (test 0 % yagf=197) NEUTROPHILS ABSOLUTE COUNT (BEAKER) (test 5.90 K/ L 1.56-6.13 mxfw=515) LYMPHOCYTES ABSOLUTE COUNT (BEAKER) (test 1.21 K/ L 1.18-3.74 okif=490) MONOCYTES ABSOLUTE COUNT (BEAKER) (test 1.01 K/ L 0.24-0.36 vbpt=770) EOSINOPHILS ABSOLUTE COUNT (BEAKER) (test 0.08 K/ L 0.04-0.36 flwc=441) BASOPHILS ABSOLUTE COUNT (BEAKER) (test 0.03 K/ L 0.01-0.08 qtob=509) IMMATURE GRANULOCYTES-RELATIVE PERCENT (BEAKER) 3 % 0-1 (test mooi=1692) POCT-GLUCOSE [id number] 23:04:00 Test Item Value Reference Range Comments POC-GLUCOSE METER (BEAKER) 317 mg/dL 70-110 Notified VINAY PEÑA/TESTED AT [facility] (test luua=2926) [address] [place] [address] POCT-GLUCOSE [id number] 21:24:00 Test Item Value Reference Range Comments POC-GLUCOSE METER (BEAKER) 344 mg/dL 70-110 Notified VINAY PEÑA/TESTED AT [facility] (test jfna=4168) [address] [place] [address] POCT-GLUCOSE [id number] 18:01:00 Test Item Value Reference Range Comments POC-GLUCOSE METER (BEAKER) 360 mg/dL 70-110 TESTED AT [address] (test jxwg=5552) [facility] [address] POCT-GLUCOSE [id number] 14:11:00 Test Item Value Reference Range Comments POC-GLUCOSE METER (BEAKER) 226 mg/dL 70-110 TESTED AT [address] (test spdi=6563) [facility] [address] POCT-GLUCOSE [id number] 14:11:00 Test Item Value Reference Range Comments POC-GLUCOSE METER (BEAKER) 260 mg/dL 70-110 TESTED AT [address] (test nfir=6671) [place] [id number] VANCOMYCIN LEVEL, [id number] 12:56:00 Test Item Value Reference Range Comments VANCOMYCIN RANDOM (BEAKER) (test hvpz=694) 17.8 ug/mL Reference Range: No NormalsPOCT-GLUCOSE [id number] 09:35:00 Test Item Value Reference Range Comments POC-GLUCOSE METER (BEAKER) 220 mg/dL 70-110 TESTED AT [address] (test gnwa=5973) [facility] [address] POCT-GLUCOSE [id number] 09:35:00 Test Item Value Reference Range Comments POC-GLUCOSE METER (BEAKER) 222 mg/dL 70-110 TESTED AT [address] (test utzp=7491) [facility] [address] POCT-GLUCOSE [id number] 09:35:00 Test Item Value Reference Range Comments POC-GLUCOSE METER (BEAKER) 232 mg/dL 70-110 TESTED AT [address] (test xcxj=4594) [facility] [address] POCT-GLUCOSE [id number] 06:40:00 Test Item Value Reference Range Comments POC-GLUCOSE METER (BEAKER) 252 mg/dL 70-110 TESTED AT [address] (test uqfu=6417) [facility] [address] POCT-GLUCOSE [id number] 05:31:00 Test Item Value Reference Range Comments POC-GLUCOSE METER (BEAKER) 288 mg/dL 70-110 TESTED AT [address] (test zvjr=3535) [facility] [address] [id number] 04:39:00 Test Item Value Reference Range Comments PHOSPHORUS (BEAKER) (test tnhk=044) 3.4 mg/dL 2.3-4.7 [id number] 04:39:00 Test Item Value Reference Range Comments MAGNESIUM (BEAKER) (test uzkj=110) 1.9 mg/dL 1.6-2.6 BASIC METABOLIC [id number] 04:39:00 Test Item Value Reference Range Comments SODIUM (BEAKER) (test 134 meq/L 136-145 epej=349) POTASSIUM (BEAKER) (test 4.3 meq/L 3.5-5.1 wwqj=022) CHLORIDE (BEAKER) (test 98 meq/L 98-107 ayxn=388) CO2 (BEAKER) (test 28 meq/L 22-29 hmdn=294) BLOOD UREA NITROGEN 40 mg/dL 7-21 (BEAKER) (test izpi=782) CREATININE (BEAKER) (test 1.51 mg/dL 0.57-1.25 pvhd=407) GLUCOSE RANDOM (BEAKER) 289 mg/dL 70-105 (test iplb=698) CALCIUM (BEAKER) (test 9.3 mg/dL 8.4-10.2 nngx=794) EGFR (BEAKER) (test 35 mL/min/1.73 sq m ESTIMATED GFR IS NOT aara=8921) ACCURATE CREATININE CLEARANCE IN PREDICTING GLOMERULAR FILTRATION RATE. ESTIMATED GFR IS NOT APPLICABLE FOR DIALYSIS PATIENTS. POCT-GLUCOSE [id number] 04:34:00 Test Item Value Reference Range Comments POC-GLUCOSE METER (BEAKER) 301 mg/dL 70-110 TESTED AT [facility] [address] [facility] (test dpyv=6677) [facility] [address] POCT-GLUCOSE [id number] 04:34:00 Test Item Value Reference Range Comments POC-GLUCOSE METER (BEAKER) 318 mg/dL 70-110 TESTED AT [address] (test kwtt=6943) [facility] [address] CBC (HEMOGRAM ONLY)2018-05-15 04:13:00 Test Item Value Reference Range Comments WHITE BLOOD CELL COUNT (BEAKER) (test lupx=942) 9.8 K/ L 3.5-10.5 RED BLOOD CELL COUNT (BEAKER) (test bpqv=944) 2.97 M/ L 3.93-5.22 HEMOGLOBIN (BEAKER) (test uedc=017) 8.6 GM/DL 11.2-15.7 HEMATOCRIT (BEAKER) (test wtxf=606) 26.1 % 34.1-44.9 MEAN CORPUSCULAR VOLUME (BEAKER) (test daed=306) 87.9 fL 79.4-94.8 MEAN CORPUSCULAR HEMOGLOBIN (BEAKER) (test 29.0 pg 25.6-32.2 fzbi=896) MEAN CORPUSCULAR HEMOGLOBIN CONC (BEAKER) (test 33.0 GM/DL 32.2-35.5 ielq=400) RED CELL DISTRIBUTION WIDTH (BEAKER) (test 14.4 % 11.7-14.4 gczh=838) PLATELET COUNT (BEAKER) (test lyrr=045) 154 K/CU MM 150-450 MEAN PLATELET VOLUME (BEAKER) (test vzkp=931) 11.6 fL 9.4-12.3 NUCLEATED RED BLOOD CELLS (BEAKER) (test 0 /100 WBC 0-0 pxms=741) RAD, CHEST, 1 VIEW, NON [id number] 03:53:00Reason for exam:->pulmonary edemaShould this be performed [...] MDReport Verified Date/Time: 05/15/2018 03:53:01 Reading Location: [facility] C013Y CT Body Reading Room POCT-GLUCOSE [id number] 02:58:00 Test Item Value Reference Range Comments POC-GLUCOSE METER (BEAKER) 333 mg/dL 70-110 TESTED AT [address] (test xblf=3133) [facility] [address] POCT-GLUCOSE [id number] 01:34:00 Test Item Value Reference Range Comments POC-GLUCOSE METER (BEAKER) 347 mg/dL 70-110 TESTED AT [address] (test iflt=8137) [facility] [address] POCT-GLUCOSE [id number] 22:13:00 Test Item Value Reference Range Comments POC-GLUCOSE METER (BEAKER) 345 mg/dL 70-110 Will Repeat Test/TESTED AT (test teyh=0783) [address] [address] POCT-GLUCOSE [id number] 18:38:00 Test Item Value Reference Range Comments POC-GLUCOSE METER (BEAKER) 294 mg/dL 70-110 TESTED AT [address] (test fiqa=1464) [facility] [address] SPUTUM CULTURE + GRAM [id number] 17:45:00 Test Item Value Reference Range Comments CULTURE (BEAKER) (test vkxm=6697) No growth GRAM STAIN RESULT (BEAKER) (test <1+ WBCs wsab=9331) GRAM STAIN RESULT (BEAKER) (test 0-5 epithelial cells viat=78536) GRAM STAIN RESULT (BEAKER) (test No organisms seen nqba=71371) HGB/HCT (H&H) - STAT [id number] 14:42:00 Test Item Value Reference Range Comments HEMOGLOBIN (BEAKER) (test amks=452) 9.9 g/dL 12.0-15.0 HEMATOCRIT (BEAKER) (test vxrv=363) 29.0 % 36.0-45.0 VANCOMYCIN LEVEL, [id number] 13:36:00 Test Item Value Reference Range Comments VANCOMYCIN RANDOM (BEAKER) (test ysig=158) 40.5 ug/mL Reference Range: No NormalsPOCT-GLUCOSE [id number] 13:14:00 Test Item Value Reference Range Comments POC-GLUCOSE METER (BEAKER) 288 mg/dL 70-110 TESTED AT [address] (test geve=2544) [facility] [address] PLATELET AGGREGATION: FUNCTION [id number] 12:52:00 Test Item Value Reference Range Comments WEAK ADP RESULT(BEAKER) (test 88 % 60-91 eick=4588) PLATELET FUNCTION SCREEN 60-100% indicates normal INTERP (BEAKER) (test platelet function jrnq=1796) [id number] (BEAKER) Uma Hdz MD (test nbef=2029) (electronic signature) PLATELET COUNT AGG (BEAKER) 166 K/CU MM 150-450 (test cyon=2432) POCT-GLUCOSE [id number] 10:29:00 Test Item Value Reference Range Comments POC-GLUCOSE METER (BEAKER) 233 mg/dL 70-110 TESTED AT [address] (test mhoc=5854) [place] [id number] RAD, CHEST, 1 VIEW, NON [id number] 04:30:00Reason for exam:->pulmonary edemaShould this be performed [...] Remaining support lines are stable. Signed: Colt Liconaeport Verified Date/Time: 05/14/2018 04:30:29 Reading Location: [address] Reading Room POCT-GLUCOSE [id number] 04:20:00 Test Item Value Reference Range Comments POC-GLUCOSE METER (BEAKER) 116 mg/dL 70-110 TESTED AT [address] (test owtd=2575) [place] [address] POCT-GLUCOSE [id number] 03:44:00 Test Item Value Reference Range Comments POC-GLUCOSE METER (BEAKER) 125 mg/dL 70-110 TESTED AT [address] (test ivwc=1136) [place] [id number] CBC W/PLT COUNT & AUTO [id number] 03:41:00 Test Item Value Reference Range Comments WHITE BLOOD CELL COUNT (BEAKER) (test uiya=638) 8.5 K/ L 3.5-10.5 RED BLOOD CELL COUNT (BEAKER) (test dfsg=381) 3.26 M/ L 3.93-5.22 HEMOGLOBIN (BEAKER) (test qxoc=450) 9.4 GM/DL 11.2-15.7 HEMATOCRIT (BEAKER) (test uhib=993) 28.8 % 34.1-44.9 MEAN CORPUSCULAR VOLUME (BEAKER) (test ocoe=223) 88.3 fL 79.4-94.8 MEAN CORPUSCULAR HEMOGLOBIN (BEAKER) (test 28.8 pg 25.6-32.2 jhdb=897) MEAN CORPUSCULAR HEMOGLOBIN CONC (BEAKER) (test 32.6 GM/DL 32.2-35.5 kram=319) RED CELL DISTRIBUTION WIDTH (BEAKER) (test 14.0 % 11.7-14.4 sjby=698) PLATELET COUNT (BEAKER) (test irih=969) 155 K/CU MM 150-450 MEAN PLATELET VOLUME (BEAKER) (test fmkv=657) 10.7 fL 9.4-12.3 NUCLEATED RED BLOOD CELLS (BEAKER) (test 0 /100 WBC 0-0 bwce=057) NEUTROPHILS RELATIVE PERCENT (BEAKER) (test 84 % bxdo=661) LYMPHOCYTES RELATIVE PERCENT (BEAKER) (test 6 % xmuc=873) MONOCYTES RELATIVE PERCENT (BEAKER) (test 9 % gdka=951) EOSINOPHILS RELATIVE PERCENT (BEAKER) (test 0 % uwgh=782) BASOPHILS RELATIVE PERCENT (BEAKER) (test 0 % odrv=009) NEUTROPHILS ABSOLUTE COUNT (BEAKER) (test 7.10 K/ L 1.56-6.13 rtfr=881) LYMPHOCYTES ABSOLUTE COUNT (BEAKER) (test 0.52 K/ L 1.18-3.74 igcd=560) MONOCYTES ABSOLUTE COUNT (BEAKER) (test 0.76 K/ L 0.24-0.36 rrpx=417) EOSINOPHILS ABSOLUTE COUNT (BEAKER) (test 0.02 K/ L 0.04-0.36 sbhi=464) BASOPHILS ABSOLUTE COUNT (BEAKER) (test 0.01 K/ L 0.01-0.08 dtms=934) IMMATURE GRANULOCYTES-RELATIVE PERCENT (BEAKER) 1 % 0-1 (test eazi=8469) [id number] 03:35:00 Test Item Value Reference Range Comments PHOSPHORUS (BEAKER) (test tgaz=194) 3.2 mg/dL 2.3-4.7 [id number] 03:35:00 Test Item Value Reference Range Comments MAGNESIUM (BEAKER) (test rwnl=445) 1.9 mg/dL 1.6-2.6 BASIC METABOLIC [id number] 03:35:00 Test Item Value Reference Range Comments SODIUM (BEAKER) (test 136 meq/L 136-145 qthc=241) POTASSIUM (BEAKER) (test 4.4 meq/L 3.5-5.1 xuop=918) CHLORIDE (BEAKER) (test 101 meq/L 98-107 mtkc=635) CO2 (BEAKER) (test 27 meq/L 22-29 cvvg=201) BLOOD UREA NITROGEN 31 mg/dL 7-21 (BEAKER) (test bsol=776) CREATININE (BEAKER) (test 1.20 mg/dL 0.57-1.25 mraz=939) GLUCOSE RANDOM (BEAKER) 121 mg/dL 70-105 (test mnfq=244) CALCIUM (BEAKER) (test 9.8 mg/dL 8.4-10.2 twfn=052) EGFR (BEAKER) (test 46 mL/min/1.73 sq m ESTIMATED GFR IS NOT ssea=4344) ACCURATE CREATININE CLEARANCE IN PREDICTING GLOMERULAR FILTRATION RATE. ESTIMATED GFR IS NOT APPLICABLE FOR DIALYSIS PATIENTS. BLOOD GAS, [id number] 03:17:00 Test Item Value Reference Range Comments PH ARTERIAL (BEAKER) (test hhoz=575) 7.39 7.35-7.45 PCO2 ARTERIAL (BEAKER) (test cumq=612) 50 mmHg 35-45 PO2 ARTERIAL (BEAKER) (test srci=974) 107 mmHg 80-90 O2 SATURATION ARTERIAL (BEAKER) (test thit=252) 97.9 % 96.0-97.0 HCO3 ARTERIAL (BEAKER) (test ebru=121) 30 mmol/L 21-29 BASE EXCESS ARTERIAL (BEAKER) (test lqml=648) 4.1 mmol/L -2.0-3.0 PATIENT TEMPERATURE (BEAKER) (test gzim=7563) 36.3 C FIO2 (BEAKER) (test gjne=6273) 40.0 % Post extubation ABGPOCT-GLUCOSE [id number] 02:10:00 Test Item Value Reference Range Comments POC-GLUCOSE METER (BEAKER) 143 mg/dL 70-110 TESTED AT [facility] [address] [facility] (test aemb=6018) [facility] [address] LACTIC ACID, ARTERIAL, WHOLE [id number] 01:43:00 Test Item Value Reference Range Comments LACTATE BLOOD ARTERIAL (2) 1.8 mmol/L 0.5-2.2 Specimen slightly hemolyzed (BEAKER) (test staa=5430) Effective 02/06/2016: Units/Reference Range ChangeNew: 0.5-2.2 mmol/L Previous: 5 -20 mg/[id number] 01:41:00 Test Item Value Reference Range Comments MAGNESIUM (BEAKER) (test owpe=904) 2.0 mg/dL 1.6-2.6 BLOOD GAS, [id number] 01:21:00 Test Item Value Reference Range Comments PH ARTERIAL (BEAKER) (test bsde=876) 7.40 7.35-7.45 PCO2 ARTERIAL (BEAKER) (test zitv=330) 49 mmHg 35-45 PO2 ARTERIAL (BEAKER) (test vadq=955) 80 mmHg 80-90 O2 SATURATION ARTERIAL (BEAKER) (test syak=113) 96.1 % 96.0-97.0 HCO3 ARTERIAL (BEAKER) (test zbtd=101) 30 mmol/L 21-29 BASE EXCESS ARTERIAL (BEAKER) (test wmtl=466) 4.2 mmol/L -2.0-3.0 PATIENT TEMPERATURE (BEAKER) (test awqh=7790) 36.3 C FIO2 (BEAKER) (test uhks=8878) 40.0 % SODIUM NA-STAT [id number] 01:21:00 Test Item Value Reference Range Comments SODIUM (BEAKER) (test zpwy=444) 134 meq/L 135-148 GLUCOSE-STAT [id number] 01:21:00 Test Item Value Reference Range Comments GLUCOSE RANDOM (BEAKER) (test jewg=127) 144 mg/dL 70-110 HGB/HCT (H&H) - STAT [id number] 01:21:00 Test Item Value Reference Range Comments HEMOGLOBIN (BEAKER) (test bfho=750) 10.8 g/dL 12.0-15.0 HEMATOCRIT (BEAKER) (test vpzd=736) 32.0 % 36.0-45.0 POTASSIUM-STAT [id number] 01:18:00 Test Item Value Reference Range Comments POTASSIUM (BEAKER) (test uabt=662) 4.4 meq/L 3.6-5.5 CALCIUM, [id number] 01:18:00 Test Item Value Reference Range Comments CALCIUM IONIZED (BEAKER) (test annp=619) 1.21 mmol/L 1.12-1.27 PH, BLOOD (BEAKER) (test ayec=3568) 7.39 POCT-GLUCOSE [id number] 00:31:00 Test Item Value Reference Range Comments POC-GLUCOSE METER (BEAKER) 232 mg/dL 70-110 TESTED AT [address] (test fbkv=7011) [facility] [address] BLOOD [id number] 00:00:00 Test Item Value Reference Range Comments CULTURE (BEAKER) (test ssge=4200) No growth in 5 days BLOOD [id number] 00:00:00 Test Item Value Reference Range Comments CULTURE (BEAKER) (test fnol=9451) No growth in 5 days POCT-GLUCOSE [id number] 21:11:00 Test Item Value Reference Range Comments POC-GLUCOSE METER (BEAKER) 258 mg/dL 70-110 TESTED AT [facility] [address] (test kodk=5620) [facility] [address] RAD, CHEST, 1 VIEW, NON [id number] 21:03:00Reason for exam:->s/p ACBShould this be performed [...] Verified Date/Time: 05/13/2018 21:03:02 Reading [facility] [address] [facility]/[id number] 20:40:00 Test Item Value Reference Range Comments PROTIME (BEAKER) (test qyqw=587) 16.1 seconds 11.7-14.7 INR (BEAKER) (test obad=098) 1.3 <=5.9 RECOMMENDED COUMADIN/WARFARIN INR THERAPY RANGESSTANDARD DOSE: 2.0 - 3.0 Includes: PROPHYLAXIS forvenous thrombosis, systemic embolization; TREATMENT for venous thrombosis and/or pulmonary embolus.HIGH RISK: Target INR is 2.5-3.5 for patients with mechanical heart valves.[id number] 20:39:00 Test Item Value Reference Range Comments FIBRINOGEN LEVEL (BEAKER) (test lbbc=997) 434 mg/dl 225-434 [id number] 20:31:00 Test Item Value Reference Range Comments POTASSIUM (BEAKER) (test rxjw=749) 4.6 meq/L 3.5-5.1 [id number] 20:31:00 Test Item Value Reference Range Comments MAGNESIUM (BEAKER) (test kjrd=868) 1.9 mg/dL 1.6-2.6 [id number] 20:31:00 Test Item Value Reference Range Comments PHOSPHORUS (BEAKER) (test hcbr=567) 3.9 mg/dL 2.3-4.7 [id number] 20:31:00 Test Item Value Reference Range Comments SODIUM (BEAKER) (test mxkm=350) 134 meq/L 136-145 [id number] 20:31:00 Test Item Value Reference Range Comments GLUCOSE RANDOM (BEAKER) (test gqnz=400) 275 mg/dL 70-105 BASIC METABOLIC [id number] 20:31:00 Test Item Value Reference Range Comments SODIUM (BEAKER) (test 134 meq/L 136-145 wxpi=712) POTASSIUM (BEAKER) (test 4.6 meq/L 3.5-5.1 iqzw=530) CHLORIDE (BEAKER) (test 97 meq/L 98-107 ufbq=212) CO2 (BEAKER) (test 27 meq/L 22-29 apnj=263) BLOOD UREA NITROGEN 29 mg/dL 7-21 (BEAKER) (test zjmu=374) CREATININE (BEAKER) (test 1.25 mg/dL 0.57-1.25 zyuv=321) GLUCOSE RANDOM (BEAKER) 275 mg/dL 70-105 (test gmmi=079) CALCIUM (BEAKER) (test 10.0 mg/dL 8.4-10.2 pvfv=320) EGFR (BEAKER) (test 44 mL/min/1.73 sq m ESTIMATED GFR IS NOT nejx=6713) ACCURATE CREATININE CLEARANCE IN PREDICTING GLOMERULAR FILTRATION RATE. ESTIMATED GFR IS NOT APPLICABLE FOR DIALYSIS PATIENTS. LACTIC ACID, ARTERIAL, WHOLE [id number] 20:26:00 Test Item Value Reference Range Comments LACTATE BLOOD ARTERIAL (2) (BEAKER) (test 3.8 mmol/L 0.5-2.2 yzym=8882) Effective 02/06/2016: Units/Reference Range ChangeNew: 0.5-2.2 mmol/L Previous: 5 -20 mg/[id number] 20:23:00 Test Item Value Reference Range Comments PARTIAL THROMBOPLASTIN TIME (BEAKER) (test 28.6 seconds 22.5-36.0 bsjv=338) 6 hours after starting heparin infusion and as indicated per sliding scaleHGB/ HCT (H&H) - STAT [id number] 20:20:00 Test Item Value Reference Range Comments HEMOGLOBIN (BEAKER) (test dkyh=954) 9.9 GM/DL 12.0-15.0 HEMATOCRIT (BEAKER) (test mbvl=393) 29.0 % 36.0-45.0 POTASSIUM-STAT [id number] 20:20:00 Test Item Value Reference Range Comments POTASSIUM (BEAKER) (test gxag=034) 4.6 meq/L 3.6-5.5 SODIUM NA-STAT [id number] 20:20:00 Test Item Value Reference Range Comments SODIUM (BEAKER) (test yxfx=747) 132 meq/L 135-148 OXYGEN SATURATION, [id number] 20:19:00 Test Item Value Reference Range Comments O2 SATURATION (MEASURED) (BEAKER) (test yyyh=7773) 67.7 % BLOOD GAS, [id number] 20:19:00 Test Item Value Reference Range Comments PH ARTERIAL (BEAKER) (test xege=645) 7.42 7.35-7.45 PCO2 ARTERIAL (BEAKER) (test alvj=576) 43 mmHg 35-45 PO2 ARTERIAL (BEAKER) (test nwpg=173) 118 mmHg 80-90 O2 SATURATION ARTERIAL (BEAKER) (test kqsw=641) 98.6 % 96.0-97.0 HCO3 ARTERIAL (BEAKER) (test uvin=884) 28 mmol/L 21-29 BASE EXCESS ARTERIAL (BEAKER) (test yylm=583) 2.3 mmol/L -2.0-3.0 PATIENT TEMPERATURE (BEAKER) (test qxel=9154) 34.4 C FIO2 (BEAKER) (test ktdg=9353) 60.0 % CALCIUM, [id number] 20:19:00 Test Item Value Reference Range Comments CALCIUM IONIZED (BEAKER) (test ifue=601) 1.13 mmol/L 1.12-1.27 PH, BLOOD (BEAKER) (test vldf=4133) 7.42 GLUCOSE-STAT [id number] 20:19:00 Test Item Value Reference Range Comments GLUCOSE RANDOM (BEAKER) (test cihs=444) 262 mg/dL 70-110 CBC W/PLT COUNT & AUTO [id number] 20:17:00 Test Item Value Reference Range Comments WHITE BLOOD CELL COUNT (BEAKER) (test qzjs=481) 8.7 K/ L 3.5-10.5 RED BLOOD CELL COUNT (BEAKER) (test jxvy=052) 3.14 M/ L 3.93-5.22 HEMOGLOBIN (BEAKER) (test svpk=988) 9.1 GM/DL 11.2-15.7 HEMATOCRIT (BEAKER) (test wach=973) 27.6 % 34.1-44.9 MEAN CORPUSCULAR VOLUME (BEAKER) (test wgmd=554) 87.9 fL 79.4-94.8 MEAN CORPUSCULAR HEMOGLOBIN (BEAKER) (test 29.0 pg 25.6-32.2 spnx=374) MEAN CORPUSCULAR HEMOGLOBIN CONC (BEAKER) (test 33.0 GM/DL 32.2-35.5 eskt=074) RED CELL DISTRIBUTION WIDTH (BEAKER) (test 13.8 % 11.7-14.4 btkf=781) PLATELET COUNT (BEAKER) (test ikdx=273) 139 K/CU MM 150-450 MEAN PLATELET VOLUME (BEAKER) (test lrjh=353) 10.7 fL 9.4-12.3 NUCLEATED RED BLOOD CELLS (BEAKER) (test 0 /100 WBC 0-0 ejhs=594) NEUTROPHILS RELATIVE PERCENT (BEAKER) (test 80 % mwge=733) LYMPHOCYTES RELATIVE PERCENT (BEAKER) (test 10 % iyim=790) MONOCYTES RELATIVE PERCENT (BEAKER) (test 9 % qgyr=099) EOSINOPHILS RELATIVE PERCENT (BEAKER) (test 1 % jhsx=285) BASOPHILS RELATIVE PERCENT (BEAKER) (test 0 % cbkw=059) NEUTROPHILS ABSOLUTE COUNT (BEAKER) (test 6.94 K/ L 1.56-6.13 idjz=513) LYMPHOCYTES ABSOLUTE COUNT (BEAKER) (test 0.85 K/ L 1.18-3.74 kfbi=183) MONOCYTES ABSOLUTE COUNT (BEAKER) (test 0.78 K/ L 0.24-0.36 dzlu=060) EOSINOPHILS ABSOLUTE COUNT (BEAKER) (test 0.06 K/ L 0.04-0.36 wovd=907) BASOPHILS ABSOLUTE COUNT (BEAKER) (test 0.01 K/ L 0.01-0.08 nico=834) IMMATURE GRANULOCYTES-RELATIVE PERCENT (AKER) 1 % 0-1 (test ogta=0675) [id number] 19:15:00 Test Item Value Reference Range Comments ACTIVATED CLOTTING TIME 120 sec TESTED AT [address] (BEAKER) (test gpli=770) [place] [id number] 19:15:00 Test Item Value Reference Range Comments ACTIVATED CLOTTING TIME 466 sec TESTED AT [address] (BEAKER) (test tdgd=929) [place] [address] [id number] 19:15:00 Test Item Value Reference Range Comments ACTIVATED CLOTTING TIME 505 sec TESTED AT [address] (BEAKER) (test hlol=260) [place] [address] [id number] 19:15:00 Test Item Value Reference Range Comments ACTIVATED CLOTTING TIME 599 sec TESTED AT [address] (BEAKER) (test pkft=372) [place] [address] [id number] 19:15:00 Test Item Value Reference Range Comments ACTIVATED CLOTTING TIME 560 sec TESTED AT [address] (BEAKER) (test jnxd=335) [place] [address] [id number] 19:15:00 Test Item Value Reference Range Comments ACTIVATED CLOTTING TIME 637 sec TESTED AT [place] [address] [facility] (BEAKER) (test oswp=749) [place] [address] [id number] 19:15:00 Test Item Value Reference Range Comments ACTIVATED CLOTTING TIME 142 sec TESTED AT [place] [address] [facility] (BEAKER) (test clax=005) [place] [address] THROMBOELASTOGRAPH (TEG)[id number] 19:04:00 Test Item Value Reference Range Comments TEG ACTIVATED CLOTTING TIME (BEAKER) (test 6.0 minutes 4.0-7.0 duqw=5231) TEG FIBRINOGEN ACTIVITY (BEAKER) (test 67.0 degrees 61.0-73.0 ocus=6549) TEG PLT. AGGREGATION (BEAKER) (test gfub=0879) 60.9 MM 55.0-65.0 TEG FIBRINOLYSIS (BEAKER) (test wydq=4822) 0.0 % 0.0-5.0 [facility] ACTIVATED CLOTTING TIME (BEAKER) (test 5.7 minutes 4.0-7.0 tdkd=0989) [facility] FIBRINOGEN ACTIVITY (BEAKER) (test 68.0 degrees 61.0-73.0 ksuy=3744) [facility] PLT. AGGREGATION (BEAKER) (test wqpz=8621) 57.1 MM 55.0-65.0 [facility] FIBRINOLYSIS (BEAKER) (test ihju=7253) 0.0 % 0.0-5.0 BLOOD GAS, [id number] 19:01:00 Test Item Value Reference Range Comments PH ARTERIAL (BEAKER) (test sgvs=848) 7.43 7.35-7.45 PCO2 ARTERIAL (BEAKER) (test almq=906) 35 mmHg 35-45 PO2 ARTERIAL (BEAKER) (test hneq=925) 408 mmHg 80-90 O2 SATURATION ARTERIAL (BEAKER) (test oqen=847) 99.8 % 96.0-97.0 HCO3 ARTERIAL (BEAKER) (test oezn=268) 23 mmol/L 21-29 BASE EXCESS ARTERIAL (BEAKER) (test mova=043) -1.5 mmol/L -2.0-3.0 PATIENT TEMPERATURE (BEAKER) (test pteh=4382) 35.3 C FIO2 (BEAKER) (test nkol=5270) 95.0 % SODIUM NA-STAT [id number] 19:01:00 Test Item Value Reference Range Comments SODIUM (BEAKER) (test podh=088) 133 meq/L 135-148 GLUCOSE-STAT [id number] 19:01:00 Test Item Value Reference Range Comments GLUCOSE RANDOM (BEAKER) (test iert=474) 272 mg/dL 70-110 HGB/HCT (H&H) - STAT [id number] 19:01:00 Test Item Value Reference Range Comments HEMOGLOBIN (BEAKER) (test wiwe=044) 8.3 g/dL 12.0-15.0 HEMATOCRIT (BEAKER) (test urfu=413) 24.0 % 36.0-45.0 POTASSIUM-STAT [id number] 19:00:00 Test Item Value Reference Range Comments POTASSIUM (BEAKER) (test wafb=772) 3.9 meq/L 3.6-5.5 CALCIUM, [id number] 19:00:00 Test Item Value Reference Range Comments CALCIUM IONIZED (BEAKER) (test yeki=741) 1.00 mmol/L 1.12-1.27 PH, BLOOD (BEAKER) (test edrk=1441) 7.43 PROTHROMBIN [id number] 18:34:00 Test Item Value Reference Range Comments PROTIME (BEAKER) (test guvn=104) 18.4 seconds 11.7-14.7 INR (BEAKER) (test wcoj=225) 1.5 <=5.9 RECOMMENDED COUMADIN/WARFARIN INR THERAPY RANGESSTANDARD DOSE: 2.0 - 3.0 Includes: PROPHYLAXIS forvenous thrombosis, systemic embolization; TREATMENT for venous thrombosis and/or pulmonary embolus.HIGH RISK: Target INR is 2.5-3.5 for patients with mechanical heart valves.[id number] 18:34:00 Test Item Value Reference Range Comments FIBRINOGEN LEVEL (BEAKER) (test ndlf=186) 399 mg/dl 225-434 [id number] 18:34:00 Test Item Value Reference Range Comments PARTIAL THROMBOPLASTIN TIME (BEAKER) (test 28.6 seconds 22.5-36.0 tosb=920) PLATELET [id number] 18:28:00 Test Item Value Reference Range Comments PLATELET COUNT (BEAKER) (test cdlu=208) 77 K/CU MM 150-450 CALCIUM, [id number] 18:14:00 Test Item Value Reference Range Comments CALCIUM IONIZED (BEAKER) (test ozbw=618) 0.96 mmol/L 1.12-1.27 PH, BLOOD (BEAKER) (test zsxc=4330) 7.44 POTASSIUM-STAT [id number] 18:13:00 Test Item Value Reference Range Comments POTASSIUM (BEAKER) (test pdsk=208) 3.8 meq/L 3.6-5.5 BLOOD GAS, [id number] 18:13:00 Test Item Value Reference Range Comments PH ARTERIAL (BEAKER) (test purh=320) 7.44 7.35-7.45 PCO2 ARTERIAL (BEAKER) (test utje=964) 30 mmHg 35-45 PO2 ARTERIAL (BEAKER) (test jdst=173) 420 mmHg 80-90 O2 SATURATION ARTERIAL (BEAKER) (test qdzj=829) 99.8 % 96.0-97.0 HCO3 ARTERIAL (BEAKER) (test jole=473) 20 mmol/L 21-29 BASE EXCESS ARTERIAL (BEAKER) (test dvzk=230) -3.8 mmol/L -2.0-3.0 PATIENT TEMPERATURE (BEAKER) (test gode=3017) 35.7 C FIO2 (BEAKER) (test vbmk=9893) 100.0 % SODIUM NA-STAT [id number] 18:13:00 Test Item Value Reference Range Comments SODIUM (BEAKER) (test itat=174) 133 meq/L 135-148 GLUCOSE-STAT [id number] 18:13:00 Test Item Value Reference Range Comments GLUCOSE RANDOM (BEAKER) (test bazd=515) 264 mg/dL 70-110 HGB/HCT (H&H) - STAT [id number] 18:13:00 Test Item Value Reference Range Comments HEMOGLOBIN (BEAKER) (test cmto=022) 6.3 g/dL 12.0-15.0 HEMATOCRIT (BEAKER) (test ybsj=066) 19.0 % 36.0-45.0 BLOOD GAS, [id number] 17:27:00 Test Item Value Reference Range Comments PH ARTERIAL (BEAKER) (test mmai=907) 7.65 7.35-7.45 PCO2 ARTERIAL (BEAKER) (test xsem=935) 23 mmHg 35-45 PO2 ARTERIAL (BEAKER) (test oupx=773) 275 mmHg 80-90 O2 SATURATION ARTERIAL (BEAKER) (test ypuq=364) 99.8 % 96.0-97.0 HCO3 ARTERIAL (BEAKER) (test dreq=105) 26 mmol/L 21-29 BASE EXCESS ARTERIAL (BEAKER) (test khew=873) 4.0 mmol/L -2.0-3.0 PATIENT TEMPERATURE (BEAKER) (test yncw=0298) 33.2 C FIO2 (BEAKER) (test qmon=9069) 70.0 % SODIUM NA-STAT [id number] 17:27:00 Test Item Value Reference Range Comments SODIUM (BEAKER) (test ilul=439) 127 meq/L 135-148 POTASSIUM-STAT [id number] 17:27:00 Test Item Value Reference Range Comments POTASSIUM (BEAKER) (test aamw=278) 5.6 meq/L 3.6-5.5 GLUCOSE-STAT [id number] 17:27:00 Test Item Value Reference Range Comments GLUCOSE RANDOM (BEAKER) (test jpcb=704) 330 mg/dL 70-110 HGB/HCT (H&H) - STAT [id number] 17:27:00 Test Item Value Reference Range Comments HEMOGLOBIN (BEAKER) (test mqrz=902) 7.4 g/dL 12.0-15.0 HEMATOCRIT (BEAKER) (test nhjy=369) 22.0 % 36.0-45.0 BLOOD GAS, [id number] 17:03:00 Test Item Value Reference Range Comments PH ARTERIAL (BEAKER) (test kknu=381) 7.42 7.35-7.45 PCO2 ARTERIAL (BEAKER) (test fgva=897) 48 mm Hg 35-45 PO2 ARTERIAL (BEAKER) (test lvdm=323) 427 mm Hg 80-90 O2 SATURATION ARTERIAL (BEAKER) (test ziys=520) 99.8 % 96.0-97.0 HCO3 ARTERIAL (BEAKER) (test ybuu=672) 30 mmol/L 21-29 BASE EXCESS ARTERIAL (BEAKER) (test pmow=742) 4.9 mmol/L -2.0-3.0 PATIENT TEMPERATURE (BEAKER) (test lysn=5972) 30.3 FIO2 (BEAKER) (test jyzv=3959) 70 SODIUM NA-STAT [id number] 17:03:00 Test Item Value Reference Range Comments SODIUM (BEAKER) (test frpv=196) 129 meq/L 135-148 GLUCOSE-STAT [id number] 17:03:00 Test Item Value Reference Range Comments GLUCOSE RANDOM (BEAKER) (test vlmf=841) 330 mg/dL 70-110 HGB/HCT (H&H) - STAT [id number] 17:03:00 Test Item Value Reference Range Comments HEMOGLOBIN (BEAKER) (test expf=688) 8.6 g/dL 12.0-15.0 HEMATOCRIT (BEAKER) (test vxon=826) 25.0 % 36.0-45.0 POTASSIUM-STAT [id number] 17:01:00 Test Item Value Reference Range Comments POTASSIUM (BEAKER) (test emme=317) 5.1 meq/L 3.6-5.5 BLOOD GAS, [id number] 16:32:00 Test Item Value Reference Range Comments PH ARTERIAL (BEAKER) (test ljul=760) 7.44 7.35-7.45 PCO2 ARTERIAL (BEAKER) (test izax=785) 42 mmHg 35-45 PO2 ARTERIAL (BEAKER) (test daed=828) 398 mmHg 80-90 O2 SATURATION ARTERIAL (BEAKER) (test rvsq=432) 99.8 % 96.0-97.0 HCO3 ARTERIAL (BEAKER) (test brfd=506) 29 mmol/L 21-29 BASE EXCESS ARTERIAL (BEAKER) (test jklm=434) 3.2 mmol/L -2.0-3.0 PATIENT TEMPERATURE (BEAKER) (test rrcx=7953) 31.4 C FIO2 (BEAKER) (test fmzl=1264) 75.0 % SODIUM NA-STAT [id number] 16:32:00 Test Item Value Reference Range Comments SODIUM (BEAKER) (test begr=296) 129 meq/L 135-148 GLUCOSE-STAT [id number] 16:32:00 Test Item Value Reference Range Comments GLUCOSE RANDOM (BEAKER) (test zqna=698) 304 mg/dL 70-110 HGB/HCT (H&H) - STAT [id number] 16:32:00 Test Item Value Reference Range Comments HEMOGLOBIN (BEAKER) (test revo=202) 8.7 g/dL 12.0-15.0 HEMATOCRIT (BEAKER) (test xfrr=097) 26.0 % 36.0-45.0 POTASSIUM-STAT [id number] 16:31:00 Test Item Value Reference Range Comments POTASSIUM (BEAKER) (test fkyq=545) 4.8 meq/L 3.6-5.5 BLOOD GAS, [id number] 16:14:00 Test Item Value Reference Range Comments PH ARTERIAL (BEAKER) (test naqd=371) 7.46 7.35-7.45 PCO2 ARTERIAL (BEAKER) (test gtuh=742) 40 mmHg 35-45 PO2 ARTERIAL (BEAKER) (test nohs=849) 306 mmHg 80-90 O2 SATURATION ARTERIAL (BEAKER) (test xafv=182) 99.7 % 96.0-97.0 HCO3 ARTERIAL (BEAKER) (test upup=057) 28 mmol/L 21-29 BASE EXCESS ARTERIAL (BEAKER) (test ntfc=617) 3.5 mmol/L -2.0-3.0 PATIENT TEMPERATURE (BEAKER) (test lbdz=5373) 35.4 C FIO2 (BEAKER) (test lhxu=4462) 75.0 % CALCIUM, [id number] 13:21:00 Test Item Value Reference Range Comments CALCIUM IONIZED (BEAKER) (test wvkt=499) 1.00 mmol/L 1.12-1.27 PH, BLOOD (BEAKER) (test nbbo=6565) 7.50 BLOOD GAS, [id number] 13:20:00 Test Item Value Reference Range Comments PH ARTERIAL (BEAKER) (test xskt=739) 7.52 7.35-7.45 PCO2 ARTERIAL (BEAKER) (test zogq=288) 33 mmHg 35-45 PO2 ARTERIAL (BEAKER) (test dupl=948) 291 mmHg 80-90 O2 SATURATION ARTERIAL (BEAKER) (test kvze=891) 99.7 % 96.0-97.0 HCO3 ARTERIAL (BEAKER) (test ssvm=845) 27 mmol/L 21-29 BASE EXCESS ARTERIAL (BEAKER) (test rwjy=246) 3.4 mmol/L -2.0-3.0 PATIENT TEMPERATURE (BEAKER) (test msdt=8699) 36.0 C FIO2 (BEAKER) (test alnb=9217) 100.0 % GLUCOSE-STAT [id number] 13:20:00 Test Item Value Reference Range Comments GLUCOSE RANDOM (BEAKER) (test avxu=004) 171 mg/dL 70-110 SODIUM NA-STAT [id number] 13:20:00 Test Item Value Reference Range Comments SODIUM (BEAKER) (test fflp=660) 134 meq/L 135-148 POTASSIUM-STAT [id number] 13:20:00 Test Item Value Reference Range Comments POTASSIUM (BEAKER) (test ovli=672) 3.4 meq/L 3.6-5.5 HGB/HCT (H&H) - STAT [id number] 13:20:00 Test Item Value Reference Range Comments HEMOGLOBIN (BEAKER) (test lkbe=294) 10.5 g/dL 12.0-15.0 HEMATOCRIT (BEAKER) (test vyan=590) 31.0 % 36.0-45.0 POCT-GLUCOSE [id number] 10:29:00 Test Item Value Reference Range Comments POC-GLUCOSE METER (BEAKER) 278 mg/dL 70-110 TESTED AT [facility] [address] [facility] (test ffyi=8235) [place] [address] PLATELET AGGREGATION: FUNCTION [id number] 09:27:00 Test Item Value Reference Range Comments WEAK ADP RESULT(BEAKER) (test 72 % 60-91 kszg=1116) PLATELET FUNCTION SCREEN 60-100% indicates normal INTERP (BEAKER) (test platelet function gagv=0561) OBVB-OOUFAAGANXZ-6874 (BEAKER) Uma dHz MD (test tpso=7227) (electronic signature) PLATELET COUNT AGG (BEAKER) 168 K/CU MM 150-450 (test gxmz=7488) [id number] 06:56:00 Test Item Value Reference Range Comments PARTIAL THROMBOPLASTIN TIME (BEAKER) (test 106.3 seconds 22.5-36.0 klhk=606) [id number] 06:02:00 Test Item Value Reference Range Comments THYROID STIMULATING HORMONE (BEAKER) (test 5.68 uIU/mL 0.35-4.94 xnef=409) OXYGEN SATURATION, [id number] 05:21:00 Test Item Value Reference Range Comments O2 SATURATION (MEASURED) (BEAKER) (test cmve=1481) 80.4 % [id number] 05:09:00 Test Item Value Reference Range Comments MAGNESIUM (BEAKER) (test 2.3 mg/dL 1.6-2.6 Specimen slightly hemolyzed xmuq=864) [id number] 05:09:00 Test Item Value Reference Range Comments PHOSPHORUS (BEAKER) (test 4.0 mg/dL 2.3-4.7 Specimen slightly hemolyzed amro=202) COMPREHENSIVE METABOLIC [id number] 05:09:00 Test Item Value Reference Range Comments TOTAL PROTEIN (BEAKER) 6.6 gm/dL 6.0-8.3 Specimen slightly (test pspk=782) hemolyzed ALBUMIN (BEAKER) (test 3.2 g/dL 3.5-5.0 Specimen slightly zqjx=2214) hemolyzed ALKALINE PHOSPHATASE 112 U/L 40-150 (BEAKER) (test bfoq=513) BILIRUBIN TOTAL (BEAKER) 0.4 mg/dL 0.2-1.2 Specimen slightly (test vecx=932) hemolyzed SODIUM (BEAKER) (test 133 meq/L 136-145 ecyg=418) POTASSIUM (BEAKER) (test 4.9 meq/L 3.5-5.1 Specimen slightly wkbe=954) hemolyzed CHLORIDE (BEAKER) (test 90 meq/L 98-107 agqo=913) CO2 (BEAKER) (test 31 meq/L 22-29 detc=895) BLOOD UREA NITROGEN 30 mg/dL 7-21 (BEAKER) (test cnha=666) CREATININE (BEAKER) (test 1.32 mg/dL 0.57-1.25 Specimen slightly mxeu=460) hemolyzed GLUCOSE RANDOM (BEAKER) 277 mg/dL 70-105 (test vrog=986) CALCIUM (BEAKER) (test 9.6 mg/dL 8.4-10.2 uudw=320) AST (SGOT) (BEAKER) (test 29 U/L 5-34 Specimen slightly opwt=967) hemolyzed ALT (SGPT) (BEAKER) (test 16 U/L 6-55 Specimen slightly pckp=562) hemolyzed EGFR (BEAKER) (test 41 mL/min/1.73 sq m ESTIMATED GFR IS NOT gvnc=4364) ACCURATE CREATININE CLEARANCE IN PREDICTING GLOMERULAR FILTRATION RATE. ESTIMATED GFR IS NOT APPLICABLE FOR DIALYSIS PATIENTS. LIPID [id number] 05:09:00 Test Item Value Reference Range Comments TRIGLYCERIDES (BEAKER) (test 234 mg/dL Specimen slightly hemolyzed bhkm=649) CHOLESTEROL (BEAKER) (test 153 mg/dL Specimen slightly hemolyzed smju=886) HDL CHOLESTEROL (BEAKER) (test 46 mg/dL sfbf=543) LDL CHOLESTEROL CALCULATED 60 mg/dL (BEAKER) (test ccvp=324) Triglyceride Reference Range: Low Risk <150 Borderline 150- 199 High Risk 200-499 Very High Risk >=500Cholesterol Reference Range: Low Risk <200 Borderline 200-239 High Risk > 240HDL Cholesterol Reference Range: Low Risk >=60 High Risk <40LDL Cholesterol Reference Range: Optimal <100 Near Optimal 100-129 Borderline 130-159 High 160-189 Very High >=190RAD, CHEST, 1 VIEW, NON [id number] 05:06:00Reason for exam:-> pulmonary edemaShould this be performed at the bedside?->YesFINAL REPORT CLINICAL INDICATION: Pulmonary edema Comparison: May 12, 2018The cardiomediastinal contours are stable. Central pulmonary vascular prominence and bilateral parenchymal opacities are similar to previous. There is no pneumothorax. Support lines are stable. Signed:Colt Licona MDReport Verified Date/Time: 05/13/2018 05:06:11 Reading Location: [address] Reading Room Electronically signed by: COLT LICONA M.D. on 05:06 AMPROTHROMBIN TIME/[id number] 04:56:00 Test Item Value Reference Range Comments PROTIME (BEAKER) (test zsvb=434) 14.3 seconds 11.7-14.7 INR (BEAKER) (test dyuk=613) 1.1 <=5.9 RECOMMENDED COUMADIN/WARFARIN INR THERAPY RANGESSTANDARD DOSE: 2.0 - 3.0 Includes: PROPHYLAXIS forvenous thrombosis, systemic embolization; TREATMENT for venous thrombosis and/or pulmonary embolus.HIGH RISK: Target INR is 2.5-3.5 for patients with mechanical heart valves.CBC W/PLT COUNT & AUTO [id number] 04:44:00 Test Item Value Reference Range Comments WHITE BLOOD CELL COUNT (BEAKER) (test htri=071) 5.3 K/ L 3.5-10.5 RED BLOOD CELL COUNT (BEAKER) (test ochd=078) 3.63 M/ L 3.93-5.22 HEMOGLOBIN (BEAKER) (test mdbd=713) 10.7 GM/DL 11.2-15.7 HEMATOCRIT (BEAKER) (test embv=205) 32.2 % 34.1-44.9 MEAN CORPUSCULAR VOLUME (BEAKER) (test yucp=399) 88.7 fL 79.4-94.8 MEAN CORPUSCULAR HEMOGLOBIN (BEAKER) (test 29.5 pg 25.6-32.2 rjlq=392) MEAN CORPUSCULAR HEMOGLOBIN CONC (BEAKER) (test 33.2 GM/DL 32.2-35.5 iwpk=409) RED CELL DISTRIBUTION WIDTH (BEAKER) (test 13.5 % 11.7-14.4 lubv=823) PLATELET COUNT (BEAKER) (test uqvt=847) 178 K/CU MM 150-450 MEAN PLATELET VOLUME (BEAKER) (test wwfk=365) 11.1 fL 9.4-12.3 NUCLEATED RED BLOOD CELLS (BEAKER) (test 0 /100 WBC 0-0 bhla=154) NEUTROPHILS RELATIVE PERCENT (BEAKER) (test 54 % iggq=237) LYMPHOCYTES RELATIVE PERCENT (BEAKER) (test 28 % kgjb=941) MONOCYTES RELATIVE PERCENT (BEAKER) (test 11 % vtsd=974) EOSINOPHILS RELATIVE PERCENT (BEAKER) (test 6 % hhlh=919) BASOPHILS RELATIVE PERCENT (BEAKER) (test 0 % vvsf=783) NEUTROPHILS ABSOLUTE COUNT (BEAKER) (test 2.89 K/ L 1.56-6.13 rtbw=962) LYMPHOCYTES ABSOLUTE COUNT (BEAKER) (test 1.51 K/ L 1.18-3.74 unln=879) MONOCYTES ABSOLUTE COUNT (BEAKER) (test 0.56 K/ L 0.24-0.36 nquz=878) EOSINOPHILS ABSOLUTE COUNT (BEAKER) (test 0.33 K/ L 0.04-0.36 fqci=741) BASOPHILS ABSOLUTE COUNT (BEAKER) (test 0.01 K/ L 0.01-0.08 lcku=367) IMMATURE GRANULOCYTES-RELATIVE PERCENT (BEAKER) 1 % 0-1 (test uqji=5796) POCT-GLUCOSE [id number] 21:32:00 Test Item Value Reference Range Comments POC-GLUCOSE METER (BEAKER) 331 mg/dL 70-110 Notified VINAY PEÑA/TESTED AT [facility] (test bbbh=9919) [address] [facility] [place] [address] [id number] 21:18:00 Test Item Value Reference Range Comments PARTIAL THROMBOPLASTIN TIME (BEAKER) (test 104.7 seconds 22.5-36.0 pbam=183) URINALYSIS W/ [id number] 21:14:00 Test Item Value Reference Range Comments COLOR (BEAKER) (test fiyl=871) Yellow CLARITY (BEAKER) (test rhnv=782) Hazy SPECIFIC GRAVITY UA (BEAKER) (test uyjq=222) 1.010 1.001-1.035 PH UA (BEAKER) (test zxkf=810) 5.5 5.0-8.0 PROTEIN UA (BEAKER) (test uprh=168) 50 mg/dL Negative GLUCOSE UA (BEAKER) (test eerk=730) Negative Negative KETONES UA (BEAKER) (test jrsg=394) Negative Negative BILIRUBIN UA (BEAKER) (test qmig=648) Negative Negative BLOOD UA (BEAKER) (test jdfp=032) Negative Negative NITRITE UA (BEAKER) (test cvqk=547) Negative Negative LEUKOCYTE ESTERASE UA (BEAKER) (test kggk=166) Moderate Negative UROBILINOGEN UA (BEAKER) (test cimc=899) 0.2 mg/dL 0.2-1.0 RBC UA (BEAKER) (test ixnm=457) 2 /HPF WBC UA (BEAKER) (test svyy=710) 33 /HPF MUCUS (BEAKER) (test dxdc=4386) Rare SQUAMOUS EPITHELIAL (BEAKER) (test fzcw=400) 2 /HPF HYALINE CASTS (BEAKER) (test emrc=195) 6 /LPF SOURCE(BEAKER) (test jqrx=9089) POCT-GLUCOSE [id number] 18:18:00 Test Item Value Reference Range Comments POC-GLUCOSE METER (BEAKER) 218 mg/dL 70-110 TESTED AT [facility] [address] [facility] (test bmnu=7065) [place] [address] [id number] 13:54:00 Test Item Value Reference Range Comments PARTIAL THROMBOPLASTIN TIME (BEAKER) (test 91.4 seconds 22.5-36.0 yevu=905) VANCOMYCIN LEVEL, [id number] 13:18:00 Test Item Value Reference Range Comments VANCOMYCIN TROUGH (BEAKER) (test laby=718) 17.3 ug/mL 10.0-20.0 POCT-GLUCOSE [id number] 13:10:00 Test Item Value Reference Range Comments POC-GLUCOSE METER (BEAKER) 207 mg/dL 70-110 TESTED AT [facility] [address] (test hwgs=3543) [facility] [address] [id number] 12:17:00 Test Item Value Reference Range Comments POTASSIUM (BEAKER) (test uybb=583) 4.3 meq/L 3.5-5.1 [id number] 12:17:00 Test Item Value Reference Range Comments MAGNESIUM (BEAKER) (test ybne=544) 1.9 mg/dL 1.6-2.6 [id number] 12:15:00 Test Item Value Reference Range Comments PARTIAL THROMBOPLASTIN TIME (BEAKER) (test 156.2 seconds 22.5-36.0 enxt=844) PLATELET AGGREGATION: FUNCTION [id number] 12:05:00 Test Item Value Reference Range Comments WEAK ADP RESULT(BEAKER) (test 89 % 60-91 wlic=5656) PLATELET FUNCTION SCREEN 60-100% indicates normal INTERP (BEAKER) (test platelet function xakl=2696) [id number] (BEAKER) Uma Hdz MD (test xmpt=5763) (electronic signature) PLATELET COUNT AGG (BEAKER) 151 K/CU MM 150-450 (test jwjm=4386) RAD, CHEST, 1 VIEW, NON [id number] 09:00:00Reason for exam:->pulmonary edemaShould this be performed [...] Verified Date/Time: 05/12/2018 09:00: 18 Reading Location: [facility] Radiology Reading Room POCT-GLUCOSE [id number] 07:29:00 Test Item Value Reference Range Comments POC-GLUCOSE METER (BEAKER) 230 mg/dL 70-110 TESTED AT [address] (test ibfd=1368) [facility] [address] [id number] 07:26:00 Test Item Value Reference Range Comments POTASSIUM (BEAKER) (test qyvt=670) 4.4 meq/L 3.5-5.1 [id number] 07:26:00 Test Item Value Reference Range Comments MAGNESIUM (BEAKER) (test blrk=297) 2.5 mg/dL 1.6-2.6 POCT-GLUCOSE [id number] 04:35:00 Test Item Value Reference Range Comments POC-GLUCOSE METER (BEAKER) 317 mg/dL 70-110 Will Repeat Test/TESTED AT (test wrqb=2655) [address] [address] OXYGEN SATURATION, [id number] 04:27:00 Test Item Value Reference Range Comments O2 SATURATION (MEASURED) (BEAKER) (test mfnn=2488) 74.9 % [id number] 04:19:00 Test Item Value Reference Range Comments PHOSPHORUS (BEAKER) (test juty=542) 4.4 mg/dL 2.3-4.7 [id number] 04:19:00 Test Item Value Reference Range Comments MAGNESIUM (BEAKER) (test wsvl=320) 2.1 mg/dL 1.6-2.6 BASIC METABOLIC [id number] 04:19:00 Test Item Value Reference Range Comments SODIUM (BEAKER) (test 137 meq/L 136-145 mhbi=375) POTASSIUM (BEAKER) (test 4.3 meq/L 3.5-5.1 cjmm=341) CHLORIDE (BEAKER) (test 97 meq/L 98-107 wbcy=192) CO2 (BEAKER) (test 31 meq/L 22-29 maxp=729) BLOOD UREA NITROGEN 27 mg/dL 7-21 (BEAKER) (test ftjm=452) CREATININE (BEAKER) (test 1.16 mg/dL 0.57-1.25 rrbz=071) GLUCOSE RANDOM (BEAKER) 189 mg/dL 70-105 (test qsfz=171) CALCIUM (BEAKER) (test 9.4 mg/dL 8.4-10.2 rpxs=387) EGFR (BEAKER) (test 47 mL/min/1.73 sq m ESTIMATED GFR IS NOT rsvw=3484) ACCURATE CREATININE CLEARANCE IN PREDICTING GLOMERULAR FILTRATION RATE. ESTIMATED GFR IS NOT APPLICABLE FOR DIALYSIS PATIENTS. [id number] 04:11:00 Test Item Value Reference Range Comments PARTIAL THROMBOPLASTIN TIME (BEAKER) (test 70.0 seconds 22.5-36.0 rkis=261) CBC W/PLT COUNT & AUTO [id number] 04:00:00 Test Item Value Reference Range Comments WHITE BLOOD CELL COUNT (BEAKER) (test lqoz=832) 6.2 K/ L 3.5-10.5 RED BLOOD CELL COUNT (BEAKER) (test twaw=070) 3.59 M/ L 3.93-5.22 HEMOGLOBIN (BEAKER) (test ouqk=071) 10.6 GM/DL 11.2-15.7 HEMATOCRIT (BEAKER) (test nydn=201) 32.2 % 34.1-44.9 MEAN CORPUSCULAR VOLUME (BEAKER) (test gwex=426) 89.7 fL 79.4-94.8 MEAN CORPUSCULAR HEMOGLOBIN (BEAKER) (test 29.5 pg 25.6-32.2 gqnd=741) MEAN CORPUSCULAR HEMOGLOBIN CONC (BEAKER) (test 32.9 GM/DL 32.2-35.5 xuje=048) RED CELL DISTRIBUTION WIDTH (BEAKER) (test 13.7 % 11.7-14.4 hlwb=473) PLATELET COUNT (BEAKER) (test mgzx=070) 169 K/CU MM 150-450 MEAN PLATELET VOLUME (BEAKER) (test laah=362) 11.6 fL 9.4-12.3 NUCLEATED RED BLOOD CELLS (BEAKER) (test 0 /100 WBC 0-0 nqzd=523) NEUTROPHILS RELATIVE PERCENT (BEAKER) (test 62 % uhjk=028) LYMPHOCYTES RELATIVE PERCENT (BEAKER) (test 22 % qlyr=894) MONOCYTES RELATIVE PERCENT (BEAKER) (test 10 % tfud=906) EOSINOPHILS RELATIVE PERCENT (BEAKER) (test 5 % qmjb=510) BASOPHILS RELATIVE PERCENT (BEAKER) (test 0 % fszr=528) NEUTROPHILS ABSOLUTE COUNT (BEAKER) (test 3.83 K/ L 1.56-6.13 zxjt=990) LYMPHOCYTES ABSOLUTE COUNT (BEAKER) (test 1.38 K/ L 1.18-3.74 oqxm=199) MONOCYTES ABSOLUTE COUNT (BEAKER) (test 0.60 K/ L 0.24-0.36 faql=441) EOSINOPHILS ABSOLUTE COUNT (BEAKER) (test 0.30 K/ L 0.04-0.36 dngz=382) BASOPHILS ABSOLUTE COUNT (BEAKER) (test 0.01 K/ L 0.01-0.08 dxye=531) IMMATURE GRANULOCYTES-RELATIVE PERCENT (BEAKER) 1 % 0-1 (test uhtg=6911) [id number] 02:28:00 Test Item Value Reference Range Comments PARTIAL THROMBOPLASTIN TIME (BEAKER) (test 62.0 seconds 22.5-36.0 ujlx=970) POCT-GLUCOSE [id number] 01:32:00 Test Item Value Reference Range Comments POC-GLUCOSE METER (BEAKER) 201 mg/dL 70-110 TESTED AT [address] (test viyb=4408) [place] [address] [id number] 00:48:00 Test Item Value Reference Range Comments PARTIAL THROMBOPLASTIN TIME (BEAKER) (test 151.5 seconds 22.5-36.0 grfs=054) [id number] 00:44:00 Test Item Value Reference Range Comments POTASSIUM (BEAKER) (test strh=138) 4.2 meq/L 3.5-5.1 [id number] 00:44:00 Test Item Value Reference Range Comments MAGNESIUM (BEAKER) (test dqju=109) 2.2 mg/dL 1.6-2.6 POCT-GLUCOSE [id number] 00:13:00 Test Item Value Reference Range Comments POC-GLUCOSE METER (BEAKER) 243 mg/dL 70-110 TESTED AT [address] (test haks=7771) [place] [id number] POCT-GLUCOSE [id number] 22:06:00 Test Item Value Reference Range Comments POC-GLUCOSE METER (BEAKER) 345 mg/dL 70-110 Will Repeat Test/TESTED AT (test gcpg=8575) [place] [id number] POCT-GLUCOSE [id number] 20:04:00 Test Item Value Reference Range Comments POC-GLUCOSE METER (BEAKER) 307 mg/dL 70-110 TESTED AT [address] (test cmzr=3975) [place] [address] [id number] 18:37:00 Test Item Value Reference Range Comments POTASSIUM (BEAKER) (test laiz=296) 4.3 meq/L 3.5-5.1 [id number] 18:37:00 Test Item Value Reference Range Comments MAGNESIUM (BEAKER) (test rrfu=473) 1.8 mg/dL 1.6-2.6 POCT-GLUCOSE [id number] 17:30:00 Test Item Value Reference Range Comments POC-GLUCOSE METER (BEAKER) 202 mg/dL 70-110 TESTED AT [address] (test mxoe=1879) [place] [id number] 15:55:00 Test Item Value Reference Range Comments PARTIAL THROMBOPLASTIN TIME (BEAKER) (test 61.0 seconds 22.5-36.0 sssj=782) PLATELET AGGREGATION: FUNCTION [id number] 15:53:00 Test Item Value Reference Range Comments WEAK ADP RESULT(BEAKER) (test 69 % 60-91 swyz=7806) PLATELET FUNCTION SCREEN 60-100% indicates normal INTERP (BEAKER) (test platelet function rgdy=8185) [id number] (BEAKER) Uma Hdz MD (test jkbh=9577) (electronic signature) PLATELET COUNT AGG (BEAKER) 180 K/CU MM 150-450 (test csof=5622) ANTITHROMBIN [id number] 12:52:00 Test Item Value Reference Range Comments ANTITHROMBIN III ACTIVITY (BEAKER) (test vupy=005) 98.0 % 80.0-120.0 [id number] 12:36:00 Test Item Value Reference Range Comments POTASSIUM (BEAKER) (test ilpu=310) 4.4 meq/L 3.5-5.1 [id number] 12:36:00 Test Item Value Reference Range Comments MAGNESIUM (BEAKER) (test mpir=407) 2.1 mg/dL 1.6-2.6 POCT-GLUCOSE [id number] 10:43:00 Test Item Value Reference Range Comments POC-GLUCOSE METER (BEAKER) 145 mg/dL 70-110 TESTED AT [facility] [address] (test cuon=9684) [place] [address] RAD, CHEST, 1 VIEW, NON [id number] 07:49:00Reason for exam:->chf, nstemi , IABPShould this [...] Verified Date/Time: 05/11/2018 07 :49:40 Reading Location: [facility] Radiology Reading Room [id number] 07:28:00 Test Item Value Reference Range Comments POTASSIUM (BEAKER) (test 4.1 meq/L 3.5-5.1 Specimen slightly hemolyzed biom=580) [id number] 07:28:00 Test Item Value Reference Range Comments MAGNESIUM (BEAKER) (test 2.4 mg/dL 1.6-2.6 Specimen slightly hemolyzed xbmt=751) [id number] 07:24:00 Test Item Value Reference Range Comments PARTIAL THROMBOPLASTIN TIME (BEAKER) (test 35.1 seconds 22.5-36.0 qziy=053) CBC (HEMOGRAM ONLY)2018-05-11 07:15:00 Test Item Value Reference Range Comments WHITE BLOOD CELL COUNT (BEAKER) (test jwgj=115) 6.3 K/ L 3.5-10.5 RED BLOOD CELL COUNT (BEAKER) (test lwel=736) 3.75 M/ L 3.93-5.22 HEMOGLOBIN (BEAKER) (test adem=958) 11.2 GM/DL 11.2-15.7 HEMATOCRIT (BEAKER) (test rvfe=037) 34.0 % 34.1-44.9 MEAN CORPUSCULAR VOLUME (BEAKER) (test vmqr=351) 90.7 fL 79.4-94.8 MEAN CORPUSCULAR HEMOGLOBIN (BEAKER) (test 29.9 pg 25.6-32.2 jecr=067) MEAN CORPUSCULAR HEMOGLOBIN CONC (BEAKER) (test 32.9 GM/DL 32.2-35.5 odkv=751) RED CELL DISTRIBUTION WIDTH (BEAKER) (test 14.0 % 11.7-14.4 fhrt=393) PLATELET COUNT (BEAKER) (test zppm=185) 165 K/CU MM 150-450 MEAN PLATELET VOLUME (BEAKER) (test fawf=271) 11.6 fL 9.4-12.3 NUCLEATED RED BLOOD CELLS (BEAKER) (test 0 /100 WBC 0-0 faqk=261) POCT-GLUCOSE [id number] 07:08:00 Test Item Value Reference Range Comments POC-GLUCOSE METER (BEAKER) 134 mg/dL 70-110 TESTED AT [address] (test bgrk=4734) [place] [address] POCT-GLUCOSE [id number] 06:09:00 Test Item Value Reference Range Comments POC-GLUCOSE METER (BEAKER) 128 mg/dL 70-110 TESTED AT [address] (test hqsr=5486) [place] [address] POCT-GLUCOSE [id number] 06:09:00 Test Item Value Reference Range Comments POC-GLUCOSE METER (BEAKER) 141 mg/dL 70-110 TESTED AT [address] (test clzs=0138) [place] [address] [id number] 05:32:00 Test Item Value Reference Range Comments MAGNESIUM (BEAKER) (test jahh=724) 2.5 mg/dL 1.6-2.6 BASIC METABOLIC [id number] 05:32:00 Test Item Value Reference Range Comments SODIUM (BEAKER) (test 137 meq/L 136-145 oqqi=253) POTASSIUM (BEAKER) (test 3.9 meq/L 3.5-5.1 hudr=625) CHLORIDE (BEAKER) (test 96 meq/L 98-107 hsmw=743) CO2 (BEAKER) (test 28 meq/L 22-29 xkpm=709) BLOOD UREA NITROGEN 23 mg/dL 7-21 (BEAKER) (test xdev=664) CREATININE (BEAKER) (test 1.32 mg/dL 0.57-1.25 locn=707) GLUCOSE RANDOM (BEAKER) 194 mg/dL 70-105 (test xuug=761) CALCIUM (BEAKER) (test 9.2 mg/dL 8.4-10.2 bfjc=860) EGFR (BEAKER) (test 41 mL/min/1.73 sq m ESTIMATED GFR IS NOT hzoh=8538) ACCURATE CREATININE CLEARANCE IN PREDICTING GLOMERULAR FILTRATION RATE. ESTIMATED GFR IS NOT APPLICABLE FOR DIALYSIS PATIENTS. CALCIUM, [id number] 05:28:00 Test Item Value Reference Range Comments CALCIUM IONIZED (BEAKER) (test eflo=114) 1.09 mmol/L 1.12-1.27 PH, BLOOD (BEAKER) (test kitk=7259) 7.39 POCT-GLUCOSE [id number] 05:21:00 Test Item Value Reference Range Comments POC-GLUCOSE METER (BEAKER) 199 mg/dL 70-110 TESTED AT [address] (test nxij=8360) [place] [address] POCT-GLUCOSE [id number] 05:21:00 Test Item Value Reference Range Comments POC-GLUCOSE METER (BEAKER) 236 mg/dL 70-110 TESTED AT [address] (test wcll=3995) [place] [address] POCT-GLUCOSE [id number] 05:21:00 Test Item Value Reference Range Comments POC-GLUCOSE METER (BEAKER) 225 mg/dL 70-110 TESTED AT [address] (test qbki=3624) [place] [id number] BLOOD GAS, [id number] 05:10:00 Test Item Value Reference Range Comments PH ARTERIAL (BEAKER) (test pixm=456) 7.42 7.35-7.45 PCO2 ARTERIAL (BEAKER) (test lfgh=599) 55 mmHg 35-45 PO2 ARTERIAL (BEAKER) (test kbuj=986) 96 mmHg 80-90 O2 SATURATION ARTERIAL (BEAKER) (test fech=939) 97.3 % 96.0-97.0 HCO3 ARTERIAL (BEAKER) (test snzb=710) 35 mmol/L 21-29 BASE EXCESS ARTERIAL (BEAKER) (test uxik=356) 8.5 mmol/L -2.0-3.0 PATIENT TEMPERATURE (BEAKER) (test ptnm=9173) 37.0 C FIO2 (BEAKER) (test gqmy=4034) 21.0 % OXYGEN SATURATION, [id number] 04:50:00 Test Item Value Reference Range Comments O2 SATURATION (MEASURED) (BEAKER) (test bdla=4525) 75.1 % [id number] 04:50:00 Test Item Value Reference Range Comments PARTIAL THROMBOPLASTIN TIME (BEAKER) (test 41.5 seconds 22.5-36.0 fupc=248) CBC W/PLT COUNT & AUTO [id number] 04:36:00 Test Item Value Reference Range Comments WHITE BLOOD CELL COUNT (BEAKER) (test vsrn=118) 6.9 K/ L 3.5-10.5 RED BLOOD CELL COUNT (BEAKER) (test iduh=728) 3.73 M/ L 3.93-5.22 HEMOGLOBIN (BEAKER) (test xrwd=826) 11.1 GM/DL 11.2-15.7 HEMATOCRIT (BEAKER) (test oufz=663) 34.3 % 34.1-44.9 MEAN CORPUSCULAR VOLUME (BEAKER) (test jitv=102) 92.0 fL 79.4-94.8 MEAN CORPUSCULAR HEMOGLOBIN (BEAKER) (test 29.8 pg 25.6-32.2 yfea=351) MEAN CORPUSCULAR HEMOGLOBIN CONC (BEAKER) (test 32.4 GM/DL 32.2-35.5 bquw=199) RED CELL DISTRIBUTION WIDTH (BEAKER) (test 13.7 % 11.7-14.4 gtpj=872) PLATELET COUNT (BEAKER) (test viqr=301) 159 K/CU MM 150-450 MEAN PLATELET VOLUME (BEAKER) (test wzqc=448) 12.1 fL 9.4-12.3 NUCLEATED RED BLOOD CELLS (BEAKER) (test 0 /100 WBC 0-0 fjqu=868) NEUTROPHILS RELATIVE PERCENT (BEAKER) (test 68 % vvme=021) LYMPHOCYTES RELATIVE PERCENT (BEAKER) (test 20 % fuxo=856) MONOCYTES RELATIVE PERCENT (BEAKER) (test 8 % tmvd=290) EOSINOPHILS RELATIVE PERCENT (BEAKER) (test 4 % poqh=851) BASOPHILS RELATIVE PERCENT (BEAKER) (test 0 % jnoi=949) NEUTROPHILS ABSOLUTE COUNT (BEAKER) (test 4.70 K/ L 1.56-6.13 lbce=469) LYMPHOCYTES ABSOLUTE COUNT (BEAKER) (test 1.40 K/ L 1.18-3.74 cfcn=350) MONOCYTES ABSOLUTE COUNT (BEAKER) (test 0.53 K/ L 0.24-0.36 xqaj=183) EOSINOPHILS ABSOLUTE COUNT (BEAKER) (test 0.24 K/ L 0.04-0.36 rfuy=425) BASOPHILS ABSOLUTE COUNT (BEAKER) (test 0.01 K/ L 0.01-0.08 qcbl=264) IMMATURE GRANULOCYTES-RELATIVE PERCENT (BEAKER) 0 % 0-1 (test fbnn=4281) [id number] 23:42:00 Test Item Value Reference Range Comments PARTIAL THROMBOPLASTIN TIME (BEAKER) (test 34.5 seconds 22.5-36.0 ifrm=472) [id number] 23:41:00 Test Item Value Reference Range Comments POTASSIUM (BEAKER) (test arad=833) 3.9 meq/L 3.5-5.1 [id number] 23:41:00 Test Item Value Reference Range Comments MAGNESIUM (BEAKER) (test oocm=766) 2.0 mg/dL 1.6-2.6 POCT-GLUCOSE [id number] 23:35:00 Test Item Value Reference Range Comments POC-GLUCOSE METER (BEAKER) 272 mg/dL 70-110 TESTED AT [address] (test abwz=8233) [facility] [address] POCT-GLUCOSE [id number] 22:46:00 Test Item Value Reference Range Comments POC-GLUCOSE METER (BEAKER) 295 mg/dL 70-110 TESTED AT [address] (test dbhb=4214) [facility] [address] POCT-GLUCOSE [id number] 22:46:00 Test Item Value Reference Range Comments POC-GLUCOSE METER (BEAKER) 326 mg/dL 70-110 TESTED AT [address] (test mysu=0258) [facility] [address] POCT-GLUCOSE [id number] 22:46:00 Test Item Value Reference Range Comments POC-GLUCOSE METER (BEAKER) 355 mg/dL 70-110 Will Repeat Test/TESTED AT (test ozfm=2375) [place] [id number] POCT-GLUCOSE [id number] 22:46:00 Test Item Value Reference Range Comments POC-GLUCOSE METER (BEAKER) 219 mg/dL 70-110 TESTED AT [address] (test uvtv=9679) [place] [address] [id number] 17:26:00 Test Item Value Reference Range Comments POTASSIUM (BEAKER) (test eivs=622) 4.1 meq/L 3.5-5.1 [id number] 17:26:00 Test Item Value Reference Range Comments MAGNESIUM (BEAKER) (test giln=915) 1.9 mg/dL 1.6-2.6 [id number] 17:21:00 Test Item Value Reference Range Comments PARTIAL THROMBOPLASTIN TIME (BEAKER) (test 58.4 seconds 22.5-36.0 ilcx=029) POCT-GLUCOSE [id number] 17:01:00 Test Item Value Reference Range Comments POC-GLUCOSE METER (BEAKER) 245 mg/dL 70-110 TESTED AT [address] (test jwpf=3300) [place] [address] POCT-GLUCOSE [id number] 13:43:00 Test Item Value Reference Range Comments POC-GLUCOSE METER (BEAKER) 185 mg/dL 70-110 TESTED AT [address] (test oafd=7365) [place] [address] POCT-GLUCOSE [id number] 12:48:00 Test Item Value Reference Range Comments POC-GLUCOSE METER (BEAKER) 189 mg/dL 70-110 TESTED AT [address] (test fttm=3022) [place] [address] TROPONIN [id number] 12:12:00 Test Item Value Reference Range Comments TROPONIN I (BEAKER) (test sjbp=750) 14.07 ng/mL 0.00-0.03 Troponin I (TnI) levels [...] acidosis, acute neurological disease, and persistent tachyarrhythmia.POCT-GLUCOSE [id number] 11:34:00 Test Item Value Reference Range Comments POC-GLUCOSE METER (BEAKER) 151 mg/dL 70-110 TESTED AT [address] (test jilz=4277) [place] [address] [id number] 11:28:00 Test Item Value Reference Range Comments POTASSIUM (BEAKER) (test xbbk=696) 4.0 meq/L 3.5-5.1 [id number] 11:28:00 Test Item Value Reference Range Comments MAGNESIUM (BEAKER) (test qsoj=959) 2.3 mg/dL 1.6-2.6 [id number] 11:20:00 Test Item Value Reference Range Comments PARTIAL THROMBOPLASTIN TIME (BEAKER) (test 47.4 seconds 22.5-36.0 zccm=421) POCT-GLUCOSE [id number] 10:25:00 Test Item Value Reference Range Comments POC-GLUCOSE METER (BEAKER) 157 mg/dL 70-110 TESTED AT [address] (test qdon=6596) [place] [address] POCT-GLUCOSE [id number] 10:25:00 Test Item Value Reference Range Comments POC-GLUCOSE METER (BEAKER) 163 mg/dL 70-110 TESTED AT [address] (test ojoh=8775) [place] [address] POCT-GLUCOSE [id number] 10:25:00 Test Item Value Reference Range Comments POC-GLUCOSE METER (BEAKER) 163 mg/dL 70-110 TESTED AT [address] (test ofvo=8881) [place] [address] RAD, CHEST, 1 VIEW, NON [id number] 08:19:00Reason for exam:->chf, nstemi , IABPShould this [...] Verified Date/Time: 05/10/2018 08:19:56 [facility] Electronically signed by: SHAYY YEPEZ M.D.on 05/10/2018 08:19 AMPOCT-GLUCOSE [id number] 06:55:00 Test Item Value Reference Range Comments POC-GLUCOSE METER (BEAKER) 182 mg/dL 70-110 TESTED AT [address] (test xqpm=0705) [facility] [address] [id number] 06:26:00 Test Item Value Reference Range Comments HAPTOGLOBIN (BEAKER) (test qkns=306) 193 mg/dL 14-258 POCT-GLUCOSE [id number] 06:19:00 Test Item Value Reference Range Comments POC-GLUCOSE METER (BEAKER) 167 mg/dL 70-110 TESTED AT [address] (test qwxa=7748) [facility] [address] POCT-GLUCOSE [id number] 06:19:00 Test Item Value Reference Range Comments POC-GLUCOSE METER (BEAKER) 156 mg/dL 70-110 TESTED AT [address] (test cdgg=0302) [facility] [address] POCT-GLUCOSE [id number] 06:19:00 Test Item Value Reference Range Comments POC-GLUCOSE METER (BEAKER) 149 mg/dL 70-110 TESTED AT [address] (test jsnt=4757) [place] [address] [id number] 05:26:00 Test Item Value Reference Range Comments MAGNESIUM (BEAKER) (test fppu=162) 2.6 mg/dL 1.6-2.6 BASIC METABOLIC [id number] 05:26:00 Test Item Value Reference Range Comments SODIUM (BEAKER) (test 140 meq/L 136-145 qmpz=277) POTASSIUM (BEAKER) (test 3.8 meq/L 3.5-5.1 vtrv=520) CHLORIDE (BEAKER) (test 98 meq/L 98-107 nsex=540) CO2 (BEAKER) (test 31 meq/L 22-29 xumb=703) BLOOD UREA NITROGEN 22 mg/dL 7-21 (BEAKER) (test jssk=979) CREATININE (BEAKER) (test 1.39 mg/dL 0.57-1.25 vfwu=242) GLUCOSE RANDOM (BEAKER) 172 mg/dL 70-105 (test oaeg=149) CALCIUM (BEAKER) (test 9.7 mg/dL 8.4-10.2 lajn=827) EGFR (BEAKER) (test 39 mL/min/1.73 sq m ESTIMATED GFR IS NOT jxsi=6025) ACCURATE CREATININE CLEARANCE IN PREDICTING GLOMERULAR FILTRATION RATE. ESTIMATED GFR IS NOT APPLICABLE FOR DIALYSIS PATIENTS. BILIRUBIN, ADULT [id number] 05:26:00 Test Item Value Reference Range Comments BILIRUBIN TOTAL (BEAKER) (test vvkj=084) 0.9 mg/dL 0.2-1.2 LACTATE DEHYDROGENASE (LDH)2018-05-10 05:26:00 Test Item Value Reference Range Comments LACTATE DEHYDROGENASE (BEAKER) (test upjw=177) 436 U/L 125-220 [id number] 05:20:00 Test Item Value Reference Range Comments PARTIAL THROMBOPLASTIN TIME (BEAKER) (test 45.9 seconds 22.5-36.0 ajkq=105) [id number] 05:19:00 Test Item Value Reference Range Comments FIBRINOGEN LEVEL (BEAKER) (test xfas=110) 587 mg/dl 225-434 PROTHROMBIN [id number] 05:18:00 Test Item Value Reference Range Comments PROTIME (BEAKER) (test bqfd=421) 14.5 seconds 11.7-14.7 INR (BEAKER) (test ksst=127) 1.1 <=5.9 RECOMMENDED COUMADIN/WARFARIN INR THERAPY RANGESSTANDARD DOSE: 2.0 - 3.0 Includes: PROPHYLAXIS forvenous thrombosis, systemic embolization; TREATMENT for venous thrombosis and/or pulmonary embolus.HIGH RISK: Target INR is 2.5-3.5 for patients with mechanical heart valves.CBC W/PLT COUNT & AUTO [id number] 05:11:00 Test Item Value Reference Range Comments WHITE BLOOD CELL COUNT (BEAKER) (test vqex=490) 7.5 K/ L 3.5-10.5 RED BLOOD CELL COUNT (BEAKER) (test wntb=853) 4.00 M/ L 3.93-5.22 HEMOGLOBIN (BEAKER) (test oaeb=448) 11.6 GM/DL 11.2-15.7 HEMATOCRIT (BEAKER) (test imzd=803) 36.0 % 34.1-44.9 MEAN CORPUSCULAR VOLUME (BEAKER) (test hmfw=180) 90.0 fL 79.4-94.8 MEAN CORPUSCULAR HEMOGLOBIN (BEAKER) (test 29.0 pg 25.6-32.2 urvb=547) MEAN CORPUSCULAR HEMOGLOBIN CONC (BEAKER) (test 32.2 GM/DL 32.2-35.5 wqse=787) RED CELL DISTRIBUTION WIDTH (BEAKER) (test 14.0 % 11.7-14.4 aybp=620) PLATELET COUNT (BEAKER) (test yrbq=471) 162 K/CU MM 150-450 MEAN PLATELET VOLUME (BEAKER) (test dmyr=113) 11.7 fL 9.4-12.3 NUCLEATED RED BLOOD CELLS (BEAKER) (test 0 /100 WBC 0-0 kjdz=745) NEUTROPHILS RELATIVE PERCENT (BEAKER) (test 69 % icgu=677) LYMPHOCYTES RELATIVE PERCENT (BEAKER) (test 18 % rcat=553) MONOCYTES RELATIVE PERCENT (BEAKER) (test 9 % tjww=215) EOSINOPHILS RELATIVE PERCENT (BEAKER) (test 3 % xfft=764) BASOPHILS RELATIVE PERCENT (BEAKER) (test 0 % mjng=288) NEUTROPHILS ABSOLUTE COUNT (BEAKER) (test 5.20 K/ L 1.56-6.13 hayc=760) LYMPHOCYTES ABSOLUTE COUNT (BEAKER) (test 1.35 K/ L 1.18-3.74 qeck=485) MONOCYTES ABSOLUTE COUNT (BEAKER) (test 0.68 K/ L 0.24-0.36 dpsc=578) EOSINOPHILS ABSOLUTE COUNT (BEAKER) (test 0.21 K/ L 0.04-0.36 xerx=640) BASOPHILS ABSOLUTE COUNT (BEAKER) (test 0.02 K/ L 0.01-0.08 jlcx=065) IMMATURE GRANULOCYTES-RELATIVE PERCENT (BEAKER) 1 % 0-1 (test ctiv=5775) CALCIUM, [id number] 05:02:00 Test Item Value Reference Range Comments CALCIUM IONIZED (BEAKER) (test kfgg=510) 1.11 mmol/L 1.12-1.27 PH, BLOOD (BEAKER) (test tfgf=7166) 7.45 BLOOD GAS, [id number] 05:01:00 Test Item Value Reference Range Comments PH ARTERIAL (BEAKER) (test dorw=324) 7.45 7.35-7.45 PCO2 ARTERIAL (BEAKER) (test jlua=998) 49 mmHg 35-45 PO2 ARTERIAL (BEAKER) (test vart=705) 104 mmHg 80-90 O2 SATURATION ARTERIAL (BEAKER) (test kfzm=009) 98.0 % 96.0-97.0 HCO3 ARTERIAL (BEAKER) (test chih=327) 34 mmol/L 21-29 BASE EXCESS ARTERIAL (BEAKER) (test gnvr=835) 8.1 mmol/L -2.0-3.0 PATIENT TEMPERATURE (BEAKER) (test psju=4030) 36.7 C FIO2 (BEAKER) (test hgfi=9431) 40.0 % [id number] 01:01:00 Test Item Value Reference Range Comments PARTIAL THROMBOPLASTIN TIME (BEAKER) (test 36.2 seconds 22.5-36.0 mcqe=746) [id number] 00:46:00 Test Item Value Reference Range Comments POTASSIUM (BEAKER) (test cqrz=871) 3.6 meq/L 3.5-5.1 [id number] 00:46:00 Test Item Value Reference Range Comments MAGNESIUM (BEAKER) (test jjhg=300) 1.9 mg/dL 1.6-2.6 POCT-GLUCOSE [id number] 00:04:00 Test Item Value Reference Range Comments POC-GLUCOSE METER (BEAKER) 170 mg/dL 70-110 TESTED AT [address] (test povr=7455) [facility] [address] POCT-GLUCOSE [id number] 22:49:00 Test Item Value Reference Range Comments POC-GLUCOSE METER (BEAKER) 174 mg/dL 70-110 TESTED AT [address] (test fknn=1388) [facility] [address] POCT-GLUCOSE [id number] 22:23:00 Test Item Value Reference Range Comments POC-GLUCOSE METER (BEAKER) 182 mg/dL 70-110 TESTED AT [address] (test udza=6814) [facility] [address] POCT-GLUCOSE [id number] 22:23:00 Test Item Value Reference Range Comments POC-GLUCOSE METER (BEAKER) 198 mg/dL 70-110 TESTED AT [address] (test abel=4384) [place] [address] POCT-GLUCOSE [id number] 19:18:00 Test Item Value Reference Range Comments POC-GLUCOSE METER (BEAKER) 188 mg/dL 70-110 TESTED AT [address] (test ssop=6128) [place] [address] POCT-GLUCOSE [id number] 19:18:00 Test Item Value Reference Range Comments POC-GLUCOSE METER (BEAKER) 216 mg/dL 70-110 TESTED AT [address] (test qujo=0497) [place] [address] [id number] 18:49:00 Test Item Value Reference Range Comments POTASSIUM (BEAKER) (test scwa=983) 3.8 meq/L 3.5-5.1 [id number] 18:49:00 Test Item Value Reference Range Comments MAGNESIUM (BEAKER) (test nidy=270) 2.3 mg/dL 1.6-2.6 [id number] 18:23:00 Test Item Value Reference Range Comments PARTIAL THROMBOPLASTIN TIME (BEAKER) (test 29.8 seconds 22.5-36.0 rqhd=772) CALCIUM, [id number] 18:20:00 Test Item Value Reference Range Comments CALCIUM IONIZED (BEAKER) (test ddgt=734) 1.12 mmol/L 1.12-1.27 PH, BLOOD (BEAKER) (test ssuj=0595) 7.42 Check serum Ionized Calcium level after 4 hours after IV Calcium replacement.POCT-GLUCOSE [id number] 17:11:00 Test Item Value Reference Range Comments POC-GLUCOSE METER (BEAKER) 211 mg/dL 70-110 TESTED AT [address] (test adtf=6149) [place] [id number] POCT-GLUCOSE [id number] 16:19:00 Test Item Value Reference Range Comments POC-GLUCOSE METER (BEAKER) 219 mg/dL 70-110 TESTED AT [address] (test qduu=9818) [place] [address] POCT-GLUCOSE [id number] 15:57:00 Test Item Value Reference Range Comments POC-GLUCOSE METER (BEAKER) 215 mg/dL 70-110 TESTED AT [address] (test kqqv=4046) [facility] [address] BLOOD GAS, [id number] 14:58:00 Test Item Value Reference Range Comments PH ARTERIAL (BEAKER) (test famj=165) 7.42 7.35-7.45 PCO2 ARTERIAL (BEAKER) (test jkyi=585) 49 mmHg 35-45 PO2 ARTERIAL (BEAKER) (test opcp=182) 114 mmHg 80-90 O2 SATURATION ARTERIAL (BEAKER) (test gfal=631) 98.0 % 96.0-97.0 HCO3 ARTERIAL (BEAKER) (test fsvm=471) 31 mmol/L 21-29 BASE EXCESS ARTERIAL (BEAKER) (test hiro=393) 5.8 mmol/L -2.0-3.0 PATIENT TEMPERATURE (BEAKER) (test oipj=8605) 38.0 C FIO2 (BEAKER) (test iocl=1800) 40.0 % POCT-GLUCOSE [id number] 14:06:00 Test Item Value Reference Range Comments POC-GLUCOSE METER (BEAKER) 242 mg/dL 70-110 TESTED AT [address] (test ufpr=7846) [facility] [address] POCT-GLUCOSE [id number] 13:06:00 Test Item Value Reference Range Comments POC-GLUCOSE METER (BEAKER) 195 mg/dL 70-110 TESTED AT [address] (test gatz=2645) [facility] [address] [id number] 12:10:00 Test Item Value Reference Range Comments POTASSIUM (BEAKER) (test eccc=151) 3.7 meq/L 3.5-5.1 [id number] 12:10:00 Test Item Value Reference Range Comments MAGNESIUM (BEAKER) (test chpo=166) 2.0 mg/dL 1.6-2.6 POCT-GLUCOSE [id number] 12:07:00 Test Item Value Reference Range Comments POC-GLUCOSE METER (BEAKER) 195 mg/dL 70-110 TESTED AT [address] (test rfuj=4831) [facility] [address] CALCIUM, [id number] 12:06:00 Test Item Value Reference Range Comments CALCIUM IONIZED (BEAKER) (test eujt=391) 1.08 mmol/L 1.12-1.27 PH, BLOOD (BEAKER) (test wpxo=2293) 7.51 Check serum Ionized Calcium level after 4 hours after IV Calcium replacement.POCT-GLUCOSE [id number] 11:06:00 Test Item Value Reference Range Comments POC-GLUCOSE METER (BEAKER) 225 mg/dL 70-110 TESTED AT [address] (test uvtp=4697) [place] [address] POCT-GLUCOSE [id number] 11:06:00 Test Item Value Reference Range Comments POC-GLUCOSE METER (BEAKER) 238 mg/dL 70-110 TESTED AT [address] (test nuuh=0315) [place] [address] POCT-GLUCOSE [id number] 11:06:00 Test Item Value Reference Range Comments POC-GLUCOSE METER (BEAKER) 217 mg/dL 70-110 TESTED AT [address] (test hsbl=9534) [place] [address] HEMOGLOBIN [id number] 10:34:00 Test Item Value Reference Range Comments HEMOGLOBIN A1C (BEAKER) (test sqle=800) 9.7 % 4.3-6.1 POCT-GLUCOSE [id number] 08:24:00 Test Item Value Reference Range Comments POC-GLUCOSE METER (BEAKER) 228 mg/dL 70-110 TESTED AT [address] (test vvzz=2499) [place] [id number] POCT-GLUCOSE [id number] 08:24:00 Test Item Value Reference Range Comments POC-GLUCOSE METER (BEAKER) 40 mg/dL 70-110 TESTED AT [address] (test mdjw=7810) [place] [address] POCT-GLUCOSE [id number] 08:24:00 Test Item Value Reference Range Comments POC-GLUCOSE METER (BEAKER) 73 mg/dL 70-110 TESTED AT [address] (test taou=4372) [place] [address] RAD, CHEST, 1 VIEW, NON [id number] 08:24:00Reason for exam:->pulmonary edemaShould this be performed [...] Ruff Verified Date/Time: 02/2018 08:24:09 Reading Location: [address] Neuro Reading Room LACTIC ACID, ARTERIAL, WHOLE [id number] 07:52:00 Test Item Value Reference Range Comments LACTATE BLOOD ARTERIAL (2) (BEAKER) (test 1.3 mmol/L 0.5-2.2 nblk=2873) Effective 02/06/2016: Units/Reference Range ChangeNew: 0.5-2.2 mmol/L Previous: 5 -20 mg/[id number] 07:52:00 Test Item Value Reference Range Comments POTASSIUM (BEAKER) (test zukp=954) 3.5 meq/L 3.5-5.1 [id number] 07:52:00 Test Item Value Reference Range Comments MAGNESIUM (BEAKER) (test kqvm=679) 2.2 mg/dL 1.6-2.6 STREP PNEUMONIAE [id number] 06:33:00 Test Item Value Reference Range Comments STREP PNEUMONIAE ANTIGEN Presumptive negative for Presumptive negative for (BEAKER) (test pneumococcal pneumonia - pneumococcal pneumonia - gowd=1848) see comment see commen Presumptive negative for pneumococcal pneumonia, suggesting no current or recent pneumococcal infection. Infection due to S. pneumoniae cannot be ruled out since the antigen present in the sample may be below the detection limit of the test.LEGIONELLA ANTIGEN, [id number] 06:32:00 Test Item Value Reference Range Comments L. PNEUMOPHILA SEROGP 1 Negative - see Negative for L. UR AG (BEAKER) (test comment pneumophila serogroup 1 sfix=5514) antigen, suggesting no recent or current infection with this serogroup. Legionellosis cannot be ruled out since other serogroups and species may cause disease. OXYGEN SATURATION, [id number] 05:24:00 Test Item Value Reference Range Comments O2 SATURATION (MEASURED) (BEAKER) (test afwd=8923) 75.2 % BLOOD GAS, [id number] 05:03:00 Test Item Value Reference Range Comments PH ARTERIAL (BEAKER) (test vdkc=981) 7.49 7.35-7.45 PCO2 ARTERIAL (BEAKER) (test xkks=681) 40 mmHg 35-45 PO2 ARTERIAL (BEAKER) (test embi=584) 113 mmHg 80-90 O2 SATURATION ARTERIAL (BEAKER) (test gajb=331) 98.3 % 96.0-97.0 HCO3 ARTERIAL (BEAKER) (test ekwu=557) 29 mmol/L 21-29 BASE EXCESS ARTERIAL (BEAKER) (test tnzc=291) 5.8 mmol/L -2.0-3.0 PATIENT TEMPERATURE (BEAKER) (test vpbk=8783) 38.0 C FIO2 (BEAKER) (test ozcp=5377) 50.0 % TROPONIN [id number] 05:03:00 Test Item Value Reference Range Comments TROPONIN I (BEAKER) (test wtpb=830) 41.01 ng/mL 0.00-0.03 Troponin I (TnI) levels [...] acidosis, acute neurological disease, and persistent tachyarrhythmia.CALCIUM, [id number] 05:03:00 Test Item Value Reference Range Comments CALCIUM IONIZED (BEAKER) (test erpe=230) 1.06 mmol/L 1.12-1.27 PH, BLOOD (BEAKER) (test ljcq=2694) 7.50 CREATINE KINASE (CK), TOTAL AND [id number] 05:00:00 Test Item Value Reference Range Comments CREATINE KINASE TOTAL (BEAKER) (test emww=139) 641 U/L 29-200 CREATINE KINASE-MB (BEAKER) (test uwao=283) 21.0 ng/mL 0.0-6.6 CREATINE KINASE-MB INDEX (BEAKER) (test tdbz=046) 3.3 % CK-MB Reference Range:<6.7 Normal6.7-10.0 Borderline>10.0 AbnormalB-TYPE NATRIURETIC FACTOR (BNP)2018-05-09 04:55:00 Test Item Value Reference Range Comments B-TYPE NATRIURETIC PEPTIDE (BEAKER) (test 666 pg/mL 0-100 jmdq=866) [id number] 04:51:00 Test Item Value Reference Range Comments MAGNESIUM (BEAKER) (test 2.0 mg/dL 1.6-2.6 Specimen slightly hemolyzed tviu=973) BASIC METABOLIC [id number] 04:51:00 Test Item Value Reference Range Comments SODIUM (BEAKER) (test 140 meq/L 136-145 krqs=492) POTASSIUM (BEAKER) (test 3.7 meq/L 3.5-5.1 Specimen slightly menx=425) hemolyzed CHLORIDE (BEAKER) (test 105 meq/L 98-107 tahr=425) CO2 (BEAKER) (test 24 meq/L 22-29 wdkc=587) BLOOD UREA NITROGEN 24 mg/dL 7-21 (BEAKER) (test pquo=012) CREATININE (BEAKER) (test 1.33 mg/dL 0.57-1.25 Specimen slightly vhuj=433) hemolyzed GLUCOSE RANDOM (BEAKER) 102 mg/dL 70-105 (test lwkr=006) CALCIUM (BEAKER) (test 8.8 mg/dL 8.4-10.2 fvtz=006) EGFR (BEAKER) (test 41 mL/min/1.73 sq m ESTIMATED GFR IS NOT hciq=2272) ACCURATE CREATININE CLEARANCE IN PREDICTING GLOMERULAR FILTRATION RATE. ESTIMATED GFR IS NOT APPLICABLE FOR DIALYSIS PATIENTS. HEPATIC FUNCTION [id number] 04:51:00 Test Item Value Reference Range Comments TOTAL PROTEIN (BEAKER) (test 5.8 gm/dL 6.0-8.3 Specimen slightly hemolyzed vzio=661) ALBUMIN (BEAKER) (test 3.0 g/dL 3.5-5.0 Specimen slightly hemolyzed oibm=0296) BILIRUBIN TOTAL (BEAKER) (test 0.5 mg/dL 0.2-1.2 Specimen slightly hemolyzed pxkj=044) BILIRUBIN DIRECT (BEAKER) (test 0.2 mg/dL 0.1-0.5 Specimen slightly hemolyzed tnkv=904) ALKALINE PHOSPHATASE (BEAKER) 100 U/L 40-150 (test chdd=350) AST (SGOT) (BEAKER) (test 114 U/L 5-34 Specimen slightly hemolyzed iosz=189) ALT (SGPT) (BEAKER) (test 24 U/L 6-55 Specimen slightly hemolyzed dtcr=285) [id number] 04:40:00 Test Item Value Reference Range Comments PARTIAL THROMBOPLASTIN TIME (BEAKER) (test 33.0 seconds 22.5-36.0 gfpy=440) CBC W/PLT COUNT & AUTO [id number] 04:32:00 Test Item Value Reference Range Comments WHITE BLOOD CELL COUNT (BEAKER) (test osrc=087) 7.1 K/ L 3.5-10.5 RED BLOOD CELL COUNT (BEAKER) (test dxqx=925) 3.56 M/ L 3.93-5.22 HEMOGLOBIN (BEAKER) (test bedn=548) 10.6 GM/DL 11.2-15.7 HEMATOCRIT (BEAKER) (test bfcf=215) 32.2 % 34.1-44.9 MEAN CORPUSCULAR VOLUME (BEAKER) (test kylt=019) 90.4 fL 79.4-94.8 MEAN CORPUSCULAR HEMOGLOBIN (BEAKER) (test 29.8 pg 25.6-32.2 wxjz=865) MEAN CORPUSCULAR HEMOGLOBIN CONC (BEAKER) (test 32.9 GM/DL 32.2-35.5 vsrs=747) RED CELL DISTRIBUTION WIDTH (BEAKER) (test 13.5 % 11.7-14.4 xrzz=269) PLATELET COUNT (BEAKER) (test htqm=784) 144 K/CU MM 150-450 MEAN PLATELET VOLUME (BEAKER) (test iucf=324) 12.3 fL 9.4-12.3 NUCLEATED RED BLOOD CELLS (BEAKER) (test 0 /100 WBC 0-0 sgkd=214) NEUTROPHILS RELATIVE PERCENT (BEAKER) (test 73 % arue=637) LYMPHOCYTES RELATIVE PERCENT (BEAKER) (test 17 % afvr=413) MONOCYTES RELATIVE PERCENT (BEAKER) (test 9 % sexx=781) EOSINOPHILS RELATIVE PERCENT (BEAKER) (test 0 % wujg=800) BASOPHILS RELATIVE PERCENT (BEAKER) (test 0 % mgel=998) NEUTROPHILS ABSOLUTE COUNT (BEAKER) (test 5.20 K/ L 1.56-6.13 snhs=021) LYMPHOCYTES ABSOLUTE COUNT (BEAKER) (test 1.22 K/ L 1.18-3.74 daim=321) MONOCYTES ABSOLUTE COUNT (BEAKER) (test 0.61 K/ L 0.24-0.36 dcou=747) EOSINOPHILS ABSOLUTE COUNT (BEAKER) (test 0.02 K/ L 0.04-0.36 stxf=800) BASOPHILS ABSOLUTE COUNT (BEAKER) (test 0.01 K/ L 0.01-0.08 kqxa=636) IMMATURE GRANULOCYTES-RELATIVE PERCENT (BEAKER) 1 % 0-1 (test mmlr=6673) POCT-GLUCOSE [id number] 02:37:00 Test Item Value Reference Range Comments POC-GLUCOSE METER (BEAKER) 123 mg/dL 70-110 TESTED AT [address] (test vylt=7481) [place] [address] [id number] 01:48:00 Test Item Value Reference Range Comments POTASSIUM (BEAKER) (test dvcw=505) 3.6 meq/L 3.5-5.1 Check Serum Potassium level 2 hours after oral potassium replacement completed or 30 min after intravenous potassium replacement.[id number] 01:48:00 Test Item Value Reference Range Comments MAGNESIUM (BEAKER) (test hhwu=320) 1.9 mg/dL 1.6-2.6 Check Serum Potassium level 2 hours after oral potassium replacement completed or 30 min after intravenous potassium replacement.POCT-GLUCOSE [id number] 01:19:00 Test Item Value Reference Range Comments POC-GLUCOSE METER (BEAKER) 133 mg/dL 70-110 TESTED AT [address] (test eiff=0802) [place] [id number] POCT-GLUCOSE [id number] 01:19:00 Test Item Value Reference Range Comments POC-GLUCOSE METER (BEAKER) 141 mg/dL 70-110 TESTED AT [address] (test qspj=5637) [place] [address] POCT-GLUCOSE [id number] 01:19:00 Test Item Value Reference Range Comments POC-GLUCOSE METER (BEAKER) 204 mg/dL 70-110 TESTED AT [address] (test akoe=5789) [place] [address] POCT-GLUCOSE [id number] 01:19:00 Test Item Value Reference Range Comments POC-GLUCOSE METER (BEAKER) 201 mg/dL 70-110 TESTED AT [facility] [address] [facility] (test icyj=2438) [facility] [address] BLOOD GAS, [id number] 00:31:00 Test Item Value Reference Range Comments PH ARTERIAL (BEAKER) (test ryeb=011) 7.51 7.35-7.45 PCO2 ARTERIAL (BEAKER) (test obyf=878) 35 mmHg 35-45 PO2 ARTERIAL (BEAKER) (test etry=425) 99 mmHg 80-90 O2 SATURATION ARTERIAL (BEAKER) (test kosf=578) 97.8 % 96.0-97.0 HCO3 ARTERIAL (BEAKER) (test ztly=877) 27 mmol/L 21-29 BASE EXCESS ARTERIAL (BEAKER) (test azha=365) 4.4 mmol/L -2.0-3.0 PATIENT TEMPERATURE (BEAKER) (test krdy=3566) 38.0 C FIO2 (BEAKER) (test alrm=8864) 50.0 % BLOOD GAS, [id number] 22:17:00 Test Item Value Reference Range Comments PH ARTERIAL (BEAKER) (test emts=700) 7.48 7.35-7.45 PCO2 ARTERIAL (BEAKER) (test phyp=352) 38 mmHg 35-45 PO2 ARTERIAL (BEAKER) (test vfxp=048) 106 mmHg 80-90 O2 SATURATION ARTERIAL (BEAKER) (test cpwy=666) 98.1 % 96.0-97.0 HCO3 ARTERIAL (BEAKER) (test jvme=394) 27 mmol/L 21-29 BASE EXCESS ARTERIAL (BEAKER) (test zblw=441) 3.8 mmol/L -2.0-3.0 PATIENT TEMPERATURE (BEAKER) (test ubdg=6931) 37.3 C FIO2 (BEAKER) (test esbp=2138) 60.0 % [id number] 22:07:00 Test Item Value Reference Range Comments POTASSIUM (BEAKER) (test duwz=529) 3.4 meq/L 3.5-5.1 [id number] 22:07:00 Test Item Value Reference Range Comments MAGNESIUM (BEAKER) (test niaw=548) 1.5 mg/dL 1.6-2.6 BASIC METABOLIC [id number] 22:07:00 Test Item Value Reference Range Comments SODIUM (BEAKER) (test 140 meq/L 136-145 jkqm=553) POTASSIUM (BEAKER) (test 3.4 meq/L 3.5-5.1 zxad=568) CHLORIDE (BEAKER) (test 103 meq/L 98-107 ipve=322) CO2 (BEAKER) (test 27 meq/L 22-29 xdmc=772) BLOOD UREA NITROGEN 24 mg/dL 7-21 (BEAKER) (test qwkf=639) CREATININE (BEAKER) (test 1.47 mg/dL 0.57-1.25 zulf=095) GLUCOSE RANDOM (BEAKER) 211 mg/dL 70-105 (test rcfs=999) CALCIUM (BEAKER) (test 8.9 mg/dL 8.4-10.2 teee=945) EGFR (BEAKER) (test 36 mL/min/1.73 sq m ESTIMATED GFR IS NOT trqb=2659) ACCURATE CREATININE CLEARANCE IN PREDICTING GLOMERULAR FILTRATION RATE. ESTIMATED GFR IS NOT APPLICABLE FOR DIALYSIS PATIENTS. LACTIC ACID, ARTERIAL, WHOLE [id number] 22:03:00 Test Item Value Reference Range Comments LACTATE BLOOD ARTERIAL (2) (BEAKER) (test 2.6 mmol/L 0.5-2.2 ggvh=4917) Effective 02/06/2016: Units/Reference Range ChangeNew: 0.5-2.2 mmol/L Previous: 5 -20 mg/dLRAD, CHEST, 1 VIEW, NON [id number] 22:03:00Reason for exam:-> post-IABP placementShould this be [...] pleural effusion or pneumothorax. Signed: Ting Wu MDReport Verified Date/Time: 05/08/2018 22:03:08 Reading Location: [address] Reading Room Electronically signed by: TING WU MD on 2017 10:03 [id number] 21:57:00 Test Item Value Reference Range Comments FIBRINOGEN LEVEL (BEAKER) (test ytxe=480) 434 mg/dl 225-434 [id number] 21:57:00 Test Item Value Reference Range Comments PARTIAL THROMBOPLASTIN TIME (BEAKER) (test 43.0 seconds 22.5-36.0 vtjy=918) PROTHROMBIN [id number] 21:56:00 Test Item Value Reference Range Comments PROTIME (BEAKER) (test gtyr=667) 14.9 seconds 11.7-14.7 INR (BEAKER) (test lzsc=464) 1.2 <=5.9 RECOMMENDED COUMADIN/WARFARIN INR THERAPY RANGESSTANDARD DOSE: 2.0 - 3.0 Includes: PROPHYLAXIS forvenous thrombosis, systemic embolization; TREATMENT for venous thrombosis and/or pulmonary embolus.HIGH RISK: Target INR is 2.5-3.5 for patients with mechanical heart valves.GLUCOSE-STAT [id number] 21:48:00 Test Item Value Reference Range Comments GLUCOSE RANDOM (BEAKER) (test nork=488) 199 mg/dL 70-110 POTASSIUM-STAT [id number] 21:48:00 Test Item Value Reference Range Comments POTASSIUM (BEAKER) (test nsvm=378) 3.2 meq/L 3.6-5.5 HGB/HCT (H&H) - STAT [id number] 21:48:00 Test Item Value Reference Range Comments HEMOGLOBIN (BEAKER) (test mscg=573) 11.3 GM/DL 12.0-15.0 HEMATOCRIT (BEAKER) (test pwwp=481) 33.0 % 36.0-45.0 CALCIUM, [id number] 21:48:00 Test Item Value Reference Range Comments CALCIUM IONIZED (BEAKER) (test uvib=163) 1.08 mmol/L 1.12-1.27 PH, BLOOD (BEAKER) (test vbiv=9994) 7.40 OXYGEN SATURATION, [id number] 21:47:00 Test Item Value Reference Range Comments O2 SATURATION (MEASURED) (BEAKER) (test tyrc=8545) 74.5 % CBC W/PLT COUNT & AUTO [id number] 21:46:00 Test Item Value Reference Range Comments WHITE BLOOD CELL COUNT (BEAKER) (test zdde=513) 7.6 K/ L 3.5-10.5 RED BLOOD CELL COUNT (BEAKER) (test kbgt=240) 3.66 M/ L 3.93-5.22 HEMOGLOBIN (BEAKER) (test xcvj=400) 10.8 GM/DL 11.2-15.7 HEMATOCRIT (BEAKER) (test enzj=372) 32.5 % 34.1-44.9 MEAN CORPUSCULAR VOLUME (BEAKER) (test lemq=020) 88.8 fL 79.4-94.8 MEAN CORPUSCULAR HEMOGLOBIN (BEAKER) (test 29.5 pg 25.6-32.2 kgvx=133) MEAN CORPUSCULAR HEMOGLOBIN CONC (BEAKER) (test 33.2 GM/DL 32.2-35.5 ehbe=432) RED CELL DISTRIBUTION WIDTH (BEAKER) (test 13.6 % 11.7-14.4 cuff=860) PLATELET COUNT (BEAKER) (test eqwa=837) 151 K/CU MM 150-450 MEAN PLATELET VOLUME (BEAKER) (test nryy=096) 12.0 fL 9.4-12.3 NUCLEATED RED BLOOD CELLS (BEAKER) (test 0 /100 WBC 0-0 keka=044) NEUTROPHILS RELATIVE PERCENT (BEAKER) (test 81 % madx=933) LYMPHOCYTES RELATIVE PERCENT (BEAKER) (test 12 % vbzq=448) MONOCYTES RELATIVE PERCENT (BEAKER) (test 6 % xkbg=509) EOSINOPHILS RELATIVE PERCENT (BEAKER) (test 0 % cqrz=658) BASOPHILS RELATIVE PERCENT (BEAKER) (test 0 % hsbo=121) NEUTROPHILS ABSOLUTE COUNT (BEAKER) (test 6.17 K/ L 1.56-6.13 oaze=702) LYMPHOCYTES ABSOLUTE COUNT (BEAKER) (test 0.94 K/ L 1.18-3.74 bhpc=863) MONOCYTES ABSOLUTE COUNT (BEAKER) (test 0.49 K/ L 0.24-0.36 cpfw=822) EOSINOPHILS ABSOLUTE COUNT (BEAKER) (test 0.00 K/ L 0.04-0.36 sonv=737) BASOPHILS ABSOLUTE COUNT (BEAKER) (test 0.00 K/ L 0.01-0.08 ujbw=355) IMMATURE GRANULOCYTES-RELATIVE PERCENT (BEAKER) 1 % 0-1 (test wqfp=4784) POCT-GLUCOSE [id number] 19:30:00 Test Item Value Reference Range Comments POC-GLUCOSE METER (BEAKER) 264 mg/dL 70-110 TESTED AT [address] (test oryu=5758) [place] [id number] POCT-GLUCOSE [id number] 16:54:00 Test Item Value Reference Range Comments POC-GLUCOSE METER (BEAKER) 307 mg/dL 70-110 TESTED AT [address] (test gkft=6484) [place] [address] [id number] 16:37:00 Test Item Value Reference Range Comments POTASSIUM (BEAKER) (test xjws=612) 3.7 meq/L 3.5-5.1 [id number] 16:37:00 Test Item Value Reference Range Comments MAGNESIUM (BEAKER) (test cwwt=625) 1.5 mg/dL 1.6-2.6 BLOOD GAS, [id number] 16:28:00 Test Item Value Reference Range Comments PH VENOUS (BEAKER) (test xpur=065) 7.37 7.32-7.42 PCO2 VENOUS (BEAKER) (test xnbr=398) 48 mmHg 41-51 PO2 VENOUS (BEAKER) (test zqax=538) 38 mmHg 25-40 O2 SATURATION VENOUS (BEAKER) (test qler=642) 70.3 % 40.0-70.0 HCO3 VENOUS (BEAKER) (test dxvk=277) 27 mmol/L 21-29 BASE EXCESS VENOUS (BEAKER) (test qyhg=199) 1.3 mmol/L -2.0-3.0 PATIENT TEMPERATURE (BEAKER) (test vjfv=2436) 37.1 C FIO2 (BEAKER) (test kbor=6049) 60.0 % POCT-GLUCOSE [id number] 16:18:00 Test Item Value Reference Range Comments POC-GLUCOSE METER (BEAKER) 406 mg/dL 70-110 TESTED AT [place] [id number] [facility] (test btrj=1051) [facility] [address] POCT-GLUCOSE [id number] 14:51:00 Test Item Value Reference Range Comments POC-GLUCOSE METER (BEAKER) 412 mg/dL 70-110 TESTED AT [facility] [address] [facility] (test sbvz=7264) [facility] [address] COMPREHENSIVE METABOLIC [id number] 12:59:00 Test Item Value Reference Range Comments TOTAL PROTEIN (BEAKER) 6.7 gm/dL 6.0-8.3 (test zsuw=257) ALBUMIN (BEAKER) (test 3.6 g/dL 3.5-5.0 ulks=0339) ALKALINE PHOSPHATASE 132 U/L 40-150 (BEAKER) (test bfyn=176) BILIRUBIN TOTAL (BEAKER) 0.5 mg/dL 0.2-1.2 (test eahs=687) SODIUM (BEAKER) (test 138 meq/L 136-145 fipb=333) POTASSIUM (BEAKER) (test 4.1 meq/L 3.5-5.1 rnoc=075) CHLORIDE (BEAKER) (test 100 meq/L 98-107 pcey=747) CO2 (BEAKER) (test 24 meq/L 22-29 ugay=667) BLOOD UREA NITROGEN 23 mg/dL 7-21 (BEAKER) (test dvuh=507) CREATININE (BEAKER) (test 1.48 mg/dL 0.57-1.25 xzyi=888) GLUCOSE RANDOM (BEAKER) 402 mg/dL 70-105 (test yubl=473) CALCIUM (BEAKER) (test 9.3 mg/dL 8.4-10.2 dxne=373) AST (SGOT) (BEAKER) (test 105 U/L 5-34 ttmg=984) ALT (SGPT) (BEAKER) (test 29 U/L 6-55 cxzk=813) EGFR (BEAKER) (test 36 mL/min/1.73 sq m ESTIMATED GFR IS NOT qphk=7041) ACCURATE CREATININE CLEARANCE IN PREDICTING GLOMERULAR FILTRATION RATE. ESTIMATED GFR IS NOT APPLICABLE FOR DIALYSIS PATIENTS. TROPONIN [id number] 12:59:00 Test Item Value Reference Range Comments TROPONIN I (BEAKER) (test uldb=002) 20.62 ng/mL 0.00-0.03 Troponin I (TnI) levels [...] acute neurological disease, and persistent tachyarrhythmia.HEPATIC FUNCTION [id number] 12:48: 00 Test Item Value Reference Range Comments TOTAL PROTEIN (BEAKER) (test jltv=875) 6.7 gm/dL 6.0-8.3 ALBUMIN (BEAKER) (test pfnc=9729) 3.6 g/dL 3.5-5.0 BILIRUBIN TOTAL (BEAKER) (test oqxc=251) 0.5 mg/dL 0.2-1.2 BILIRUBIN DIRECT (BEAKER) (test happ=310) 0.2 mg/dL 0.1-0.5 ALKALINE PHOSPHATASE (BEAKER) (test szkd=616) 132 U/L 40-150 AST (SGOT) (BEAKER) (test slcg=533) 105 U/L 5-34 ALT (SGPT) (BEAKER) (test vljf=926) 29 U/L 6-55 CREATINE KINASE (CK), TOTAL AND [id number] 12:48:00 Test Item Value Reference Range Comments CREATINE KINASE TOTAL (BEAKER) (test ptxv=093) 833 U/L 29-200 CREATINE KINASE-MB (BEAKER) (test zkrs=294) 60.7 ng/mL 0.0-6.6 CREATINE KINASE-MB INDEX (BEAKER) (test kxca=134) 7.3 % CK-MB Reference Range:<6.7 Normal6.7-10.0 Borderline>10.0 AbnormalB-TYPE NATRIURETIC FACTOR (BNP)2018-05-08 12:47:00 Test Item Value Reference Range Comments B-TYPE NATRIURETIC PEPTIDE (BEAKER) (test 619 pg/mL 0-100 zpti=678) CBC W/PLT COUNT & AUTO [id number] 12:42:00 Test Item Value Reference Range Comments WHITE BLOOD CELL COUNT (BEAKER) (test dmxb=485) 10.3 K/ L 3.5-10.5 RED BLOOD CELL COUNT (BEAKER) (test vxux=452) 4.19 M/ L 3.93-5.22 HEMOGLOBIN (BEAKER) (test qizd=883) 12.4 GM/DL 11.2-15.7 HEMATOCRIT (BEAKER) (test etmh=199) 37.6 % 34.1-44.9 MEAN CORPUSCULAR VOLUME (BEAKER) (test itue=239) 89.7 fL 79.4-94.8 MEAN CORPUSCULAR HEMOGLOBIN (BEAKER) (test 29.6 pg 25.6-32.2 onhm=708) MEAN CORPUSCULAR HEMOGLOBIN CONC (BEAKER) (test 33.0 GM/DL 32.2-35.5 qafk=659) RED CELL DISTRIBUTION WIDTH (BEAKER) (test 13.6 % 11.7-14.4 drey=804) PLATELET COUNT (BEAKER) (test txdd=025) 162 K/CU MM 150-450 MEAN PLATELET VOLUME (BEAKER) (test dsrl=285) 12.0 fL 9.4-12.3 NUCLEATED RED BLOOD CELLS (BEAKER) (test 0 /100 WBC 0-0 xqly=039) NEUTROPHILS RELATIVE PERCENT (BEAKER) (test 85 % xpss=284) LYMPHOCYTES RELATIVE PERCENT (BEAKER) (test 9 % dver=840) MONOCYTES RELATIVE PERCENT (BEAKER) (test 5 % qjmh=086) EOSINOPHILS RELATIVE PERCENT (BEAKER) (test 0 % rpqm=581) BASOPHILS RELATIVE PERCENT (BEAKER) (test 0 % wsem=094) NEUTROPHILS ABSOLUTE COUNT (BEAKER) (test 8.79 K/ L 1.56-6.13 nvcr=416) LYMPHOCYTES ABSOLUTE COUNT (BEAKER) (test 0.90 K/ L 1.18-3.74 gsme=479) MONOCYTES ABSOLUTE COUNT (BEAKER) (test 0.50 K/ L 0.24-0.36 nplz=870) EOSINOPHILS ABSOLUTE COUNT (BEAKER) (test 0.00 K/ L 0.04-0.36 ldck=730) BASOPHILS ABSOLUTE COUNT (BEAKER) (test 0.01 K/ L 0.01-0.08 ukes=484) IMMATURE GRANULOCYTES-RELATIVE PERCENT (BEAKER) 1 % 0-1 (test qmap=4090) RAD, CHEST, 1 VIEW, NON [id number] 12:42:00Reason for exam:->respiratory failureShould this be performed [...] cardiac silhouette size is enlarged. Signed: Iker Voss MDReport Verified Date /Time: 05/08/2018 12:42:45 ReadingLocation: [facility] B1 C013T Transitional Reading Room LACTIC ACID, VENOUS, WHOLE [id number] 12:39:00 Test Item Value Reference Range Comments LACTATE BLOOD VENOUS (2) (BEAKER) (test 2.2 mmol/L 0.5-2.2 wfkg=8174) Effective 02/06/2016: Units/Reference Range ChangeNew: 0.5-2.2 mmol/L Previous: 5 -20 mg/[id number] 12:38:00 Test Item Value Reference Range Comments PARTIAL THROMBOPLASTIN TIME (BEAKER) (test 32.8 seconds 22.5-36.0 aitq=745) PROTHROMBIN TIME/[id number] 12:37:00 Test Item Value Reference Range Comments PROTIME (BEAKER) (test zvjf=331) 14.1 seconds 11.7-14.7 INR (BEAKER) (test ungb=489) 1.1 <=5.9 RECOMMENDED COUMADIN/WARFARIN INR THERAPY RANGESSTANDARD DOSE: 2.0 - 3.0 Includes: PROPHYLAXIS forvenous thrombosis, systemic embolization; TREATMENT for venous thrombosis and/or pulmonary embolus.HIGH RISK: Target INR is 2.5-3.5 for patients with mechanical heart valves.BLOOD GAS, [id number] 12:21:00 Test Item Value Reference Range Comments PH VENOUS (BEAKER) (test bpvc=558) 7.31 7.32-7.42 PCO2 VENOUS (BEAKER) (test djix=147) 54 mmHg 41-51 PO2 VENOUS (BEAKER) (test ehzj=539) 36 mmHg 25-40 O2 SATURATION VENOUS (BEAKER) (test tyxt=051) 63.9 % 40.0-70.0 HCO3 VENOUS (BEAKER) (test vtpg=032) 27 mmol/L 21-29 BASE EXCESS VENOUS (BEAKER) (test uhqi=782) -0.3 mmol/L -2.0-3.0 PATIENT TEMPERATURE (BEAKER) (test hlps=5645) 36.7 C FIO2 (BEAKER) (test nvmn=2140) 100.0 %
--- OUTSIDE RECORDS SUMMARY | 2019-08-14 17:40 | XMS REPORT | Summary of Care ---
:1955 Author Organization [facility] Address [address] [place] [id number] Care Team Providers Name Role Phone Diego Richard MD Primary Care Provider Reason for Visit Reason Comments Refill Request Encounter Details Date Type Department Care Team Description 03/18/2019 Refill [facility] and Diego Richard III, MD Refill Request Adult Primary Care- [address] [place] [address] Dr. Nichols [address] , [place] [id number] [address] [place] [address] [phone] Allergies Active Allergy Reactions Severity Noted Date Comments Perflutren Lipid Other - See comments Medium 06/26/2016 Patient states "Back Microspheres Pain" on two separate occasions with Definity documented as of this encounter (statuses as of 05/24/2019) Medications Medication Sig Dispensed Refills Start Date End Date Status blood sugar Use as 300 Strip 1 09/10/2015 Active diagnostic directed, QID, (ACCU-CHEK STEVE DX: E11.8 PLUS TEST STRP) strip pantoprazole 40 mg Take 40 mg by 0 Active EC mouth. tabletIndications: HERNANDEZ (dyspnea on exertion) atorvastatin 80 mg Take 80 mg by 0 Active tabletIndications: mouth. HERNANDEZ (dyspnea on exertion) aspirin 81 mg EC Take 81 mg by 0 Active tabletIndications: mouth. HERNANDEZ (dyspnea on exertion) metoprolol Take 1 tablet 30 tablet 11 09/21/2018 Active succinate XL 50 mg by mouth daily. 24 hr tabletIndications: HERNANDEZ (dyspnea on exertion) metformin ER 500 mg Take 1 tablet 30 tablet 11 09/21/2018 Active 24 hr tablet by mouth daily with breakfast. ticagrelor 90 mg Take 1 tablet 60 tablet 11 09/21/2018 Active tabletIndications: by mouth 2 HERNANDEZ (dyspnea on (two) times exertion) daily. bumetanide 2 mg Take 1 tablet 0 09/22/2018 Active tablet by mouth 2 (two) times daily. paroxetine 40 mg Take 1 tablet 90 tablet 3 10/12/2018 Active tabletIndications: by mouth daily. HERNANDEZ (dyspnea on exertion) fluticasone 50 Use 1 [place] in 16 g 2 11/12/2018 Active mcg/actuation nasal each nostril 2 sprayIndications: (two) times Viral upper daily. respiratory tract infection levothyroxine 100 Take 1 tablet 30 tablet 11 11/12/2018 Active mcg by mouth every tabletIndications: morning. Hypothyroidism, unspecified type albuterol 90 Inhale 2 Puffs 8.5 g 0 11/15/2018 Active mcg/actuation every 4 (four) inhalerIndications: hours as needed SOB (shortness of for Wheezing or breath), Allergic Shortness of rhinitis, Breath. unspecified seasonality, unspecified trigger BUMETANIDE 1 mg TAKE 2 TABLETS 360 tablet 1 01/14/2019 Active tabletIndications: BY MOUTH IN HERNANDEZ (dyspnea on EVERY MORNING exertion), Coronary AND 2 TABETS artery disease EVERY EVENING involving [place] coronary artery of [place] heart without angina pectoris Insulin Glargine Inject 30 units 54 mL 11 01/14/2019 Active 100 unit/mL (3 mL) every morning injectionIndication and 30 units at s: Type 2 diabetes bedtime.. mellitus with complication, with long-term current use of insulin insulin lispro 100 Sliding scale 54 mL 01/14/2019 Active unit/mL pen up to 20 units injectorIndications TIDAC : Type 2 diabetes mellitus with complication, with long-term current use of insulin METFORMIN ER 500 mg TAKE 1 TABLET 90 tablet 1 03/21/2019 Active 24 hr BY MOUTH ONCE tabletIndications: DAILY WITH Type 2 diabetes BREAKFAST mellitus with complication, with long-term current use of insulin levothyroxine 112 Take 1 tablet 30 tablet 11 05/24/2019 Active mcg by mouth every tabletIndications: morning. Hypothyroidism, unspecified type JANUVIA 50 mg TAKE 1 TABLET 90 tablet 0 01/25/2019 Discontinued tabletIndications: BY MOUTH ONCE 9 Type 2 diabetes DAILY mellitus with complication, with long-term current use of insulin documented as of this encounter (statuses as of 05/24/2019) Active Problems Problem Noted Date Nausea and vomiting, intractability of vomiting not specified, unspecified vomiting type Hypothyroidism, unspecified type 05/24/2019 Acute congestive heart failure 09/02/2018 Elevated troponin I level 09/02/2018 Elevated brain natriuretic peptide (BNP) level 09/02/2018 Acute exacerbation of CHF (congestive heart failure) 09/01/2018 CAD (coronary artery disease) 02/26/2018 Coronary artery disease of [place] artery of [place] heart with stable 2017 angina pectoris Hyperglycemia 01/17/2018 Coronary artery disease involving [place] coronary artery of [place] heart 01/17 with unstable angina pectoris Obstructive sleep apnea (adult) (pediatric) 09/07/2016 CHF exacerbation 06/25/2016 Palpitations 03/07/2016 Dizzy spells 03/07/2016 Dyslipidemia 02/22/2016 Atherosclerosis of [place] coronary artery without angina pectoris 02/22/2016 Sleep disorder breathing 02/22/2016 Acute on chronic diastolic CHF (congestive heart failure), NYHA class 3 2015 S/P left heart catheterization by percutaneous approach 01/04/2016 S/P cardiac cath 11/30/2015 Chest pain 08/23/2015 NSTEMI (non-ST elevated myocardial infarction) 08/23/2015 Morbid obesity 02/09/2015 Essential hypertension 01/29/2015 Venous reflux 01/29/2015 Intracranial carotid stenosis 02/11/2014 Diabetes 02/11/2014 Hypertriglyceridemia 02/11/2014 Diabetic neuropathy 02/11/2014 Syncope, near 02/10/2014 documented as of this encounter (statuses as of 05/24/2019) Resolved Problems Problem Noted Date Resolved Date Carotid stenosis 03/16/2015 10/07/2015 Occlusion and stenosis of carotid artery without mention of 01/29/20152015 cerebral infarction Other specified diabetes mellitus with hyperglycemia 01/29/2015 10/07/2015 Extracranial artery stenosis and occlusion 02/11/2014 10/07/2015 Hypertension 02/11/2014 10/07/2015 documented as of this encounter (statuses as of 05/24/2019) Immunizations Name Administration Dates Next Due Influenza Virus Vaccine Quad .5 mL IM 6+ 08/25/2018 MO Influenza Virus Vaccine Quad IM 3+ YRS 07/17/2017, 07/01/2016, 08/24/2015 Pneumococcal Polysaccharide, PPSV23 12/01/2015 (PNEUMOVAX) documented as of this encounter Social History Tobacco Use Types Packs/Day Years Used Date Former Smoker Cigarettes Quit: 02/15/1996 Smokeless Tobacco: Never Used Comments: 1ppd for 15 years Alcohol Use Drinks/Week oz/Week Comments No 0 Standard drinks or equivalent 0.0 Sex Assigned at Date Recorded Not on file Job Start Date Occupation Industry Not on file Not on file Not on file Travel History Travel Start Travel End No recent travel history available. documented as of this encounter Last Filed Vital Signs Not on filedocumented in this encounter Plan of Treatment Health Maintenance Due Date Last Done Comments DTaP,Tdap,and Td Vaccines 12/29/1975 (1 - Tdap) COLONOSCOPY 2006 Zoster Recombinant Vaccine 2006 (SHINGRIX) (1 of 2) MAMMOGRAM 12/05/2017 12/05/2016, 11/23/2015 URINE MICROALBUMIN 08/21/2018 08/21/2017, 07/17/2017, 10/16/2015, Additional history exists LDL-C 01/19/2019 01/19/2018, 08/21/2017, 07/17/2017, Additional history exists PAP SMEAR 01/22/2019 01/23/2016 (Previously completed), 08/01/2003 HgA1C 01/26/2019 07/28/2018, 01/17/2018, 12/01/2017, Additional history exists EYE EXAM 02/17/2019 02/17/2018, 02/09/2018, 02/09/2018, Additional history exists INFLUENZA VACCINE (#1) 2019 08/25/2018, 07/17/2017, 07/01/2016, Additional history exists FOOT EXAM 07/28/2019 07/28/2018, 07/28/2018, 12/01/2017, Additional history exists CREATININE (SERUM) 11/15/2019 11/15/2018, 11/01/2018, 09/21/2018, Additional history exists PNEUMOCOCCAL 0-64 YEARS Completed 12/01/2015 COMBINED SERIES HEPATITIS C (HCV) SCREEN Addressed 08/21/2017, 07/17/2017 Overridden with the intention of not completing the topic documented as of this encounter Implants Implanted Type Area Director Of Teaching And Learning Device Shelf Model / Identifier Expiration Serial / Lot Date Amadeo [employer] Carotid [id number] #[id number] - [id number] STENT Right: Amadeo 04/16/2018 [id number] / Implanted: Qty: 1 on 03/16/2015 by Ernesto Sawyer Jr., MD at [facility] / [id number] Angio-Seal Evolution Vascular Closure Device [employer] #[id number] - [id number] Right: [employer] 08/04/2015 [id number] / Implanted: Qty: 1 on 02/09/2015 by Nigel Mejia at [facility] / [id number] Angio-Seal Evolution Vascular Closure Device 8fr [employer] #[id number] - [id number] Right: [employer] 12/03/2015 [id number] / Implanted: Qty: 1 on 03/16/2015 by Jarett Orta MD at [facility] / [id number] documented as of this encounter Results Not on filedocumented in this encounter Visit Diagnoses Diagnosis Type 2 diabetes mellitus with complication, with long-term current use of insulin - Primary Hypothyroidism, unspecified type documented in this encounter Insurance Payer Benefit Plan Subscriber ID Effective Phone Address Type / Group Dates [facility] [id number] 2017-Pres Medicare Adv HEALTHCARE - MEDICARE ent HMO MANAGED COMPLETE MEDICARE TMHP MEDICAID OF xxxxxxxxx 2018-04/24 [phone] Medicaid [place] /2018 [id number] [place] [address] documented as of this encounter
--- OUTSIDE RECORDS SUMMARY | 2019-08-14 17:40 | XMS REPORT | Summary of Care ---
:1955 Author Organization [facility] - Health Address [address] [place], [place] [id number] Care Team Providers Name Role Phone Diego Richard MD Primary Care Provider Encounter Details Date Type Department Care Team Description 05/24/2019 Orders Only [facility] Doctor Unassigned, No [address] [facility] [place] [address] Allergies Active Allergy Reactions Severity Noted Date Comments Perflutren Lipid Other - See comments Medium 06/26/2016 Patient states "Back Microspheres Pain" on two separate occasions with Definity documented as of this encounter (statuses as of 05/24/2019) Medications Medication Sig Dispensed Refills Start Date End Date Status blood sugar diagnostic Use as directed, 300 Strip 1 09/10/2015 Active (ACCU-CHEK STEVE PLUS QID, DX: E11.8 TEST STRP) strip pantoprazole 40 mg EC Take 40 mg by 0 Active tabletIndications: HERNANDEZ mouth. (dyspnea on exertion) atorvastatin 80 mg Take 80 mg by 0 Active tabletIndications: HERNANDEZ mouth. (dyspnea on exertion) aspirin 81 mg EC Take 81 mg by 0 Active tabletIndications: HERNANDEZ mouth. (dyspnea on exertion) metoprolol succinate Take 1 tablet by 30 tablet 09/21/2018 Active XL 50 mg 24 hr mouth daily. tabletIndications: HERNANDEZ (dyspnea on exertion) metformin ER 500 mg 24 Take 1 tablet by 30 tablet 09/21/2018 Active hr tablet mouth daily with breakfast. ticagrelor 90 mg Take 1 tablet by 60 tablet 09/21/2018 Active tabletIndications: HERNANDEZ mouth 2 (two) (dyspnea on exertion) times daily. bumetanide 2 mg tablet Take 1 tablet by 0 09/22/2018 Active mouth 2 (two) times daily. paroxetine 40 mg Take 1 tablet by 90 tablet 3 10/12/2018 Active tabletIndications: HERNANDEZ mouth daily. (dyspnea on exertion) fluticasone 50 Use 1 [place] in 16 g 2 11/12/2018 Active mcg/actuation nasal each nostril 2 sprayIndications: (two) times Viral upper daily. respiratory tract infection levothyroxine 100 mcg Take 1 tablet by 30 tablet 11 11/12/2018 Active tabletIndications: mouth every Hypothyroidism, morning. unspecified type albuterol 90 Inhale 2 Puffs 8.5 g 0 11/15/2018 Active mcg/actuation every 4 (four) inhalerIndications: hours as needed SOB (shortness of for Wheezing or breath), Allergic Shortness of rhinitis, unspecified Breath. seasonality, unspecified trigger BUMETANIDE 1 mg TAKE 2 TABLETS BY 360 tablet 1 01/14/2019 Active tabletIndications: HERNANDEZ MOUTH IN EVERY (dyspnea on exertion), MORNING AND 2 Coronary artery TABETS EVERY disease involving EVENING [place] coronary artery of [place] heart without angina pectoris Insulin Glargine 100 Inject 30 units 54 mL 11 01/14/2019 Active unit/mL (3 mL) every morning and injectionIndications: 30 units at Type 2 diabetes bedtime.. mellitus with complication, with long-term current use of insulin insulin lispro 100 Sliding scale up 54 mL 11 01/14/2019 Active unit/mL pen to 20 units TIDAC injectorIndications: Type 2 diabetes mellitus with complication, with long-term current use of insulin JANUVIA 50 mg TAKE 1 TABLET BY 90 tablet 0 01/25/2019 Active tabletIndications: MOUTH ONCE DAILY Type 2 diabetes mellitus with complication, with long-term current use of insulin METFORMIN ER 500 mg 24 TAKE 1 TABLET BY 90 tablet 1 03/21/2019 Active hr tabletIndications: MOUTH ONCE DAILY Type 2 diabetes WITH BREAKFAST mellitus with complication, with long-term current use of insulin documented as of this encounter (statuses as of 05/24/2019) Active Problems Problem Noted Date Acute congestive heart failure 09/02/2018 Elevated troponin I level 09/02/2018 Elevated brain natriuretic peptide (BNP) level 09/02/2018 Acute exacerbation of CHF (congestive heart failure) 09/01/2018 CAD (coronary artery disease) 02/26/2018 Coronary artery disease of [place] artery of [place] heart with stable 2017 angina pectoris Hyperglycemia 01/17/2018 Coronary artery disease involving [place] coronary artery of [place] heart 01/17 with unstable angina pectoris AHRDY (obstructive sleep apnea) 09/07/2016 CHF exacerbation 06/25/2016 Palpitations 03/07/2016 Dizzy spells 03/07/2016 Dyslipidemia 02/22/2016 Atherosclerosis of [place] coronary artery without angina pectoris 02/22/2016 Sleep [...] of this encounter Implants Implanted Type Area Edge Cutter Device Shelf Model / Identifier Expiration Serial / Lot Date Jaye, [employer] Carotid [id number] #[id number] - [id number] STENT Right: [place] 04/16/2018 [id number] / Implanted: Qty: 1 on 03/16/2015 by Ernesto Sawyer Jr., MD at [facility] [employer] / [id number] Angio-Seal Evolution Vascular Closure Device [employer] #[id number] - [id number] Right: [employer] 08/04/2015 [id number] / Implanted: Qty: 1 on 02/09/2015 by Nigel Mejia at [facility] [employer] / [id number] Angio-Seal Evolution Vascular Closure Device 8fr [employer] #[id number] - [id number] Right: [employer] 12/03/2015 [id number] / Implanted: Qty: 1 on 03/16/2015 by Jarett Orta MD at [facility] [employer] / [id number] documented as of this encounter Procedures Procedure Name Priority Date/Time Associated Diagnosis Comments [facility] PATIENT FINANCIAL Routine 05/24/2019 9:28 AM CDT POLICY documented in this encounter Results Not on filedocumented in this encounter Insurance Payer Benefit Plan Subscriber ID Effective Phone Address Type / Group Dates [facility] [id number] 2017-Pres Medicare [facility] HEALTHCARE - MEDICARE ent HMO MANAGED COMPLETE MEDICARE TMHP MEDICAID OF xxxxxxxxx 2018-Pres [phone] Medicaid [place] ent [id number] [place] [address] documented as of this encounter
--- OUTSIDE RECORDS SUMMARY | 2019-08-14 17:40 | XMS REPORT | Summary of Care ---
:1955 Author Organization [facility] Address [address] [place] [address] Care Team Providers Name Role Phone Diego Richard MD Primary Care Provider Reason for Referral (Routine) Status Reason Specialty Diagnoses / Referred By Referred To Procedures Contact Contact New Request Sleep Disorder Diagnoses Type 2 diabetes mellitus with complication, with long-term current use of insulin Diego Richard Diagnostic Procedures CONSULT/REFERRAL SLEEP CLINIC ADULT PULLei WEINSTEIN MD [address] [place] [address] [address] [place] [address] Reason for Visit Reason Comments Cough Vomiting x 2 month VERTIGO Auth/Cert Status Reason Specialty Diagnoses / Referred By Referred To Procedures Contact Contact Clinical Medical Diagnoses Type 2 diabetes mellitus with complication, with long-term current use of insulin Adc Lab Laboratory Procedures bmp tsh poct hgba1c [address] [facility] [place] [address] Encounter Details Date Type Department Care Team Description 05/24/2019 Office Visit [facility] Diego Richard III, Hypothyroidism, unspecified type (Primary Dx); Pediatric and Adult Type 2 diabetes mellitus with complication, with long-term current use of insulin; Primary Care- [address] [place] [address] Dr. Bangura on chronic diastolic CHF (congestive heart failure), NYHA class 3; [place] [address] Obstructive sleep apnea (adult) (pediatric); [address] [place] [address] [place] [address] Nausea and vomiting, intractability of vomiting not specified, unspecified vomiting type [address] [place] [address] Allergies Active Allergy Reactions Severity Noted Date Comments Perflutren Lipid Other - See comments Medium 06/26/2016 Patient states "Back Microspheres Pain" on two separate occasions with Definity documented as of this encounter (statuses as of 05/26/2019) Medications Medication Sig Dispensed Refills Start Date [...] tabletIndications: mouth. HERNANDEZ (dyspnea on exertion) metoprolol succinate Take 1 tablet 30 tablet 11 09/21/2018 Active XL 50 mg 24 hr by mouth tabletIndications: daily. HERNANDEZ (dyspnea on exertion) metformin ER 500 [...] tablet 3 10/12/2018 Active tabletIndications: by mouth HERNANDEZ (dyspnea on daily. exertion) fluticasone 50 Use 1 [place] in 16 g 2 11/12/2018 Active mcg/actuation nasal each nostril 2 sprayIndications: (two) times Viral upper daily. respiratory tract infection levothyroxine 100 Take 1 tablet 30 tablet 11 11/12/2018 Active mcg by mouth every tabletIndications: morning. Hypothyroidism, unspecified type albuterol 90 Inhale 2 Puffs 8.5 g 0 11/15/2018 Active mcg/actuation every 4 (four) inhalerIndications: hours as SOB (shortness of needed for breath), Allergic Wheezing or rhinitis, Shortness of unspecified Breath. seasonality, unspecified trigger BUMETANIDE 1 mg TAKE 2 TABLETS 360 tablet 1 01/14/2019 Active tabletIndications: BY MOUTH IN HERNANDEZ (dyspnea on EVERY MORNING exertion), Coronary AND 2 TABETS artery disease EVERY EVENING involving paimiut coronary artery of paimiut heart without angina pectoris Insulin Glargine 100 Inject 30 54 mL 11 01/14/2019 Active unit/mL (3 mL) units every injectionIndications morning and 30 : Type 2 diabetes units at mellitus with bedtime.. complication, with long-term current use of insulin insulin lispro 100 Sliding scale 54 mL 11 01/14/2019 Active unit/mL pen up to 20 units injectorIndications: TIDAC Type 2 diabetes mellitus with complication, with long-term current use of insulin METFORMIN ER 500 mg TAKE 1 TABLET 90 tablet 1 03/21/2019 Active 24 hr BY MOUTH ONCE tabletIndications: DAILY WITH Type 2 diabetes BREAKFAST mellitus with complication, with long-term current use of insulin SITagliptin TAKE 1 TABLET 90 tablet 3 05/24/2019 Active (JANUVIA) 50 mg BY MOUTH ONCE tabletIndications: DAILY Type 2 diabetes mellitus with complication, with long-term current use of insulin meclizine 25 mg Take 1 tablet 30 tablet 1 05/24/2019 Active tabletIndications: by mouth 2 Nausea and vomiting, (two) times intractability of daily. vomiting not specified, unspecified vomiting type JANUVIA 50 mg TAKE 1 TABLET 90 tablet 0 01/25/2019 Discontinued tabletIndications: BY MOUTH ONCE 9 Type 2 diabetes DAILY mellitus with complication, with long-term current use of insulin Hospital, Clinic, or Ordered Dose Route Frequency Start Date End Date Status Other Facility Administered Medication meclizine 25 mg Oral ONCE 05/24/2019 05/24/2019 Discontinued (TRAVEL-EASE (MECLIZINE)) tablet 25 mg documented as of this encounter (statuses as of 05/26/2019) Active Problems Problem Noted Date Nausea and vomiting, intractability of vomiting not specified, unspecified vomiting type Hypothyroidism, unspecified type 05/24/2019 Acute congestive heart failure 09/02/2018 Elevated troponin I level 09/02/2018 Elevated brain natriuretic peptide (BNP) level 09/02/2018 Acute exacerbation of CHF (congestive heart failure) 09/01/2018 CAD (coronary artery disease) 02/26/2018 Coronary artery disease of paimiut artery of paimiut heart with stable 2017 angina pectoris Hyperglycemia 01/17/2018 Coronary artery disease involving paimiut coronary artery of paimiut heart 01/17 with unstable angina pectoris Obstructive sleep apnea (adult) (pediatric) 09/07/2016 CHF exacerbation 06/25/2016 Palpitations 03/07/2016 Dizzy spells 03/07/2016 Dyslipidemia 02/22/2016 Atherosclerosis of paimi[place] coronary artery without angina pectoris 02/22/2016 Sleep [...] as of this encounter (statuses as of 05/26/2019) Resolved Problems Problem Noted Date Resolved Date Carotid stenosis 03/16/2015 10/07/2015 Occlusion and stenosis of carotid artery without mention of 01/29/20152015 cerebral infarction Other specified diabetes mellitus with hyperglycemia 01/29/2015 10/07/2015 Extracranial artery stenosis and occlusion 02/11/2014 10/07/2015 Hypertension 02/11/2014 10/07/2015 documented as of this encounter (statuses as of 05/26/2019) Immunizations Name Administration Dates Next Due Influenza [...] of this encounter Last Filed Vital Signs Vital Sign Reading Time Taken Comments Blood Pressure 149/82 05/24/2019 9:56 AM CDT Pulse 85 05/24/2019 9:53 AM CDT Temperature 37.2 C (98.9 F) 05/24/2019 9:53 AM CDT Respiratory Rate 18 05/24/2019 9:53 AM CDT Oxygen Saturation 95% 05/24/2019 9:53 AM CDT Inhaled Oxygen Concentration - - Weight 120.9 kg (266 lb 8 oz) 05/24/2019 9:53 AM CDT Height - - Body Mass Index 41.74 12/07/2018 3:36 PM NET FISHER documented in this encounter Progress Notes Diego Richard III, MD - 05/24/2019 9:40 AM CDT Cc: Chief Complaint Patient presents with Cough Vomiting x 2 month VERTIGO Lela Pringle is a 63 year old female. Has a cough, vomits almost every morning with intense nausea that passes after some time CONGESTIVE HEART FAILURE Presents for follow-up visit. Associated symptoms include edema, fatigue, paroxysmal nocturnal dyspnea and shortness of breath. Pertinent negatives include no abdominal pain or chest pain. The symptomshave been stable. Medications Outpatient Medications Prior to Visit Medication Sig Dispense Refill METFORMIN ER 500 mg 24 hr tablet TAKE 1 TABLET BY MOUTH ONCE DAILY WITH BREAKFAST 90 tablet 1 BUMETANIDE 1 mg tablet TAKE 2 TABLETS BY MOUTH IN EVERY MORNING AND 2 TABETS EVERY EVENING 360 tablet 1 Insulin Glargine 100 unit/mL (3 mL) injection Inject 30 units every morning and 30 units at bedtime.. 54 mL 11 insulin lispro 100 unit/mL pen injector Sliding scale up to 20 units TIDAC 54 mL 11 albuterol 90 mcg/actuation inhaler Inhale 2 Puffs every 4 (four) hours as needed for Wheezing orShortness of Breath. 8.5 g 0 fluticasone 50 mcg/actuation nasal spray Use 1 [place] in each nostril 2 (two ) times daily. 16 g 2 levothyroxine 100 mcg tablet Take 1 tablet by mouth every morning. 30 tablet 11 paroxetine 40 mg tablet Take 1 tablet by mouth daily. (Patient taking differently: Take 20 mg bymouth daily.) 90 tablet 3 bumetanide 2 mg tablet Take 1 tablet by mouth 2 (two) times daily. metformin ER 500 mg 24 hr tablet Take 1 tablet by mouth daily with breakfast. 30 tablet 11 metoprolol succinate XL 50 mg 24 hr tablet Take 1 tablet by mouth daily. 30 tablet 11 ticagrelor 90 mg tablet Take 1 tablet by mouth 2 (two) times daily. 60 tablet 11 aspirin 81 mg EC tablet Take 81 mg by mouth. atorvastatin 80 mg tablet Take 80 mg by mouth. pantoprazole 40 mg EC tablet Take 40 mg by mouth. blood sugar diagnostic (ACCU-CHEK STEVE PLUS TEST STRP) strip Use as directed, QID, DX: E11.8 300 Strip 1 JANUVIA 50 mg tablet TAKE 1 TABLET BY MOUTH ONCE DAILY 90 tablet 0 No facility-administered medications prior to visit. Review of Systems Constitutional: Positive for fatigue. HENT: Positive for congestion. Respiratory: Positive for cough and shortness of breath. Cardiovascular: Positive for leg swelling. Negative for chest pain. Gastrointestinal: Negative for abdominal pain. Genitourinary: Negative for difficulty urinating. Musculoskeletal: Negative for arthralgias. Neurological: Negative for headaches. Psychiatric/Behavioral: Negative for dysphoric mood. Hematological: Negative for adenopathy. Does not bruise/bleed easily. Vital Signs BP (!) 149/82 (BP Location: Left arm, Patient Position: Sitting, BP CUFF SIZE: Adult Large) | Pulse85 | Temp 37.2 C (98.9 F) (Temporal Artery) | Resp 18 | Wt 266 lb 8 oz (120.9 kg) | LMP 03/29/2010 | SpO2 95% | BMI 41.74 kg/m Physical Exam Constitutional: No distress. Obese elderly female HENT: Mouth/Throat: Oropharynx is clear and moist. Swollen turbinates Cardiovascular: Normal rate and regular rhythm. No murmur heard. Pulmonary/Chest: Effort normal and breath sounds normal. She has no wheezes. She has no rales. Abdominal: She exhibits no mass. Musculoskeletal: She exhibits edema. Lymphadenopathy: She has no cervical adenopathy. Neurological: She is alert. No cranial nerve deficit. Coordination normal. Skin: Skin is warm and dry. Psychiatric: She has a normal mood and affect. Vitals reviewed. A1C today 8.9 Assessment/Plan Hypothyroidism, unspecified type (primary encounter diagnosis) Plan: recheck tsh, on 100mcg Type 2 diabetes mellitus with complication, with long-term current use of insulin Plan: POCT HEMOGLOBIN A1C TEST, THYROID STIMULATING HORMONE, BASIC METABOLIC PANEL (NA, K, CL, CO2, GLUCOSE, BUN, CREATININE, CA), CONSULT/REFERRAL SLEEP CLINIC ADULT PULM, SITagliptin (JANUVIA) 50 mg tablet, refilled, has been off several weeks Acute on chronic diastolic CHF (congestive heart failure), NYHA class 3 Plan: no changes Obstructive sleep apnea (adult) (pediatric) Plan: schedule bipap titration documented in this encounter Plan of Treatment Health [...] 07/28/2018, 12/01/2017, Additional history exists CREATININE (SERUM) 05/24/2020 05/24/2019, 11/15/2018, 11/01/2018, Additional history exists PNEUMOCOCCAL 0-64 YEARS Completed 12/01/2015 COMBINED SERIES HEPATITIS C (HCV) SCREEN Addressed 08/21/2017, 07/17/2017 Overridden with the intention of not completing the topic documented as of this encounter Implants Implanted Type Area Knit Goods Cutter Hand Device Shelf Model / Identifier Expiration Serial / Lot Date Wallstent, [employer] Carotid [id number] #[id number] - [id number] STENT Right: Fraser 04/16/2018 [id number] / Implanted: Qty: 1 on 03/16/2015 by Ernesto Sawyer Jr., MD at [facility] [employer] / [id number] Angio-Seal Evolution Vascular Closure Device [employer] #[id number] - [id number] Right: [employer] 08/04/2015 [id number] / Implanted: Qty: 1 on 02/09/2015 by Nigel Mejia at [facility] / [id number] Angio-Seal Evolution Vascular Closure Device 8fr [employer] #[id number] - [id number] Right: [employer] 12/03/2015 [id number] / Implanted: Qty: 1 on 03/16/2015 by Jarett Orta MD at [facility] / [id number] documented as of this encounter Procedures Procedure Name Priority Date/Time Associated Comments Diagnosis POCT HEMOGLOBIN A1C Routine 05/26/2019 11:09 Type 2 diabetes Results for this TEST AM CDT mellitus with procedure are in complication, with the results long-term current section. use of insulin BASIC METABOLIC PANEL Routine 05/24/2019 11:31 Type 2 diabetes Results for this (NA, K, CL, CO2, AM CDT mellitus with procedure are in GLUCOSE, BUN, complication, with the results CREATININE, CA) long-term current section. use of insulin THYROID STIMULATING Routine 05/24/2019 11:31 Type 2 diabetes Results for this HORMONE AM CDT mellitus with procedure are in complication, with the results long-term current section. use of insulin documented in this encounter Results POCT HEMOGLOBIN A1C TEST (05/26/2019 11:09 AM CDT) Pathologist [facility] POCT HBA1C 8.9 (A) 4 - 6 % Specimen Blood - CAPILLARY BASIC METABOLIC PANEL (NA, K, CL, CO2, GLUCOSE, BUN, CREATININE, CA) (2018 11:31 AM CDT) Pathologist [facility] NA 138 135 - 145 [facility] mmol/L [facility] K 4.7 3.5 - 5.0 [facility] mmol/L [facility] CL 102 98 - 108 mmol/L [facility] CO2 TOTAL 26 23 - 31 mmol/L [facility] AGAP 10 2 - 16 [facility] BUN 30 (H) 7 - 23 mg/dL [facility] GLUCOSE 481 (HH) 70 - 110 mg/dL [facility] CREATININE 1.12 (H) 0.50 - 1.04 [facility] mg/dL [facility] CALCIUM 9.8 8.6 - 10.6 [facility] mg/dL HOSPITAL LABORATORY eGFR Calculation 49.3 mL/min/1.73m2 [facility] (Non[facility] LABORATORY [place]) eGFR Calculation 59.7 mL/min/1.73m2 [facility] () [facility] Specimen Blood Narrative Performed At Association of Glomerular Filtration Rate (GFR) [facility] and Staging of Kidney Disease* + + +- + | GFR (mL/min/1.73 m2)| With Kidney Damage|Without Kidney Damage + + +- + |>90| Stage one| Normal + + +- + |60-89|S tage two| Decreased GFR + + +- + |30-59|S tage three| Stage three + + +- + |15-29|S tage four | Stage four + + +- + |<15 (or dialysis)|Stage five | Stage five + + +- + *Each stage assumes the associated GFR level has been in effect for at least three months.Stages 1 to 5, with or without kidney disease, indicate chronic kidney disease. Notes: Determination of stages one and two (with eGFR >59mL/min/1.73 m2) requires estimation of kidney damage for at least three months as defined by structural or functional abnormalities of the kidney, manifested by either: Pathological abnormalities or Markers of kidney damage (including abnormalities in the composition of the blood or urine or abnormalities in imaging tests). Performing Organization Address [facility] Phone Number [facility] CLIA: [id number], [address] [place] [address] THYROID STIMULATING HORMONE (05/24/2019 11:31 AM CDT) TSH 7.42 (H) 0.45 - 4.70 mIU/L [facility] Specimen Blood Performing Organization Address [facility] Phone Number [facility] CLIA: [id number], [address] [place] [address] documented in this encounter Visit Diagnoses Diagnosis Hypothyroidism, unspecified type - Primary Type 2 diabetes mellitus with complication, with long-term current use of insulin Acute on chronic diastolic CHF (congestive heart failure), NYHA class 3 Obstructive sleep apnea (adult) (pediatric) Nausea and vomiting, intractability of vomiting not specified, unspecified vomiting type documented in this encounter Insurance Payer Benefit Plan / Subscriber ID Effective Phone Address Type Group Dates [place] AARP MEDICARE [id number] 2017-Prese Medicare Adv HEALTHCARE - COMPLETE [facility] MANAGED MEDICARE documented as of this encounter
--- OUTSIDE RECORDS SUMMARY | 2019-08-14 17:40 | XMS REPORT | Summary of Care ---
:[address] [facility] - [facility] Address [address] [place] [id number] Care Team Providers Name Role Phone Diego Richard MD Primary Care Provider Reason for Referral (Routine) Status Reason Specialty Diagnoses / Referred By Referred To Procedures Contact Contact New Request Sleep Disorder Diagnoses Type 2 diabetes mellitus with complication, with long-term current use of insulin Diego Richard Diagnostic Procedures CONSULT/REFERRAL SLEEP CLINIC ADULT PULLei WEINSTEIN MD [address] [place] [address] [address] [place] [address] Reason for Visit Reason Comments Cough Vomiting x 2 month VERTIGO Auth/Cert Status Reason Specialty Diagnoses / Referred By Referred To Procedures Contact Contact Clinical Medical Diagnoses Type 2 diabetes mellitus with complication, with long-term current use of insulin Ad[facility] Lab Laboratory Procedures bmp tsh poct hgba1c [address] [facility] [place] [address] Encounter Details Date Type Department Care Team Description 05/24/2019 Office Visit [facility] Diego Richard III, Hypothyroidism, unspecified type (Primary Dx); Pediatric and Adult Type 2 diabetes mellitus with complication, with long-term current use of insulin; Primary Care- [address] [place] [address] Dr. Bangura on chronic diastolic CHF (congestive heart failure), NYHA class 3; [place] [address] Obstructive sleep apnea (adult) (pediatric); [address] [place] [address] [place] [address] Nausea and vomiting, intractability of vomiting not specified, unspecified vomiting type [address] [place] [address] Allergies Active Allergy Reactions Severity [...] on daily. exertion) fluticasone 50 Use 1 [place] in 16 g 2 11/12/2018 Active mcg/actuation [...] 2 TABETS artery disease EVERY EVENING involving rosebud coronary artery of rosebud heart without angina pectoris Insulin Glargine 100 [...] artery disease) 02/26/2018 Coronary artery disease of rosebud artery of rosebud heart with stable 2017 angina pectoris Hyperglycemia 01/17/2018 Coronary artery disease involving rosebud coronary artery of rosebud heart 01/17 with unstable angina pectoris Obstructive sleep apnea (adult) (pediatric) 09/07/2016 CHF exacerbation 06/25/2016 Palpitations 03/07/2016 Dizzy spells 03/07/2016 Dyslipidemia 02/22/2016 Atherosclerosis of rosebud coronary artery without angina pectoris 02/22/2016 Sleep [...] Body Mass Index 41.74 12/07/2018 3:36 PM [employer] documented in this encounter Progress Notes Diego [...] fluticasone 50 mcg/actuation nasal spray Use 1 [place] in each nostril 2 (two ) times [...] of this encounter Implants Implanted Type Area Fuel Pilot Engineer Device Shelf Model / Identifier Expiration Serial / Lot Date Wallstent, [employer] Carotid [id number] #[id number] - [id number] STENT Right: [employer] 04/16/2018 [id number] / Implanted: Qty: 1 on 03/16/2015 by Ernesto Sawyer Jr., MD at [facility] [employer] / [id number] Angio-Seal Evolution Vascular Closure Device [employer] #[id number] - [id number] Right: [employer] 08/04/2015 [id number] / Implanted: Qty: 1 on 02/09/2015 by Nigel Mejia at [facility] / [id number] Angio-Seal Evolution Vascular Closure Device 8fr [employer] #[id number] - [id number] Right: [employer] 12/03/2015 [id number] / Implanted: Qty: 1 on 03/16/2015 by Jarett Orta MD at [facility] / [id number] documented as of this encounter Procedures Procedure [...] A1C TEST (05/26/2019 11:09 AM CDT) Pathologist [facility] POCT HBA1C 8.9 (A) 4 - 6 % Specimen Blood - CAPILLARY BASIC METABOLIC PANEL (NA, K, CL, CO2, GLUCOSE, BUN, CREATININE, CA) (2018 11:31 AM CDT) Pathologist [facility] NA 138 135 - 145 [facility] mmol/L [facility] K 4.7 3.5 - 5.0 [facility] mmol/L [facility] CL 102 98 - 108 mmol/L [facility] CO2 TOTAL 26 23 - 31 mmol/L [facility] AGAP 10 2 - 16 [facility] BUN 30 (H) 7 - 23 mg/dL [facility] GLUCOSE 481 (HH) 70 - 110 mg/dL [facility] CREATININE 1.12 (H) 0.50 - 1.04 [facility] mg/dL [facility]ORAT[facility] CALCIUM 9.8 8.6 - 10.6 [facility] mg/dL HOSPITAL LABORATORY eGFR Calculation 49.3 mL/min/1.73m2 [facility] ([facility] LABORATORY [place]) eGFR Calculation 59.7 mL/min/1.73m2 [facility] () [facility] Specimen Blood Narrative Performed At Association of Glomerular Filtration Rate (GFR) [facility] and Staging of Kidney Disease* + [...] abnormalities in imaging tests). Performing Organization Address [facility] Phone Number [facility] CLIA: [id number], [address] [place] [address] THYROID STIMULATING HORMONE (05/24/2019 11:31 AM CDT) TSH 7.42 (H) 0.45 - 4.70 mIU/L [facility] Specimen Blood Performing Organization Address [facility] Phone Number [facility] CLIA: [id number], [address] [place] [address] documented in this encounter [...] Address Type Group Dates [employer] AARP MEDICARE [id number] 2017-Prese Medicare Adv HEALTHCARE - COMPLETE [facility] MANAGED MEDICARE documented as of this encounter
--- OUTSIDE RECORDS SUMMARY | 2019-08-14 17:41 | XMS REPORT | Summary of Care ---
:1955 Author Organization [facility] - [facility] Address [address] [place] [address] Care Team Providers Name Role Phone Diego Richard MD Primary Care Provider Reason for Referral (Routine) Status Reason Specialty Diagnoses / Referred By Referred To Procedures Contact Contact New Request Sleep Disorder Diagnoses Type 2 diabetes mellitus with complication, with long-term current use of insulin Diego Richard Diagnostic Procedures CONSULT/REFERRAL SLEEP CLINIC ADULT PULLei WEINSTEIN MD [address] [place] [address] [address] [place] [address] Reason for Visit Reason Comments Cough Vomiting x 2 month VERTIGO Auth/Cert Status Reason Specialty Diagnoses / Referred By Referred To Procedures Contact Contact Clinical Medical Diagnoses Type 2 diabetes mellitus with complication, with long-term current use of insulin Adc Lab Laboratory Procedures bmp tsh poct [id number] [facility] [place] [address] Encounter Details Date Type Department Care Team Description 05/24/2019 Office Visit [facility] Diego Richard III, Hypothyroidism, unspecified type (Primary Dx); Pediatric and Adult Type 2 diabetes mellitus with complication, with long-term current use of insulin; Primary Care- [address] [place] [address] Dr. Bangura on chronic diastolic CHF (congestive heart failure), NYHA class 3; [place] [address] Obstructive sleep apnea (adult) (pediatric); [address] [place] [address] [place] [address] Nausea and vomiting, intractability of vomiting not specified, unspecified vomiting type [address] [place] [address] Allergies Active Allergy Reactions Severity Noted Date Comments Perflutren Lipid Other - See comments Medium 06/26/2016 Patient states "Back Microspheres Pain" on two separate occasions with Definity documented as of this encounter (statuses as of 06/03/2019) Medications Medication Sig Dispensed Refills Start Date [...] on daily. exertion) fluticasone 50 Use 1 [place] in 16 g 2 11/12/2018 Active mcg/actuation [...] 2 TABETS artery disease EVERY EVENING involving lime coronary artery of lime heart without angina pectoris Insulin Glargine 100 [...] as of this encounter (statuses as of 06/03/2019) Active Problems Problem Noted Date Nausea and vomiting, intractability of vomiting not specified, unspecified vomiting type Hypothyroidism, unspecified type 05/24/2019 Acute congestive heart failure 09/02/2018 Elevated troponin I level 09/02/2018 Elevated brain natriuretic peptide (BNP) level 09/02/2018 Acute exacerbation of CHF (congestive heart failure) 09/01/2018 CAD (coronary artery disease) 02/26/2018 Coronary artery disease of lime artery of lime heart with stable 2017 angina pectoris Hyperglycemia 01/17/2018 Coronary artery disease involving lime coronary artery of lime heart 01/17 with unstable angina pectoris Obstructive sleep apnea (adult) (pediatric) 09/07/2016 CHF exacerbation 06/25/2016 Palpitations 03/07/2016 Dizzy spells 03/07/2016 Dyslipidemia 02/22/2016 Atherosclerosis of lime coronary artery without angina pectoris 02/22/2016 Sleep [...] as of this encounter (statuses as of 06/03/2019) Resolved Problems Problem Noted Date Resolved Date Carotid stenosis 03/16/2015 10/07/2015 Occlusion and stenosis of carotid artery without mention of 01/29/20152015 cerebral infarction Other specified diabetes mellitus with hyperglycemia 01/29/2015 10/07/2015 Extracranial artery stenosis and occlusion 02/11/2014 10/07/2015 Hypertension 02/11/2014 10/07/2015 documented as of this encounter (statuses as of 06/03/2019) Immunizations Name Administration Dates Next Due Influenza [...] Body Mass Index 41.74 12/07/2018 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 in this encounter Progress Notes Diego [...] fluticasone 50 mcg/actuation nasal spray Use 1 [place] in each nostril 2 (two ) times [...] documented in this encounter Plan of Treatment Date Type Specialty Care Team Description 07/13[facility]2019 [facility] [address] [facility] [address] [place] [address] Health Maintenance Due Date Last Done Comments DTaP,Tdap,and Td Vaccines 12/29/1975 (1 - Tdap) COLONOSCOPY 2006 Zoster Recombinant Vaccine 2006 (SHINGRIX) (1 of 2) MAMMOGRAM 12/05/2017 12/05/2016, 11/23/2015 URINE MICROALBUMIN 08/21/2018 08/21/2017, 07/17/2017, 10/16/2015, Additional history exists LDL-C 01/19/2019 01/19/2018, 08/21/2017, 07/17/2017, Additional history exists PAP SMEAR 01/22/2019 01/23/2016 (Previously completed), 08/01/2003 EYE EXAM 02/17/2019 02/17/2018, 02/09/2018, 02/09/2018, Additional history exists INFLUENZA VACCINE (#1) 2019 08/25/2018, 07/17/2017, 07/01/2016, Additional history exists FOOT EXAM 07/28/2019 07/28/2018, 07/28/2018, 12/01/2017, Additional history exists HgA1C 11/26/2019 05/26/2019, 07/28/2018, 01/17/2018, Additional history exists CREATININE (SERUM) 05/24/2020 05/24/2019, 11/15/2018, 11/01/2018, Additional history exists PNEUMOCOCCAL 0-64 YEARS Completed 12/01/2015 COMBINED SERIES HEPATITIS C (HCV) SCREEN Addressed 08/21/2017, 07/17/2017 Overridden with the intention of not completing the topic documented as of this encounter Implants Implanted Type Area Tuck Pointer Helper Device Shelf Model / Identifier Expiration Serial / Lot Date Amadeo Cee Carotid [id number] #71-904 - [id number] STENT Right: Amadeo 04/16/2018 [id number] / Implanted: Qty: 1 on 03/16/2015 by Ernesto Sawyer Jr., MD at [facility] / [id number] Angio-Seal Evolution Vascular Closure Device [employer] #[id number] - [id number] Right: [employer] 08/04/2015 [id number] / Implanted: Qty: 1 on 02/09/2015 by Nigel Mejia at [facility] / [id number] Angio-Seal Evolution Vascular Closure Device 8fr [employer] #[id number] - [id number] Right: [employer] 12/03/2015 [id number] / Implanted: Qty: 1 on 03/16/2015 by Jarett Orta MD at [facility] / [id number] documented as of this encounter Procedures Procedure [...] A1C TEST (05/26/2019 11:09 AM CDT) Pathologist [facility] POCT HBA1C 8.9 (A) 4 - 6 % Specimen Blood - CAPILLARY BASIC METABOLIC PANEL (NA, K, CL, CO2, GLUCOSE, BUN, CREATININE, CA) (2018 11:31 AM CDT) Pathologist [facility] NA 138 135 - 145 [facility] mmol/L [facility] K 4.7 3.5 - 5.0 [facility] mmol/L [facility] CL 102 98 - 108 mmol/L [facility] CO2 TOTAL 26 23 - 31 mmol/L [facility] AGAP 10 2 - 16 [facility] BUN 30 (H) 7 - 23 mg/dL [facility] GLUCOSE 481 (HH) 70 - 110 mg/dL [facility] CREATININE 1.12 (H) 0.50 - 1.04 [facility] mg/dL [facility] CALCIUM 9.8 8.6 - 10.6 [facility] mg/dL [facility] eGFR Calculation 49.3 mL/min/1.73m2 [facility] (Non[facility] [place]) eGFR Calculation 59.7 mL/min/1.73m2 [facility] () [facility] Specimen Blood Narrative Performed At Association of Glomerular Filtration Rate (GFR) [facility] and Staging of Kidney [...] abnormalities in imaging tests). Performing Organization Address City/State/Zipcode Phone Number [facility] CLIA: [id number], [address] [place] [address] THYROID STIMULATING HORMONE (05/24/2019 11:31 AM CDT) TSH 7.42 (H) 0.45 - 4.70 mIU/L [facility] Specimen Blood Performing Organization Address City/State/Zipcode Phone Number [facility] CLIA: [id number], [address] [place] [address] documented in this encounter [...] Address Type Group Dates [place] AARP MEDICARE [id number] 2017-Prese Medicare Adv HEALTHCARE - COMPLETE Critical access hospitalO MANAGED MEDICARE documented as of this encounter
--- OUTSIDE RECORDS SUMMARY | 2019-08-14 17:41 | XMS REPORT | Summary of Care ---
:1955 Author Organization [facility] - [facility] Address [address] [place] [address] Care Team Providers Name Role Phone Diego Richard MD Primary Care Provider Encounter Details Date Type Department Care Team Description 06/03/2019 Letter (Out) [facility] Pediatric and Diego Richard III, MD Adult Primary Care- [address] [place] [address] Dr. Nichols [address] , [place] [address] [facility] [phone] [place] [address] [phone] Allergies Active Allergy Reactions Severity Noted Date [...] succinate Take 1 tablet by 30 tablet 11 09/21/2018 Active XL 50 mg 24 hr mouth daily. tabletIndications: HERNANDEZ (dyspnea on exertion) metformin ER 500 mg 24 Take 1 tablet by 30 tablet 11 09/21/2018 Active hr tablet mouth daily with breakfast. ticagrelor 90 mg Take 1 tablet by 60 tablet 11 09/21/2018 Active tabletIndications: HERNANDEZ mouth 2 (two) (dyspnea on exertion) times daily. bumetanide 2 mg tablet Take 1 tablet by 0 09/22/2018 Active mouth 2 (two) times daily. paroxetine 40 mg Take 1 tablet by 90 tablet 3 10/12/2018 Active tabletIndications: HERNANDEZ mouth daily. (dyspnea on exertion) fluticasone 50 Use 1 [place] in 16 g 2 11/12/2018 Active mcg/actuation [...] Coronary artery TABETS EVERY disease involving EVENING [place] coronary artery of [place] heart without angina pectoris Insulin Glargine 100 Inject 30 units 54 mL 11 01/14/2019 Active unit/mL (3 mL) every morning and injectionIndications: 30 units at Type 2 diabetes bedtime.. mellitus with complication, with long-term current use of insulin insulin lispro 100 Sliding scale up 54 mL 01/14/2019 Active unit/mL pen to 20 units TIDAC injectorIndications: Type 2 diabetes mellitus with complication, with long-term current use of insulin METFORMIN ER 500 mg 24 TAKE 1 TABLET BY 90 tablet 1 03/21/2019 Active hr tabletIndications: MOUTH ONCE DAILY Type 2 diabetes WITH BREAKFAST mellitus with complication, with long-term current use of insulin SITagliptin (JANUVIA) TAKE 1 TABLET BY 90 tablet 3 05/24/2019 Active 50 mg MOUTH ONCE DAILY tabletIndications: Type 2 diabetes mellitus with complication, with long-term current use of insulin meclizine 25 mg Take 1 tablet by 30 tablet 1 05/24/2019 Active tabletIndications: mouth 2 (two) Nausea and vomiting, times daily. intractability of vomiting not specified, unspecified vomiting type levothyroxine 112 mcg Take 1 tablet by 30 tablet 11 05/24/2019 Active tabletIndications: mouth every Hypothyroidism, morning. unspecified type documented as of this encounter (statuses as of 06/03/2019) Active Problems Problem Noted Date Nausea and vomiting, intractability of vomiting not specified, unspecified vomiting type Hypothyroidism, unspecified type 05/24/2019 Acute congestive heart failure 09/02/2018 Elevated troponin I level 09/02/2018 Elevated brain natriuretic peptide (BNP) level 09/02/2018 Acute exacerbation of CHF (congestive heart failure) 09/01/2018 CAD (coronary artery disease) 02/26/2018 Coronary artery disease of [place] artery of [place] heart with stable 2017 angina pectoris Hyperglycemia 01/17/2018 Coronary artery disease involving [place] coronary artery of [place] heart 01/17 with unstable angina pectoris Obstructive sleep apnea (adult) (pediatric) 09/07/2016 CHF exacerbation 06/25/2016 Palpitations 03/07/2016 Dizzy spells 03/07/2016 Dyslipidemia 02/22/2016 Atherosclerosis of [place] coronary artery without angina pectoris 02/22/2016 Sleep [...] filedocumented in this encounter Plan of Treatment Date Type Specialty Care Team Description 07/13/2019 Office Visit Pulmonary Disease [facility] Stearns [address] Elizabeth [address] [place] [address] [phone] Health Maintenance Due Date Last Done Comments [...] of this encounter Implants Implanted Type Area Fabric Coating Supervisor Device Shelf Model / Identifier Expiration Serial / Lot Date Amadeo Cee [employer] Carotid [id number] #71-904 - [id number] STENT Right: [place] 04/16/2018 [id number] / Implanted: Qty: 1 on 03/16/2015 by Ernesto Sawyer Jr., MD at [facility] [employer] / [id number] Angio-Seal Evolution Vascular Closure Device [employer] #[id number] - [id number] Right: [employer] 08/04/2015 [id number] / Implanted: Qty: 1 on 02/09/2015 by Nigel Mejia at [facility] [employer] / [id number] Angio-Seal Evolution Vascular Closure Device 8fr [employer] #[id number] - [id number] Right: [employer] 12/03/2015 [id number] / Implanted: Qty: 1 on 03/16/2015 by Jarett Orta MD at [facility] [employer] / [id number] documented as of this encounter Results Not on filedocumented in this encounter Insurance Payer Benefit Plan / Subscriber ID Effective Phone Address Type Group Dates [place] AARP MEDICARE [id number] 2017-Prese Medicare Adv HEALTHCARE - COMPLETE Critical access hospitalO MANAGED MEDICARE documented as of this encounter
--- OUTSIDE RECORDS SUMMARY | 2019-08-14 17:41 | XMS REPORT | Summary of Care ---
:1955 Author Organization [facility] Address [address] [place] [address] Care Team Providers Name Role Phone Diego Richard MD Primary Care Provider Reason for Visit Reason Comments Results Encounter Details Date Type Department Care Team Description 06/01/2019 Telephone [facility] Pediatric and Diego Richard III, MD Results Adult Primary Care- [address] [place] [address] Dr. Nichols [address] , [place] [address] [address] [place] [address] [phone] Allergies Active Allergy Reactions Severity Noted Date [...] (dyspnea on exertion) fluticasone 50 Use 1 [place] in 16 g 2 11/12/2018 Active mcg/actuation [...] Coronary artery TABETS EVERY disease involving EVENING [place] coronary artery of [place] heart without angina pectoris Insulin Glargine 100 [...] artery disease) 02/26/2018 Coronary artery disease of [place] artery of [place] heart with stable 2017 angina pectoris Hyperglycemia 01/17/2018 Coronary artery disease involving [place] coronary artery of [place] heart 01/17 with unstable angina pectoris Obstructive sleep apnea (adult) (pediatric) 09/07/2016 CHF exacerbation 06/25/2016 Palpitations 03/07/2016 Dizzy spells 03/07/2016 Dyslipidemia 02/22/2016 Atherosclerosis of [place] coronary artery without angina pectoris 02/22/2016 Sleep [...] 07/13/2019 Office Visit Pulmonary Disease Ralph Stearns [address] Elizabeth [address] [place] [id number] Health Maintenance Due Date Last Done Comments [...] of this encounter Implants Implanted Type Area Leasing Professional Device Shelf Model / Identifier Expiration Serial / Lot Date Jaye, [place] [employer] Carotid [id number] #71-904 - [id number] STENT Right: [place] 04/16/2018 71-904 / Implanted: Qty: 1 on 03/16/2015 by Ernesto Sawyer Jr., MD at [facility] [employer] / [id number] Angio-Seal Evolution Vascular Closure Device [employer] #[id number] - [id number] Right: [employer] 08/04/2015 [id number] / Implanted: Qty: 1 on 02/09/2015 by Nigel Mejia at [facility] [employer] / [id number] Angio-Seal Evolution Vascular Closure Device 8fr [employer] #[id number] - [id number] Right: [employer] 12/03/2015 [id number] / Implanted: Qty: 1 on 03/16/2015 by Jarett Orta MD at [facility] [employer] / [id number] documented as of this encounter Results Not on filedocumented in this encounter Insurance Payer Benefit Plan / Subscriber ID Effective Phone Address Type Group Dates [place] AARP MEDICARE [id number] 2017-Prese Medicare Adv HEALTHCARE - COMPLETE nt O MANAGED MEDICARE documented as of this encounter
== END 2019-08-04 15:12 | disposition home or self-care (01) ==
LOC: ER 03:13 → 2ND 05:44
PROVIDERS: ADMIT Family Medicine; ATTEND Family Medicine
DX: I50.23 Acute on chronic systolic (congestive) heart failure (principal); I13.0 Hypertensive heart and chronic kidney disease with heart failure and stage 1 through stage 4 chronic kidney disease, or unspecified chronic kidney disease; E11.22 Type 2 diabetes mellitus with diabetic chronic kidney disease; E03.9 Hypothyroidism, unspecified; E78.5 Hyperlipidemia, unspecified; I25.10 Atherosclerotic heart disease of native coronary artery without angina pectoris; N18.4 Chronic kidney disease, stage 4 (severe); E11.65 Type 2 diabetes mellitus with hyperglycemia; F41.8 Other specified anxiety disorders; Z23 Encounter for immunization
CPT/HCPCS: 93005; 93306; 85025; 80048; 36415; 83735; 82550; 82947 ×3; 85610; 80061; 80076; 84443; 83036; 84484 ×2; 82553; 84439; 83880; 71045; 71046; 90471; 76770; 96375; 96374; 99285; J1940 ×2; J1644; Q2035; J3475; J2405; G0378 ×2